=== PATIENT | female | born 1940 | race Caucasian/White ===

== ENCOUNTER 2017-03-07 16:24 | Inpatient (IN) ==
[2017-03-07] MEDS ORDERED: ACETAMINOPHEN 325 MG TABLET PO ONE (17:13)
--- NOTE | 2017-03-07 17:44 | Emergency Department Note ---
Weakness HPI - General Chief complaint: Weakness Stated complaint: Weakness Time Seen by Provider: 03/07/17 16:32 Source: patient Mode of arrival: wheelchair Limitations: no limitations - History of Present Illness HPI Narrative: This pleasant 76-year-old female comes to the emergency room with generalized weakness and left-sided weakness and dry mouth. She reports that this is all related to an MS exacerbation and is exactly like previous ones including the dry mouth and some roughness to her tongue left-sided weakness. No effects on urination. Her MS doctor is Dr. Jyothi Paiz from [facility] in [place]. She feels cold but not having any chills or fever that she is aware of. She has a raging headache that also occurs with her exacerbations. Some dizziness and imbalance. Previously has had exacerbations of MS once or twice per year for which she has been given steroids. She believes they have only been 1 day treatments. Some have been in the emergency room. She has not always had MRIs or CT scans done previous to giving the medications as they have been presumptive diagnoses. - Related Data Home Medications Medication Instructions Recorded Confirmed Baclofen [Lioresal] 10 mg PO TID 12/26/14 03/14/16 Raloxifene HCl [Evista] 60 mg PO DAILY 12/26/14 03/14/16 Amantadine HCl [Amantadine] 100 mg PO BID 05/31/15 03/14/16 Acetaminophen [Tylenol Extra 500 mg PO Q6H PRN 11/07/15 03/14/16 Strength] Aspirin [Ecotrin] 325 mg PO DAILY 11/07/15 03/14/16 Multivitamin [Multi-Day Vitamins] 1 each PO DAILY 11/07/15 03/14/16 Previous Rx's Medication Instructions Recorded Cefdinir 300 mg PO BID #6 capsule 11/09/15 HYDROcodone/APAP 5/325MG [[place] 1 tab PO Q4HP PRN #20 tablet 02/08/16 5/325Mg] HYDROcodone/APAP 5/325MG [[place] 1 tab PO Q4HP PRN #10 tablet 02/16/16 5/325Mg] Vancomycin Oral Zaynab 250 mg PO Q6 14 Days bottle 02/16/16 Allergies Allergy/AdvReac Type Severity Reaction Status Date / Time Penicillins Allergy Intermediate Rash Verified 03/07/17 16:29 Review of Systems Review of Systems: General: Some cold intolerance here this evening. No fevers. Cardiovascular: No chest pains or palpitations. She does have some occasional swelling of her lower legs ankles and feet. Has had a murmur in the past. Pulmonary: No shortness of breath or cough or wheezing; she sometimes is a mouth breather she admits. : Occasional dysuria. Neuro: See above Endocrine: Does have fatigue. Past Medical History - Past Medical History Medical history: Reports: arthritis, cancer (Endometrial, remotely.), CVA (Long time ago.), other (advanced MS, raynaud's phenomenon, heart murmur). Denies: COPD, coronary artery disease, diabetes, GERD, hypertension, myocardial infarction, thyroid disease Surgical history ED: Reports: hysterectomy (for endometrial cancer), knee replacement Psychiatric history: Reports: no psych history. Denies: anxiety, depression - Social History smoking status: Former smoker Alcohol use: Reports: None, Occasionally (white wine 1-2 X/wk.) Drug use: Reports: none Physical Exam - General Limitations: no limitations General appearance: alert, other (Seems to be weak and lethargic and mouth breathing with eyes mostly closed most of the time although responds.) - Head Head exam: atraumatic, normocephalic - Eye Eye exam: Present: normal appearance, PERRL - ENT ENT exam: mucous membranes dry, other ([place] furry tongue.) - Neck Neck exam: Present: trachea midline. Absent: tenderness, lymphadenopathy - Respiratory Respiratory exam: Present: normal lung sounds bilaterally. Absent: respiratory distress, wheezes, stridor, accessory muscle use, prolonged expiratory phase - Cardiovascular Cardiovascular exam: Present: regular rate, normal rhythm, systolic murmur ( loud 3/6, loudest systolic, little less upper left sternal border, radiating to right carotid (vs. bruit)). Absent: diastolic murmur - Abdominal Exam Abdominal exam: Present: soft. Absent: distention, tenderness, guarding, rebound, rigidity - Extremities Exam Extremities exam: Present: other ([place] mottled cool but without cyanosis.) - Back Exam Back exam: Absent: tenderness - Neurological Exam Neurological exam: Present: alert, oriented X3, other (Specimen Accessioner and upper extremity strength for pulling and pushing away seem to be symmetric and appropriate. Thigh flexion and extension seem to be symmetric and appropriate. Plantar and dorsiflexion of the left ankle seem to be weaker than the right.) - Psychiatric Psychiatric exam: Present: normal mood, flat affect - Skin Skin exam: Present: warm, dry, intact Course Vital Signs Temperature 99.0 F H 03/07/17 16:25 Pulse Rate 107 H 03/07/17 16:25 Respiratory Rate 18 03/07/17 16:25 Blood Pressure 157/77 03/07/17 16:25 Pulse Oximetry (%) 99 03/07/17 16:25 Temperature 99.4 F H 03/07/17 18:51 Pulse Rate 98 H 03/07/17 19:31 Respiratory Rate 18 03/07/17 19:31 Blood Pressure 124/55 03/07/17 19:31 Pulse Oximetry (%) 94 03/07/17 19:31 Weakness - MDM Narrative Medical decision making narrative: I discussed with patient the possibilities of giving her steroid treatment in the emergency room. First needing labs to be reassured that she is stable and otherwise, electrolytes, sugar baseline level, make sure she does not have a significant UTI, or other factors that would influence being on the steroid. Labs pending. 6:00 PM With borderline temperature and mild tachycardia and some shivering, the question of is there an infectious or other etiology also afflicting this patient seems pertinent. Lactic acid added. 6:43 PM Elevated WBC; SIRS/Sepsis protocol started started. NO STEROIDS FOR MS EXACERBATION. 7:45 PM patient's lab demonstrated a white count elevation of 25. Looking backwards he has frequently been at 15. Lactic acid was surprisingly low at 0.9 with a CRP surprisingly low in normal range. She had significant anemia with hemoglobin of 8.6 which was new. However, this is probably chronically acquired as she does not have major symptoms. This certainly could be the cause or contributing to her tachycardia. Previous last hemoglobin was 11.1 approximately 1 year ago. In light of the above information, patient's symptoms, probable need for IV steroids for exacerbation of multiple sclerosis, but needing to further rule out a septic pattern or picture, it was felt that she would be best served to be admitted. She will be admitted under observation. This was discussed with the hospitalist. CHEST X-RAY "SMALL VAGUE INFILTRATE RIGHT LUNG BASE. POTENTIAL LINGULAR INFILTRATE". Patient has already been started on antibiotics and this can be followed up. This may be the cause of her white count elevation. - Lab Data Result diagrams: 03/07/17 18:05 03/07/17 18:05 Lab Results 03/07/17 03/07/17 03/07/17 Range/Units 18:05 18:05 18:06 WBC 25.2 H (4.5-11.0) K/mcL RBC 4.12 (4.00-5.20) M/mcL Hgb 8.6 L (12.0-15.0) g/dL Hct 27.6 L (36.0-48.0) % MCV 67.0 L (80.0-100.0) fL MCH 20.8 L (26.0-34.0) pg MCHC 31.0 (31.0-36.0) g/dL RDW 18.8 H (11.5-14.5) % Plt Count 446 H (140-440) K/mcL MPV 8.8 (7.4-10.4) fL Gran % 94.2 H (38.0-78.0) % Lymph % (Auto) 1.3 L (15.5-49.0) % [place]yman % (Auto) 3.8 (1.0-12.0) % Eos % (Auto) 0.1 (0.0-7.0) % Baso % (Auto) 0.6 (0.0-2.0) % Gran # 23.7 H (1.8-8.0) K/mcL Lymph # (Auto) 0.3 L (1.5-4.8) K/mcL Lyman # (Auto) 1.0 H (0.1-0.9) K/mcL Eos # (Auto) 0 (0.0-0.7) K/mcL Baso # (Auto) 0.2 (0.0-0.3) K/mcL VBG Lactic Acid (0.5-2.2) mmol/L Sodium 139 (133-145) mmol/L Potassium 4.1 (3.3-5.1) mmol/L Chloride 98 (96-108) mmol/L Carbon Dioxide 25 (22-30) mmol/L Anion Gap 16.0 (8-16) BUN 16 (8-23) mg/dl Creatinine 0.5 L (0.6-1.1) mg/dl GFR Calculation 95 Glucose 89 (70-105) mg/dL Calcium 9.0 (8.6-10.4) mg/dl Total Bilirubin 0.4 (0.0-1.0) mg/dL AST 30 (0-37) U/l ALT 15 (0-40) U/l Alkaline Phosphatase 84 (39-117) U/L C-Reactive Protein 0.4 (0.0-0.8) mg/dl Total Protein 6.6 (5.9-8.4) gm/dL Albumin 4.1 (3.2-5.2) gm/dL Globulin 2.5 (2.2-3.7) gm/dL Albumin/Globulin Ratio 1.6 (1.0-2.3) Urine Color Yellow Urine Appearance Clear Urine pH 7.0 (5.0-9.0) Ur Specific [place] 1.014 (1.000-1.035) Urine Protein Neg (NEG) mg/dL Urine Glucose (UA) Negative (NEG) mg/dL Urine Ketones Neg (NEG) mg/dL Urine Occult Blood Neg (<0.03) mg/dL Urine Nitrate Neg (NEG) Urine Bilirubin Neg (NEG) mg/dL Urine Urobilinogen Neg (NEG) mg/dL Ur Leukocyte Esterase Neg (NEG) /uL Urine RBC 0 (0-1) /hpf Urine WBC 10 H (0-4) /hpf Ur Squamous Epith Cells 0 (0-4) /hpf Urine Bacteria 0 (0) /hpf Urine Mucus Few (0) /hpf Ur Culture Indicated? Yes 03/07/17 Range/Units 18:51 WBC (4.5-11.0) K/mcL RBC (4.00-5.20) M/mcL Hgb (12.0-15.0) g/dL Hct (36.0-48.0) % MCV (80.0-100.0) fL MCH (26.0-34.0) pg MCHC (31.0-36.0) g/dL RDW (11.5-14.5) % Plt Count (140-440) K/mcL MPV (7.4-10.4) fL Gran % (38.0-78.0) % Lymph % (Auto) (15.5-49.0) % Lyman % (Auto) (1.0-12.0) % Eos % (Auto) (0.0-7.0) % Baso % (Auto) (0.0-2.0) % Gran # (1.8-8.0) K/mcL Lymph # (Auto) (1.5-4.8) K/mcL Lyman # (Auto) (0.1-0.9) K/mcL Eos # (Auto) (0.0-0.7) K/mcL Baso # (Auto) (0.0-0.3) K/mcL VBG Lactic Acid 0.9 (0.5-2.2) mmol/L Sodium (133-145) mmol/L Potassium (3.3-5.1) mmol/L Chloride (96-108) mmol/L Carbon Dioxide (22-30) mmol/L Anion Gap (8-16) BUN (8-23) mg/dl Creatinine (0.6-1.1) mg/dl GFR Calculation Glucose (70-105) mg/dL Calcium (8.6-10.4) mg/dl Total Bilirubin (0.0-1.0) mg/dL AST (0-37) U/l ALT (0-40) U/l Alkaline Phosphatase (39-117) U/L C-Reactive Protein (0.0-0.8) mg/dl Total Protein (5.9-8.4) gm/dL Albumin (3.2-5.2) gm/dL Globulin (2.2-3.7) gm/dL Albumin/Globulin Ratio (1.0-2.3) Urine Color Urine Appearance Urine pH (5.0-9.0) Ur Specific [place] (1.000-1.035) Urine Protein (NEG) mg/dL Urine Glucose (UA) (NEG) mg/dL Urine Ketones (NEG) mg/dL Urine Occult Blood (<0.03) mg/dL Urine Nitrate (NEG) Urine Bilirubin (NEG) mg/dL Urine Urobilinogen (NEG) mg/dL Ur Leukocyte Esterase (NEG) /uL Urine RBC (0-1) /hpf Urine WBC (0-4) /hpf Ur Squamous Epith Cells (0-4) /hpf Urine Bacteria (0) /hpf Urine Mucus (0) /hpf Ur Culture Indicated? Disposition Pt seen by [facility]/PA only: No Clinical Impression: Multiple sclerosis exacerbation, Heart murmur, Right carotid bruit, Perineal irritation in female Leukocytosis (leucocytosis) Qualifiers: Leukocytosis type: leukemoid reaction Qualified Code(s): D72.823 - Leukemoid reaction Anemia Qualifiers: Anemia type: unspecified type Qualified Code(s): D64.9 - Anemia, unspecified Incontinence Qualifiers: Incontinence type: urinary Urinary Incontinence type: other incontinence Qualified Code(s): N39.498 - Other specified urinary incontinence Summary: See medical decision making. Seem to be relatively stable in the emergency room with no significant changes in her vitals. Condition: Fair Referrals: Ivan Yancey DO [Primary Care Provider] -
[2017-03-07 18:35] LABS: Basophils # (Auto) 0.2 K/mcL (0.0-0.3); Basophils % (Auto) 0.6 % (0.0-2.0); Eosinophils # (Auto) 0 K/mcL (0.0-0.7); Eosinophils % (Auto) 0.1 % (0.0-7.0); Granulocytes % (Auto) 94.2 % (38.0-78.0); Lymphocytes # (Auto) 0.3 K/mcL (1.5-4.8); Lymphocytes % (Auto) 1.3 % (15.5-49.0); Mean Corpuscular Hemoglobin 20.8 pg (26.0-34.0); Monocytes % (Auto) 3.8 % (1.0-12.0); Platelet Count 446 K/mcL (140-440); RBC 4.12 M/mcL (4.00-5.20); Red Cell Distribution Width 18.8 % (11.5-14.5)
[2017-03-07 18:45] LABS: Appearance,Urine CLEAR; Bacteria,Urine 0 /hpf (0); Bilirubin,Urine NEG (NEG); Color,Urine YELLOW; Glucose,Urine (UA) NEGATIVE (NEG); Leukocyte Esterase,Urine NEG /uL (NEG); Mucus,Urine FEW /hpf (0); Nitrate,Urine NEG (NEG); Protein,Urine NEG (NEG); Specific Gravity,Urine 1.014 (1.000-1.035); Urine Blood NEG mg/dL (<0.03); Urine RBC 0 /hpf (0-1); Urine Squamous Epithelial Cell 0 /hpf (0-4); Urine WBC 10 /hpf (0-4); Urobilinogen,Urine NEG (NEG)
[2017-03-07 18:53] LABS: ALT/SGPT 15 U/l (0-40); Albumin 4.1 gm/dL (3.2-5.2); Albumin/Globulin Ratio 1.6 (1.0-2.3); Alkaline Phosphatase 84 U/L (39-117); Blood Urea Nitrogen 16 mg/dl (8-23); C-Reactive Protein 0.4 mg/dl (0.0-0.8)
[2017-03-07] MEDS ORDERED: cefTRIAXone 1 GM in DEXTROSE 5% IN WATER 50 ML IV ONE (18:53)
[2017-03-07] MEDS ORDERED: 0.9 % SODIUM CHLORIDE 1,000 ML IV ONE (18:53)
[2017-03-07] MEDS ORDERED: VANCOMYCIN 1,000 MG in 0.9 % SODIUM CHLORIDE 250 ML IV ONE (18:54)
[2017-03-07] MEDS ORDERED: metroNIDAZOLE 500 MG/100 ML BAG IV ONE (18:56)
--- NOTE | 2017-03-07 19:11 | XRay Report ---
CLINICAL INFORMATION: Elevated white blood cell count and tachycardia COMPARISON: 02/10/2016 FINDINGS: The heart is mildly enlarged but unchanged. Mediastinum and pulmonary vessels are normal. Small infiltrate in the right lung base noted potential small lingular infiltrate also noted no definite effusion IMPRESSION: Small vague infiltrate - right lung base. Potential lingular infiltrate Interpreted and Authenticated by: Ivan Anthony 03/07/17
[2017-03-07 20:36] LABS: Estimated Average Glucose(eAG) 97 mg/dL
--- NOTE | 2017-03-07 20:44 | Internal Med History&Physical ---
Medical - H&P: HPI Patient information: Note initiated : 03/07/17 at 8:38 pm Service Date, if different from initiated Date: [] Patient: Inna Selby 76 y/o F admitted on for Weakness. Chief Complaint: legs are weak History of present illness: Ms. Selby is a 76 year old F with a history of multiple sclerosis and chronic left-sided weakness with fecal and urinary incontinence, history of recurrent UTI, history of C. difficile colitis who was in her usual state of health until yesterday when she began experiencing a burning sensation in her vaginal area. She presented to the ER today after having weakness in her bilateral lower extremities, left greater than right. She states this is typical of one of her MS flares. She initially presented to the ED requesting high-dose steroids as she has improved on this in the past. She was found to meet sirs criteria with a white count of 25 and tachycardia in the low 100s. She has new anemia and low -grade fever as well. Chest x-ray revealed a possible right lingular infiltrate. She denies any symptoms of pneumonia including shortness of breath, cough or fever. Her only symptom is vaginal discomfort. With her urinary incontinence she notes she has difficulty with skin care and is prone to recurrent urinary tract infections. She was treated with vancomycin, ceftriaxone and metronidazole in the ED. She has a history of C. difficile colitis. She denies any diarrhea. She denies any joint pain, soft tissue infection or myalgias. She had a febrile illness in 2013 that was attributed to upper respiratory infection versus SI joint infection that was treated with oral Ceftin. She denies any dental pain. She is newly anemic today with a hemoglobin of 8.6. She states she has been told she has been anemic in the past and has had endoscopy for evaluation. She denies any signs or symptoms of bleeding. She denies any tarry stools. She denies chest pain or shortness of breath or dizziness. Review of systems: Please see the HPI. Otherwise a comprehensive review of systems is negative or noncontributory to the chief complaint. Medical - H&P: PMH Medical history: PMH/PSH 1. 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 She is followed by Dr. Rafael Paiz. 2. History of fall with pubic rami fracture. 3. History of C. difficile colitis in 2016 4. UTI 5. History of gallstone pancreatitis and cholangitis status post cholecystectomy and ERCP in 2011 6. Endometrial carcinoma status post hysterectomy and radiation 7. Small bowel obstruction status post exploratory laparoscopy in 2009 8. Raynaud's 9. GERD 10. DJD Pertinent family history: Significant for a sister with lupus and father with diabetes and emphysema. Social history: She lives at home with her . They're both retired. She uses a cane or walker for ambulation. She quit smoking in 1985. She drinks white wine occasionally. She denies recreational drug use. She is DNR/DNI. Her is her surrogate medical decision maker. She is establishing care with Dr. Yancey as her primary care physician. Medical - H&P: Meds Home Medications Medication Instructions Recorded Confirmed Type Baclofen [Lioresal] 10 mg PO TID 12/26/14 03/07/17 History Amantadine HCl [Amantadine] 100 mg PO BID 05/31/15 03/07/17 History Aspirin [Aspirin EC] 81 mg PO DAILY 03/07/17 03/07/17 History Latanoprost Ophth Drops [Xalatan 1 gtt OU HS 03/07/17 03/07/17 History Ophth Drops] Mirabegron [Myrbetriq] 50 mg PO DAILY 03/07/17 03/07/17 History Potassium Chloride [Kdur] 20 meq PO TIDCC 03/07/17 03/07/17 History Allergies Allergy/AdvReac Type Severity Reaction Status Date / Time Penicillins Allergy Intermediate Rash Verified 03/07/17 16:29 Medical - H&P: Exam - Constitutional Vitals: Temp Pulse Resp BP Pulse Ox 99.4 F H 98 H 15 114/75 93 03/07/17 18:51 03/07/17 20:24 03/07/17 20:24 03/07/17 20:01 03/07/17 20:24 General: Frail, pleasant, NAD HEENT: Normocephalic atraumatic. Left-sided ptosis. Pupils are reactive. Neck: Supple without lymphadenopathy or JVD CV: Regular, mild tachycardia. 2/6 Systolic murmur best heard at the right upper sternal border Pulmonary: No excessive muscle use. Clear to auscultation bilaterally. Abdomen: Soft, protuberant. Nontender. Positive bowel tones. : External genitalia is erythematous with intertrigo in the groin folds. Extremities: 2+ edema. No clubbing or cyanosis Skin: Intertrigo as above. She is warm to the touch in her hands are red consistent with Raynaud's Neuro: Alert and oriented 3. Left-sided ptosis. The right corner of her mouth is lower, but she does not really have a facial droop. Strength is symmetric in her bilateral upper extremities. Right lower extremity--she is able to lift her leg off the bed against gravity. 4+/5 with ankle flexion and extension. Left lower extremity--4/5 w ankle flexion and extension. Unable to lift leg against gravity. Medical - H&P: Reslt - Labs CBC & Chem 7: 03/07/17 18:05 03/07/17 18:05 Labs: Short CBC 03/07/17 Range/Units 18:05 WBC 25.2 H (4.5-11.0) K/mcL Hgb 8.6 L (12.0-15.0) g/dL Hct 27.6 L (36.0-48.0) % Plt Count 446 H (140-440) K/mcL BMP 03/07/17 18:05 Sodium 139 Potassium 4.1 Chloride 98 Carbon Dioxide 25 BUN 16 Creatinine 0.5 L Glucose 89 Calcium 9.0 Liver Function 03/07/17 Range/Units 18:05 Total Bilirubin 0.4 (0.0-1.0) mg/dL AST 30 (0-37) U/l ALT 15 (0-40) U/l Alkaline Phosphatase 84 (39-117) U/L Albumin 4.1 (3.2-5.2) gm/dL Urine 03/07/17 Range/Units 18:06 Urine Color Yellow Urine Appearance Clear Urine pH 7.0 (5.0-9.0) Ur Specific [place] 1.014 (1.000-1.035) Urine Protein Neg (NEG) mg/dL Urine Glucose (UA) Negative (NEG) mg/dL - Impressions Chest x-ray shows a questionable right lingular infiltrate. Medical - H&P: A/P - Narrative A/P Narrative: This is a 76-year-old female with a history of multiple sclerosis who presents with MS flare and sepsis of unknown etiology. #Sepsis of unknown etiology lactate normal Differential includes UTI although urine dip is reassuring. Will send for culture and continue empiric antibiotics with vanco, ceftriaxone and metronidazole. Monitor for recurrent C. difficile. Also consider viral infection, bacteremia or osteomyelitis. Continue close clinical monitoring for localizing symptoms. I do not really think she has pneumonia as she has no respiratory symptoms currently. Will check pro-calcitonin and follow-up cultures. #Anemia, microcytic Hemoglobin down to 8.6 from 11.1 last year. History of prior anemia with endoscopic workup. Plan: 1. Will start with iron studies, reticulocyte count and peripheral smear. Consider LDH, haptoglobin, B12, folate, TSH if initial studies are unremarkable. 2. Trend H&H. Transfuse if hemoglobin less than 7.0 or symptomatic. 3. Hold home ASA. #MS flare, likely secondary to infection. I'm hesitant to treat her with high- dose steroids in the setting of unknown infection. We'll continue with neuro checks and continue home meds. PT evaluation. Monitor closely. #Thrombocytosis, likely reactive Continue treatment as above. Monitor. #Intertrigo-will give oral fluconazole x 1 #DVT prophylaxis: SCDs until hemoglobin is known to be stable. #CODE STATUS: She is DNR/DNI. Her is her surrogate medical decision maker.
[2017-03-07] MEDS ORDERED: ONDANSETRON 4 MG/2 ML VIAL IV PRN ×2 (21:07→22:31)
[2017-03-07] MEDS ORDERED: ACETAMINOPHEN 325 MG TABLET PO PRN (21:07)
[2017-03-07] MEDS ORDERED: FLUCONAZOLE 150 MG TABLET PO ONE (21:16)
[2017-03-07] MEDS ORDERED: VANCOMYCIN PER PHARMACY IV SCH (21:16)
[2017-03-07] MEDS ORDERED: 0.9 % SODIUM CHLORIDE 10 ML SYRINGE IV SCH (22:00)
[2017-03-07 22:18] LABS: Iron 17 mcg/dl (37-145); Transferrin % Saturation 3 % (15-50); Unsaturated Iron Binding 439 mcg/dL (112-346)
[2017-03-07] MEDS: VANCOMYCIN 1,000 MG in 0.9 % SODIUM CHLORIDE 250 ML IV SCH (23:11)
[2017-03-07 23:14] LABS: Retic Absolute 1.2 % (0.5-1.5)
[2017-03-08] MEDS: metroNIDAZOLE 500 MG/100 ML BAG IV SCH ×5 (00:53→23:10)
[2017-03-08] MEDS: ACETAMINOPHEN 325 MG TABLET PO PRN ×2 (00:58→08:20)
[2017-03-08] MEDS: 0.9 % SODIUM CHLORIDE 250 ML IV SCH ×2 (01:00→14:16)
[2017-03-08] MEDS ORDERED: ACETAMINOPHEN 325 MG TABLET PO ONE (01:03)
[2017-03-08 05:24] LABS: Mean Cell Volume 67.6 fL (80.0-100.0); Mean Corpuscular HGB Conc 30.9 g/dL (31.0-36.0); Mean Corpuscular Hemoglobin 20.9 pg (26.0-34.0); Platelet Count 404 K/mcL (140-440); RBC 3.47 M/mcL (4.00-5.20); Red Cell Distribution Width 19.1 % (11.5-14.5)
[2017-03-08 05:47] LABS: ALT/SGPT 8 U/l (0-40); Albumin 3.3 gm/dL (3.2-5.2); Albumin/Globulin Ratio 1.7 (1.0-2.3); Alkaline Phosphatase 68 U/L (39-117); Bilirubin,Direct < 0.2 mg/dL (0.0-0.3); Blood Urea Nitrogen 11 mg/dl (8-23); Gamma Glutamyl Transpeptidase 12 U/L (5-36); Magnesium 1.9 mg/dL (1.6-2.5); Uric Acid 2.3 mg/dL (2.5-8.0)
[2017-03-08] MEDS: 0.9 % SODIUM CHLORIDE 10 ML SYRINGE IV SCH ×3 (05:52→20:22)
[2017-03-08 07:25] LABS: Anisocytosis 1+ (NONE SEEN); Hypochromasia 2+ (NONE SEEN); Lymphocytes % 2 % (15-49); Monocytes % (Manual) 2 % (1-12); Platelet Estimate NORMAL (NORMAL); RBC Morphology ABNORM (NORMAL); Segmented Neutrophils % 96 % (38-78)
[2017-03-08] MEDS: POTASSIUM CHLORIDE 20 MEQ TABLET PO SCH ×3 (08:19→17:36)
[2017-03-08] MEDS: AMANTADINE HCL 100 MG CAPSULE PO SCH ×2 (08:19→20:18)
[2017-03-08] MEDS: BACLOFEN 10 MG TABLET PO SCH ×3 (08:19→20:17)
[2017-03-08] MEDS: cefTRIAXone 1 GM in DEXTROSE 5% IN WATER 50 ML IV SCH (08:44)
[2017-03-08] MEDS ORDERED: cefTRIAXone 1 GM in DEXTROSE 5% IN WATER 50 ML IV SCH (09:00)
[2017-03-08] MEDS ORDERED: IRON SUCROSE COMPLEX 100 MG/5 ML VIAL IV ONE (09:30)
[2017-03-08] MEDS: VANCOMYCIN 1,000 MG in 0.9 % SODIUM CHLORIDE 250 ML IV SCH (10:42)
--- NOTE | 2017-03-08 14:10 | Internal Med Progress Note ---
Medical - PN: Subj Patient information: Note initiated : 03/08/17 at 2:03 pm Service Date, if different from initiated Date: [] Patient: Inna Selby 76 y/o F admitted on 03/07/17 for Weakness. Chief Complaint: Left leg weakness, sepsis Interval history: Admission March 07: This is a 76-year-old female with a history of multiple sclerosis and chronic left leg weakness with fecal and urinary incontinence, history of recurrent UTI , history of C. difficile colitis who presented with a one-day history of vaginal burning and worsening left leg weakness and it has sepsis of unknown etiology and new anemia. She was treated with them. Vancomycin, ceftriaxone and metronidazole for sepsis as well as receiving a dose of oral fluconazole for a groin yeast infection. She was found to be newly anemic with a hemoglobin of 8.6. She has had microcytic anemia and the past. March 08: Her white count has improved from 25 to 19. Unfortunately her hemoglobin has also worsened to 7.3 but I suspect this is dilutional and she has had no signs of bleeding. She is feeling better today. Cultures are still negative. Her left eye is drooping last, but her left leg is still weaker than normal. She states that she normally has L leg weakness but that this is not significant until the afternoon. Her vaginal burning and mons pubis irritation is improving. Pertinent ROS: No fevers, nausea or shortness of breath. - Constitutional Vitals: Vital Signs Temp Pulse Resp BP Pulse Ox 98.5 F 68 18 138/62 96 03/08/17 11:14 03/08/17 03:52 03/08/17 11:14 03/08/17 11:14 03/08/17 11:14 Period Temp Pulse Resp BP Sys/Ellis Pulse Ox Last 24 Hr 97.9 F-99.4 F 68-112 15-27 111-169/49-81 91-100 Intake and Output 03/08/17 03/08/17 03/08/17 05:59 13:59 21:59 Intake Total 100 / 100 400 / 400 Output Total 3 / 3 Balance 99 / 99 397 / 397 Weight 120 lb General: NAD. She seems more alert than last night. HEENT: Improving left-sided ptosis. CV: Regular rate and rhythm. No murmurs. Pulmonary: Clear to auscultation bilaterally. Abdomen: Soft, nondistended, nontender. Positive bowel tones. Extremities: No clubbing, cyanosis or edema. She is wearing SHANE hose bilaterally. Her hands have continues consistent with Raynaud's Neuro: She is alert and oriented 3. Still has left leg weakness Intake & Output: Intake & Output 03/08/17 03/08/17 03/08/17 05:59 13:59 21:59 Intake Total 100 / 100 400 / 400 Output Total Balance 99 / 99 397 / 397 Weight 120 lb Intake: IV 100 / 100 400 / 400 Vancomycin 1,000 mg In Sodium 250 / 250 Chloride 0.9% 250 ml @ 250 mls/ hr IV Q24H SAUNDRA Rx#:[id number] Rocephin 1 gm In Dextrose 5% in 50 / 50 Water 50 ml @ 100 mls/hr IV Q24H SAUNDRA Rx#:[id number] Output: # of times incontinent of urine Other: # Voids 1 # Bowel Movements 1 # of times incontinent of 1 Bowels Medical - PN: Obj Da - Labs CBC & Chem 7: 03/08/17 04:14 03/08/17 04:14 Labs: Abnormal Lab Results 03/08/17 03/08/17 03/07/17 04:14 04:14 18:06 WBC 19.7 H RBC 3.47 L Hgb 7.3 L Hct 23.5 L MCV 67.6 L MCH 20.9 L MCHC 30.9 L RDW 19.1 H Plt Count Gran % Lymph % (Auto) Gran # Lymph # (Auto) [place] # (Auto) Seg Neutrophils % 96 H Lymphocytes % 2 L RBC Morphology Abnorm A Hypochromasia 2+ A Anisocytosis 1+ A Microcytosis 3+ A Creatinine Uric Acid 2.3 L Calcium 8.2 L Iron TIBC Unsat Iron Binding Transferrin % Sat Ferritin Total Protein 5.2 L Globulin 1.9 L Urine WBC 10 H 03/07/17 03/07/17 03/07/17 18:05 18:05 18:05 WBC 25.2 H RBC Hgb 8.6 L Hct 27.6 L MCV 67.0 L MCH 20.8 L MCHC RDW 18.8 H Plt Count 446 H Gran % 94.2 H Lymph % (Auto) 1.3 L Gran # 23.7 H Lymph # (Auto) 0.3 L [place] # (Auto) 1.0 H Seg Neutrophils % Lymphocytes % RBC Morphology Hypochromasia Anisocytosis Microcytosis Creatinine 0.5 L Uric Acid Calcium Iron 17 L TIBC 456 H Unsat Iron Binding 439 H Transferrin % Sat 3 L Ferritin 7.0 L Total Protein Globulin Urine WBC Meds: Medications Acetaminophen (Tylenol) 650 mg PO Q6HP PRN PRN Reason: PAIN/FEVER > 101 Last Admin: 03/08/17 08:20 Dose: 650 mg Amantadine HCl (Amantadine) 100 mg PO BID [facility] Last Admin: 03/08/17 08:19 Dose: 100 mg Baclofen (Lioresal) 10 mg PO TID [facility] Last Admin: 03/08/17 08:19 Dose: 10 mg Metronidazole (Flagyl) 500 mg in 100 mls @ 100 mls/hr IV Q8H [facility] Last Infusion: 03/08/17 06:51 Dose: Infused Vancomycin HCl 1,000 mg/ (Sodium Chloride) 250 mls @ 250 mls/hr IV Q24H [facility] Last Infusion: 03/08/17 12:05 Dose: Infused Ceftriaxone Sodium 1 gm/ (Dextrose) 50 mls @ 100 mls/hr IV Q24H [facility] Last Infusion: 03/08/17 09:14 Dose: Infused Sodium Chloride (Sodium Chloride 0.9%) 250 mls @ 20 mls/hr IV .[id number] [facility] Last Admin: 03/08/17 01:00 Dose: Not Given Lactobacillus Rhamnosus (Culturelle) 1 cap PO BID [facility] Latanoprost (Xalatan Ophth Drops) 1 gtt OU HS [facility] Ondansetron HCl (Zofran) 4 mg IV Q6HP PRN PRN Reason: Nausea And Vomiting Mirabegron [ (Myrbetriq] 50 Mg Tab) 1 dose PO DAILY [facility] Last Admin: 03/08/17 08:21 Dose: 1 dose Potassium Chloride (Kdur) 20 meq PO TIDCC [facility] Last Admin: 03/08/17 12:38 Dose: 20 meq Sodium Chloride (Saline Flush) 10 ml IV Q8 [facility] Last Admin: 03/08/17 13:55 Dose: Not Given Vancomycin HCl (Vancomycin Per Pharmacy) 1 order IV UD [facility] Medical - PN: A/P - Time Spent With Patient Total time spent is greater than 50% in coordination of care (as documented) at patient's floor/unit and/or counseling patient: Greater than 35 minutes - Narrative A/P Narrative: #Sepsis of unknown etiology lactate normal; PCT 0.32 Differential includes UTI although urine dip is reassuring. F/U urine cx and continue empiric antibiotics with vanco, ceftriaxone and metronidazole. consider DC of vanco tomorrow if cx remain negative. Monitor for recurrent C. difficile. Also consider viral infection, bacteremia or osteomyelitis. Continue close clinical monitoring for localizing symptoms. I do not really think she has pneumonia as she has no respiratory symptoms currently. #Anemia, microcytic--Fe deficiency Hemoglobin down to 7.3 from 8.6 on admission. History of prior anemia with endoscopic workup. Plan: 1. IV iron. Microdraws. Trend again in AM. Transfuse if Hgb less than 7.0. #MS flare, likely secondary to infection. I'm hesitant to treat her with high- dose steroids in the setting of unknown infection. We'll continue with neuro checks and continue home meds. PT evaluation. Monitor closely. #Thrombocytosis, likely reactive Improved. Continue treatment as above. Monitor. #Intertrigo, improved. s/p oral fluconazole x 1 #DVT prophylaxis: SCDs until hemoglobin is known to be stable. #CODE STATUS: She is DNR/DNI. Her is her surrogate medical decision maker. Medical - PN: Qual - VTE Deep Vein Thrombosis/Pulmonary Embolism Present on Admission: No
[2017-03-08] MEDS: LATANOPROST OPHTH DROPS 2.5ML BOTTLE OU SCH (20:18)
[2017-03-08] MEDS: LACTOBACILLUS 1 CAPSULE PO SCH (20:18)
[2017-03-09] MEDS: ACETAMINOPHEN 325 MG TABLET PO PRN ×2 (00:29→22:44)
[2017-03-09] MEDS: 0.9 % SODIUM CHLORIDE 250 ML IV SCH ×3 (01:09→23:48)
[2017-03-09] MEDS: 0.9 % SODIUM CHLORIDE 10 ML SYRINGE IV SCH ×3 (05:48→22:04)
[2017-03-09] MEDS: metroNIDAZOLE 500 MG/100 ML BAG IV SCH ×2 (05:48→13:34)
[2017-03-09 06:23] LABS: Mean Cell Volume 68.1 fL (80.0-100.0); Mean Corpuscular HGB Conc 30.6 g/dL (31.0-36.0); Mean Corpuscular Hemoglobin 20.8 pg (26.0-34.0); Platelet Count 360 K/mcL (140-440); RBC 4.03 M/mcL (4.00-5.20); Red Cell Distribution Width 19.5 % (11.5-14.5)
[2017-03-09 06:56] LABS: ALT/SGPT 10 U/l (0-40); Albumin 3.3 gm/dL (3.2-5.2); Albumin/Globulin Ratio 1.5 (1.0-2.3); Alkaline Phosphatase 73 U/L (39-117); Bilirubin,Direct < 0.2 mg/dL (0.0-0.3); Blood Urea Nitrogen 8 mg/dl (8-23); Gamma Glutamyl Transpeptidase 9 U/L (5-36); Magnesium 1.9 mg/dL (1.6-2.5); Uric Acid 2.4 mg/dL (2.5-8.0)
[2017-03-09 07:15] LABS: Anisocytosis 1+ (NONE SEEN); Basophils % (Manual) 1 % (0-2); Eosinophils % (Manual) 3 % (0-7); Hypochromasia 2+ (NONE SEEN); Lymphocytes % 9 % (15-49); Monocytes % (Manual) 3 % (1-12); Platelet Estimate NORMAL (NORMAL); RBC Morphology ABNORM (NORMAL); Segmented Neutrophils % 84 % (38-78)
[2017-03-09] MEDS ORDERED: IRON SUCROSE COMPLEX 100 MG/5 ML VIAL IV ONE (07:31)
[2017-03-09] MEDS: POTASSIUM CHLORIDE 20 MEQ TABLET PO SCH ×3 (09:21→17:49)
[2017-03-09] MEDS: LACTOBACILLUS 1 CAPSULE PO SCH ×2 (09:21→20:07)
[2017-03-09] MEDS: BACLOFEN 10 MG TABLET PO SCH ×3 (09:22→20:07)
[2017-03-09] MEDS: cefTRIAXone 1 GM in DEXTROSE 5% IN WATER 50 ML IV SCH (09:22)
[2017-03-09] MEDS: AMANTADINE HCL 100 MG CAPSULE PO SCH ×2 (09:40→20:08)
[2017-03-09] MEDS ORDERED: FLU VACC QS2017-18 36MOS UP/PF 60 MCG/0.5 ML SYRINGE IM ONE (10:00)
--- NOTE | 2017-03-09 15:22 | Internal Med Progress Note ---
Medical - PN: Subj Patient information: Note initiated : 03/09/17 at 3:19 pm Service Date, if different from initiated Date: [] Patient: Inna Selby 76 y/o F admitted on 03/07/17 for Weakness. Chief Complaint: [] Interval history: Admission March 07: This is a 76-year-old female with a history of multiple sclerosis and chronic left leg weakness with fecal and urinary incontinence, history of recurrent UTI , history of C. difficile colitis who presented with a one-day history of vaginal burning and worsening left leg weakness and it has sepsis of unknown etiology and new anemia. She was treated with them. Vancomycin, ceftriaxone and metronidazole for sepsis as well as receiving a dose of oral fluconazole for a groin yeast infection. She was found to be newly anemic with a hemoglobin of 8.6. She has had microcytic anemia and the past. March 08: Her white count has improved from 25 to 19. Unfortunately her hemoglobin has also worsened to 7.3 but I suspect this is dilutional and she has had no signs of bleeding. She is feeling better today. Cultures are still negative. Her left eye is drooping last, but her left leg is still weaker than normal. She states that she normally has L leg weakness but that this is not significant until the afternoon. Her vaginal burning and mons pubis irritation is improving. March 09: Was incontinent of stool today and found to be C. difficile positive. On further questioning, she likely had diarrhea the day of presentation and so her entire presentation is likely related to severe C. difficile colitis. Vancomycin, ceftriaxone and metronidazole have been discontinued in favor of oral vancomycin. She is getting stronger, but is still not back to baseline. Her leukocytosis is improving. Hgb improved and she continues on IV Fe. Pertinent ROS: no fever or cp - Constitutional Vitals: Vital Signs Temp Pulse Resp BP Pulse Ox 98.2 F 79 16 123/70 96 03/09/17 12:00 03/09/17 12:00 03/09/17 12:00 03/09/17 12:00 03/09/17 12:00 Period Temp Pulse Resp BP Sys/Ellis Pulse Ox Last 24 Hr 98.0 F-98.5 F 79-91 14-18 123-168/60-80 92-96 Intake and Output 03/09/17 03/09/17 03/09/17 05:59 13:59 21:59 Intake Total 700 / 700 710 / 710 100 / 100 Output Total Balance 698 / 698 709 / 709 100 / 100 Intake & Output: Intake & Output 03/09/17 03/09/17 03/09/17 05:59 13:59 21:59 Intake Total 700 / 700 710 / 710 100 / 100 Output Total Balance 698 / 698 709 / 709 100 / 100 Intake: IV 100 / 100 350 / 350 100 / 100 Sodium Chloride 0.9% 250 ml @ 250 / 250 20 mls/hr IV .[id number] [facility]UNDRA Rx#: [id number] Oral 600 / 600 360 / 360 Output: # of times incontinent of urine Other: Meal Lunch Percent of Meal Consumed 75% Feeding Ability Assist with Tray Set Up # Voids 1 # Bowel Movements 1 General: NAD. Up in chair. HEENT: Improving left-sided ptosis. CV: Regular rate and rhythm. No murmurs. Pulmonary: Clear to auscultation bilaterally. Abdomen: Soft, nondistended, nontender. Positive bowel tones. Extremities: No clubbing, cyanosis or edema. She is wearing SHANE hose bilaterally. Her hands have changes consistent with Raynaud's Neuro: She is alert and oriented 3. Still has left leg weakness Medical - PN: Obj Da - Labs CBC & Chem 7: 03/09/17 04:58 03/09/17 04:58 Labs: Abnormal Lab Results 03/09/17 03/09/17 03/08/17 04:58 04:58 04:14 WBC RBC Hgb 8.4 L Hct 27.4 L MCV 68.1 L MCH 20.8 L MCHC 30.6 L RDW 19.5 H Plt Count Gran % Lymph % (Auto) Gran # Lymph # (Auto) [place] # (Auto) Seg Neutrophils % 84 H Lymphocytes % 9 L RBC Morphology Abnorm A Hypochromasia 2+ A Anisocytosis 1+ A Microcytosis 3+ A RBC Fragments Rare A Creatinine 0.5 L Uric Acid 2.4 L 2.3 L Calcium 8.2 L Iron TIBC Unsat Iron Binding Transferrin % Sat Ferritin Total Protein 5.5 L 5.2 L Globulin 1.9 L Urine WBC 0903/07/17 03/07/17 04:14 18:06 18:05 WBC 19.7 H RBC 3.47 L Hgb 7.3 L Hct 23.5 L MCV 67.6 L MCH 20.9 L MCHC 30.9 L RDW 19.1 H Plt Count Gran % Lymph % (Auto) Gran # Lymph # (Auto) [place] # (Auto) Seg Neutrophils % 96 H Lymphocytes % 2 L RBC Morphology Abnorm A Hypochromasia 2+ A Anisocytosis 1+ A Microcytosis 3+ A RBC Fragments Creatinine Uric Acid Calcium Iron 17 L TIBC 456 H Unsat Iron Binding 439 H Transferrin % Sat 3 L Ferritin 7.0 L Total Protein Globulin Urine WBC 10 H 03/07/17 03/07/17 18:05 18:05 WBC 25.2 H RBC Hgb 8.6 L Hct 27.6 L MCV 67.0 L MCH 20.8 L MCHC RDW 18.8 H Plt Count 446 H Gran % 94.2 H Lymph % (Auto) 1.3 L Gran # 23.7 H Lymph # (Auto) 0.3 L [place] # (Auto) 1.0 H Seg Neutrophils % Lymphocytes % RBC Morphology Hypochromasia Anisocytosis Microcytosis RBC Fragments Creatinine 0.5 L Uric Acid Calcium Iron TIBC Unsat Iron Binding Transferrin % Sat Ferritin Total Protein Globulin Urine WBC Meds: Medications Acetaminophen (Tylenol) 650 mg PO Q6HP PRN PRN Reason: PAIN/FEVER > 101 Last Admin: 03/09/17 00:29 Dose: 650 mg Amantadine HCl (Amantadine) 100 mg PO BID [facility] Last Admin: 03/09/17 09:40 Dose: 100 mg Baclofen (Lioresal) 10 mg PO TID [facility] Last Admin: 03/09/17 09:22 Dose: 10 mg Sodium Chloride (Sodium Chloride 0.9%) 250 mls @ 20 mls/hr IV .[id number] [facility] Last Admin: 03/09/17 12:22 Dose: 20 mls/hr Lactobacillus Rhamnosus (Culturelle) 1 cap PO BID [facility] Last Admin: 03/09/17 09:21 Dose: 1 cap Latanoprost (Xalatan Ophth Drops) 1 gtt OU HS [facility] Last Admin: 03/08/17 20:18 Dose: 1 gtt Ondansetron HCl (Zofran) 4 mg IV Q6HP PRN PRN Reason: Nausea And Vomiting Mirabegron [ (Myrbetriq] 50 Mg Tab) 1 dose PO DAILY [facility] Last Admin: 03/09/17 09:22 Dose: 1 dose Potassium Chloride (Kdur) 20 meq PO TIDCC [facility] Last Admin: 03/09/17 12:21 Dose: 20 meq Sodium Chloride (Saline Flush) 10 ml IV Q8 [facility] Last Admin: 03/09/17 13:34 Dose: Not Given Vancomycin HCl (Vancomycin Oral Zaynab) 125 mg PO QID [facility] Medical - PN: A/P - Time Spent With Patient Total time spent is greater than 50% in coordination of care (as documented) at patient's floor/unit and/or counseling patient: Greater than 35 minutes - Narrative A/P Narrative: #Sepsis 2/2 severe C diff lactate normal; PCT 0.32 Poor historian, but thinks now that she had diarrhea on day of admission DC all current Abx. Change to po vancomycin. #Anemia, microcytic--Fe deficiency Hemoglobin stable. History of prior anemia with endoscopic workup. Consider repeating endoscopy after discharge. Plan: 1. IV iron x 3. Microdraws. Trend again in AM. Transfuse if Hgb less than 7.0. #MS flare, likely secondary to infection. Improving. Will continue with neuro checks and continue home meds. PT evaluation. Monitor closely. #Thrombocytosis, likely reactive Improved. Continue treatment as above. Monitor. #Intertrigo, improved. s/p oral fluconazole x 1 #DVT prophylaxis: SCDs until hemoglobin is known to be stable. #CODE STATUS: She is DNR/DNI. Her is her surrogate medical decision maker. #ADOD: possibly home tomorrow with . Medical - PN: Qual - VTE Deep Vein Thrombosis/Pulmonary Embolism Present on Admission: No
[2017-03-09] MEDS: VANCOMYCIN ORAL SOL 1,000 MG/10 ML BOTTLE PO SCH ×2 (17:50→20:08)
[2017-03-09] MEDS: LATANOPROST OPHTH DROPS 2.5ML BOTTLE OU SCH (20:07)
[2017-03-10] MEDS: 0.9 % SODIUM CHLORIDE 250 ML IV SCH ×2 (02:17→13:02)
[2017-03-10 05:42] LABS: Mean Cell Volume 66.8 fL (80.0-100.0); Mean Corpuscular Hemoglobin 20.7 pg (26.0-34.0); Platelet Count 429 K/mcL (140-440); RBC 3.96 M/mcL (4.00-5.20)
[2017-03-10 06:01] LABS: ALT/SGPT 9 U/l (0-40); Albumin 3.1 gm/dL (3.2-5.2); Albumin/Globulin Ratio 1.4 (1.0-2.3); Alkaline Phosphatase 68 U/L (39-117); Bilirubin,Direct < 0.2 mg/dL (0.0-0.3); Blood Urea Nitrogen 12 mg/dl (8-23); Gamma Glutamyl Transpeptidase 10 U/L (5-36); Magnesium 1.9 mg/dL (1.6-2.5); Uric Acid 2.5 mg/dL (2.5-8.0)
[2017-03-10] MEDS: 0.9 % SODIUM CHLORIDE 10 ML SYRINGE IV SCH ×3 (06:30→20:44)
[2017-03-10 06:34] LABS: Anisocytosis 1+ (NONE SEEN); Band Neutrophils % 1 % (0-10); Eosinophils % (Manual) 2 % (0-7); Hypochromasia 2+ (NONE SEEN); Lymphocytes % 11 % (15-49); Metamyelocytes % 1 % (0-0); Monocytes % (Manual) 12 % (1-12); Myelocytes % 1 % (0-0); Platelet Estimate NORMAL (NORMAL); RBC Morphology ABNORM (NORMAL); Segmented Neutrophils % 72 % (38-78)
[2017-03-10] MEDS ORDERED: IRON SUCROSE COMPLEX 100 MG/5 ML VIAL IV ONE (06:36)
[2017-03-10] MEDS: BACLOFEN 10 MG TABLET PO SCH ×3 (08:16→20:41)
[2017-03-10] MEDS: LACTOBACILLUS 1 CAPSULE PO SCH ×2 (08:16→20:41)
[2017-03-10] MEDS: POTASSIUM CHLORIDE 20 MEQ TABLET PO SCH ×3 (08:16→17:17)
[2017-03-10] MEDS: AMANTADINE HCL 100 MG CAPSULE PO SCH ×2 (08:17→20:42)
[2017-03-10] MEDS: VANCOMYCIN ORAL SOL 1,000 MG/10 ML BOTTLE PO SCH ×4 (08:28→20:42)
--- NOTE | 2017-03-10 11:45 | Internal Med Progress Note ---
Medical - PN: Subj Patient information: Note initiated : 03/10/17 at 11:42 am Service Date, if different from initiated Date: [] Patient: Inna Selby 76 y/o F admitted on 03/07/17 for Weakness/Sepsis. Chief Complaint: [] Interval history: Admission March 07: This is a 76-year-old female with a history of multiple sclerosis and chronic left leg weakness with fecal and urinary incontinence, history of recurrent UTI , history of C. difficile colitis who presented with a one-day history of vaginal burning and worsening left leg weakness and it has sepsis of unknown etiology and new anemia. She was treated with them. Vancomycin, ceftriaxone and metronidazole for sepsis as well as receiving a dose of oral fluconazole for a groin yeast infection. She was found to be newly anemic with a hemoglobin of 8.6. She has had microcytic anemia and the past. March 08: Her white count has improved from 25 to 19. Unfortunately her hemoglobin has also worsened to 7.3 but I suspect this is dilutional and she has had no signs of bleeding. She is feeling better today. Cultures are still negative. Her left eye is drooping last, but her left leg is still weaker than normal. She states that she normally has L leg weakness but that this is not significant until the afternoon. Her vaginal burning and mons pubis irritation is improving. March 09: Was incontinent of stool today and found to be C. difficile positive. On further questioning, she likely had diarrhea the day of presentation and so her entire presentation is likely related to severe C. difficile colitis. Vancomycin, ceftriaxone and metronidazole have been discontinued in favor of oral vancomycin. She is getting stronger, but is still not back to baseline. Her leukocytosis is improving. Hgb improved and she continues on IV Fe. March 10: She remains weak and is having difficulty getting around with her frequent bowel movements. She is receiving her last dose of IV iron today. Pertinent ROS: no fever or sob - Constitutional Vitals: Vital Signs Temp Pulse Resp BP Pulse Ox 97.8 F 80 16 121/62 90 03/10/17 11:24 03/10/17 04:00 03/10/17 11:24 03/10/17 11:24 03/10/17 11:24 Period Temp Pulse Resp BP Sys/Ellis Pulse Ox Last 24 Hr 97.4 F-98.4 F 79-85 16-18 121-167/59-80 90-98 Intake and Output 03/09/17 03/10/17 03/10/17 21:59 05:59 13:59 Intake Total 100 / 100 604 / 604 Output Total 2 / 2 Balance 99 / 99 602 / 602 Weight 118 lb Intake & Output: Intake & Output 03/09/17 03/10/17 03/10/17 21:59 05:59 13:59 Intake Total 100 / 100 604 / 604 Output Total 2 2 Balance 99 / 99 602 / 602 Weight 118 lb Intake: IV 100 / 100 229 / 229 Sodium Chloride 0.9% 250 ml @ 229 / 229 20 mls/hr IV .[id number] [facility]UNDAR Rx#: [id number] Oral 375 / 375 Output: # of times incontinent of urine Other: # Voids 1 1 # Bowel Movements 1 # of times incontinent of 1 1 Bowels Exam: General: NAD. Up in chair. HEENT: Mild left-sided ptosis. CV: Regular rate and rhythm. No murmurs. Pulmonary: Clear to auscultation bilaterally. Abdomen: Soft, nondistended, nontender. Positive bowel tones. Extremities: No clubbing, cyanosis or edema. She is wearing SHANE hose bilaterally. Her hands have changes consistent with Raynaud's Neuro: She is alert and oriented 3. Still has left leg weakness Medical - PN: Obj Da - Labs CBC & Chem 7: 03/10/17 04:35 03/10/17 04:35 Labs: Abnormal Lab Results 03/10/17 03/10/17 03/09/17 04:35 04:35 04:58 WBC 11.4 H RBC 3.96 L Hgb 8.2 L Hct 26.4 L MCV 66.8 L MCH 20.7 L MCHC RDW 20.0 H Plt Count Gran % Lymph % (Auto) Gran # Lymph # (Auto) [place] # (Auto) Seg Neutrophils % Lymphocytes % 11 L Metamyelocytes % 1 H Myelocytes % 1 H RBC Morphology Abnorm A Hypochromasia 2+ A Anisocytosis 1+ A Microcytosis 3+ A RBC Fragments Creatinine 0.5 L 0.5 L Uric Acid 2.4 L Calcium 8.5 L Iron TIBC Unsat Iron Binding Transferrin % Sat Ferritin Total Protein 5.3 L 5.5 L Albumin 3.1 L Globulin Urine WBC 03/09/17 03/08/17 03/08/17 04:58 04:14 04:14 WBC 19.7 H RBC 3.47 L Hgb 8.4 L 7.3 L Hct 27.4 L 23.5 L MCV 68.1 L 67.6 L MCH 20.8 L 20.9 L MCHC 30.6 L 30.9 L RDW 19.5 H 19.1 H Plt Count Gran % Lymph % (Auto) Gran # Lymph # (Auto) [place] # (Auto) Seg Neutrophils % 84 H 96 H Lymphocytes % 9 L 2 L Metamyelocytes % Myelocytes % RBC Morphology Abnorm A Abnorm A Hypochromasia 2+ A 2+ A Anisocytosis 1+ A 1+ A Microcytosis 3+ A 3+ A RBC Fragments Rare A Creatinine Uric Acid 2.3 L Calcium 8.2 L Iron TIBC Unsat Iron Binding Transferrin % Sat Ferritin Total Protein 5.2 L Albumin Globulin 1.9 L Urine WBC 03/07/17 03/07/17 03/07/17 18:06 18:05 18:05 WBC RBC Hgb Hct MCV MCH MCHC RDW Plt Count Gran % Lymph % (Auto) Gran # Lymph # (Auto) [place] # (Auto) Seg Neutrophils % Lymphocytes % Metamyelocytes % Myelocytes % RBC Morphology Hypochromasia Anisocytosis Microcytosis RBC Fragments Creatinine 0.5 L Uric Acid Calcium Iron 17 L TIBC 456 H Unsat Iron Binding 439 H Transferrin % Sat 3 L Ferritin 7.0 L Total Protein Albumin Globulin Urine WBC 10 H 03/07/17 18:05 WBC 25.2 H RBC Hgb 8.6 L Hct 27.6 L MCV 67.0 L MCH 20.8 L MCHC RDW 18.8 H Plt Count 446 H Gran % 94.2 H Lymph % (Auto) 1.3 L Gran # 23.7 H Lymph # (Auto) 0.3 L [place] # (Auto) 1.0 H Seg Neutrophils % Lymphocytes % Metamyelocytes % Myelocytes % RBC Morphology Hypochromasia Anisocytosis Microcytosis RBC Fragments Creatinine Uric Acid Calcium Iron TIBC Unsat Iron Binding Transferrin % Sat Ferritin Total Protein Albumin Globulin Urine WBC Meds: Medications Acetaminophen (Tylenol) 650 mg PO Q6HP PRN PRN Reason: PAIN/FEVER > 101 Last Admin: 03/09/17 22:44 Dose: 650 mg Amantadine HCl (Amantadine) 100 mg PO BID [facility] Last Admin: 03/10/17 08:17 Dose: 100 mg Baclofen (Lioresal) 10 mg PO TID [facility] Last Admin: 03/10/17 08:16 Dose: 10 mg Sodium Chloride (Sodium Chloride 0.9%) 250 mls @ 20 mls/hr IV .[id number] [facility] Last Admin: 03/10/17 02:17 Dose: Not Given Lactobacillus Rhamnosus (Culturelle) 1 cap PO BID [facility] Last Admin: 03/10/17 08:16 Dose: 1 cap Latanoprost (Xalatan Ophth Drops) 1 gtt OU HS [facility] Last Admin: 03/09/17 20:07 Dose: 1 gtt Ondansetron HCl (Zofran) 4 mg IV Q6HP PRN PRN Reason: Nausea And Vomiting Mirabegron [ (Myrbetriq] 50 Mg Tab) 1 dose PO DAILY [facility] Last Admin: 03/10/17 08:27 Dose: 1 dose Potassium Chloride (Kdur) 20 meq PO TIDCC [facility] Last Admin: 03/10/17 08:16 Dose: 20 meq Sodium Chloride (Saline Flush) 10 ml IV Q8 [facility] Last Admin: 03/10/17 06:30 Dose: Not Given Vancomycin HCl (Vancomycin Oral Zaynab) 125 mg PO QID [facility] Last Admin: 03/10/17 08:28 Dose: 125 mcg Medical - PN: A/P - Time Spent With Patient Total time spent is greater than 50% in coordination of care (as documented) at patient's floor/unit and/or counseling patient: 25 - 35 minutes - Narrative A/P Narrative: #Sepsis 2/2 severe C diff lactate normal; PCT 0.32 Poor historian, but thinks now that she had diarrhea on day of admission DC'd all current Abx. Cont po vanco x 10-14 days (start date 03/09). I sent an RX to her pharmacy to assess insurance coverage. I discussed with pt that given her recurrence of C diff, she should talk with PCP about the possibility of fecal transplant as she is likely to need Abx for UTI or other infection in future. #Anemia, microcytic--Fe deficiency Hemoglobin stable. History of prior anemia with endoscopic workup. Consider repeating endoscopy after discharge; discussed with patient and she will follow up. Plan: 1. IV iron x 3--last dose today. Microdraws. Trend again in AM. Transfuse if Hgb less than 7.0. #MS flare, likely secondary to infection. Improving. Will continue with neuro checks and continue home meds. PT evaluation. Monitor closely. #Thrombocytosis, likely reactive Improved. Continue treatment as above. Monitor. #Intertrigo, improved. s/p oral fluconazole x 1 #DVT prophylaxis: SCDs until hemoglobin is known to be stable. #CODE STATUS: She is DNR/DNI. Her is her surrogate medical decision maker. #ADOD: possibly home tomorrow with . Medical - PN: Qual - VTE Deep Vein Thrombosis/Pulmonary Embolism Present on Admission: No
[2017-03-10] MEDS: LATANOPROST OPHTH DROPS 2.5ML BOTTLE OU SCH (20:44)
[2017-03-11] MEDS: 0.9 % SODIUM CHLORIDE 250 ML IV SCH ×2 (01:40→13:34)
[2017-03-11 06:18] LABS: Mean Cell Volume 67.6 fL (80.0-100.0); Mean Corpuscular HGB Conc 31.1 g/dL (31.0-36.0); Platelet Count 363 K/mcL (140-440); Red Cell Distribution Width 19.8 % (11.5-14.5)
[2017-03-11 06:29] LABS: ALT/SGPT 11 U/l (0-40); Albumin 3.1 gm/dL (3.2-5.2); Albumin/Globulin Ratio 1.5 (1.0-2.3); Alkaline Phosphatase 66 U/L (39-117); Bilirubin,Direct < 0.2 mg/dL (0.0-0.3); Blood Urea Nitrogen 12 mg/dl (8-23); Gamma Glutamyl Transpeptidase 10 U/L (5-36); Magnesium 1.9 mg/dL (1.6-2.5); Uric Acid 2.1 mg/dL (2.5-8.0)
[2017-03-11 07:07] LABS: Anisocytosis 3+ (NONE SEEN); Band Neutrophils % 4 % (0-10); Basophils % (Manual) 2 % (0-2); Eosinophils % (Manual) 5 % (0-7); Hypochromasia 2+ (NONE SEEN); Lymphocytes % 16 % (15-49); Monocytes % (Manual) 7 % (1-12); Ovalocytes 1+ (NONE SEEN); Platelet Estimate NORMAL (NORMAL); RBC Morphology ABNORM (NORMAL); Segmented Neutrophils % 65 % (38-78)
[2017-03-11] MEDS: 0.9 % SODIUM CHLORIDE 10 ML SYRINGE IV SCH ×2 (07:42→13:34)
[2017-03-11] MEDS: BACLOFEN 10 MG TABLET PO SCH ×2 (08:00→14:02)
[2017-03-11] MEDS: POTASSIUM CHLORIDE 20 MEQ TABLET PO SCH ×2 (08:00→11:43)
[2017-03-11] MEDS: LACTOBACILLUS 1 CAPSULE PO SCH (08:00)
[2017-03-11] MEDS: AMANTADINE HCL 100 MG CAPSULE PO SCH (08:00)
[2017-03-11] MEDS: VANCOMYCIN ORAL SOL 1,000 MG/10 ML BOTTLE PO SCH ×2 (08:01→13:32)
--- NOTE | 2017-03-11 13:20 | Discharge Summary ---
Medical - DS: Prov Patient information: Note initiated : 03/11/17 at 1:17 pm Service Date, if different from initiated Date: [] Patient: Inna Selby 76 y/o F admitted on 03/07/17 for Weakness/Sepsis. Chief Complaint: [] Date of admission: 03/07/17 22:06 Discharge date: 03/11/17 Primary care physician: Ivan Yancey Attending physician on admission: Adelina Moody Consults: 03/07/17 19:53 Consult to Physician [CONS] Stat Comment: Consulting Provider: Adelina Moody Reason For Exam: Physician to Consult Discharging clinician: Jatinder Montejo Medical - DS: Meds - Discharge Medications Prescriptions: Vancomycin Oral Zaynab 125 mg PO QID #40 dose Active and Home Medications: Home Medications Baclofen [Lioresal] 10 mg PO TID 12/26/14 [History Confirmed 03/07/17 Last Taken 03/06/17 10 mg] Amantadine HCl [Amantadine] 100 mg PO BID 05/31/15 [History Confirmed 03/07/17 Last Taken 03/06/17 08:00 100 mg] Aspirin [Aspirin EC] 81 mg PO DAILY 03/07/17 [History Confirmed 03/07/17 Last Taken 03/06/17 81 mg] Latanoprost Ophth Drops [Xalatan Ophth Drops] 1 gtt OU HS 03/07/17 [History Confirmed 03/07/17 Last Taken 03/06/17 1 gtt] Mirabegron [Myrbetriq] 50 mg PO DAILY 03/07/17 [History Confirmed 03/07/17 Last Taken 03/06/17 50 mg] Potassium Chloride [Kdur] 20 meq PO TIDCC 03/07/17 [History Confirmed 03/07/17 Last Taken 03/07/17 20 meq] Vancomycin Oral Zaynab 125 mg PO QID #40 dose 03/09/17 [Rx Last Taken Unknown] Medical - DS: Hosp Hospital course: Ms Selby is a 76-year-old female with a history of multiple sclerosis and chronic left leg weakness with fecal and urinary incontinence, history of recurrent UTI, history of C. difficile colitis who presented with a one-day history of vaginal burning and worsening left leg weakness and it has sepsis of unknown etiology and new anemia. She was treated with them. Vancomycin, ceftriaxone and metronidazole for sepsis as well as receiving a dose of oral fluconazole for a groin yeast infection. She was found to be newly anemic with a hemoglobin of 8.6. She has had microcytic anemia and the past and has been worked up for same. The sepsis was secondary to Cdiff colitis, no other source was found, the patient was started on po vancomycin with good response to treatment. She has improved stool consistency and this AM only has had 2 formed stools. The patient has h/o MS and has some weakness in the left leg, which is stable and improving which is related to her MS which exacerbates with infection. She will need ongoing PHysical therapy which has been set up for her Anemia: seems like a chr issue, she has been worked up for same as oupatient in the past, she received 3 doses of IV iron for iron def anemia. She will need to follow up with PCP/ GI for further eval and treatment. May benefit from repeat scopy. The rest of the stay in the hospital was uneventful, no c hanges done to her home medication. She will take oral vancomycin x 10 more days Discharge diagnosis: Cdiff diarrhea, Sepsis - Time Spent with Patient Total time spent providing and/or coordinating discharge services: Greater than 30 minutes Medical - DS: Exam - Constitutional Vitals: Vital Signs Temp Pulse Resp BP BP Pulse Ox 03/11/17 12:00 97.6 F 18 118/66 96 03/11/17 08:00 96.7 F L 86 16 112/46 99 03/11/17 07:39 96.7 F L 86 16 112/46 99 03/11/17 04:00 98.6 F 82 16 124/68 96 03/10/17 22:55 96.8 F L 83 18 151/60 96 03/10/17 20:00 97.6 F 83 18 140/60 95 03/10/17 16:54 98.4 F 75 16 114/98 94 03/10/17 14:49 98.1 F 18 143/67 91 Intake and Output 03/10/17 03/11/17 03/11/17 21:59 05:59 13:59 Intake Total 670 / 670 350 / 350 720 / 720 Output Total Balance 670 / 670 350 / 350 719 / 719 Intake: IV 250 / 250 Sodium Chloride 0.9% 250 ml @ 250 / 250 20 mls/hr IV .[id number] Rx#: [id number] Oral 670 / 670 100 / 100 720 / 720 Output: # of times incontinent of urine Other: Meal Lunch Percent of Meal Consumed 50% Feeding Ability Independent # Voids 1 1 # Bowel Movements 1 1 # of times incontinent of 1 1 Bowels Weight 117 lb 8 oz Additional comments: Constitutional; Afebrile, cooperative, alert, not in distress. Eyes- No icterus, , No periorbital swelling Ears- Ext ear normal, hearing normal to conversation. Neck- Midline trachea, supple Respiratory system: Air Entry equal on both sides, No crackles or wheezing, no rhonchi. CVS- Rate rhythm regular, S1,S2 heard, no gallop, no rub. Medical - DS: Data Labs on day of discharge: Labs from last 24 hours 03/11/17 03/11/17 04:20 04:20 WBC 8.5 RBC 4.00 Hgb 8.4 L Hct 27.1 L MCV 67.6 L MCH 21.0 L MCHC 31.1 RDW 19.8 H Plt Count 363 MPV 8.8 Total Counted 100 Seg Neutrophils % 65 Band Neutrophils % 4 Lymphocytes % 16 Monocytes % (Manual) 7 Eosinophils % (Manual) 5 Basophils % (Manual) 2 Reactive Lymphocytes 1 Platelet Estimate Normal RBC Morphology Abnorm A Hypochromasia 2+ A Anisocytosis 3+ A Microcytosis 2+ A Ovalocytes 1+ A Sodium 141 Potassium 4.4 Chloride 104 Carbon Dioxide 24 Anion Gap 13.0 BUN 12 Creatinine 0.4 L GFR Calculation 102 Glucose 83 Uric Acid 2.1 L Calcium 8.6 Phosphorus 3.6 Magnesium 1.9 Total Bilirubin 0.2 Direct Bilirubin < 0.2 GGT 10 AST 15 ALT 11 Alkaline Phosphatase 66 Lactate Dehydrogenase 236 Total Protein 5.2 L Albumin 3.1 L Globulin 2.1 L Albumin/Globulin Ratio 1.5 Triglycerides 75 Preliminary micro results at discharge 03/07/17 18:59 Blood Culture - Preliminary Blood 03/07/17 18:51 Blood Culture - Preliminary Blood Medical - DS: A/P - Patient/Caregiver Discharge Instructions Activity: as per physical therapy, increase activity as tolerated Diet: Regular Diet Additional Instructions: 1. Complete your course of oral vancomycin until gone. Talk with your primary care provider about whether a fecal transplant may be helpful to prevent recurrences of C. difficile. 2. You have worsening iron deficiency anemia. You have received IV iron here in the hospital and this has helped your blood counts. Talk with your primary care provider about when your last EGD/colonoscopy was. You may need another EGD/ colonoscopy done to evaluate for a source of blood loss. Go to the ER for worsening symptoms or any other concerning symptom Prescriptions: Vancomycin Oral Zaynab 125 mg PO QID #40 dose - Follow up Plan Follow up with: Ivan Yancey DO [Primary Care Provider] - Disposition: Home Health Service Prognosis: Fair Rehab Potential: Fair I certify that the patient requires SNF services: No Overall status at discharge: patient is progressing back to baseline Medical - DS: Qual - VTE Deep Vein Thrombosis/Pulmonary Embolism Present on Admission: No
== END 2017-03-11 15:53 | disposition home health service (06) | DRG 872 ==
LOC: ED 16:24 → MEDSUR 16:24 → OBSVTOIN 22:06 → MEDSUR 22:08
PROVIDERS: ADMIT Internal Medicine; ATTEND Internal Medicine

== ENCOUNTER 2017-07-20 12:54 | Inpatient (IN) ==
[2017-07-20] MEDS ORDERED: LACTATED RINGERS 1,000 ML IV ONE ×2 (13:00→14:15)
[2017-07-20] MEDS ORDERED: ONDANSETRON 4 MG/2 ML VIAL IV ONE (13:13)
--- NOTE | 2017-07-20 13:15 | Emergency Department Note ---
Weakness HPI - General Chief complaint: Weakness Stated complaint: weakness, hx of MS Time Seen by Provider: 07/20/17 13:03 Source: patient, EMS Mode of arrival: EMS Limitations: no limitations - History of Present Illness HPI Narrative: This patient has a history of multiple sclerosis and was diagnosed with influenza yesterday and now today feels quite a bit weaker in general and is unable to walk or even sit up. It has been a long time since she has had a flare of her MS. No increase in cough. She did have slight nausea. - Related Data Home Medications Medication Instructions Recorded Confirmed Aspirin [Aspirin EC] 81 mg PO DAILY 03/07/17 07/20/17 Latanoprost Ophth Drops [Xalatan 1 gtt OU HS 03/07/17 07/20/17 Ophth Drops] cholecalciferol (vitamin D3) 5,000 10,000 unit PO QDAY 03/24/17 07/20/17 unit capsule furosemide 40 mg tablet 40 mg PO BID 03/24/17 07/20/17 Previous Rx's Medication Instructions Recorded ferrous sulfate 325 mg (65 mg 325 mg PO BID #60 tab 03/24/17 iron) tablet,delayed release amantadine HCl 100 mg tablet 100 mg PO BID #180 tab 03/27/17 baclofen 10 mg tablet 10 mg PO TID #270 tab 03/27/17 potassium chloride ER 20 mEq 20 meq PO TID #270 tab 05/28/17 tablet,extended release(part/cryst) nifedipine ER 60 mg 60 mg PO QDAY #30 tab 06/23/17 tablet,extended release Oseltamivir Phosphate [Tamiflu] 75 mg PO BID #10 cap 07/19/17 Allergies Allergy/AdvReac Type Severity Reaction Status Date / Time Penicillins Allergy Mild Rash Verified 07/20/17 18:19 Review of Systems All systems ED: reviewed and negative except as stated. Past Medical History - Past Medical History [facility] Narrative: Medical History (Last Reviewed 04/17/17 @ 15:42 by Ivan Yancey DO) Delirium (Acute) Pneumonitis (Acute) Hypoxia (Acute) Multiple sclerosis exacerbation (Acute) Systemic inflammatory response syndrome (SIRS) due to infectious process without acute organ dysfunction (Acute) Urinary tract infection (Acute) Vaginitis (Acute) Cystitis (Acute) Yeast dermatitis (Acute) Sepsis (Acute) Complicated UTI (urinary tract infection) (Acute) Colitis (Acute) UTI (urinary tract infection) (Acute) Anemia (Acute) Rib fractures (Acute) Anemia (Acute) Severe sepsis (Acute) Clostridium difficile colitis (Acute) Laceration (Acute) Encounter for removal of sutures (Acute) Multiple sclerosis (Chronic) Past Surgical History (Last Updated 04/24/17 @ 07:34 by Francine Ng) History of colonoscopy (Chronic 04/11/17) History of esophagogastroduodenoscopy (EGD) (Chronic 04/02/17) Medical history: Reports: arthritis, cancer (Endometrial, remotely.), CVA (Long time ago.), other (advanced MS, raynaud's phenomenon, heart murmur). Denies: COPD, coronary artery disease, DM, GERD, hypertension, myocardial infarction, thyroid disease Psychiatric history: Reports: no psych history. Denies: anxiety, depression Surgical history ED: Reports: hysterectomy (for endometrial cancer), knee replacement - Social History smoking status: Former smoker Alcohol use: Reports: Occasionally (white wine 1-2 X/wk.) Drug use: Reports: none Physical Exam Limitations: no limitations General appearance: alert Head: atraumatic Eye: Present: normal appearance ENT: normal exam Neck: Present: normal inspection Chest: Present: normal inspection Respiratory: Present: normal lung sounds bilaterally Cardiovascular: Present: regular rate, normal rhythm, normal heart sounds Abdominal: Present: soft. Absent: distention, tenderness Neurological: Present: alert Psychiatric: Present: normal affect, normal mood Skin: Present: warm, dry, intact Course Vital Signs Temperature 97.7 F 07/20/17 12:55 Pulse Rate 119 H 07/20/17 12:55 Respiratory Rate 20 07/20/17 12:55 Blood Pressure 110/76 07/20/17 12:55 Pulse Oximetry (%) 94 07/20/17 12:55 Temperature 99.2 F H 07/21/17 07:00 Pulse Rate 100 H 07/21/17 07:49 Respiratory Rate 18 07/21/17 07:49 Blood Pressure 113/47 07/21/17 07:00 Pulse Oximetry (%) 94 07/21/17 07:49 Weakness - MDM Narrative Medical decision making narrative: Chest x-ray may show slight right lower lobe infiltrate. White count is elevated lactic acid slightly elevated most likely she does have some underlying sepsis. She will be admitted to the hospital. - Lab Data Lab results reviewed: Yes I reviewed the patient's lab results. Result diagrams: 07/21/17 04:00 07/21/17 04:00 Lab Results 07/20/17 07/20/17 07/20/17 Range/Units 13:06 13:06 13:06 WBC 17.2 H (4.5-11.0) K/mcL RBC 5.83 H (4.00-5.20) M/mcL Hgb 15.7 H (12.0-15.0) g/dL Hct 47.6 (36.0-48.0) % MCV 81.6 (80.0-100.0) fL MCH 26.9 (26.0-34.0) pg MCHC 32.9 (31.0-36.0) g/dL RDW 17.9 H (11.5-14.5) % Plt Count 486 H (140-440) K/mcL MPV 9.5 (7.4-10.4) fL Total Counted 100 Seg Neutrophils % 76 (38-78) % Band Neutrophils % 8 (0-10) % Lymphocytes % 7 L (15-49) % Monocytes % (Manual) 6 (1-12) % Metamyelocytes % 3 H (0-0) % Platelet Estimate Increased (NORMAL) RBC Morphology Abnorm A (NORMAL) Anisocytosis 1+ A (NONE SEEN) VBG Lactic Acid 2.4 H (0.5-2.2) mmol/L Sodium 139 (133-145) mmol/L Potassium 4.2 (3.3-5.1) mmol/L Chloride 96 (96-108) mmol/L Carbon Dioxide 21 L (22-30) mmol/L Anion Gap 22.0 H (8-16) BUN 68 H (8-23) mg/dl Creatinine 2.0 H (0.6-1.1) mg/dl GFR Calculation 24 Glucose 139 H (70-105) mg/dL Calcium 9.3 (8.6-10.4) mg/dl Magnesium (1.6-2.5) mg/dL Total Bilirubin 0.3 (0.0-1.0) mg/dL AST 14 (0-37) U/l ALT 10 (0-40) U/l Alkaline Phosphatase 73 (39-117) U/L Total Protein 6.0 (5.9-8.4) gm/dL Albumin 3.5 (3.2-5.2) gm/dL Globulin 2.5 (2.2-3.7) gm/dL Albumin/Globulin Ratio 1.4 (1.0-2.3) Urine Color Urine Appearance Urine pH (5.0-9.0) Ur Specific [place] (1.000-1.035) Urine Protein (NEG) mg/dL Urine Glucose (UA) (NEG) mg/dL Urine Ketones (NEG) mg/dL Urine Occult Blood (<0.03) mg/dL Urine Nitrate (NEG) Urine Bilirubin (NEG) mg/dL Urine Urobilinogen (NEG) mg/dL Ur Leukocyte Esterase (NEG) /uL Urine RBC (0-1) /hpf Urine WBC (0-4) /hpf Ur Squamous Epith Cells (0-4) /hpf Amorphous Crystals (0) /hpf Urine Bacteria (0) /hpf Hyaline Casts (0-2) /lpf Urine Mucus (0) /hpf Ur Culture Indicated? Complement C3 (90-180) mg/dl Complement C4 (16-47) mg/dl 07/20/17 07/20/17 07/20/17 Range/Units 13:06 13:06 16:32 WBC (4.5-11.0) K/mcL RBC (4.00-5.20) M/mcL Hgb (12.0-15.0) g/dL Hct (36.0-48.0) % MCV (80.0-100.0) fL MCH (26.0-34.0) pg MCHC (31.0-36.0) g/dL RDW (11.5-14.5) % Plt Count (140-440) K/mcL MPV (7.4-10.4) fL Total Counted Seg Neutrophils % (38-78) % Band Neutrophils % (0-10) % Lymphocytes % (15-49) % Monocytes % (Manual) (1-12) % Metamyelocytes % (0-0) % Platelet Estimate (NORMAL) RBC Morphology (NORMAL) Anisocytosis (NONE SEEN) VBG Lactic Acid (0.5-2.2) mmol/L Sodium (133-145) mmol/L Potassium (3.3-5.1) mmol/L Chloride (96-108) mmol/L Carbon Dioxide (22-30) mmol/L Anion Gap (8-16) BUN (8-23) mg/dl Creatinine (0.6-1.1) mg/dl GFR Calculation Glucose (70-105) mg/dL Calcium (8.6-10.4) mg/dl Magnesium 2.3 (1.6-2.5) mg/dL Total Bilirubin (0.0-1.0) mg/dL AST (0-37) U/l ALT (0-40) U/l Alkaline Phosphatase (39-117) U/L Total Protein (5.9-8.4) gm/dL Albumin (3.2-5.2) gm/dL Globulin (2.2-3.7) gm/dL Albumin/Globulin Ratio (1.0-2.3) Urine Color Yellow Urine Appearance Hazy Urine pH 5.0 (5.0-9.0) Ur Specific [place] 1.017 (1.000-1.035) Urine Protein 30 A (NEG) mg/dL Urine Glucose (UA) Negative (NEG) mg/dL Urine Ketones 5/tr A (NEG) mg/dL Urine Occult Blood Neg (<0.03) mg/dL Urine Nitrate Neg (NEG) Urine Bilirubin Neg (NEG) mg/dL Urine Urobilinogen Neg (NEG) mg/dL Ur Leukocyte Esterase Neg (NEG) /uL Urine RBC < 1 (0-1) /hpf Urine WBC 3 (0-4) /hpf Ur Squamous Epith Cells 0 (0-4) /hpf Amorphous Crystals Few A (0) /hpf Urine Bacteria 0 (0) /hpf Hyaline Casts 12 H (0-2) /lpf Urine Mucus Few (0) /hpf Ur Culture Indicated? No Complement C3 101.1 (90-180) mg/dl Complement C4 19.5 (16-47) mg/dl - Radiology Data Radiology results reviewed: Yes I reviewed the patient's radiology results. Disposition Pt seen by [employer]/PA only: No Clinical Impression: Sepsis, Multiple sclerosis Disposition: Xfer As Inpt ([facility]) Condition: Fair
[2017-07-20 14:02] LABS: Mean Cell Volume 81.6 fL (80.0-100.0); Mean Corpuscular HGB Conc 32.9 g/dL (31.0-36.0); Mean Corpuscular Hemoglobin 26.9 pg (26.0-34.0); Platelet Count 486 K/mcL (140-440); RBC 5.83 M/mcL (4.00-5.20); Red Cell Distribution Width 17.9 % (11.5-14.5)
[2017-07-20 14:16] LABS: ALT/SGPT 10 U/l (0-40); Albumin 3.5 gm/dL (3.2-5.2); Albumin/Globulin Ratio 1.4 (1.0-2.3); Alkaline Phosphatase 73 U/L (39-117); Blood Urea Nitrogen 68 mg/dl (8-23)
[2017-07-20 14:17] LABS: Anisocytosis 1+ (NONE SEEN); Band Neutrophils % 8 % (0-10); Lymphocytes % 7 % (15-49); Metamyelocytes % 3 % (0-0); Monocytes % (Manual) 6 % (1-12); Platelet Estimate INCREASED (NORMAL); RBC Morphology ABNORM (NORMAL); Segmented Neutrophils % 76 % (38-78)
[2017-07-20] MEDS ORDERED: LEVOFLOXACIN 750 MG/150 ML BAG IV ONE (14:30)
[2017-07-20] MEDS ORDERED: VANCOMYCIN 1,000 MG in 0.9 % SODIUM CHLORIDE 250 ML IV ONE ×2 (14:30→21:00)
--- NOTE | 2017-07-20 16:08 | XRay Report ---
CLINICAL INFORMATION: Hypoxia COMPARISON: 07/19/2017 FINDINGS: Mild cardiomegaly is unchanged. The mediastinum again shows tortuous brachycephalic artery resulting in increased density in the right upper mediastinal region. Pulmonary vessels are normal. Small infiltrate involving the right base with minor infiltrate involving the left base have developed IMPRESSION: Small right and very small left basilar infiltrates developing - consider aspiration Interpreted and Authenticated by: Ivan Anthony 07/20/17
[2017-07-20 16:47] LABS: Appearance,Urine HAZY; Bacteria,Urine 0 /hpf (0); Bilirubin,Urine NEG (NEG); Color,Urine YELLOW; Glucose,Urine (UA) NEGATIVE (NEG); Leukocyte Esterase,Urine NEG /uL (NEG); Mucus,Urine FEW /hpf (0); Protein,Urine 30 mg/dL (NEG); Specific Gravity,Urine 1.017 (1.000-1.035); Urine Amorphous Crystals FEW /hpf (0); Urine Blood NEG mg/dL (<0.03); Urine Hyaline Cast 12 /lpf (0-2); Urine RBC < 1 /hpf (0-1); Urine Squamous Epithelial Cell 0 /hpf (0-4); Urine WBC 3 /hpf (0-4); Urobilinogen,Urine NEG (NEG)
[2017-07-20] MEDS ORDERED: VANCOMYCIN PER PHARMACY IV ONE (16:51)
[2017-07-20] MEDS ORDERED: CEFEPIME 2 GM VIAL IV SCH (16:51)
[2017-07-20] MEDS ORDERED: PROMETHAZINE 25 MG/ML VIAL IV PRN (16:51)
[2017-07-20] MEDS ORDERED: NOREPINEPHRINE BITARTRATE 16 MG in 0.9 % SODIUM CHLORIDE 234 ML IV SCH (16:51)
[2017-07-20] MEDS ORDERED: HYDROmorphone 2 MG/ML VIAL IV PRN (16:51)
[2017-07-20] MEDS ORDERED: ONDANSETRON 4 MG/2 ML VIAL IV PRN (16:51)
[2017-07-20] MEDS: 0.9 % SODIUM CHLORIDE 1,000 ML IV SCH (17:34)
--- NOTE | 2017-07-20 17:44 | Internal Med History&Physical ---
Medical - H&P: HPI Patient information: Note initiated : 07/20/17 at 5:42 pm Service Date, if different from initiated Date: [] Patient: Inna Selby 77 y/o F admitted on 07/20/17 for weakness, hx of MS. Chief Complaint: [] History of present illness: Ms. Selby is a 77 year old Female with h/o multile sclerosis, presents to the ER today with complaints of weakness going on for 1 day The patient was here yesterday with complaints of sinus congestion, weakness and fatigue, she had mild leucocytosis, cxr was neg, and flu test was positive for influenza A, she was sent home on po tamiflu. The patient presented today with complaints of worsening weakness, inability to stand or sit up, bilateral leg weakness, as per her left more than the right. She also notes chr diarrhea, she said it was going on for last 4-5 days, but could be more as per the nursing in the ER as she told them a much longe duration, pt has a history of cdiff. The patient also is having fever and chills for last few days. In the ER the patient was noted to be febrile, tachcyardic, labs show leucocytosis, she has elevated creat, elevated lactic acid, CXR shows possible right and left lower lobe pna. She was also hypoxic and therefore admitted to the hospital for further management hte patient was recently seen by her pcp for raynauds phenomenon, and started on nifedipine. The patient wishes to be DNR, but is ok with inbutation. She denies any specific weakness in hands, denies diplopia, difficulty in swallowing or unable to tell me any particular sensory loss. She complains of weakness of her left leg more than right, she is unable to tell me her pevious flare ups, but I have admitted her in the past, and this was her syptom of flare up with an infection. 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 During clean up in the Er, the patient had extensive pelvic amanda infection, and it seems that her preineal region has been soaked in stools Patient is being admitted to PCU status for further management. All systems: reviewed and no additional remarkable complaints except as stated ( as per HPI) Medical - H&P: PMH Medical history: Medical History (Last Reviewed 04/17/17 @ 15:42 by Ivan Yancey DO) Delirium (Acute) Pneumonitis (Acute) Hypoxia (Acute) Multiple sclerosis exacerbation (Acute) Systemic inflammatory response syndrome (SIRS) due to infectious process without acute organ dysfunction (Acute) Urinary tract infection (Acute) Vaginitis (Acute) Cystitis (Acute) Yeast dermatitis (Acute) Sepsis (Acute) Complicated UTI (urinary tract infection) (Acute) Colitis (Acute) UTI (urinary tract infection) (Acute) Anemia (Acute) Rib fractures (Acute) Anemia (Acute) Severe sepsis (Acute) Clostridium difficile colitis (Acute) Laceration (Acute) Encounter for removal of sutures (Acute) Multiple sclerosis (Chronic) Surgical history: Past Surgical History (Last Updated 04/24/17 @ 07:34 by Francine Ng) History of colonoscopy (Chronic 04/11/17) History of esophagogastroduodenoscopy (EGD) (Chronic 04/02/17) Family history: reviewed and not pertinent Medical - H&P: Meds Home Medications Medication Instructions Recorded Confirmed Type Aspirin [Aspirin EC] 81 mg PO DAILY 03/07/17 07/20/17 History Latanoprost Ophth Drops [Xalatan 1 gtt OU HS 03/07/17 07/20/17 History Ophth Drops] cholecalciferol (vitamin D3) 5,000 10,000 unit PO QDAY 03/24/17 07/20/17 History unit capsule ferrous sulfate 325 mg (65 mg 325 mg PO BID #60 tab 03/24/17 07/20/17 Rx iron) tablet,delayed release furosemide 40 mg tablet 40 mg PO BID 03/24/17 07/20/17 History amantadine HCl 100 mg tablet 100 mg PO BID #180 tab 03/27/17 07/20/17 Rx baclofen 10 mg tablet 10 mg PO TID #270 tab 03/27/17 07/20/17 Rx potassium chloride ER 20 mEq 20 meq PO TID #270 tab 05/28/17 07/20/17 Rx tablet,extended release(part/cryst) nifedipine ER 60 mg 60 mg PO QDAY #30 tab 06/23/17 07/20/17 Rx tablet,extended release Oseltamivir Phosphate [Tamiflu] 75 mg PO BID #10 cap 07/19/17 07/20/17 Rx Allergies Allergy/AdvReac Type Severity Reaction Status Date / Time Penicillins Allergy Mild Rash Verified 07/20/17 18:19 Medical - H&P: Exam - Constitutional Vitals: Temp Pulse Resp BP Pulse Ox 100.0 F H 113 H 18 103/71 80 L 07/20/17 16:53 07/20/17 16:50 07/20/17 16:53 07/20/17 16:53 07/20/17 16:50 Exam: GENERAL: The patient is a well-developed, well-nourished in mild disterss . Is alert and oriented x2. VITAL SIGNS: Reviewed and as noted elsewhere. HEENT: Head is normocephalic and atraumatic. Extraocular muscles are intact. Pupils are equal, round, and reactive to light. Nares appeared normal. Mouth appears any without lesions. Mucous membranes are dry NECK: Normal to inspection, Supple, No lymphadenopathy or thyromegaly. LUNGS: Air entry equal on both sides, bibasilar crackles present, no wheezing, rhonchi noted. No accessory muscles of respiration HEART: tachycardic rate, and rhythm normal, S1 and S2 heard, no Gallop, S3 or Rub Noted, ABDOMEN: Soft, nontender, and nondistended. Positive bowel sounds. No hepatosplenomegaly was noted. EXTREMITIES: No , clubbing, or edema. NEUROLOGIC: Cranial nerves II through XII are grossly intact. Motor and Sensory System Grossly Intact, generalized weakness was present, strength in both lower exterities was 3/5, able to feel senses, strength in both upper extremity was 3 + to 4/5. PSYCHIATRIC: Normal affect not agitated, but was mildly confused. SKIN: perineal rash noted, rash on both hands noted blanchable, raynauds rash involfing distal hands and finger No other lesions Medical - H&P: Reslt - Labs CBC & Chem 7: 07/20/17 13:06 07/20/17 13:06 Labs: Short CBC 07/20/17 Range/Units 13:06 WBC 17.2 H (4.5-11.0) K/mcL Hgb 15.7 H (12.0-15.0) g/dL Hct 47.6 (36.0-48.0) % Plt Count 486 H (140-440) K/mcL BMP 07/20/17 13:06 Sodium 139 Potassium 4.2 Chloride 96 Carbon Dioxide 21 L BUN 68 H Creatinine 2.0 H Glucose 139 H Calcium 9.3 Liver Function 07/20/17 Range/Units 13:06 Total Bilirubin 0.3 (0.0-1.0) mg/dL AST 14 (0-37) U/l ALT 10 (0-40) U/l Alkaline Phosphatase 73 (39-117) U/L Albumin 3.5 (3.2-5.2) gm/dL Urine 07/20/17 Range/Units 16:32 Urine Color Yellow Urine Appearance Hazy Urine pH 5.0 (5.0-9.0) Ur Specific [place] 1.017 (1.000-1.035) Urine Protein 30 A (NEG) mg/dL Urine Glucose (UA) Negative (NEG) mg/dL Medical - H&P: A/P - Narrative A/P Narrative: A/P HCAP PNA: Possible aspiration, vs Influenza associated, IV vancomycin, cefepime and flagyl for now, cultures sent await results Acute hypoxic resp failure: Oxygen via nasal canula, bipap vs intubate if needed Diarrhea: likely Cdiff given h/o cdiff, check for same, could be viral too Acute renal failure: due to poor oral intake and diarrhea, IV fluids for now Lactic acidosis: IV fluids, trend lactate Severe sepsis with multiorgan failure: High risk of mortality, treat underling etiology of pna, flu and possible cdiff Influenza A: On tamiflu Multiple sclerosis pseudo flare up: Given acute infection, would avoid using high dose steroids, in the past she has responded well to physicla therapy Raynaud phenomenon, : check c3,c4, juan antonio and anca panel, check anti ingris and ck, did not see workup in the chart, Thrombocytosis: due to acute infection, monitor DVT hep sq Diet regular Code status ,dnr, ok with intubations, iv fluids, antibiotics pressors etc. Greater than 60 mins of critical care time spent reviewing labs, x ray, chart review and patient stabilization. Social History - Tobacco smoking status: Former smoker
[2017-07-20] MEDS ORDERED: 0.9 % SODIUM CHLORIDE 1,000 ML IV ONE (18:12)
[2017-07-20] MEDS: VANCOMYCIN ORAL SOL 1,000 MG/10 ML BOTTLE PO SCH ×2 (18:14→20:21)
[2017-07-20 18:29] LABS: Complement C3 101.1 mg/dl (90-180)
[2017-07-20] MEDS ORDERED: FLUCONAZOLE 100 MG TABLET PO ONE (18:30)
[2017-07-20] MEDS: metroNIDAZOLE 500 MG/100 ML BAG IV SCH (18:46)
[2017-07-20] MEDS ORDERED: VANCOMYCIN PER PHARMACY IV SCH (20:00)
[2017-07-20] MEDS: HEPARIN 5,000 UNIT/ML VIAL SQ SCH (20:18)
[2017-07-20] MEDS: OSELTAMIVIR PHOSPHATE 75 MG CAPSULE PO SCH (20:20)
[2017-07-20] MEDS: BACLOFEN 10 MG TABLET PO SCH (20:20)
[2017-07-20] MEDS: FAMOTIDINE/PF 20 MG/2 ML VIAL IV SCH (20:20)
[2017-07-20] MEDS: LATANOPROST OPHTH DROPS 2.5ML BOTTLE OU SCH (20:20)
[2017-07-20] MEDS: AMANTADINE HCL 100 MG CAPSULE PO SCH (20:20)
[2017-07-20] MEDS ORDERED: METOPROLOL TARTRATE 5 MG/5 ML VIAL IV PRN (21:25)
[2017-07-20] MEDS ORDERED: MAGNESIUM SULFATE 2 GM/50 ML BAG IV ONE (21:25)
[2017-07-20] MEDS: 0.9 % SODIUM CHLORIDE 10 ML SYRINGE IV SCH (21:58)
[2017-07-21] MEDS: IPRATROPIUM/ALBUTEROL 3 ML AMPUL.NEB NEB SCH ×5 (00:40→19:13)
[2017-07-21] MEDS: metroNIDAZOLE 500 MG/100 ML BAG IV SCH ×4 (00:48→22:01)
[2017-07-21] MEDS: 0.9 % SODIUM CHLORIDE 1,000 ML IV SCH ×3 (04:14→19:05)
[2017-07-21] MEDS: 0.9 % SODIUM CHLORIDE 10 ML SYRINGE IV SCH ×3 (05:20→22:03)
[2017-07-21 05:34] LABS: Basophils # (Auto) 0 K/mcL (0.0-0.3); Basophils % (Auto) 0 % (0.0-2.0); Eosinophils # (Auto) 0.1 K/mcL (0.0-0.7); Eosinophils % (Auto) 0.5 % (0.0-7.0); Granulocytes % (Auto) 89.6 % (38.0-78.0); Lymphocytes # (Auto) 0.5 K/mcL (1.5-4.8); Lymphocytes % (Auto) 3.6 % (15.5-49.0); Mean Cell Volume 82.3 fL (80.0-100.0); Mean Corpuscular HGB Conc 33.7 g/dL (31.0-36.0); Mean Corpuscular Hemoglobin 27.7 pg (26.0-34.0); Monocytes # (Auto) 0.8 K/mcL (0.1-0.9); Monocytes % (Auto) 6.3 % (1.0-12.0); Platelet Count 310 K/mcL (140-440); RBC 3.87 M/mcL (4.00-5.20); Red Cell Distribution Width 17.6 % (11.5-14.5)
[2017-07-21 05:43] LABS: ALT/SGPT 8 U/l (0-40); Albumin 2.3 gm/dL (3.2-5.2); Albumin/Globulin Ratio 1.4 (1.0-2.3); Alkaline Phosphatase 48 U/L (39-117); Bilirubin,Direct < 0.2 mg/dL (0.0-0.3); Blood Urea Nitrogen 45 mg/dl (8-23); Gamma Glutamyl Transpeptidase 7 U/L (5-36); Uric Acid 4.7 mg/dL (2.5-8.0)
[2017-07-21] MEDS: ACETAMINOPHEN 325 MG TABLET PO PRN ×2 (07:19→22:01)
[2017-07-21] MEDS: LACTOBACILLUS 1 CAPSULE PO SCH ×2 (09:09→20:47)
[2017-07-21] MEDS: FLUCONAZOLE 100 MG TABLET PO SCH (09:09)
[2017-07-21] MEDS: AMANTADINE HCL 100 MG CAPSULE PO SCH ×2 (09:09→20:49)
[2017-07-21] MEDS: ASPIRIN 81 MG TAB.CHEW PO SCH (09:09)
[2017-07-21] MEDS: HEPARIN 5,000 UNIT/ML VIAL SQ SCH ×2 (09:10→20:47)
[2017-07-21] MEDS: CEFEPIME 2 GM VIAL IV SCH (09:10)
[2017-07-21] MEDS: FAMOTIDINE/PF 20 MG/2 ML VIAL IV SCH ×2 (09:10→20:47)
[2017-07-21] MEDS: BACLOFEN 10 MG TABLET PO SCH ×3 (09:10→20:47)
[2017-07-21] MEDS: OSELTAMIVIR PHOSPHATE 75 MG CAPSULE PO SCH ×2 (09:11→20:47)
--- NOTE | 2017-07-21 13:13 | Internal Med Progress Note ---
Medical - PN: Subj Patient information: Note initiated : 07/21/17 at 1:11 pm Service Date, if different from initiated Date: [] Patient: Inna Selby 77 y/o F admitted on 07/20/17 for Weakness, Hx of MS/ Pneumonia, Hypoxic Resp Failure. Chief Complaint: [] Interval history: Ms. Selby is a 77 year old Female with h/o multile sclerosis, presents to the ER today with complaints of weakness going on for 1 day The patient was here yesterday with complaints of sinus congestion, weakness and fatigue, she had mild leucocytosis, cxr was neg, and flu test was positive for influenza A, she was sent home on po tamiflu. The patient presented today with complaints of worsening weakness, inability to stand or sit up, bilateral leg weakness, as per her left more than the right. She also notes chr diarrhea, she said it was going on for last 4-5 days, but could be more as per the nursing in the ER as she told them a much longe duration, pt has a history of cdiff. The patient also is having fever and chills for last few days. In the ER the patient was noted to be febrile, tachcyardic, labs show leucocytosis, she has elevated creat, elevated lactic acid, CXR shows possible right and left lower lobe pna. She was also hypoxic and therefore admitted to the hospital for further management hte patient was recently seen by her pcp for raynauds phenomenon, and started on nifedipine. The patient wishes to be DNR, but is ok with inbutation. She denies any specific weakness in hands, denies diplopia, difficulty in swallowing or unable to tell me any particular sensory loss. She complains of weakness of her left leg more than right, she is unable to tell me her pevious flare ups, but I have admitted her in the past, and this was her syptom of flare up with an infection. 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 During clean up in the Er, the patient had extensive pelvic amanda infection, and it seems that her preineal region has been soaked in stools Patient is being admitted to PCU status for further management. Jul 21 patient seen and examined, no acute overnight events, patient lactic acid is now in the normal range. Still has low-grade fever. Blood cultures positive for gram-positive cocci in pairs and chains in the anaerobic bottle. C. difficile is negative. Plan to discontinue oral vancomycin. Continue IV vancomycin, cefepime, metronidazole. Continue Diflucan. for Intertrigo. Start the patient on probiotics. The patient denies any chest pain, no shortness of breath, no headache, admits to some dizziness. She has no GI symptoms. She still has generalized weakness. Pertinent ROS: Denies headache, some dizziness Denies chest pain, palpitations present but improving cough and shortness of breath Denies abdominal pain, nausea or vomiting. - Constitutional Vitals: Vital Signs Temp Pulse Resp BP Pulse Ox 99.2 F H 87 20 123/53 100 07/21/17 07:00 07/21/17 13:01 07/21/17 13:01 07/21/17 13:01 07/21/17 13:01 Period Temp Pulse Resp BP Sys/Ellis Pulse Ox Last 24 Hr 99.2 F-100.0 F 40-118 12-28 89-141/37-81 62-100 Intake and Output 07/20/17 07/21/17 07/21/17 21:59 05:59 13:59 Intake Total 3160 / 3160 1150 / 1150 1460 / 1460 Output Total 470 / 470 470 / 470 670 / 670 Balance 2690 / 2690 680 / 680 790 / 790 Weight 106 lb 8 oz 106 lb 8 oz Patient Weight 07/22/17 05:59 Weight 106 lb 8 oz Intake & Output: Intake & Output 07/20/17 07/21/17 07/21/17 21:59 05:59 13:59 Intake Total 3160 / 3160 1150 / 1150 1460 / 1460 Output Total 470 / 470 470 / 470 670 / 670 Balance 2690 / 2690 680 / 680 790 / 790 Weight 106 lb 8 oz 106 lb 8 oz Intake: IV 2200 / 2200 1150 / 1150 1100 / 1100 Sodium Chloride 0.9% 1,000 ml @ 1000 / 1000 100 mls/hr IV .Q10H [facility] Rx#: [id number] Lactated Ringers 1,000 ml @ 1700 / 1700 Wide Open IV BOLUS ONE Rx#: [id number] Vancomycin 1,000 mg In Sodium 250 / 250 Chloride 0.9% 250 ml @ 250 mls/ hr IV ONCE ONE Rx#:[id number] Oral 960 / 960 360 / 360 Output: Urine Catheter Amount 470 / 470 470 / 470 670 / 670 Other: Meal Dinner Breakfast Percent of Meal Consumed 25% 75% Feeding Ability Independent # Bowel Movements 1 Exam: Constitutional; Afebrile, cooperative, alert, not in distress. Eyes- No icterus, , No periorbital swelling Ears- Ext ear normal, hearing normal to conversation. Neck- Midline trachea, supple Respiratory system: Air Entry equal on both sides, enrique crackles, no wheezing. CVS- Rate rhythm regular, S1,S2 heard, no gallop, no rub. Abdomen- Soft nontender abdomen, no organomegaly, no tenderness, no guarding or rigidity, [employer]- AOOx3, moving all extremities, no gross focal deficit noted. Medical - PN: Obj Da - Labs CBC & Chem 7: 07/21/17 04:00 07/21/17 04:00 Labs: Abnormal Lab Results 07/21/17 07/21/17 07/20/17 04:00 04:00 17:15 WBC 12.6 H RBC 3.87 L Hgb 10.7 L Hct 31.9 L RDW 17.6 H Plt Count Gran % 89.6 H Lymph % (Auto) 3.6 L Gran # 11.3 H Lymph # (Auto) 0.5 L Lymphocytes % Metamyelocytes % RBC Morphology Anisocytosis VBG Lactic Acid 3.2 H Carbon Dioxide Anion Gap BUN 45 H Creatinine Glucose Calcium 7.5 L Total Protein 4.0 L Albumin 2.3 L Globulin 1.7 L Urine Protein Urine Ketones Amorphous Crystals Hyaline Casts 07/20/17 07/20/17 07/20/17 16:32 13:06 13:06 WBC RBC Hgb Hct RDW Plt Count Gran % Lymph % (Auto) Gran # Lymph # (Auto) Lymphocytes % Metamyelocytes % RBC Morphology Anisocytosis VBG Lactic Acid 2.4 H Carbon Dioxide 21 L Anion Gap 22.0 H BUN 68 H Creatinine 2.0 H Glucose 139 H Calcium Total Protein Albumin Globulin Urine Protein 30 A Urine Ketones 5/tr A Amorphous Crystals Few A Hyaline Casts 12 H 07/20/17 13:06 WBC 17.2 H RBC 5.83 H Hgb 15.7 H Hct RDW 17.9 H Plt Count 486 H Gran % Lymph % (Auto) Gran # Lymph # (Auto) Lymphocytes % 7 L Metamyelocytes % 3 H RBC Morphology Abnorm A Anisocytosis 1+ A VBG Lactic Acid Carbon Dioxide Anion Gap BUN Creatinine Glucose Calcium Total Protein Albumin Globulin Urine Protein Urine Ketones Amorphous Crystals Hyaline Casts Meds: Medications Acetaminophen (Tylenol) 650 mg PO Q4-6HP PRN PRN Reason: PAIN/FEVER > 101 Last Admin: 07/21/17 07:19 Dose: 650 mg Albuterol/Ipratropium (Duoneb) 3 ml NEB Q6HRT [facility] Last Admin: 07/21/17 07:34 Dose: 3 ml Amantadine HCl (Amantadine) 100 mg PO BID [facility] Last Admin: 07/21/17 09:09 Dose: 100 mg Aspirin (Aspirin) 81 mg PO DAILY [facility] Last Admin: 07/21/17 09:09 Dose: 81 mg Baclofen (Lioresal) 10 mg PO TID [facility] Last Admin: 07/21/17 09:10 Dose: 10 mg Cefepime HCl (Maxipime) 2 gm IV Q24H [facility] Last Admin: 07/21/17 09:10 Dose: 2 gm Famotidine (Pepcid) 20 mg IV Q12 [facility] Last Admin: 07/21/17 09:10 Dose: 20 mg Fluconazole (Diflucan) 200 mg PO DAILY [facility] Last Admin: 07/21/17 09:09 Dose: 200 mg Heparin Sodium (Porcine) (Heparin) 5,000 unit SQ Q12 [facility] Last Admin: 07/21/17 09:10 Dose: 5,000 unit Hydromorphone HCl (Dilaudid) 0.5 mg IV Q2HP PRN PRN Reason: PAIN LEVEL > 6 Last Admin: 07/20/17 20:18 Dose: 0.5 mg Sodium Chloride (Sodium Chloride 0.9%) 1,000 mls @ 100 mls/hr IV .Q10H [facility] Last Infusion: 07/21/17 07:15 Dose: Infused Metronidazole (Flagyl) 500 mg in 100 mls @ 100 mls/hr IV Q8H [facility] Last Infusion: 07/21/17 06:24 Dose: Infused Lactobacillus Rhamnosus (Culturelle) 1 cap PO BID [facility] Last Admin: 07/21/17 09:09 Dose: 1 cap Latanoprost (Xalatan Ophth Drops) 1 gtt OU HS [facility] Last Admin: 07/20/17 20:20 Dose: Not Given Metoprolol Tartrate (Lopressor) 5 mg IV PRN PRN PRN Reason: Sustained HR greater than 130 Ondansetron HCl (Zofran) 4 mg IV Q4-6HP PRN PRN Reason: Nausea And Vomiting Oseltamivir Phosphate (Tamiflu) 75 mg PO BID [facility] Stop: 07/27/17 09:01 Last Admin: 07/21/17 09:11 Dose: 75 mg Promethazine HCl (Phenergan) 12.5 mg IV Q4-6HP PRN PRN Reason: Nausea And Vomiting Sodium Chloride (Saline Flush) 10 ml IV Q8 [facility] Last Admin: 07/21/17 05:20 Dose: 10 ml Vancomycin HCl (Vancomycin Per Pharmacy) 1 order IV UD [facility] Medical - PN: A/P - Time Spent With Patient Total time spent is greater than 50% in coordination of care (as documented) at patient's floor/unit and/or counseling patient: - Narrative A/P Narrative: A/P HCAP PNA: Possible aspiration, vs Influenza associated, IV vancomycin, cefepime and flagyl for now, microbiology, gpc chains and pairs, anaerobic bottle Acute hypoxic resp failure: Oxygen via nasal canula, bipap vs intubate if needed , clinically improving. Diarrhea: Cdiff neg, d/c po vancomycin ,send stool cultures, on po probiotics, could be viral diarrhea, related to flu Acute renal failure: due to poor oral intake and diarrhea, IVF, Creat back to normal Lactic acidosis: resolved Severe sepsis with multiorgan failure: High risk of mortality, clinically improving. Influenza A: On tamiflu Multiple sclerosis pseudo flare up: Given acute infection, would avoid using high dose steroids, in the past she has responded well to physical therapy Raynaud phenomenon, : C3 and C4 are normal pending juan antonio and anca panel, check anti ingris and ck, Thrombocytosis: due to acute infection, improved this morning. That has been a drop in hemoglobin as well as platelet after fluid administration, most likely dilutional in nature. No chemical evidence of acute bleed DVT hep sq Diet regular Code status ,dnr, ok with intubations, iv fluids, antibiotics pressors etc. Medical - PN: Qual - VTE Deep Vein Thrombosis/Pulmonary Embolism Present on Admission: No
[2017-07-21] MEDS: LATANOPROST OPHTH DROPS 2.5ML BOTTLE OU SCH (22:03)
[2017-07-22] MEDS: ACETAMINOPHEN 325 MG TABLET PO PRN ×2 (02:17→20:47)
[2017-07-22] MEDS: IPRATROPIUM/ALBUTEROL 3 ML AMPUL.NEB NEB SCH ×2 (02:18→07:29)
[2017-07-22] MEDS: metroNIDAZOLE 500 MG/100 ML BAG IV SCH ×3 (05:06→21:15)
[2017-07-22] MEDS: 0.9 % SODIUM CHLORIDE 10 ML SYRINGE IV SCH ×3 (05:40→21:38)
[2017-07-22 06:11] LABS: Basophils # (Auto) 0 K/mcL (0.0-0.3); Basophils % (Auto) 0 % (0.0-2.0); Eosinophils # (Auto) 0.7 K/mcL (0.0-0.7); Eosinophils % (Auto) 5.8 % (0.0-7.0); Granulocytes % (Auto) 80.9 % (38.0-78.0); Lymphocytes # (Auto) 0.6 K/mcL (1.5-4.8); Lymphocytes % (Auto) 4.8 % (15.5-49.0); Mean Cell Volume 82.5 fL (80.0-100.0); Mean Corpuscular HGB Conc 33.5 g/dL (31.0-36.0); Mean Corpuscular Hemoglobin 27.7 pg (26.0-34.0); Monocytes % (Auto) 8.5 % (1.0-12.0); Platelet Count 292 K/mcL (140-440); RBC 3.84 M/mcL (4.00-5.20); Red Cell Distribution Width 17.7 % (11.5-14.5)
[2017-07-22 06:45] LABS: ALT/SGPT 6 U/l (0-40); Albumin 1.9 gm/dL (3.2-5.2); Albumin/Globulin Ratio 0.9 (1.0-2.3); Alkaline Phosphatase 57 U/L (39-117); Bilirubin,Direct < 0.2 mg/dL (0.0-0.3); Blood Urea Nitrogen 17 mg/dl (8-23); Gamma Glutamyl Transpeptidase 8 U/L (5-36)
[2017-07-22] MEDS ORDERED: POTASSIUM CHLORIDE 40 MEQ in DEXTROSE 5% IN WATER 500 ML IV ONE ×2 (07:30→21:07)
[2017-07-22 08:23] LABS: Vancomycin,Random < 4.0 ug/mL
[2017-07-22] MEDS: ASPIRIN 81 MG TAB.CHEW PO SCH (08:55)
[2017-07-22] MEDS: LACTOBACILLUS 1 CAPSULE PO SCH ×2 (08:56→20:48)
[2017-07-22] MEDS: FAMOTIDINE/PF 20 MG/2 ML VIAL IV SCH ×2 (08:56→20:50)
[2017-07-22] MEDS: OSELTAMIVIR PHOSPHATE 75 MG CAPSULE PO SCH ×2 (08:56→20:48)
[2017-07-22] MEDS: BACLOFEN 10 MG TABLET PO SCH ×3 (08:56→20:48)
[2017-07-22] MEDS: HEPARIN 5,000 UNIT/ML VIAL SQ SCH ×2 (08:56→20:49)
[2017-07-22] MEDS: AMANTADINE HCL 100 MG CAPSULE PO SCH ×2 (08:56→20:48)
[2017-07-22] MEDS: FLUCONAZOLE 100 MG TABLET PO SCH (08:56)
[2017-07-22] MEDS ORDERED: VANCOMYCIN 1,000 MG in 0.9 % SODIUM CHLORIDE 250 ML IV SCH (09:00)
[2017-07-22] MEDS: CEFEPIME 2 GM VIAL IV SCH (10:34)
[2017-07-22] MEDS: 0.9 % SODIUM CHLORIDE 1,000 ML IV SCH ×3 (11:33→23:13)
[2017-07-22] MEDS ORDERED: IPRATROPIUM/ALBUTEROL 3 ML AMPUL.NEB NEB PRN ×2 (12:24→13:12)
[2017-07-22] MEDS ORDERED: HYDROmorphone 2 MG/ML VIAL IV PRN (13:12)
[2017-07-22] MEDS ORDERED: VANCOMYCIN PER PHARMACY IV SCH (13:12)
[2017-07-22] MEDS ORDERED: ONDANSETRON 4 MG/2 ML VIAL IV PRN (13:12)
[2017-07-22] MEDS ORDERED: PROMETHAZINE 25 MG/ML VIAL IV PRN (13:12)
[2017-07-22] MEDS ORDERED: IOPAMIDOL 100 ML BOTTLE IV ONE (14:11)
--- NOTE | 2017-07-22 16:06 | Cat Scan Report ---
CLINICAL INFORMATION: Enterococcus bacteremia COMPARISON: Abdomen and pelvic CT - 11/07/2015 TECHNIQUE: Following enteric contrast, 80 cc of Isovue-300 were injected intravenously, and 60 seconds later, 0.625 mm helical slices were obtained from the mid heart through the subtrochanteric regions. Following reconstruction, 2.5 mm sagittal, coronal and axial reformatted images were processed and reviewed at bone, lung and soft tissue windows. Five minutes later, 0.625 mm helical slices were obtained from the mid heart through the kidneys and viewed at soft tissue windows.The exam was performed using radiation dose optimization techniques including, but not limited to, automated exposure control, adjustment of the mA and/or kV according to patient size and use of iterative reconstruction technique. FINDINGS: Lung bases show small bilateral pleural effusions and segmental atelectasis in the posterior lateral and medial basilar segments of both lower lobes. The heart is borderline enlarged small hiatal hernia noted Images through the abdomen show minimal fatty change within the liver which is stable. The gallbladder is surgically absent. Intrahepatic and common bile ducts are normal caliber: CBD is 5 mm. The pancreas, both kidneys, adrenal glands, spleen and aorta, including aortic branches, are normal in size, configuration and attenuation without focal lesion. Images should the pelvis show Rogers catheter in satisfactory position within the urinary bladder. The urinary bladder wall appears moderately thickened but may be artifact of underdistention. Hysterectomy/oophorectomy changes are noted There is marked thickening of the wall and plica circulares folds throughout the entire jejunum and proximal ileum. The duodenum, terminal ileum and colon appear unremarkable. Small amounts of ascites noted. There is no free air or adenopathy. IMPRESSION: 1. Marked thickening of the wall and plica circulares folds of the entire jejunum - a new finding from comparison study nine months prior. There is sparing of the duodenum the terminal ileum and the colon. Moderate ascites also noted. With history of enterococcus bacteremia, enterococcus small bowel enteritis should be entertained. The differential diagnosis of this particular radiographic finding is quite extensive and includes: Other infections such as giardiasis, Crohn's disease, eosinophillic enteritis, amyloidosis, ischemia, hypoproteinemia and celiac disease. Referral to gastroenterology for upper endoscopy to examine, and possibly biopsy, the proximal jejunum near the ligament of Treitz is suggested. 2. New small bilateral pleural effusions and subsegmental atelectasis in both bases. History of CHF is acknowledged Interpreted and Authenticated by: Ivan Anthony 07/22/17
--- NOTE | 2017-07-22 20:36 | Internal Med Progress Note ---
Medical - PN: Subj Patient information: Note initiated : 07/22/17 at 8:33 pm Service Date, if different from initiated Date: [] Patient: Inna Selby 77 y/o F admitted on 07/20/17 for Weakness, Hx of MS/ Pneumonia, Hypoxic Resp Failure. Chief Complaint: [] Interval history: Ms. Selby is a 77 year old Female with h/o multiple sclerosis, presents to the ER today with complaints of weakness going on for 1 day The patient was here yesterday with complaints of sinus congestion, weakness and fatigue, she had mild leucocytosis, cxr was neg, and flu test was positive for influenza A, she was sent home on po Tamiflu. The patient presented today with complaints of worsening weakness, inability to stand or sit up, bilateral leg weakness, as per her left more than the right. She also notes chronic diarrhea, she said it was going on for last 4-5 days, but could be more as per the nursing in the ER as she told them a much longer duration, pt has a history of C. diff. The patient also is having fever and chills for last few days. In the ER the patient was noted to be febrile, tachycardic, labs show leucocytosis, she has elevated creat, elevated lactic acid, CXR shows possible right and left lower lobe PNA. She was also hypoxic and therefore admitted to the hospital for further management The patient was recently seen by her PCP for Raynaud phenomenon, and started on nifedipine. The patient wishes to be DNR, but is OK with intubation. She denies any specific weakness in hands, denies diplopia, difficulty in swallowing or unable to tell me any particular sensory loss. She complains of weakness of her left leg more than right, she is unable to tell me her pervious flare ups, but I have admitted her in the past, and this was her symptom of flare up with an infection. 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 During clean up in the ER, the patient had extensive pelvic amanda infection, and it seems that her perineal region has been soaked in stools Patient is being admitted to PCU status for further management. Jul 21 patient seen and examined, no acute overnight events, patient lactic acid is now in the normal range. Still has low-grade fever. Blood cultures positive for gram-positive cocci in pairs and chains in the anaerobic bottle. C. difficile is negative. Plan to discontinue oral vancomycin. Continue IV vancomycin, cefepime, metronidazole. Continue Diflucan. for Intertrigo. Start the patient on probiotics. The patient denies any chest pain, no shortness of breath, no headache, admits to some dizziness. She has no GI symptoms. She still has generalized weakness. Jul 22 Still having low-grade fever. Blood cultures positive for gram-positive cocci in pairs and chains, molecular testing consistent with enterococcus. The patient is on vancomycin. She is feeling stronger today. No longer on oxygen. Hemodynamics have been stable. She feels her left leg is getting a bit stronger. - Constitutional Vitals: Vital Signs Temp Pulse Resp BP Pulse Ox 99.4 F H 91 H 23 H 136/61 95 07/22/17 12:01 07/22/17 13:01 07/22/17 13:55 07/22/17 13:01 07/22/17 13:01 Period Temp Pulse Resp BP Sys/Ellis Pulse Ox Last 24 Hr 98.0 F-99.6 F 71-100 15-25 94-140/47-120 92-100 Intake and Output 07/22/17 07/22/17 07/22/17 05:59 13:59 21:59 Intake Total 1400 / 1400 1110 / 1110 100 / 100 Output Total 1010 / 1010 1065 / 1065 Balance 390 / 390 45 / 45 100 / 100 Intake & Output: Intake & Output 07/22/17 07/22/17 07/22/17 05:59 13:59 21:59 Intake Total 1400 / 1400 1110 / 1110 100 / 100 Output Total 1010 / 1010 1065 / 1065 Balance 390 / 390 45 / 45 100 / 100 Intake: IV 1100 / 1100 870 / 870 100 / 100 Sodium Chloride 0.9% 1,000 ml @ 1000 / 1000 100 mls/hr IV .Q10H [facility] Rx#: [id number] Oral 300 / 300 240 / 240 Output: Urine Catheter Amount 1010 / 1010 1065 / 1065 Other: Meal Breakfast Percent of Meal Consumed 25% Feeding Ability Assist with Tray Set Up Stool Size Moderate Small Stool Color Brown Stool Consistency Loose Liquid # of times incontinent of 1 1 Bowels Exam: General: In good spirits, feeling better. Chest: Mildly diminished, no rhonchi or rales. Respirations are unlabored. Cardiovascular: Regular rate and rhythm with 2/6 systolic murmur, loudest at the upper right sternal border, no edema Abdomen: Soft, mild discomfort without overt tenderness, no guarding or rebound , bowel sounds are active. Neuro: Alert, oriented, generally weak. Left leg is subjectively feeling stronger. Medical - PN: Obj Da - Labs CBC & Chem 7: 07/22/17 04:20 07/22/17 04:20 Labs: Abnormal Lab Results 07/22/17 07/22/17 07/21/17 04:20 04:20 04:00 WBC 12.3 H RBC 3.84 L Hgb 10.6 L Hct 31.7 L RDW 17.7 H Plt Count Gran % 80.9 H Lymph % (Auto) 4.8 L Gran # 9.9 H Lymph # (Auto) 0.6 L Barnwell # (Auto) 1.0 H Lymphocytes % Metamyelocytes % RBC Morphology Anisocytosis VBG Lactic Acid Potassium 2.9 L* Carbon Dioxide Anion Gap BUN 45 H Creatinine Glucose Calcium 7.6 L 7.5 L Phosphorus 2.1 L Total Protein 4.0 L 4.0 L Albumin 1.9 L 2.3 L Globulin 2.1 L 1.7 L Albumin/Globulin Ratio 0.9 L Urine Protein Urine Ketones Amorphous Crystals Hyaline Casts 07/21/17 07/20/17 07/20/17 04:00 17:15 16:32 WBC 12.6 H RBC 3.87 L Hgb 10.7 L Hct 31.9 L RDW 17.6 H Plt Count Gran % 89.6 H Lymph % (Auto) 3.6 L Gran # 11.3 H Lymph # (Auto) 0.5 L [place] # (Auto) Lymphocytes % Metamyelocytes % RBC Morphology Anisocytosis VBG Lactic Acid 3.2 H Potassium Carbon Dioxide Anion Gap BUN Creatinine Glucose Calcium Phosphorus Total Protein Albumin Globulin Albumin/Globulin Ratio Urine Protein 30 A Urine Ketones 5/tr A Amorphous Crystals Few A Hyaline Casts 12 H 07/20/17 07/20/17 07/20/17 13:06 13:06 13:06 WBC 17.2 H RBC 5.83 H Hgb 15.7 H Hct RDW 17.9 H Plt Count 486 H Gran % Lymph % (Auto) Gran # Lymph # (Auto) [place] # (Auto) Lymphocytes % 7 L Metamyelocytes % 3 H RBC Morphology Abnorm A Anisocytosis 1+ A VBG Lactic Acid 2.4 H Potassium Carbon Dioxide 21 L Anion Gap 22.0 H BUN 68 H Creatinine 2.0 H Glucose 139 H Calcium Phosphorus Total Protein Albumin Globulin Albumin/Globulin Ratio Urine Protein Urine Ketones Amorphous Crystals Hyaline Casts Meds: Medications Acetaminophen (Tylenol) 650 mg PO Q4-6HP PRN PRN Reason: PAIN/FEVER > 101 Albuterol/Ipratropium (Duoneb) 3 ml NEB Q6HP PRN PRN Reason: Shortness Of Breath Or Wheezing Amantadine HCl (Amantadine) 100 mg PO BID [facility] Aspirin (Aspirin) 81 mg PO DAILY [facility] Baclofen (Lioresal) 10 mg PO TID [facility] Last Admin: 07/22/17 15:02 Dose: 10 mg Cefepime HCl (Maxipime) 2 gm IV Q24H [facility] Famotidine (Pepcid) 20 mg IV Q12 [facility] Fluconazole (Diflucan) 200 mg PO DAILY [facility] Heparin Sodium (Porcine) (Heparin) 5,000 unit SQ Q12 [facility] Hydromorphone HCl (Dilaudid) 0.5 mg IV Q2HP PRN PRN Reason: PAIN LEVEL > 6 Metronidazole (Flagyl) 500 mg in 100 mls @ 100 mls/hr IV Q8H [facility] Last Infusion: 07/22/17 15:09 Dose: Infused Sodium Chloride (Sodium Chloride 0.9%) 1,000 mls @ 100 mls/hr IV .Q10H [facility] Last Admin: 07/22/17 13:34 Dose: Not Given Vancomycin HCl 1,000 mg/ (Sodium Chloride) 250 mls @ 250 mls/hr IV Q24H [facility] Lactobacillus Rhamnosus (Culturelle) 1 cap PO BID [facility] Latanoprost (Xalatan Ophth Drops) 1 gtt OU HS [facility] Metoprolol Tartrate (Lopressor) 5 mg IV PRN PRN PRN Reason: Sustained HR greater than 130 Ondansetron HCl (Zofran) 4 mg IV Q4-6HP PRN PRN Reason: Nausea And Vomiting Oseltamivir Phosphate (Tamiflu) 75 mg PO BID [facility] Stop: 07/27/17 09:01 Promethazine HCl (Phenergan) 12.5 mg IV Q4-6HP PRN PRN Reason: Nausea And Vomiting Sodium Chloride (Saline Flush) 10 ml IV Q8 [facility] Last Admin: 07/22/17 14:58 Dose: 10 ml Vancomycin HCl (Vancomycin Per Pharmacy) 1 order IV [facility] [place] Echocardiogram 07/21/2017 Left ventricule is normal in size with normal wall thickness and normal systolic function. Mild aortic stenosis Mild to moderate aortic insufficiency Mild aortic root dilatation Aortic root sclerosis/calcification No vegetations identified. - Imaging and cardiology CT scan - abdomen Status: image reviewed by me Additional comments: Discussed with Dr. Khan at the time of interpretation IMPRESSION: 1. Marked thickening of the wall and plica circulares folds of the entire jejunum - a new finding from comparison study nine months prior. There is sparing of the duodenum the terminal ileum and the colon. Moderate ascites also noted. With history of enterococcus bacteremia, enterococcus small bowel enteritis should be entertained. The differential diagnosis of this particular radiographic finding is quite extensive and includes: Other infections such as giardiasis, Crohn's disease, eosinophillic enteritis, amyloidosis, ischemia, hypoproteinemia and celiac disease. Referral to gastroenterology for upper endoscopy to examine, and possibly biopsy, the proximal jejunum near the ligament of Treitz is suggested. 2. New small bilateral pleural effusions and subsegmental atelectasis in both bases. History of CHF is acknowledged Medical - PN: A/P - Time Spent With Patient Total time spent is greater than 50% in coordination of care (as documented) at patient's floor/unit and/or counseling patient: Greater than 35 minutes - Narrative A/P Narrative: 77-year-old female multiple sclerosis, diagnosed with influenza, returns one day later with sepsis. Severe sepsis with multiorgan failure at presentation. Now appears to be secondary to enterococcal bloodstream infection. No evidence of pneumonia on chest cuts of CT of the abdomen and pelvis today. Given enterococcus identified a molecular probe, CT of the abdomen and pelvis obtained, showing markedly abnormal small bowel. Stool cultures have been sent. This could be related to her chronic diarrhea. C. difficile is negative. No apparent prior history of small bowel disease. Plan: Continue with IV vancomycin, cefepime and Flagyl. Modify antibiotics once sensitivities are back, though given penicillin allergy, likely will need treated with vancomycin. Enteritis. Differential broad as noted above in CT report. Cultures obtained and sent. C. diff negative. Plan: Follow up cultures, will ask GI to evaluate. Acute hypoxic resp failure: Suspect secondary to sepsis, possibly influenza. No pneumonia on CT. Plan: Oxygen via nasal canula, bipap vs intubate if needed, clinically improving. Acute renal failure: due to poor oral intake and diarrhea, IVF. Resolved. Lactic acidosis: resolved Influenza A: On tamiflu Multiple sclerosis pseudo flare up: Given acute infection, would avoid using high dose steroids, in the past she has responded well to physical therapy Raynaud phenomenon, : C3 and C4 are normal pending juan antonio and anca panel, check anti ingris and ck, Thrombocytosis: due to acute infection, improved. That has been a drop in hemoglobin as well as platelet after fluid administration, most likely dilutional in nature. No chemical evidence of acute bleed DVT hep sq Diet regular Code status ,dnr, ok with intubations, iv fluids, antibiotics pressors etc. Medical - PN: Qual - VTE Deep Vein Thrombosis/Pulmonary Embolism Present on Admission: No
[2017-07-22 20:49] LABS: Blood Urea Nitrogen 8 mg/dl (8-23)
[2017-07-22] MEDS: LATANOPROST OPHTH DROPS 2.5ML BOTTLE OU SCH (20:50)
[2017-07-22] MEDS ORDERED: MAGNESIUM SULFATE 2 GM/50 ML BAG IV ONE (21:07)
[2017-07-22] MEDS ORDERED: POTASSIUM CHLORIDE 20 MEQ/10 ML VIAL IV ONE (21:28)
[2017-07-23] MEDS: 0.9 % SODIUM CHLORIDE 1,000 ML IV SCH ×2 (03:23→10:01)
[2017-07-23] MEDS: metroNIDAZOLE 500 MG/100 ML BAG IV SCH ×3 (05:25→22:01)
[2017-07-23] MEDS: 0.9 % SODIUM CHLORIDE 10 ML SYRINGE IV SCH ×3 (05:26→21:01)
[2017-07-23 05:31] LABS: Basophils # (Auto) 0 K/mcL (0.0-0.3); Basophils % (Auto) 0.3 % (0.0-2.0); Eosinophils # (Auto) 0.5 K/mcL (0.0-0.7); Eosinophils % (Auto) 3.9 % (0.0-7.0); Granulocytes % (Auto) 82.7 % (38.0-78.0); Lymphocytes # (Auto) 0.6 K/mcL (1.5-4.8); Lymphocytes % (Auto) 4.9 % (15.5-49.0); Mean Cell Volume 82.3 fL (80.0-100.0); Mean Corpuscular HGB Conc 33.4 g/dL (31.0-36.0); Mean Corpuscular Hemoglobin 27.5 pg (26.0-34.0); Monocytes % (Auto) 8.2 % (1.0-12.0); Platelet Count 304 K/mcL (140-440); RBC 3.91 M/mcL (4.00-5.20); Red Cell Distribution Width 17.9 % (11.5-14.5)
[2017-07-23 06:12] LABS: ALT/SGPT 8 U/l (0-40); Albumin 2.1 gm/dL (3.2-5.2); Alkaline Phosphatase 76 U/L (39-117); Bilirubin,Direct < 0.2 mg/dL (0.0-0.3); Blood Urea Nitrogen 7 mg/dl (8-23); Gamma Glutamyl Transpeptidase 9 U/L (5-36); Uric Acid 1.6 mg/dL (2.5-8.0)
[2017-07-23] MEDS: ACETAMINOPHEN 325 MG TABLET PO PRN (07:22)
[2017-07-23] MEDS ORDERED: POTASSIUM PHOSPHATE 40 MEQ in DEXTROSE 5% IN WATER 500 ML IV ONE (09:00)
[2017-07-23] MEDS: OSELTAMIVIR PHOSPHATE 75 MG CAPSULE PO SCH ×2 (09:26→21:00)
[2017-07-23] MEDS: ASPIRIN 81 MG TAB.CHEW PO SCH (09:26)
[2017-07-23] MEDS: BACLOFEN 10 MG TABLET PO SCH ×3 (09:26→21:00)
[2017-07-23] MEDS: LACTOBACILLUS 1 CAPSULE PO SCH ×2 (09:26→21:00)
[2017-07-23] MEDS: FLUCONAZOLE 100 MG TABLET PO SCH (09:26)
[2017-07-23] MEDS: AMANTADINE HCL 100 MG CAPSULE PO SCH ×2 (09:26→21:01)
[2017-07-23] MEDS: FAMOTIDINE/PF 20 MG/2 ML VIAL IV SCH ×2 (09:27→20:59)
[2017-07-23] MEDS: HEPARIN 5,000 UNIT/ML VIAL SQ SCH ×2 (09:27→21:00)
[2017-07-23] MEDS: CEFEPIME 2 GM VIAL IV SCH (09:30)
[2017-07-23] MEDS: VANCOMYCIN 1,000 MG in 0.9 % SODIUM CHLORIDE 250 ML IV SCH (09:39)
--- NOTE | 2017-07-23 18:02 | Internal Med Progress Note ---
Medical - PN: Subj Patient information: Note initiated : 07/23/17 at 5:59 pm Service Date, if different from initiated Date: [] Patient: Inna Selby a 77 y/o F admitted on 07/20/17 for Weakness, Hx of MS, Hypoxic Resp Failure. Chief Complaint: f/u sepsis Interval history: Ms. Selby is a 77 year old Female with h/o multiple sclerosis, presents to the ER today with complaints of weakness going on for 1 day The patient was here yesterday with complaints of sinus congestion, weakness and fatigue, she had mild leucocytosis, cxr was neg, and flu test was positive for influenza A, she was sent home on po Tamiflu. The patient presented today with complaints of worsening weakness, inability to stand or sit up, bilateral leg weakness, as per her left more than the right. She also notes chronic diarrhea, she said it was going on for last 4-5 days, but could be more as per the nursing in the ER as she told them a much longer duration, pt has a history of C. diff. The patient also is having fever and chills for last few days. In the ER the patient was noted to be febrile, tachycardic, labs show leucocytosis, she has elevated creat, elevated lactic acid, CXR shows possible right and left lower lobe PNA. She was also hypoxic and therefore admitted to the hospital for further management The patient was recently seen by her PCP for Raynaud phenomenon, and started on nifedipine. The patient wishes to be DNR, but is OK with intubation. She denies any specific weakness in hands, denies diplopia, difficulty in swallowing or unable to tell me any particular sensory loss. She complains of weakness of her left leg more than right, she is unable to tell me her pervious flare ups, but I have admitted her in the past, and this was her symptom of flare up with an infection. 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 During clean up in the ER, the patient had extensive pelvic amanda infection, and it seems that her perineal region has been soaked in stools Patient is being admitted to PCU status for further management. Jul 21 patient seen and examined, no acute overnight events, patient lactic acid is now in the normal range. Still has low-grade fever. Blood cultures positive for gram-positive cocci in pairs and chains in the anaerobic bottle. C. difficile is negative. Plan to discontinue oral vancomycin. Continue IV vancomycin, cefepime, metronidazole. Continue Diflucan. for Intertrigo. Start the patient on probiotics. The patient denies any chest pain, no shortness of breath, no headache, admits to some dizziness. She has no GI symptoms. She still has generalized weakness. Jul 22 Still having low-grade fever. Blood cultures positive for gram-positive cocci in pairs and chains, molecular testing consistent with enterococcus. The patient is on vancomycin. She is feeling stronger today. No longer on oxygen. Hemodynamics have been stable. She feels her left leg is getting a bit stronger. July 23 Feeling better today. Having significant ventricular ectopy in spite of potassium riders. Short runs of ventricular tachycardia of 5 or so beats. Otherwise appetite is better, no abdominal pain. Has rectal tube in place because of significant diarrhea. Discussed findings of CT scan with Dr. Rooney, on-call for GI. He also sees the patient in clinic, as done both colonoscopy and EGD to evaluate for diarrhea and anemia. Duodenal biopsies have been unrevealing as have colonic biopsies. At this point, will treat with antibiotics for bloodstream infection, possible bacterial enteritis and follow expectantly. If no improvement, will consider tissue sampling. Discussed with patient, she is in agreement. - Constitutional Vitals: Vital Signs Temp Pulse Resp BP Pulse Ox 99.6 F H 88 18 140/57 95 07/23/17 16:00 07/23/17 03:58 07/23/17 16:00 07/23/17 16:00 07/23/17 16:00 Period Temp Pulse Resp BP Sys/Ellis Pulse Ox Last 24 Hr 99.5 F-100.7 F 88-107 - 99-143/52-73 89-99 Intake and Output 07/23/17 07/23/17 07/23/17 05:59 13:59 21:59 Intake Total 2029 540 / 540 1099.0909 / 1099.0909 Output Total 1000 / 1000 1000 / 1000 Balance 1030 / 1030 -460 / -460 1099.0909 / 1099.0909 Intake & Output: Intake & Output 07/23/17 07/23/17 07/23/17 05:59 13:59 21:59 Intake Total 2029 540 / 540 1099.0909 / 1099.0909 Output Total 1000 / 1000 1000 / 1000 Balance 1030 / 1030 -460 / -460 1099.0909 / 1099.0909 Intake: IV 1670 / 1670 100 / 388 467.9958 / 859.0909 Vancomycin 1,000 mg In Sodium 250 / 250 Chloride 0.9% 250 ml @ 250 mls/ hr IV Q24H [facility] Rx#:[id number] Oral 360 / 360 440 / 440 240 / 240 Output: Urine Catheter Amount 1000 / 1000 1000 / 1000 Other: Meal Lunch Dinner Percent of Meal Consumed 25% 50% Feeding Ability Independent Stool Size Copious Stool Color Yellow # Bowel Movements 2 # of times incontinent of 2 Bowels Exam: General: Thin, appears in better spirits Chest: Clear, no rales Microvascular: Regular, no edema Abdomen: Soft, nontender, active bowel sounds, no guarding or rebound Neuro: Alert, oriented 3, feels strengthen her legs is about equal. Medical - PN: Obj Da - Labs CBC & Chem 7: 07/23/17 04:05 07/23/17 04:05 Labs: Abnormal Lab Results 07/23/17 07/23/17 07/22/17 04:05 04:05 19:51 WBC 12.7 H RBC 3.91 L Hgb 10.8 L Hct 32.2 L RDW 17.9 H Gran % 82.7 H Lymph % (Auto) 4.9 L Gran # 10.5 H Lymph # (Auto) 0.6 L [place] # (Auto) 1.0 H VBG Lactic Acid Potassium 3.0 L BUN 7 L Creatinine 0.4 L 0.5 L Glucose 146 H Uric Acid 1.6 L Calcium 7.4 L 7.6 L Phosphorus 1.6 L Total Protein 4.3 L Albumin 2.1 L Globulin Albumin/Globulin Ratio 07/22/17 07/22/17 07/21/17 04:20 04:20 04:00 WBC 12.3 H RBC 3.84 L Hgb 10.6 L Hct 31.7 L RDW 17.7 H Gran % 80.9 H Lymph % (Auto) 4.8 L Gran # 9.9 H Lymph # (Auto) 0.6 L [place] # (Auto) 1.0 H VBG Lactic Acid Potassium 2.9 L* BUN 45 H Creatinine Glucose Uric Acid Calcium 7.6 L 7.5 L Phosphorus 2.1 L Total Protein 4.0 L 4.0 L Albumin 1.9 L 2.3 L Globulin 2.1 L 1.7 L Albumin/Globulin Ratio 0.9 L 07/21/17 07/20/17 04:00 17:15 WBC 12.6 H RBC 3.87 L Hgb 10.7 L Hct 31.9 L RDW 17.6 H Gran % 89.6 H Lymph % (Auto) 3.6 L Gran # 11.3 H Lymph # (Auto) 0.5 L [place] # (Auto) VBG Lactic Acid 3.2 H Potassium BUN Creatinine Glucose Uric Acid Calcium Phosphorus Total Protein Albumin Globulin Albumin/Globulin Ratio Microbiology 07/22/17 14:52 Rectum Stool Culture - Preliminary 07/20/17 13:08 Blood Blood Culture - Preliminary Gram positive cocci 07/20/17 14:19 Blood Blood Culture - Final Gram positive cocci 07/20/17 17:34 Stool C.difficile Toxin B Gene (PCR) - Final 07/20/17 17:18 Nose MRSA (PCR) - Final Meds: Medications Acetaminophen (Tylenol) 650 mg PO Q4-6HP PRN PRN Reason: PAIN/FEVER > 101 Last Admin: 07/23/17 07:22 Dose: 650 mg Albuterol/Ipratropium (Duoneb) 3 ml NEB Q6HP PRN PRN Reason: Shortness Of Breath Or Wheezing Amantadine HCl (Amantadine) 100 mg PO BID [facility] Last Admin: 07/23/17 09:26 Dose: 100 mg Aspirin (Aspirin) 81 mg PO DAILY [facility] Last Admin: 07/23/17 09:26 Dose: 81 mg Baclofen (Lioresal) 10 mg PO TID [facility] Last Admin: 07/23/17 15:28 Dose: 10 mg Cefepime HCl (Maxipime) 2 gm IV Q24H [facility] Last Admin: 07/23/17 09:30 Dose: 2 gm Famotidine (Pepcid) 20 mg IV Q12 [facility] Last Admin: 07/23/17 09:27 Dose: 20 mg Fluconazole (Diflucan) 200 mg PO DAILY [facility] Last Admin: 07/23/17 09:26 Dose: 200 mg Heparin Sodium (Porcine) (Heparin) 5,000 unit SQ Q12 [facility] Last Admin: 07/23/17 09:27 Dose: 5,000 unit Hydromorphone HCl (Dilaudid) 0.5 mg IV Q2HP PRN PRN Reason: PAIN LEVEL > 6 Last Admin: 07/22/17 20:48 Dose: 0.5 mg Metronidazole (Flagyl) 500 mg in 100 mls @ 100 mls/hr IV Q8H [facility] Last Infusion: 07/23/17 15:53 Dose: Infused Sodium Chloride (Sodium Chloride 0.9%) 1,000 mls @ 100 mls/hr IV .Q10H [facility] Last Admin: 07/23/17 10:01 Dose: Not Given Vancomycin HCl 1,000 mg/ (Sodium Chloride) 250 mls @ 250 mls/hr IV Q24H [facility] Last Infusion: 07/23/17 15:53 Dose: Infused Lactobacillus Rhamnosus (Culturelle) 1 cap PO BID [facility] Last Admin: 07/23/17 09:26 Dose: 1 cap Latanoprost (Xalatan Ophth Drops) 1 gtt OU HS [facility] Last Admin: 07/22/17 20:50 Dose: Not Given Metoprolol Tartrate (Lopressor) 5 mg IV PRN PRN PRN Reason: Sustained HR greater than 130 Ondansetron HCl (Zofran) 4 mg IV Q4-6HP PRN PRN Reason: Nausea And Vomiting Oseltamivir Phosphate (Tamiflu) 75 mg PO BID [facility] Stop: 07/27/17 09:01 Last Admin: 07/23/17 09:26 Dose: 75 mg Promethazine HCl (Phenergan) 12.5 mg IV Q4-6HP PRN PRN Reason: Nausea And Vomiting Sodium Chloride (Saline Flush) 10 ml IV Q8 [facility] Last Admin: 07/23/17 15:25 Dose: 10 ml Vancomycin HCl (Vancomycin Per Pharmacy) 1 order IV UD [facility] Medical - PN: A/P - Time Spent With Patient Total time spent is greater than 50% in coordination of care (as documented) at patient's floor/unit and/or counseling patient: Greater than 35 minutes - Narrative A/P Narrative: 77-year-old female multiple sclerosis, diagnosed with influenza, returns one day later with sepsis. Severe sepsis with multiorgan failure at presentation. Now appears to be secondary to enterococcal bloodstream infection. No evidence of pneumonia on chest cuts of CT of the abdomen and pelvis. Suspect sources enteritis with disruption of mucosal barrier and translocation of gut bacteria. Plan: Continue with IV vancomycin, cefepime and Flagyl. Awaiting final sensitivities and ID on culture plates, though molecular probes suggest enterococcus. Enteritis with diarrhea. Discussed with Dr. Rooney, who also sees the patient in clinic and is performed endoscopies for complaints of anemia and diarrhea. Small bowel biopsies, though not into the jejunum, been unrevealing in the past. Enteritis may be acute infectious with interruption of mucosal barrier and translocation of GI bacteria causing enterococcal bloodstream infection sepsis. Plan: Continue antibiotics, follow up cultures, if does not significantly improve, consider endoscopy for possible biopsy. Bulking agents for diarrhea. Acute hypoxic resp failure: Suspect secondary to sepsis, possibly influenza. No pneumonia on CT. Plan: Oxygen via nasal canula, bipap vs intubate if needed, clinically improving. Acute renal failure: due to poor oral intake and diarrhea, IVF. Resolved. Lactic acidosis: resolved Influenza A: On tamiflu Multiple sclerosis pseudo flare up: Given acute infection, would avoid using high dose steroids, in the past she has responded well to physical therapy Raynaud phenomenon: C3 and C4 are normal pending juan antonio and anca panel, check anti ingris and ck, Thrombocytosis: due to acute infection, improved. That has been a drop in hemoglobin as well as platelet after fluid administration, most likely dilutional in nature. No chemical evidence of acute bleed DVT hep sq Diet regular Code status ,DNR, ok with intubations, iv fluids, antibiotics pressors etc. Medical - PN: Qual - VTE Deep Vein Thrombosis/Pulmonary Embolism Present on Admission: No
[2017-07-23] MEDS: LATANOPROST OPHTH DROPS 2.5ML BOTTLE OU SCH (22:00)
[2017-07-24] MEDS: 0.9 % SODIUM CHLORIDE 1,000 ML IV SCH ×4 (02:49→19:09)
[2017-07-24 05:27] LABS: Basophils # (Auto) 0 K/mcL (0.0-0.3); Basophils % (Auto) 0 % (0.0-2.0); Eosinophils # (Auto) 0.6 K/mcL (0.0-0.7); Eosinophils % (Auto) 3.9 % (0.0-7.0); Granulocytes % (Auto) 79.3 % (38.0-78.0); Lymphocytes # (Auto) 0.8 K/mcL (1.5-4.8); Lymphocytes % (Auto) 5.2 % (15.5-49.0); Mean Cell Volume 82.2 fL (80.0-100.0); Mean Corpuscular HGB Conc 33.5 g/dL (31.0-36.0); Mean Corpuscular Hemoglobin 27.6 pg (26.0-34.0); Monocytes # (Auto) 1.8 K/mcL (0.1-0.9); Monocytes % (Auto) 11.6 % (1.0-12.0); Platelet Count 353 K/mcL (140-440); RBC 4.25 M/mcL (4.00-5.20); Red Cell Distribution Width 17.6 % (11.5-14.5)
[2017-07-24 05:40] LABS: ALT/SGPT 10 U/l (0-40); Albumin 2.3 gm/dL (3.2-5.2); Alkaline Phosphatase 70 U/L (39-117); Bilirubin,Direct < 0.2 mg/dL (0.0-0.3); Blood Urea Nitrogen 5 mg/dl (8-23); Gamma Glutamyl Transpeptidase 12 U/L (5-36); Uric Acid 1.2 mg/dL (2.5-8.0)
[2017-07-24] MEDS: metroNIDAZOLE 500 MG/100 ML BAG IV SCH ×3 (05:58→21:43)
[2017-07-24] MEDS: 0.9 % SODIUM CHLORIDE 10 ML SYRINGE IV SCH ×3 (05:58→22:38)
[2017-07-24] MEDS ORDERED: MAGNESIUM SULFATE 32.48 MEQ in DEXTROSE 5% IN WATER 100 ML IV ONE (08:00)
[2017-07-24] MEDS: MAGNESIUM SULFATE 2 GM/50 ML BAG IV SCH ×2 (08:26→09:56)
[2017-07-24] MEDS: METOPROLOL TARTRATE 5 MG/5 ML VIAL IV PRN (08:29)
[2017-07-24] MEDS ORDERED: POTASSIUM CHLORIDE 40 MEQ in DEXTROSE 5% IN WATER 500 ML IV ONE (09:00)
[2017-07-24 09:28] LABS: ANCA Screen NEGATIVE (NEGATIVE); Myeloperoxidase Antibody <1.0 AI (<1.0)
[2017-07-24] MEDS: FAMOTIDINE/PF 20 MG/2 ML VIAL IV SCH ×2 (10:52→21:00)
[2017-07-24] MEDS: HEPARIN 5,000 UNIT/ML VIAL SQ SCH ×2 (10:52→21:00)
[2017-07-24] MEDS: VANCOMYCIN 1,000 MG in 0.9 % SODIUM CHLORIDE 250 ML IV SCH ×3 (10:53→22:32)
[2017-07-24] MEDS: AMANTADINE HCL 100 MG CAPSULE PO SCH ×2 (10:53→21:00)
[2017-07-24] MEDS: FLUCONAZOLE 100 MG TABLET PO SCH (10:53)
[2017-07-24] MEDS: ASPIRIN 81 MG TAB.CHEW PO SCH (10:53)
[2017-07-24] MEDS: OSELTAMIVIR PHOSPHATE 75 MG CAPSULE PO SCH ×2 (11:13→21:00)
[2017-07-24] MEDS: LACTOBACILLUS 1 CAPSULE PO SCH ×2 (11:13→21:00)
[2017-07-24] MEDS: BACLOFEN 10 MG TABLET PO SCH ×3 (11:13→21:00)
[2017-07-24] MEDS: CEFEPIME 2 GM VIAL IV SCH (11:13)
--- NOTE | 2017-07-24 11:45 | Internal Med Progress Note ---
Medical - PN: Subj Patient information: Note initiated : 07/24/17 at 11:42 am Service Date, if different from initiated Date: [] Patient: Inna Selby a 77 y/o F admitted on 07/20/17 for Weakness, Hx of MS, Hypoxic Resp Failure. Chief Complaint: f/u sepsis Interval history: Ms. Selby is a 77 year old Female with h/o multiple sclerosis, presents to the ER today with complaints of weakness going on for 1 day The patient was here yesterday with complaints of sinus congestion, weakness and fatigue, she had mild leucocytosis, cxr was neg, and flu test was positive for influenza A, she was sent home on po Tamiflu. The patient presented today with complaints of worsening weakness, inability to stand or sit up, bilateral leg weakness, as per her left more than the right. She also notes chronic diarrhea, she said it was going on for last 4-5 days, but could be more as per the nursing in the ER as she told them a much longer duration, pt has a history of C. diff. The patient also is having fever and chills for last few days. In the ER the patient was noted to be febrile, tachycardic, labs show leucocytosis, she has elevated creat, elevated lactic acid, CXR shows possible right and left lower lobe PNA. She was also hypoxic and therefore admitted to the hospital for further management The patient was recently seen by her PCP for Raynaud phenomenon, and started on nifedipine. The patient wishes to be DNR, but is OK with intubation. She denies any specific weakness in hands, denies diplopia, difficulty in swallowing or unable to tell me any particular sensory loss. She complains of weakness of her left leg more than right, she is unable to tell me her pervious flare ups, but I have admitted her in the past, and this was her symptom of flare up with an infection. 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 During clean up in the ER, the patient had extensive pelvic amanda infection, and it seems that her perineal region has been soaked in stools Patient is being admitted to PCU status for further management. Jul 21 patient seen and examined, no acute overnight events, patient lactic acid is now in the normal range. Still has low-grade fever. Blood cultures positive for gram-positive cocci in pairs and chains in the anaerobic bottle. C. difficile is negative. Plan to discontinue oral vancomycin. Continue IV vancomycin, cefepime, metronidazole. Continue Diflucan. for Intertrigo. Start the patient on probiotics. The patient denies any chest pain, no shortness of breath, no headache, admits to some dizziness. She has no GI symptoms. She still has generalized weakness. Jul 22 Still having low-grade fever. Blood cultures positive for gram-positive cocci in pairs and chains, molecular testing consistent with enterococcus. The patient is on vancomycin. She is feeling stronger today. No longer on oxygen. Hemodynamics have been stable. She feels her left leg is getting a bit stronger. July 23 Feeling better today. Having significant ventricular ectopy in spite of potassium riders. Short runs of ventricular tachycardia of 5 or so beats. Otherwise appetite is better, no abdominal pain. Has rectal tube in place because of significant diarrhea. Discussed findings of CT scan with Dr. Rooney, on-call for GI. He also sees the patient in clinic, as done both colonoscopy and EGD to evaluate for diarrhea and anemia. Duodenal biopsies have been unrevealing as have colonic biopsies. At this point, will treat with antibiotics for bloodstream infection, possible bacterial enteritis and follow expectantly. If no improvement, will consider tissue sampling. Discussed with patient, she is in agreement. Jul 24 Significant autodiuresis overnight, recurrent hypokalemia and hypomagnesemia. Still with watery stool, cultures negative. Awaiting final sensitivities on blood cultures. Overall slowly improving, but still with atrial and ventricular ectopy from electrolyte abnormalities. WBC up to 16K, no fever, otherwise stable. - Constitutional Vitals: Vital Signs Temp Pulse Resp BP Pulse Ox 98.7 F 108 H 20 126/69 94 07/24/17 08:02 07/24/17 08:02 07/24/17 08:02 07/24/17 10:14 07/24/17 08:02 Period Temp Pulse Resp BP Sys/Ellis Pulse Ox Last 24 Hr 98.7 F-100.8 F 95-108 16-20 126-152/57-86 94-97 Intake and Output 07/23/17 07/24/17 07/24/17 21:59 05:59 13:59 Intake Total 1299.0909 / 1299.0909 520 / 520 300 / 300 Output Total 1950 / 1950 1000 / 1000 Balance 1299.0909 / 1299.0909 -1430 / -1430 -700 / -700 Weight 117 lb Intake & Output: Intake & Output 07/23/17 07/24/17 07/24/17 21:59 05:59 13:59 Intake Total 1299.0909 / 1299.0909 520 / 520 300 / 300 Output Total 1949 1000 / 1000 Balance 1299.0909 / 1299.0909 -1430 / -1430 -700 / -700 Weight 117 lb Intake: IV 859.0909 / 859.0909 100 / 100 200 / 200 Vancomycin 1,000 mg In Sodium 250 / 250 Chloride 0.9% 250 ml @ 250 mls/ hr IV Q24H [facility] Rx#:[id number] Oral 440 / 440 420 / 420 100 / 100 Output: Urine Catheter Amount 1949 1000 / 1000 Other: Meal Dinner Breakfast Percent of Meal Consumed 50% 25% Feeding Ability Independent Assist with Tray Set Up Stool Size Moderate Smear Stool Color Brown Brown Stool Consistency Liquid Soft Loose Loose Exam: Gen: In bed in NAD Chest: Diminished in right base, otherwise clear CV: RRR, no edema Abd: Soft, NT, active BS, no g/r Neuro: Alert, Ox3, generalized weakness Medical - PN: Obj Da - Labs CBC & Chem 7: 07/24/17 04:19 07/24/17 04:19 Labs: Abnormal Lab Results 07/24/17 07/24/17 07/23/17 04:19 04:19 04:05 WBC 16.0 H RBC Hgb 11.7 L Hct 34.9 L RDW 17.6 H Gran % 79.3 H Lymph % (Auto) 5.2 L Gran # 12.7 H Lymph # (Auto) 0.8 L [place] # (Auto) 1.8 H Potassium BUN 5 L 7 L Creatinine 0.4 L 0.4 L Glucose Uric Acid 1.2 L 1.6 L Calcium 7.6 L 7.4 L Phosphorus 2.0 L 1.6 L Magnesium 1.5 L Total Protein 4.6 L 4.3 L Albumin 2.3 L 2.1 L Globulin Albumin/Globulin Ratio 07/23/17 07/22/17 07/22/17 04:05 19:51 04:20 WBC 12.7 H RBC 3.91 L Hgb 10.8 L Hct 32.2 L RDW 17.9 H Gran % 82.7 H Lymph % (Auto) 4.9 L Gran # 10.5 H Lymph # (Auto) 0.6 L [place] # (Auto) 1.0 H Potassium 3.0 L 2.9 L* BUN Creatinine 0.5 L Glucose 146 H Uric Acid Calcium 7.6 L 7.6 L Phosphorus 2.1 L Magnesium Total Protein 4.0 L Albumin 1.9 L Globulin 2.1 L Albumin/Globulin Ratio 0.9 L 07/22/17 04:20 WBC 12.3 H RBC 3.84 L Hgb 10.6 L Hct 31.7 L RDW 17.7 H Gran % 80.9 H Lymph % (Auto) 4.8 L Gran # 9.9 H Lymph # (Auto) 0.6 L [place] # (Auto) 1.0 H Potassium BUN Creatinine Glucose Uric Acid Calcium Phosphorus Magnesium Total Protein Albumin Globulin Albumin/Globulin Ratio Meds: Medications Acetaminophen (Tylenol) 650 mg PO Q4-6HP PRN PRN Reason: PAIN/FEVER > 101 Last Admin: 07/23/17 07:22 Dose: 650 mg Albuterol/Ipratropium (Duoneb) 3 ml NEB Q6HP PRN PRN Reason: Shortness Of Breath Or Wheezing Amantadine HCl (Amantadine) 100 mg PO BID [facility] Last Admin: 07/24/17 10:53 Dose: 100 mg Aspirin (Aspirin) 81 mg PO DAILY [facility] Last Admin: 07/24/17 10:53 Dose: 81 mg Baclofen (Lioresal) 10 mg PO TID [facility] Last Admin: 07/24/17 11:13 Dose: 10 mg Cefepime HCl (Maxipime) 2 gm IV Q24H [facility] Last Admin: 07/24/17 11:13 Dose: 2 gm Famotidine (Pepcid) 20 mg IV Q12 [facility] Last Admin: 07/24/17 10:52 Dose: 20 mg Fluconazole (Diflucan) 200 mg PO DAILY [facility] Last Admin: 07/24/17 10:53 Dose: 200 mg Heparin Sodium (Porcine) (Heparin) 5,000 unit SQ Q12 [facility] Last Admin: 07/24/17 10:52 Dose: 5,000 unit Hydromorphone HCl (Dilaudid) 0.5 mg IV Q2HP PRN PRN Reason: PAIN LEVEL > 6 Last Admin: 07/22/17 20:48 Dose: 0.5 mg Metronidazole (Flagyl) 500 mg in 100 mls @ 100 mls/hr IV Q8H [facility] Last Infusion: 07/24/17 07:16 Dose: Infused Sodium Chloride (Sodium Chloride 0.9%) 1,000 mls @ 100 mls/hr IV .Q10H [facility] Last Admin: 07/24/17 05:57 Dose: Not Given Potassium Chloride 40 meq/ (Dextrose) 520 mls @ 130 mls/hr IV ONCE ONE Stop: 07/24/17 12:59 Last Admin: 07/24/17 08:26 Dose: 130 mls/hr Vancomycin HCl 1,000 mg/ (Sodium Chloride) 250 mls @ 250 mls/hr IV Q12H [facility] Last Admin: 07/24/17 10:53 Dose: 250 mls/hr Lactobacillus Rhamnosus (Culturelle) 1 cap PO BID [facility] Last Admin: 07/24/17 11:13 Dose: 1 cap Latanoprost (Xalatan Ophth Drops) 1 gtt OU HS [facility] Last Admin: 07/23/17 22:00 Dose: Not Given Metoprolol Tartrate (Lopressor) 5 mg IV PRN PRN PRN Reason: Sustained HR greater than 130 Last Admin: 07/24/17 08:29 Dose: 5 mg Ondansetron HCl (Zofran) 4 mg IV Q4-6HP PRN PRN Reason: Nausea And Vomiting Oseltamivir Phosphate (Tamiflu) 75 mg PO BID [facility] Stop: 07/27/17 09:01 Last Admin: 07/24/17 11:13 Dose: 75 mg Promethazine HCl (Phenergan) 12.5 mg IV Q4-6HP PRN PRN Reason: Nausea And Vomiting Sodium Chloride (Saline Flush) 10 ml IV Q8 [facility] Last Admin: 07/24/17 05:58 Dose: 10 ml Vancomycin HCl (Vancomycin Per Pharmacy) 1 order IV UD [facility] Medical - PN: A/P - Time Spent With Patient Total time spent is greater than 50% in coordination of care (as documented) at patient's floor/unit and/or counseling patient: Greater than 35 minutes - Narrative A/P Narrative: 77-year-old female multiple sclerosis, diagnosed with influenza, returns one day later with sepsis. Severe sepsis with multiorgan failure at presentation. Now appears to be secondary to enterococcal bloodstream infection. No evidence of pneumonia on chest cuts of CT of the abdomen and pelvis. Suspect sources enteritis with disruption of mucosal barrier and translocation of gut bacteria. Still no final sensitivities on cultures. Plan: Continue with IV vancomycin, cefepime and Flagyl. Continue to await final sensitivities and ID on culture plates, though molecular probes suggest enterococcus. Enteritis with diarrhea. Discussed with Dr. Rooney, who also sees the patient in clinic and is performed endoscopies for complaints of anemia and diarrhea. Small bowel biopsies, though not into the jejunum, have been unrevealing. Enteritis may be acute infectious with interruption of mucosal barrier and translocation of GI bacteria causing enterococcal bloodstream infection sepsis. Plan: Continue antibiotics, follow up cultures; follow clinically and if does not improve, consider endoscopy for biopsy. Bulking agents for diarrhea. Acute hypoxic resp failure-resolved: Suspect was secondary to sepsis, possibly influenza. No pneumonia on CT. Plan: Oxygen via nasal canula PRN Acute renal failure: due to poor oral intake and diarrhea, IVF. Resolved. Lactic acidosis: resolved Influenza A: On tamiflu Multiple sclerosis pseudo flare up: Given acute infection, would avoid using high dose steroids, in the past she has responded well to physical therapy Raynaud phenomenon: C3 and C4 are normal pending juan antonio and anca panel, check anti ingris and ck, Thrombocytosis: due to acute infection, improved. That has been a drop in hemoglobin as well as platelet after fluid administration, most likely dilutional in nature. No chemical evidence of acute bleed DVT hep sq Diet regular Code status ,DNR, ok with intubations, iv fluids, antibiotics pressors etc. Medical - PN: Qual - VTE Deep Vein Thrombosis/Pulmonary Embolism Present on Admission: No
[2017-07-24 12:19] LABS: SCL-7-ANTIBODY <1.0 NEG AI (<1.0 NEG); SSA <1.0 NEG AI (<1.0 NEG); SSB <1.0 NEG AI (<1.0 NEG)
[2017-07-24] MEDS: LATANOPROST OPHTH DROPS 2.5ML BOTTLE OU SCH (21:00)
[2017-07-25] MEDS: ACETAMINOPHEN 325 MG TABLET PO PRN ×2 (04:19→20:33)
[2017-07-25] MEDS: metroNIDAZOLE 500 MG/100 ML BAG IV SCH ×3 (05:25→21:37)
[2017-07-25] MEDS: 0.9 % SODIUM CHLORIDE 1,000 ML IV SCH ×3 (05:30→10:46)
[2017-07-25] MEDS: 0.9 % SODIUM CHLORIDE 10 ML SYRINGE IV SCH ×3 (06:11→22:53)
[2017-07-25 07:14] LABS: Basophils # (Auto) 0 K/mcL (0.0-0.3); Basophils % (Auto) 0.1 % (0.0-2.0); Eosinophils # (Auto) 1.1 K/mcL (0.0-0.7); Eosinophils % (Auto) 6.4 % (0.0-7.0); Granulocytes % (Auto) 77.7 % (38.0-78.0); Lymphocytes # (Auto) 0.8 K/mcL (1.5-4.8); Lymphocytes % (Auto) 4.5 % (15.5-49.0); Mean Cell Volume 82.4 fL (80.0-100.0); Mean Corpuscular HGB Conc 33.3 g/dL (31.0-36.0); Mean Corpuscular Hemoglobin 27.5 pg (26.0-34.0); Monocytes # (Auto) 1.9 K/mcL (0.1-0.9); Monocytes % (Auto) 11.3 % (1.0-12.0); Platelet Count 311 K/mcL (140-440); RBC 4.21 M/mcL (4.00-5.20); Red Cell Distribution Width 17.5 % (11.5-14.5)
[2017-07-25 07:37] LABS: ALT/SGPT 11 U/l (0-40); Albumin 1.9 gm/dL (3.2-5.2); Albumin/Globulin Ratio 0.7 (1.0-2.3); Alkaline Phosphatase 77 U/L (39-117); Bilirubin,Direct < 0.2 mg/dL (0.0-0.3); Blood Urea Nitrogen 5 mg/dl (8-23); Gamma Glutamyl Transpeptidase 15 U/L (5-36); Uric Acid 0.9 mg/dL (2.5-8.0)
[2017-07-25] MEDS: CEFEPIME 2 GM VIAL IV SCH (08:36)
[2017-07-25] MEDS: HEPARIN 5,000 UNIT/ML VIAL SQ SCH ×2 (08:36→20:33)
[2017-07-25] MEDS: FAMOTIDINE/PF 20 MG/2 ML VIAL IV SCH ×2 (08:36→20:33)
[2017-07-25] MEDS: METOPROLOL TARTRATE 5 MG/5 ML VIAL IV PRN (08:36)
[2017-07-25] MEDS: BACLOFEN 10 MG TABLET PO SCH ×3 (08:37→20:33)
[2017-07-25] MEDS: OSELTAMIVIR PHOSPHATE 75 MG CAPSULE PO SCH ×2 (08:37→20:32)
[2017-07-25] MEDS: LACTOBACILLUS 1 CAPSULE PO SCH ×2 (08:37→20:33)
[2017-07-25] MEDS: ASPIRIN 81 MG TAB.CHEW PO SCH (08:37)
[2017-07-25] MEDS: FLUCONAZOLE 100 MG TABLET PO SCH (08:37)
[2017-07-25] MEDS: AMANTADINE HCL 100 MG CAPSULE PO SCH ×2 (08:39→20:32)
--- NOTE | 2017-07-25 09:46 | XRay Report ---
CLINICAL INFORMATION: Fever COMPARISON: 07/20/2017 chest x-ray FINDINGS: Moderate cardiomegaly is unchanged. Mediastinum and pulmonary vessels are normal. Right-sided infiltrate has progressed considerably and is now large and densely consolidated with a moderate left pleural effusion. Moderate region of consolidated atelectasis or infiltrate has developed in the left base (retrocardiac region) with small left pleural effusion IMPRESSION: Progression in right basilar infiltrate - now large and densely consolidated with moderate right pleural effusion New moderate size region of consolidated infiltrate or atelectasis developing in the left base with small effusion. Consider aspiration Interpreted and Authenticated by: Ivan Anthony 07/25/17
[2017-07-25] MEDS: VANCOMYCIN 1,000 MG in 0.9 % SODIUM CHLORIDE 250 ML IV SCH ×2 (10:00→23:12)
[2017-07-25] MEDS ORDERED: SODIUM CHLORIDE 0.9% IV ONE (10:03)
[2017-07-25] MEDS ORDERED: AMPICILLIN SODIUM IV ONE (10:03)
--- NOTE | 2017-07-25 12:03 | Internal Med Progress Note ---
Medical - PN: Subj Patient information: Note initiated : 07/25/17 at 12:00 pm Service Date, if different from initiated Date: [] Patient: Inna Selby 77 y/o F admitted on 07/20/17 for Weakness, Hx of MS/ Pneumonia, Hypoxic Resp Failure. Chief Complaint: f/u sepsis Interval history: Ms. Selby is a 77 year old Female with h/o multiple sclerosis, presents to the ER today with complaints of weakness going on for 1 day The patient was here yesterday with complaints of sinus congestion, weakness and fatigue, she had mild leucocytosis, cxr was neg, and flu test was positive for influenza A, she was sent home on po Tamiflu. The patient presented today with complaints of worsening weakness, inability to stand or sit up, bilateral leg weakness, as per her left more than the right. She also notes chronic diarrhea, she said it was going on for last 4-5 days, but could be more as per the nursing in the ER as she told them a much longer duration, pt has a history of C. diff. The patient also is having fever and chills for last few days. In the ER the patient was noted to be febrile, tachycardic, labs show leucocytosis, she has elevated creat, elevated lactic acid, CXR shows possible right and left lower lobe PNA. She was also hypoxic and therefore admitted to the hospital for further management The patient was recently seen by her PCP for Raynaud phenomenon, and started on nifedipine. The patient wishes to be DNR, but is OK with intubation. She denies any specific weakness in hands, denies diplopia, difficulty in swallowing or unable to tell me any particular sensory loss. She complains of weakness of her left leg more than right, she is unable to tell me her pervious flare ups, but I have admitted her in the past, and this was her symptom of flare up with an infection. 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 During clean up in the ER, the patient had extensive pelvic amanda infection, and it seems that her perineal region has been soaked in stools Patient is being admitted to PCU status for further management. Jul 21 patient seen and examined, no acute overnight events, patient lactic acid is now in the normal range. Still has low-grade fever. Blood cultures positive for gram-positive cocci in pairs and chains in the anaerobic bottle. C. difficile is negative. Plan to discontinue oral vancomycin. Continue IV vancomycin, cefepime, metronidazole. Continue Diflucan. for Intertrigo. Start the patient on probiotics. The patient denies any chest pain, no shortness of breath, no headache, admits to some dizziness. She has no GI symptoms. She still has generalized weakness. Jul 22 Still having low-grade fever. Blood cultures positive for gram-positive cocci in pairs and chains, molecular testing consistent with enterococcus. The patient is on vancomycin. She is feeling stronger today. No longer on oxygen. Hemodynamics have been stable. She feels her left leg is getting a bit stronger. July 23 Feeling better today. Having significant ventricular ectopy in spite of potassium riders. Short runs of ventricular tachycardia of 5 or so beats. Otherwise appetite is better, no abdominal pain. Has rectal tube in place because of significant diarrhea. Discussed findings of CT scan with Dr. Rooney, on-call for GI. He also sees the patient in clinic, as done both colonoscopy and EGD to evaluate for diarrhea and anemia. Duodenal biopsies have been unrevealing as have colonic biopsies. At this point, will treat with antibiotics for bloodstream infection, possible bacterial enteritis and follow expectantly. If no improvement, will consider tissue sampling. Discussed with patient, she is in agreement. Jul 24 Significant autodiuresis overnight, recurrent hypokalemia and hypomagnesemia. Still with watery stool, cultures negative. Awaiting final sensitivities on blood cultures. Overall slowly improving, but still with atrial and ventricular ectopy from electrolyte abnormalities. WBC up to 16K, no fever, otherwise stable. Jul 25 Patient had fever last night 102. He was recultured. Actually feels pretty well this morning without complaints. Stooling seems to be tapering off. Have managed to give final lab results on cultures. Appetite is pretty good. Sitting up in the chair this morning eating breakfast. Discussed the patient's penicillin allergy. It reported as a rash in the hospital system. She states that when she was 11 years old she had some swelling in her hands when she took penicillin. She thinks she's taken amoxicillin in the past without problems. - Constitutional Vitals: Vital Signs Temp Pulse Resp BP Pulse Ox 99.4 F H 101 H 20 139/82 93 07/25/17 11:33 07/24/17 23:32 07/25/17 11:33 07/25/17 11:33 07/25/17 11:33 Period Temp Pulse Resp BP Sys/Ellis Pulse Ox Last 24 Hr 97.9 F-102.4 F 100-101 16-20 127-146/63-87 90-95 Intake and Output 07/24/17 07/25/17 07/25/17 21:59 05:59 13:59 Intake Total 820 / 820 450 / 450 1320 / 1320 Output Total 950 / 950 1800 / 1800 Balance -130 / -130 -1350 / -1350 1320 / 1320 Weight 117 lb Intake & Output: Intake & Output 07/24/17 07/25/17 07/25/17 21:59 05:59 13:59 Intake Total 820 / 820 450 / 450 1320 / 1320 Output Total 950 / 950 1800 / 1800 Balance -130 / -130 -1350 / -1350 1320 / 1320 Weight 117 lb Intake: IV 620 / 620 350 / 350 1100 / 1100 Sodium Chloride 0.9% 1,000 ml @ 1000 / 1000 100 mls/hr IV .Q10H [facility] Rx#: [id number] Potassium Chloride 40 Meq In 520 / 520 Dextrose 5% in Water 500 ml @ 130 mls/hr IV ONCE ONE Rx#: [id number] Vancomycin 1,000 mg In Sodium 250 / 250 Chloride 0.9% 250 ml @ 250 mls/ hr IV Q12H [facility] Rx#:[id number] Oral 200 / 200 100 / 100 220 / 220 Output: Urine Catheter Amount 950 / 950 1800 / 1800 Other: Meal Dinner Breakfast Percent of Meal Consumed 25% 50% Feeding Ability Assist with Tray Set Up Independent Stool Size Small Smear Stool Color Yellow Brown Stool Consistency Soft # Bowel Movements 0 # of times incontinent of 1 Bowels Exam: General: Sitting up, no acute distress, looks comfortable Chest: Clear, no rales Cardiovascular: Regular, no edema Abdomen: Soft, nontender, normal bowel sounds. Extremity: Warm, perfused Neuro: Alert, oriented 3, some generalized weakness but nonfocal. Medical - PN: Obj Da - Labs CBC & Chem 7: 07/25/17 04:45 07/25/17 04:45 Labs: Abnormal Lab Results 07/25/17 07/25/17 07/24/17 04:45 04:45 04:19 WBC 17.1 H RBC Hgb 11.6 L Hct 34.7 L RDW 17.5 H Gran % Lymph % (Auto) 4.5 L Gran # 13.3 H Lymph # (Auto) 0.8 L [place] # (Auto) 1.9 H Eos # (Auto) 1.1 H Potassium Carbon Dioxide 19 L BUN 5 L 5 L Creatinine 0.3 L 0.4 L Glucose Uric Acid 0.9 L 1.2 L Calcium 7.6 L 7.6 L Phosphorus 2.2 L 2.0 L Magnesium 1.5 L Lactate Dehydrogenase 357 H Total Protein 4.7 L 4.6 L Albumin 1.9 L 2.3 L Albumin/Globulin Ratio 0.7 L 07/24/17 07/23/17 07/23/17 04:19 04:05 04:05 WBC 16.0 H 12.7 H RBC 3.91 L Hgb 11.7 L 10.8 L Hct 34.9 L 32.2 L RDW 17.6 H 17.9 H Gran % 79.3 H 82.7 H Lymph % (Auto) 5.2 L 4.9 L Gran # 12.7 H 10.5 H Lymph # (Auto) 0.8 L 0.6 L [place] # (Auto) 1.8 H 1.0 H Eos # (Auto) Potassium Carbon Dioxide BUN 7 L Creatinine 0.4 L Glucose Uric Acid 1.6 L Calcium 7.4 L Phosphorus 1.6 L Magnesium Lactate Dehydrogenase Total Protein 4.3 L Albumin 2.1 L Albumin/Globulin Ratio 07/22/17 19:51 WBC RBC Hgb Hct RDW Gran % Lymph % (Auto) Gran # Lymph # (Auto) [place] # (Auto) Eos # (Auto) Potassium 3.0 L Carbon Dioxide BUN Creatinine 0.5 L Glucose 146 H Uric Acid Calcium 7.6 L Phosphorus Magnesium Lactate Dehydrogenase Total Protein Albumin Albumin/Globulin Ratio Microbiology 07/25/17 08:53 C.difficile Toxin B Gene (PCR) - Final Stool Negative 07/22/17 14:52 Stool Culture - Final Rectum Negative pathogens Microbiology 07/20/17 13:08 Blood Blood Culture - Preliminary Gram positive cocci 07/20/17 14:19 Blood Blood Culture - Final Gram positive cocci Meds: Medications Acetaminophen (Tylenol) 650 mg PO Q4-6HP PRN PRN Reason: PAIN/FEVER > 101 Last Admin: 07/25/17 04:19 Dose: 650 mg Albuterol/Ipratropium (Duoneb) 3 ml NEB Q6HP PRN PRN Reason: Shortness Of Breath Or Wheezing Amantadine HCl (Amantadine) 100 mg PO BID [facility] Last Admin: 07/25/17 08:39 Dose: 100 mg Aspirin (Aspirin) 81 mg PO DAILY [facility] Last Admin: 07/25/17 08:37 Dose: 81 mg Baclofen (Lioresal) 10 mg PO TID [facility] Last Admin: 07/25/17 08:37 Dose: 10 mg Cefepime HCl (Maxipime) 2 gm IV Q24H [facility] Last Admin: 07/25/17 08:36 Dose: 2 gm Famotidine (Pepcid) 20 mg IV Q12 [facility] Last Admin: 07/25/17 08:36 Dose: 20 mg Fluconazole (Diflucan) 200 mg PO DAILY [facility] Last Admin: 07/25/17 08:37 Dose: 200 mg Heparin Sodium (Porcine) (Heparin) 5,000 unit SQ Q12 [facility] Last Admin: 07/25/17 08:36 Dose: 5,000 unit Hydromorphone HCl (Dilaudid) 0.5 mg IV Q2HP PRN PRN Reason: PAIN LEVEL > 6 Last Admin: 07/22/17 20:48 Dose: 0.5 mg Metronidazole (Flagyl) 500 mg in 100 mls @ 100 mls/hr IV Q8H [facility] Last Infusion: 07/25/17 06:30 Dose: Infused Sodium Chloride (Sodium Chloride 0.9%) 1,000 mls @ 100 mls/hr IV .Q10H [facility] Last Admin: 07/25/17 10:46 Dose: Not Given Vancomycin HCl 1,000 mg/ (Sodium Chloride) 250 mls @ 250 mls/hr IV Q12H [facility] Last Admin: 07/25/17 10:00 Dose: 250 mls/hr Lactobacillus Rhamnosus (Culturelle) 1 cap PO BID [facility] Last Admin: 07/25/17 08:37 Dose: 1 cap Latanoprost (Xalatan Ophth Drops) 1 gtt OU HS [facility] Last Admin: 07/24/17 21:00 Dose: Not Given Metoprolol Tartrate (Lopressor) 5 mg IV PRN PRN PRN Reason: Sustained HR greater than 130 Last Admin: 02/16/18 08:36 Dose: 5 mg Ondansetron HCl (Zofran) 4 mg IV Q4-6HP PRN PRN Reason: Nausea And Vomiting Oseltamivir Phosphate (Tamiflu) 75 mg PO BID [facility] Stop: 07/27/17 09:01 Last Admin: 07/25/17 08:37 Dose: 75 mg Promethazine HCl (Phenergan) 12.5 mg IV Q4-6HP PRN PRN Reason: Nausea And Vomiting Sodium Chloride (Saline Flush) 10 ml IV Q8 [facility] Last Admin: 07/25/17 06:11 Dose: 10 ml Vancomycin HCl (Vancomycin Per Pharmacy) 1 order IV UD [facility] Medical - PN: A/P - Time Spent With Patient Total time spent is greater than 50% in coordination of care (as documented) at patient's floor/unit and/or counseling patient: Greater than 35 minutes - Narrative A/P Narrative: 77-year-old female multiple sclerosis, diagnosed with influenza, returns one day later with sepsis. Severe sepsis with multiorgan failure at presentation. Now appears to be secondary to enterococcal bloodstream infection. No evidence of pneumonia on chest cuts of CT of the abdomen and pelvis. Suspect sources enteritis with disruption of mucosal barrier and translocation of gut bacteria. -Blood culture, set #1, 1/2 bottles with Enterococcus faecium, pansensitive. Blood culture, set #2, 2/2 bottles with Enterococcus faecium, S-ampicillin/PCN; I-vancomycin; R-gent synergy. Given her low vancomycin troughs (dosing adjusted recently) and intermediate susceptibility to culture set #2, this may explain her ongoing leukocytosis and recurrent fever. -The patient has a penicillin allergy, listed as a rash, she said she had some swelling in her hands when she took penicillin at the age of 11. Believe she has taken amoxicillin without problems. Ampicillin would be optimal treatment for her bloodstream infection. Plan: We'll give cautious test dose of 250 mg ampicillin and monitor in the intensive care unit. If she tolerates that, we'll continue with ampicillin for enterococcal sepsis and bloodstream infection. No evidence of other resistant gram positives (MRSA), so if tolerating ampicillin will stop vancomycin. Will continue cefepime and Flagyl to cover other gram negatives and enteric pathogens giving her enteritis. Recheck C diff with rising WBC and CXR. Enteritis with diarrhea. Discussed with Dr. Rooney, who also sees the patient in clinic and is performed endoscopies for complaints of anemia and diarrhea. Small bowel biopsies, though not into the jejunum, have been unrevealing. Enteritis may be acute infectious with interruption of mucosal barrier and translocation of GI bacteria causing enterococcal bloodstream infection sepsis. Her loose stools are improving. Plan: Continue antibiotics as discussed above. Follow clinically and if does not improve, consider endoscopy for biopsy. Bulking agents for diarrhea. Acute hypoxic resp failure-resolved: Suspect was secondary to sepsis, possibly influenza. No pneumonia on CT. Plan: Oxygen via nasal canula PRN Acute renal failure: due to poor oral intake and diarrhea, IVF. Resolved. Lactic acidosis: resolved Influenza A: On tamiflu, can come off droplet precautions today (Friday). Multiple sclerosis pseudo flare up: Improved/resolved. Given acute infection, would avoid using high dose steroids, in the past she has responded well to physical therapy Raynaud phenomenon: C3 and C4 are normal pending juan antonio and anca unrevealing; outpatient follow-up. Thrombocytosis: due to acute infection, improved. That has been a drop in hemoglobin as well as platelet after fluid administration, most likely dilutional in nature. No chemical evidence of acute bleed DVT hep sq Diet regular Code status: DNR, ok with intubations, iv fluids, antibiotics pressors etc. Medical - PN: Qual - VTE Deep Vein Thrombosis/Pulmonary Embolism Present on Admission: No
[2017-07-25] MEDS ORDERED: FUROSEMIDE 40 MG/4 ML VIAL IV ONE (13:40)
[2017-07-25] MEDS ORDERED: AMPICILLIN SODIUM 1 GM in 0.9 % SODIUM CHLORIDE 50 ML IV ONE (14:00)
[2017-07-25] MEDS ORDERED: METOPROLOL TARTRATE 5 MG/5 ML VIAL IV PRN (17:38)
[2017-07-25] MEDS: LATANOPROST OPHTH DROPS 2.5ML BOTTLE OU SCH (22:52)
[2017-07-26] MEDS: 0.9 % SODIUM CHLORIDE 1,000 ML IV SCH ×2 (00:20→08:12)
[2017-07-26] MEDS: metroNIDAZOLE 500 MG/100 ML BAG IV SCH ×3 (05:49→21:12)
[2017-07-26 05:53] LABS: Basophils # (Auto) 0 K/mcL (0.0-0.3); Basophils % (Auto) 0.2 % (0.0-2.0); Eosinophils # (Auto) 1.5 K/mcL (0.0-0.7); Granulocytes % (Auto) 72.1 % (38.0-78.0); Lymphocytes % (Auto) 5.9 % (15.5-49.0); Mean Cell Volume 82.2 fL (80.0-100.0); Mean Corpuscular HGB Conc 33.3 g/dL (31.0-36.0); Mean Corpuscular Hemoglobin 27.3 pg (26.0-34.0); Monocytes # (Auto) 2.1 K/mcL (0.1-0.9); Monocytes % (Auto) 12.8 % (1.0-12.0); Platelet Count 393 K/mcL (140-440); RBC 4.03 M/mcL (4.00-5.20); Red Cell Distribution Width 17.1 % (11.5-14.5)
[2017-07-26 06:11] LABS: ALT/SGPT 11 U/l (0-40); Albumin 2.1 gm/dL (3.2-5.2); Albumin/Globulin Ratio 0.8 (1.0-2.3); Alkaline Phosphatase 68 U/L (39-117); Bilirubin,Direct < 0.2 mg/dL (0.0-0.3); Blood Urea Nitrogen 7 mg/dl (8-23); Gamma Glutamyl Transpeptidase 15 U/L (5-36); Uric Acid 1.2 mg/dL (2.5-8.0)
[2017-07-26] MEDS: 0.9 % SODIUM CHLORIDE 10 ML SYRINGE IV SCH ×4 (08:12→20:41)
[2017-07-26] MEDS: AMANTADINE HCL 100 MG CAPSULE PO SCH ×2 (08:28→20:36)
[2017-07-26] MEDS: HEPARIN 5,000 UNIT/ML VIAL SQ SCH ×2 (08:29→20:37)
[2017-07-26] MEDS: FLUCONAZOLE 100 MG TABLET PO SCH (08:29)
[2017-07-26] MEDS: LACTOBACILLUS 1 CAPSULE PO SCH ×2 (08:29→20:36)
[2017-07-26] MEDS: BACLOFEN 10 MG TABLET PO SCH ×3 (08:29→20:37)
[2017-07-26] MEDS: ASPIRIN 81 MG TAB.CHEW PO SCH (08:29)
[2017-07-26] MEDS: OSELTAMIVIR PHOSPHATE 75 MG CAPSULE PO SCH (08:30)
[2017-07-26] MEDS ORDERED: AMPICILLIN SODIUM 2 GM VIAL IV SCH (08:30)
[2017-07-26] MEDS: FAMOTIDINE/PF 20 MG/2 ML VIAL IV SCH ×2 (08:30→20:37)
[2017-07-26] MEDS: CEFEPIME 2 GM VIAL IV SCH (08:33)
[2017-07-26] MEDS ORDERED: POTASSIUM CHLORIDE 20 MEQ in DEXTROSE 5% IN WATER 250 ML IV ONE (09:00)
[2017-07-26] MEDS: MAGNESIUM SULFATE 2 GM/50 ML BAG IV SCH (09:30)
--- NOTE | 2017-07-26 10:34 | Internal Med Progress Note ---
Medical - PN: Subj Patient information: Note initiated : 07/26/17 at 10:30 am Service Date, if different from initiated Date: [] Patient: Inna Selby 77 y/o F admitted on 07/20/17 for Weakness, Hx of MS/ Pneumonia, Hypoxic Resp Failure. Chief Complaint: follow-up enterococcus sepsis Interval history: July 20 Ms. Selby is a 77 year old Female with h/o multiple sclerosis, presents to the ER today with complaints of weakness going on for 1 day The patient was here yesterday with complaints of sinus congestion, weakness and fatigue, she had mild leucocytosis, cxr was neg, and flu test was positive for influenza A, she was sent home on po Tamiflu. The patient presented today with complaints of worsening weakness, inability to stand or sit up, bilateral leg weakness, as per her left more than the right. She also notes chronic diarrhea, she said it was going on for last 4-5 days, but could be more as per the nursing in the ER as she told them a much longer duration, pt has a history of C. diff. The patient also is having fever and chills for last few days. In the ER the patient was noted to be febrile, tachycardic, labs show leucocytosis, she has elevated creat, elevated lactic acid, CXR shows possible right and left lower lobe PNA. She was also hypoxic and therefore admitted to the hospital for further management The patient was recently seen by her PCP for Raynaud phenomenon, and started on nifedipine. The patient wishes to be DNR, but is OK with intubation. She denies any specific weakness in hands, denies diplopia, difficulty in swallowing or unable to tell me any particular sensory loss. She complains of weakness of her left leg more than right, she is unable to tell me her pervious flare ups, but I have admitted her in the past, and this was her symptom of flare up with an infection. 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 During clean up in the ER, the patient had extensive pelvic amanda infection, and it seems that her perineal region has been soaked in stools Patient is being admitted to PCU status for further management. July 21 patient seen and examined, no acute overnight events, patient lactic acid is now in the normal range. Still has low-grade fever. Blood cultures positive for gram-positive cocci in pairs and chains in the anaerobic bottle. C. difficile is negative. Plan to discontinue oral vancomycin. Continue IV vancomycin, cefepime, metronidazole. Continue Diflucan. for Intertrigo. Start the patient on probiotics. The patient denies any chest pain, no shortness of breath, no headache, admits to some dizziness. She has no GI symptoms. She still has generalized weakness. July 22 Still having low-grade fever. Blood cultures positive for gram-positive cocci in pairs and chains, molecular testing consistent with enterococcus. The patient is on vancomycin. She is feeling stronger today. No longer on oxygen. Hemodynamics have been stable. She feels her left leg is getting a bit stronger. July 23 Feeling better today. Having significant ventricular ectopy in spite of potassium riders. Short runs of ventricular tachycardia of 5 or so beats. Otherwise appetite is better, no abdominal pain. Has rectal tube in place because of significant diarrhea. Discussed findings of CT scan with Dr. Rooney, on-call for GI. He also sees the patient in clinic, as done both colonoscopy and EGD to evaluate for diarrhea and anemia. Duodenal biopsies have been unrevealing as have colonic biopsies. At this point, will treat with antibiotics for bloodstream infection, possible bacterial enteritis and follow expectantly. If no improvement, will consider tissue sampling. Discussed with patient, she is in agreement. July 24 Significant autodiuresis overnight, recurrent hypokalemia and hypomagnesemia. Still with watery stool, cultures negative. Awaiting final sensitivities on blood cultures. Overall slowly improving, but still with atrial and ventricular ectopy from electrolyte abnormalities. WBC up to 16K, no fever, otherwise stable. July 25 Patient had fever last night 102. He was recultured. Actually feels pretty well this morning without complaints. Stooling seems to be tapering off. Have managed to give final lab results on cultures. Appetite is pretty good. Sitting up in the chair this morning eating breakfast. Discussed the patient's penicillin allergy. It reported as a rash in the hospital system. She states that when she was 11 years old she had some swelling in her hands when she took penicillin. She thinks she's taken amoxicillin in the past without problems. July 26 Seen on rounds at bedside, spent up to the shower today. Rectal tube is out, still with loose stools, though seem to be a bit better. Tolerated low dose of ampicillin yesterday, followed by 1 g dose. Now on treatment with 2 g every 6 hours for enterococcal bloodstream infection. Low-grade fever, but no temperature greater than 101.5. Follow-up blood cultures from night before last remain without growth. Patient complains of her abdomen being a little distended today, nontender, eating well. Chest x-ray shows some lower lobe consolidation and congestion, however chest cuts of abdominal CT had ruled out pneumonia previously. Suspect may be volume related from resuscitation. Did receive diuretic yesterday. - Constitutional Vitals: Vital Signs Temp Pulse Resp BP Pulse Ox 97.9 F 114 H 20 119/71 97 07/26/17 08:00 07/25/17 18:51 07/26/17 08:00 07/26/17 08:00 07/26/17 08:00 Period Temp Pulse Resp BP Sys/Ellis Pulse Ox Last 24 Hr 97.9 F-100.5 F 114 16-20 119-149/65-103 86-97 Intake and Output 07/25/17 07/26/17 07/26/17 21:59 05:59 13:59 Intake Total 720 / 720 1650 / 1650 300 / 300 Output Total 1924 / 1925 1100 / 1100 Balance -1205 / -1205 550 / 550 300 / 300 Weight 115 lb Intake & Output: Intake & Output 07/25/17 07/26/17 07/26/17 21:59 05:59 13:59 Intake Total 720 / 720 1650 / 1650 300 / 300 Output Total 1924 / 1924 1100 / 1100 Balance -1205 / -1205 550 / 550 300 / 300 Weight 115 lb Intake: IV 150 / 150 1350 / 1350 100 / 100 Sodium Chloride 0.9% 1,000 ml @ 1000 / 1000 100 mls/hr IV .Q10H [facility]UNDRA Rx#: [id number] Ampicillin 1 gm In Sodium 50 / 50 Chloride 0.9% 50 ml @ 100 mls/ hr IV ONCE ONE Rx#:[id number] Vancomycin 1,000 mg In Sodium 250 / 250 Chloride 0.9% 250 ml @ 250 mls/ hr IV Q12H SAUNDRA Rx#:[id number] Oral 570 / 570 300 / 300 200 / 200 Output: Urine Catheter Amount 1924 1100 / 1100 Other: Meal Dinner Breakfast Percent of Meal Consumed 25% 50% Feeding Ability Assist with Tray Set Up Independent Stool Size Moderate Stool Color Brown Stool Consistency Soft # Bowel Movements 1 # of times incontinent of 1 1 1 Bowels Exam: General: Sitting up in chair in no acute distress Chest: Clear, good aeration to bases, no rales, no rhonchi Cardiovascular: Regular, no edema in Abdomen: Mildly distended, normal bowel sounds, nontender non-tympanic, no guarding Neuro: Alert, oriented, strength appears equal in bilateral lower extremities. Medical - PN: Obj Da - Labs CBC & Chem 7: 07/26/17 03:59 07/26/17 03:59 Labs: Abnormal Lab Results 07/26/17 07/26/17 07/25/17 03:59 03:59 04:45 WBC 16.5 H Hgb 11.0 L Hct 33.1 L RDW 17.1 H Gran % Lymph % (Auto) 5.9 L [place] % (Auto) 12.8 H Eos % (Auto) 9.0 H Gran # 11.9 H Lymph # (Auto) 1.0 L [place] # (Auto) 2.1 H Eos # (Auto) 1.5 H Potassium 3.2 L Carbon Dioxide 19 L BUN 7 L 5 L Creatinine 0.3 L 0.3 L Uric Acid 1.2 L 0.9 L Calcium 7.7 L 7.6 L Phosphorus 2.5 L 2.2 L Magnesium Lactate Dehydrogenase 357 H Total Protein 4.6 L 4.7 L Albumin 2.1 L 1.9 L Albumin/Globulin Ratio 0.8 L 0.7 L 07/25/17 07/24/17 07/24/17 04:45 04:19 04:19 WBC 17.1 H 16.0 H Hgb 11.6 L 11.7 L Hct 34.7 L 34.9 L RDW 17.5 H 17.6 H Gran % 79.3 H Lymph % (Auto) 4.5 L 5.2 L [place] % (Auto) Eos % (Auto) Gran # 13.3 H 12.7 H Lymph # (Auto) 0.8 L 0.8 L [place] # (Auto) 1.9 H 1.8 H Eos # (Auto) 1.1 H Potassium Carbon Dioxide BUN 5 L Creatinine 0.4 L Uric Acid 1.2 L Calcium 7.6 L Phosphorus 2.0 L Magnesium 1.5 L Lactate Dehydrogenase Total Protein 4.6 L Albumin 2.3 L Albumin/Globulin Ratio Microbiology 07/25/17 04:50 Blood Culture - Preliminary Blood 07/25/17 04:45 Blood Culture - Preliminary Blood 07/22/17 14:52 Stool Culture - Final Rectum Hemorrhagic E.coli Culture - Final Negative; normal camacho 07/25/17 08:53 C.difficile Toxin B Gene (PCR) - Final Stool Meds: Medications Acetaminophen (Tylenol) 650 mg PO Q4-6HP PRN PRN Reason: PAIN/FEVER > 101 Last Admin: 07/25/17 20:33 Dose: 650 mg Albuterol/Ipratropium (Duoneb) 3 ml NEB Q6HP PRN PRN Reason: Shortness Of Breath Or Wheezing Amantadine HCl (Amantadine) 100 mg PO BID [facility] Last Admin: 07/26/17 08:28 Dose: 100 mg Aspirin (Aspirin) 81 mg PO DAILY [facility] Last Admin: 07/26/17 08:29 Dose: 81 mg Baclofen (Lioresal) 10 mg PO TID [facility] Last Admin: 07/26/17 08:29 Dose: 10 mg Cefepime HCl (Maxipime) 2 gm IV Q24H [facility] Last Admin: 07/26/17 08:33 Dose: 2 gm Famotidine (Pepcid) 20 mg IV Q12 [facility] Last Admin: 07/26/17 08:30 Dose: 20 mg Fluconazole (Diflucan) 200 mg PO DAILY [facility] Last Admin: 07/26/17 08:29 Dose: 200 mg Heparin Sodium (Porcine) (Heparin) 5,000 unit SQ Q12 [facility] Last Admin: 07/26/17 08:29 Dose: 5,000 unit Hydromorphone HCl (Dilaudid) 0.5 mg IV Q2HP PRN PRN Reason: PAIN LEVEL > 6 Last Admin: 07/22/17 20:48 Dose: 0.5 mg Metronidazole (Flagyl) 500 mg in 100 mls @ 100 mls/hr IV Q8H [facility] Last Infusion: 07/26/17 06:57 Dose: Infused Sodium Chloride (Sodium Chloride 0.9%) 1,000 mls @ 100 mls/hr IV .Q10H [facility] Last Admin: 07/26/17 08:12 Dose: Not Given Vancomycin HCl 1,000 mg/ (Sodium Chloride) 250 mls @ 250 mls/hr IV Q12H [facility] Last Infusion: 07/26/17 00:12 Dose: Infused Ampicillin Sodium 2 gm/ Sodium (Chloride) 100 mls @ 100 mls/hr IV Q6H [facility] Potassium Chloride 20 meq/ (Dextrose) 260 mls @ 130 mls/hr IV ONCE ONE Stop: 07/26/17 10:59 Potassium Phosphate 20 meq/ (Dextrose) 254.5455 mls @ 127.273 mls/hr IV ONCE ONE Stop: 07/26/17 12:59 Magnesium Sulfate (Magnesium Sulfate) 2 gm in 50 mls @ 50 mls/hr IV ONCE [facility] Lactobacillus Rhamnosus (Culturelle) 1 cap PO BID [facility] Last Admin: 07/26/17 08:29 Dose: 1 cap Latanoprost (Xalatan Ophth Drops) 1 gtt OU HS [facility] Last Admin: 07/25/17 22:52 Dose: Not Given Metoprolol Tartrate (Lopressor) 5 mg IV Q4HP PRN PRN Reason: Sustained HR greater than 130 Last Admin: 07/25/17 21:39 Dose: 5 mg Ondansetron HCl (Zofran) 4 mg IV Q4-6HP PRN PRN Reason: Nausea And Vomiting Oseltamivir Phosphate (Tamiflu) 75 mg PO BID [facility] Stop: 07/27/17 09:01 Last Admin: 07/26/17 08:30 Dose: 75 mg Promethazine HCl (Phenergan) 12.5 mg IV Q4-6HP PRN PRN Reason: Nausea And Vomiting Sodium Chloride (Saline Flush) 10 ml IV Q8 [facility] Last Admin: 07/26/17 08:12 Dose: Not Given Vancomycin HCl (Vancomycin Per Pharmacy) 1 order IV UD [facility] Medical - PN: A/P - Time Spent With Patient Total time spent is greater than 50% in coordination of care (as documented) at patient's floor/unit and/or counseling patient: Greater than 35 minutes - Narrative A/P Narrative: 77-year-old female multiple sclerosis, diagnosed with influenza, returns one day later with sepsis. Severe sepsis with multiorgan failure at presentation. Now appears to be secondary to enterococcal bloodstream infection. No evidence of pneumonia on chest cuts of CT of the abdomen and pelvis. Suspect sources enteritis with disruption of mucosal barrier and translocation of gut bacteria. -Blood culture, set #1, 1/2 bottles with Enterococcus faecium, pansensitive. Blood culture, set #2, 2/2 bottles with Enterococcus faecium, S-ampicillin/PCN; I-vancomycin; R-gent synergy. Given her low vancomycin troughs initially and intermediate susceptibility to culture set #2, this may explain her ongoing leukocytosis and recurrent fever . -The patient has a penicillin allergy, listed as a rash, she said she had some swelling in her hands when she took penicillin at the age of 11. Believes she has taken amoxicillin without problems. Ampicillin would be optimal treatment for her bloodstream infection. Tolerated test doses of ampicillin on Friday. Rising WBC on Friday, on Friday, WBC starting to trend down again. Temps into 99 range. C diff negative, CXR with consolidation, but had no infiltrates on chest cuts of CT earlier in week. Plan: Tolerating ampicillin, continue. Will consider 07/26 at Day #1 of antibiotics. Also continue cefepime and metronidazole for enteritis. If cultures remain negative, will need PICC. Enteritis with diarrhea. Discussed with Dr. Rooney, who also sees the patient in clinic and is performed endoscopies for complaints of anemia and diarrhea. Small bowel biopsies, though not into the jejunum, have been unrevealing. Enteritis may be acute infectious with interruption of mucosal barrier and translocation of GI bacteria causing enterococcal bloodstream infection sepsis. Her loose stools have improved/stable (though not normal). Plan: Continue antibiotics as above. Follow clinically and if does not improve , consider endoscopy for biopsy. Bulking agents for diarrhea. Acute hypoxic respiratory failure-resolved: Suspect was secondary to sepsis, possibly influenza. No pneumonia on CT. Plan: Oxygen via nasal canula PRN Acute renal failure: due to poor oral intake and diarrhea, IVF. Resolved. Lactic acidosis: resolved Influenza A: On Tamiflu, can come off droplet precautions Friday. Will stop Tamiflu Friday, s/p Rx. Multiple sclerosis pseudo flare up: Improved/resolved. Given acute infection, would avoid using high dose steroids, in the past she has responded well to physical therapy Raynaud phenomenon: C3 and C4 are normal pending SUN and ANCA unrevealing; outpatient follow-up. Thrombocytosis: due to acute infection, improved. That has been a drop in hemoglobin as well as platelet after fluid administration, most likely dilutional in nature. No chemical evidence of acute bleed DVT hep sq Diet regular Code status: DNR, OK with intubations, iv fluids, antibiotics pressors etc. Medical - PN: Qual - VTE Deep Vein Thrombosis/Pulmonary Embolism Present on Admission: No
[2017-07-26] MEDS: AMPICILLIN SODIUM 2 GM in 0.9 % SODIUM CHLORIDE 100 ML IV SCH ×4 (10:42→23:53)
[2017-07-26] MEDS ORDERED: FUROSEMIDE 40 MG/4 ML VIAL IV ONE (10:47)
[2017-07-26] MEDS ORDERED: POTASSIUM PHOSPHATE 20 MEQ in DEXTROSE 5% IN WATER 250 ML IV ONE (11:00)
[2017-07-26] MEDS: VANCOMYCIN 1,000 MG in 0.9 % SODIUM CHLORIDE 250 ML IV SCH ×2 (12:00→22:16)
[2017-07-26] MEDS: ACETAMINOPHEN 325 MG TABLET PO PRN (20:37)
[2017-07-26] MEDS: LATANOPROST OPHTH DROPS 2.5ML BOTTLE OU SCH (20:39)
[2017-07-27 04:53] LABS: Basophils # (Auto) 0 K/mcL (0.0-0.3); Basophils % (Auto) 0.1 % (0.0-2.0); Eosinophils # (Auto) 1.4 K/mcL (0.0-0.7); Eosinophils % (Auto) 8.4 % (0.0-7.0); Granulocytes % (Auto) 75.3 % (38.0-78.0); Lymphocytes # (Auto) 0.9 K/mcL (1.5-4.8); Lymphocytes % (Auto) 5.4 % (15.5-49.0); Mean Corpuscular HGB Conc 33.3 g/dL (31.0-36.0); Mean Corpuscular Hemoglobin 27.3 pg (26.0-34.0); Monocytes # (Auto) 1.8 K/mcL (0.1-0.9); Monocytes % (Auto) 10.8 % (1.0-12.0); Platelet Count 469 K/mcL (140-440); RBC 4.09 M/mcL (4.00-5.20)
[2017-07-27] MEDS: metroNIDAZOLE 500 MG/100 ML BAG IV SCH ×3 (05:11→21:18)
[2017-07-27 05:13] LABS: ALT/SGPT 10 U/l (0-40); Albumin/Globulin Ratio 0.7 (1.0-2.3); Alkaline Phosphatase 66 U/L (39-117); Bilirubin,Direct < 0.2 mg/dL (0.0-0.3); Blood Urea Nitrogen 6 mg/dl (8-23); Gamma Glutamyl Transpeptidase 15 U/L (5-36); Uric Acid 1.2 mg/dL (2.5-8.0)
[2017-07-27] MEDS: 0.9 % SODIUM CHLORIDE 10 ML SYRINGE IV SCH ×3 (05:13→21:36)
[2017-07-27] MEDS: AMPICILLIN SODIUM 2 GM in 0.9 % SODIUM CHLORIDE 100 ML IV SCH ×4 (06:11→23:31)
[2017-07-27] MEDS ORDERED: POTASSIUM CHLORIDE 20 MEQ PACKET PO ONE (07:30)
[2017-07-27] MEDS ORDERED: POTASSIUM PHOSPHATE 40 MEQ in DEXTROSE 5% IN WATER 500 ML IV ONE (08:00)
[2017-07-27] MEDS: CEFEPIME 2 GM VIAL IV SCH (09:12)
[2017-07-27] MEDS: HEPARIN 5,000 UNIT/ML VIAL SQ SCH ×2 (09:13→20:38)
[2017-07-27] MEDS: METOPROLOL TARTRATE 25 MG TABLET PO SCH ×2 (09:13→20:37)
[2017-07-27] MEDS: FLUCONAZOLE 100 MG TABLET PO SCH (09:13)
[2017-07-27] MEDS: FAMOTIDINE/PF 20 MG/2 ML VIAL IV SCH ×2 (09:13→20:38)
[2017-07-27] MEDS: ASPIRIN 81 MG TAB.CHEW PO SCH (09:13)
[2017-07-27] MEDS: LACTOBACILLUS 1 CAPSULE PO SCH ×2 (09:13→20:40)
[2017-07-27] MEDS: BACLOFEN 10 MG TABLET PO SCH ×3 (09:13→20:37)
[2017-07-27] MEDS: ACETAMINOPHEN 325 MG TABLET PO PRN ×2 (09:14→20:37)
[2017-07-27] MEDS: AMANTADINE HCL 100 MG CAPSULE PO SCH ×2 (09:27→20:38)
--- NOTE | 2017-07-27 10:09 | Internal Med Progress Note ---
Medical - PN: Subj Patient information: Note initiated : 07/27/17 at 10:06 am Service Date, if different from initiated Date: [] Patient: Inna Selby 77 y/o F admitted on 07/20/17 for Weakness, Hx of MS, Hypoxic Resp Failure. Chief Complaint: follow-up enterococcal sepsis Interval history: July 20 Ms. Selby is a 77 year old Female with h/o multiple sclerosis, presents to the ER today with complaints of weakness going on for 1 day The patient was here yesterday with complaints of sinus congestion, weakness and fatigue, she had mild leucocytosis, cxr was neg, and flu test was positive for influenza A, she was sent home on po Tamiflu. The patient presented today with complaints of worsening weakness, inability to stand or sit up, bilateral leg weakness, as per her left more than the right. She also notes chronic diarrhea, she said it was going on for last 4-5 days, but could be more as per the nursing in the ER as she told them a much longer duration, pt has a history of C. diff. The patient also is having fever and chills for last few days. In the ER the patient was noted to be febrile, tachycardic, labs show leucocytosis, she has elevated creat, elevated lactic acid, CXR shows possible right and left lower lobe PNA. She was also hypoxic and therefore admitted to the hospital for further management The patient was recently seen by her PCP for Raynaud phenomenon, and started on nifedipine. The patient wishes to be DNR, but is OK with intubation. She denies any specific weakness in hands, denies diplopia, difficulty in swallowing or unable to tell me any particular sensory loss. She complains of weakness of her left leg more than right, she is unable to tell me her pervious flare ups, but I have admitted her in the past, and this was her symptom of flare up with an infection. 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 During clean up in the ER, the patient had extensive pelvic amanda infection, and it seems that her perineal region has been soaked in stools Patient is being admitted to PCU status for further management. July 21 patient seen and examined, no acute overnight events, patient lactic acid is now in the normal range. Still has low-grade fever. Blood cultures positive for gram-positive cocci in pairs and chains in the anaerobic bottle. C. difficile is negative. Plan to discontinue oral vancomycin. Continue IV vancomycin, cefepime, metronidazole. Continue Diflucan. for Intertrigo. Start the patient on probiotics. The patient denies any chest pain, no shortness of breath, no headache, admits to some dizziness. She has no GI symptoms. She still has generalized weakness. July 22 Still having low-grade fever. Blood cultures positive for gram-positive cocci in pairs and chains, molecular testing consistent with enterococcus. The patient is on vancomycin. She is feeling stronger today. No longer on oxygen. Hemodynamics have been stable. She feels her left leg is getting a bit stronger. July 23 Feeling better today. Having significant ventricular ectopy in spite of potassium riders. Short runs of ventricular tachycardia of 5 or so beats. Otherwise appetite is better, no abdominal pain. Has rectal tube in place because of significant diarrhea. Discussed findings of CT scan with Dr. Rooney, on-call for GI. He also sees the patient in clinic, as done both colonoscopy and EGD to evaluate for diarrhea and anemia. Duodenal biopsies have been unrevealing as have colonic biopsies. At this point, will treat with antibiotics for bloodstream infection, possible bacterial enteritis and follow expectantly. If no improvement, will consider tissue sampling. Discussed with patient, she is in agreement. July 24 Significant autodiuresis overnight, recurrent hypokalemia and hypomagnesemia. Still with watery stool, cultures negative. Awaiting final sensitivities on blood cultures. Overall slowly improving, but still with atrial and ventricular ectopy from electrolyte abnormalities. WBC up to 16K, no fever, otherwise stable. July 25 Patient had fever last night 102. He was recultured. Actually feels pretty well this morning without complaints. Stooling seems to be tapering off. Have managed to give final lab results on cultures. Appetite is pretty good. Sitting up in the chair this morning eating breakfast. Discussed the patient's penicillin allergy. It reported as a rash in the hospital system. She states that when she was 11 years old she had some swelling in her hands when she took penicillin. She thinks she's taken amoxicillin in the past without problems. July 26 Seen on rounds at bedside, spent up to the shower today. Rectal tube is out, still with loose stools, though seem to be a bit better. Tolerated low dose of ampicillin yesterday, followed by 1 g dose. Now on treatment with 2 g every 6 hours for enterococcal bloodstream infection. Low-grade fever, but no temperature greater than 101.5. Follow-up blood cultures from night before last remain without growth. Patient complains of her abdomen being a little distended today, nontender, eating well. Chest x-ray shows some lower lobe consolidation and congestion, however chest cuts of abdominal CT had ruled out pneumonia previously. Suspect may be volume related from resuscitation. Did receive diuretic yesterday. July 27 Still with loose stools. Low-grade temps tapering off. Significant diuresis in the last 24 hours. Rogers catheter remains in place secondary to skin breakdown and need to monitor accurate intake and output. Appetite is pretty good, no fever or chills. Feels generally weak, but overall slowly improving. - Constitutional Vitals: Vital Signs Temp Pulse Resp BP Pulse Ox 98.9 F 116 H 20 113/96 91 07/27/17 07:43 07/27/17 07:32 07/27/17 07:43 07/27/17 07:43 07/27/17 07:43 Period Temp Pulse Resp BP Sys/Ellis Pulse Ox Last 24 Hr 98.1 F-99.3 F 101-116 18-24 109-137/59-96 91-94 Intake and Output 07/26/17 07/27/17 07/27/17 21:59 05:59 13:59 Intake Total 1887.5455 / 1887.5455 470 / 470 Output Total 350 / 350 725 / 725 Balance 1537.5455 / 1537.5455 -255 / -255 Weight 120 lb Intake & Output: Intake & Output 07/26/17 07/27/17 07/27/17 21:59 05:59 13:59 Intake Total 1887.5455 / 1887.5455 470 / 470 Output Total 350 / 350 725 / 725 Balance 1537.5455 / 1537.5455 -255 / -255 Weight 120 lb Intake: IV 1587.5455 / 1587.5455 200 / 200 Ampicillin 2 gm In Sodium 200 / 200 100 / 100 Chloride 0.9% 100 ml @ 100 mls/ hr IV Q6H [facility] Rx#:[id number] Oral 300 / 300 270 / 270 Output: Urine Catheter Amount 350 / 350 725 / 725 Other: Meal Dinner Percent of Meal Consumed 25% Feeding Ability Independent Stool Size Moderate Moderate Stool Color Brown Brown Yellow Yellow Paul Colored Stool Consistency Loose Loose # Bowel Movements 1 # of times incontinent of 1 Bowels Exam: General: Awake, alert, no acute distress Chest: Clear, respirations unlabored Cardiovascular: Regular Abdomen: Soft, mild discomfort with palpation, no guarding or rebound, active bowel sounds Neuro: Alert, oriented, generally weak, but appears to be at baseline Medical - PN: Obj Da - Labs CBC & Chem 7: 07/27/17 04:00 07/27/17 04:00 Labs: Abnormal Lab Results 07/27/17 07/27/17 07/26/17 04:00 04:00 03:59 WBC 16.4 H Hgb 11.2 L Hct 33.5 L RDW 17.0 H Plt Count 469 H Lymph % (Auto) 5.4 L Callaway % (Auto) Eos % (Auto) 8.4 H Gran # 12.4 H Lymph # (Auto) 0.9 L Callaway # (Auto) 1.8 H Eos # (Auto) 1.4 H Potassium 3.1 L 3.2 L Carbon Dioxide BUN 6 L 7 L Creatinine 0.3 L 0.3 L Uric Acid 1.2 L 1.2 L Calcium 7.8 L 7.7 L Phosphorus 2.4 L 2.5 L Lactate Dehydrogenase Total Protein 4.9 L 4.6 L Albumin 2.0 L 2.1 L Albumin/Globulin Ratio 0.7 L 0.8 L 07/26/17 07/25/17 07/25/17 03:59 04:45 04:45 WBC 16.5 H 17.1 H Hgb 11.0 L 11.6 L Hct 33.1 L 34.7 L RDW 17.1 H 17.5 H Plt Count Lymph % (Auto) 5.9 L 4.5 L Callaway % (Auto) 12.8 H Eos % (Auto) 9.0 H Gran # 11.9 H 13.3 H Lymph # (Auto) 1.0 L 0.8 L Callaway # (Auto) 2.1 H 1.9 H Eos # (Auto) 1.5 H 1.1 H Potassium Carbon Dioxide 19 L BUN 5 L Creatinine 0.3 L Uric Acid 0.9 L Calcium 7.6 L Phosphorus 2.2 L Lactate Dehydrogenase 357 H Total Protein 4.7 L Albumin 1.9 L Albumin/Globulin Ratio 0.7 L Microbiology 07/25/17 04:50 Blood Culture - Preliminary Blood 07/25/17 04:45 Blood Culture - Preliminary Blood Meds: Medications Acetaminophen (Tylenol) 650 mg PO Q4-6HP PRN PRN Reason: PAIN/FEVER > 101 Last Admin: 07/27/17 09:14 Dose: 650 mg Albuterol/Ipratropium (Duoneb) 3 ml NEB Q6HP PRN PRN Reason: Shortness Of Breath Or Wheezing Amantadine HCl (Amantadine) 100 mg PO BID [facility] Last Admin: 07/27/17 09:27 Dose: 100 mg Aspirin (Aspirin) 81 mg PO DAILY [facility] Last Admin: 07/27/17 09:13 Dose: 81 mg Baclofen (Lioresal) 10 mg PO TID [facility] Last Admin: 07/27/17 09:13 Dose: 10 mg Cefepime HCl (Maxipime) 2 gm IV Q24H [facility] Last Admin: 07/27/17 09:12 Dose: 2 gm Famotidine (Pepcid) 20 mg IV Q12 [facility] Last Admin: 07/27/17 09:13 Dose: 20 mg Fluconazole (Diflucan) 200 mg PO DAILY [facility] Last Admin: 07/27/17 09:13 Dose: 200 mg Heparin Sodium (Porcine) (Heparin) 5,000 unit SQ Q12 [facility] Last Admin: 07/27/17 09:13 Dose: 5,000 unit Hydromorphone HCl (Dilaudid) 0.5 mg IV Q2HP PRN PRN Reason: PAIN LEVEL > 6 Last Admin: 07/22/17 20:48 Dose: 0.5 mg Metronidazole (Flagyl) 500 mg in 100 mls @ 100 mls/hr IV Q8H [facility] Last Admin: 07/27/17 05:11 Dose: 100 mls/hr Vancomycin HCl 1,000 mg/ (Sodium Chloride) 250 mls @ 250 mls/hr IV Q12H [facility] Last Admin: 07/26/17 22:16 Dose: 250 mls/hr Ampicillin Sodium 2 gm/ Sodium (Chloride) 100 mls @ 100 mls/hr IV Q6H [facility] Last Admin: 07/27/17 06:11 Dose: 100 mls/hr Magnesium Sulfate (Magnesium Sulfate) 2 gm in 50 mls @ 50 mls/hr IV ONCE [facility] Last Infusion: 07/26/17 11:39 Dose: Infused Potassium Phosphate 40 meq/ (Dextrose) 509.0909 mls @ 127.273 mls/hr IV ONCE ONE Stop: 07/27/17 11:59 Last Admin: 07/27/17 09:12 Dose: 127.273 mls/hr Lactobacillus Rhamnosus (Culturelle) 1 cap PO BID [facility] Last Admin: 07/27/17 09:13 Dose: 1 cap Latanoprost (Xalatan Ophth Drops) 1 gtt OU HS [facility] Last Admin: 07/26/17 20:39 Dose: 1 gtt Metoprolol Tartrate (Lopressor) 5 mg IV Q4HP PRN PRN Reason: Sustained HR greater than 130 Last Admin: 07/25/17 21:39 Dose: 5 mg Metoprolol Tartrate (Lopressor) 25 mg PO BID [facility] Last Admin: 07/27/17 09:13 Dose: 25 mg Ondansetron HCl (Zofran) 4 mg IV Q4-6HP PRN PRN Reason: Nausea And Vomiting Promethazine HCl (Phenergan) 12.5 mg IV Q4-6HP PRN PRN Reason: Nausea And Vomiting Sodium Chloride (Saline Flush) 10 ml IV Q8 [facility] Last Admin: 07/27/17 05:13 Dose: 10 ml Vancomycin HCl (Vancomycin Per Pharmacy) 1 order IV UD [facility] Medical - PN: A/P - Time Spent With Patient Total time spent is greater than 50% in coordination of care (as documented) at patient's floor/unit and/or counseling patient: Greater than 35 minutes - Narrative A/P Narrative: 77-year-old female multiple sclerosis, diagnosed with influenza, returns one day later with sepsis. Severe sepsis with multiorgan failure at presentation. Now appears to be secondary to enterococcal bloodstream infection/sepsis. No evidence of pneumonia on chest cuts of CT of the abdomen and pelvis. Suspect source is enteritis seen on CT with disruption of mucosal barrier and translocation of gut bacteria. -Blood culture, set #1, 1/2 bottles with Enterococcus faecium, pansensitive. Blood culture, set #2, 2/2 bottles with Enterococcus faecium, S-ampicillin/PCN; I-vancomycin; R-gent synergy. Given her low vancomycin troughs initially and intermediate susceptibility to culture set #2, this may explain her ongoing leukocytosis and recurrent fever . -The patient has a penicillin allergy, listed as a rash, she said she had some swelling in her hands when she took penicillin at the age of 11. Believes she has taken amoxicillin without problems. Ampicillin would be optimal treatment for her bloodstream infection. Tolerated test doses of ampicillin on Friday. Rising WBC on Friday, on Sat/Sun, WBC starting to trend down again now that she is on therpeutic doses of ampicillin. Temps into 99 range. C diff negative, CXR with consolidation, but had no infiltrates on chest cuts of CT earlier in week. Plan: Tolerating ampicillin, continue 2 gm IV Q6h. Will consider 07/26 at Day # 1 of antibiotics. Also continue cefepime and metronidazole for enteritis. Suveillance cultures are negative, PICC placement today at [facility] under fluoro.. Enteritis with diarrhea. Discussed with Dr. Rooney, who also sees the patient in clinic and is performed endoscopies for complaints of anemia and diarrhea. Small bowel biopsies, though not into the jejunum, have been unrevealing. Enteritis may be acute infectious with interruption of mucosal barrier and translocation of GI bacteria causing enterococcal bloodstream infection sepsis. Her loose stools initially improved, but still loose/stable. Plan: Continue antibiotics as above. Follow clinically and if does not improve , consider endoscopy for biopsy. Bulking agents for diarrhea (Banatrol). Tachycardia. Intermittent sinus tachycardia to the 150s. Was having ventricular arrhythmia in the setting of electrolyte depletion. Continually repleting electrolytes as needed, following daily. Plan: Begin beta akhil, metoprolol 25 mg twice a day, follow electrolytes and replete when necessary Acute hypoxic respiratory failure-resolved: Suspect was secondary to sepsis, possibly influenza. No pneumonia on CT. Plan: Oxygen via nasal canula PRN Acute renal failure: due to poor oral intake and diarrhea, IVF. Resolved. Lactic acidosis: resolved Influenza A: On Tamiflu, can come off droplet precautions Friday. Tamiflu stopped 07/26, s/p Rx. Multiple sclerosis pseudo flare up: Improved/resolved. Given acute infection, would avoid using high dose steroids, in the past she has responded well to physical therapy Raynaud phenomenon: C3 and C4 are normal pending SUN and ANCA unrevealing; outpatient follow-up. Thrombocytosis: due to acute infection, improved. That has been a drop in hemoglobin as well as platelet after fluid administration, most likely dilutional in nature. No chemical evidence of acute bleed DVT hep sq Diet regular Code status: DNR, OK with intubations, iv fluids, antibiotics pressors etc. Medical - PN: Qual - VTE Deep Vein Thrombosis/Pulmonary Embolism Present on Admission: No
[2017-07-27] MEDS: VANCOMYCIN 1,000 MG in 0.9 % SODIUM CHLORIDE 250 ML IV SCH (11:40)
[2017-07-27] MEDS: MAGNESIUM SULFATE 2 GM/50 ML BAG IV SCH (11:40)
[2017-07-27] MEDS: LATANOPROST OPHTH DROPS 2.5ML BOTTLE OU SCH (21:35)
[2017-07-28 04:49] LABS: Basophils # (Auto) 0.1 K/mcL (0.0-0.3); Basophils % (Auto) 0.4 % (0.0-2.0); Eosinophils # (Auto) 1.4 K/mcL (0.0-0.7); Eosinophils % (Auto) 9.2 % (0.0-7.0); Lymphocytes # (Auto) 0.8 K/mcL (1.5-4.8); Lymphocytes % (Auto) 5.4 % (15.5-49.0); Mean Cell Volume 82.6 fL (80.0-100.0); Mean Corpuscular HGB Conc 33.8 g/dL (31.0-36.0); Mean Corpuscular Hemoglobin 27.9 pg (26.0-34.0); Monocytes # (Auto) 1.4 K/mcL (0.1-0.9); Platelet Count 538 K/mcL (140-440); RBC 3.84 M/mcL (4.00-5.20); Red Cell Distribution Width 16.9 % (11.5-14.5)
[2017-07-28 05:13] LABS: ALT/SGPT 9 U/l (0-40); Albumin 2.3 gm/dL (3.2-5.2); Alkaline Phosphatase 60 U/L (39-117); Bilirubin,Direct < 0.2 mg/dL (0.0-0.3); Blood Urea Nitrogen 7 mg/dl (8-23); Gamma Glutamyl Transpeptidase 14 U/L (5-36); Uric Acid 1.1 mg/dL (2.5-8.0)
[2017-07-28] MEDS: AMPICILLIN SODIUM 2 GM in 0.9 % SODIUM CHLORIDE 100 ML IV SCH ×5 (05:31→21:00)
[2017-07-28] MEDS: metroNIDAZOLE 500 MG/100 ML BAG IV SCH (05:32)
[2017-07-28] MEDS: 0.9 % SODIUM CHLORIDE 10 ML SYRINGE IV SCH ×3 (07:21→21:02)
--- NOTE | 2017-07-28 08:04 | XRay Report ---
HISTORY: Reason for Exam:pneumonia FINDINGS: There is a moderate size right-sided pleural effusion with a smaller left-sided effusion. Associated with this is partial consolidation of both lower lobes, right worse than left. The heart is mildly enlarged. The pulmonary vessels, best seen in the lingula and left upper lobe are normal in caliber. A PICC line has been inserted through the right arm with the tip in the superior vena cava. No pneumothorax is present. Comparison with the prior exam from 07/25/17 shows the volume of pleural fluid on the right has increased and the PICC line is new. There is a stable old moderate scoliotic curvature to the right in the lower thoracic spine and there is arthritis in both shoulders. IMPRESSION: Bilateral pleural effusions, right greater than left. Atelectasis or pneumonia in both lower lobes, right worse than left Interpreted and Authenticated by: Reg Adames 07/28/17
[2017-07-28] MEDS: HEPARIN 5,000 UNIT/ML VIAL SQ SCH ×2 (08:44→21:00)
[2017-07-28] MEDS: AMANTADINE HCL 100 MG CAPSULE PO SCH ×2 (08:44→21:01)
[2017-07-28] MEDS: FLUCONAZOLE 100 MG TABLET PO SCH (08:44)
[2017-07-28] MEDS: FAMOTIDINE/PF 20 MG/2 ML VIAL IV SCH ×2 (08:44→21:00)
[2017-07-28] MEDS: METOPROLOL TARTRATE 50 MG TABLET PO SCH ×2 (08:44→21:00)
[2017-07-28] MEDS: ASPIRIN 81 MG TAB.CHEW PO SCH (08:44)
[2017-07-28] MEDS: LACTOBACILLUS 1 CAPSULE PO SCH ×2 (08:46→21:00)
[2017-07-28] MEDS: BACLOFEN 10 MG TABLET PO SCH ×3 (08:46→21:00)
[2017-07-28] MEDS: CEFEPIME 2 GM VIAL IV SCH (08:55)
--- NOTE | 2017-07-28 11:11 | XRay Report ---
HISTORY: Reason for Exam:post thoracentesis FINDINGS: There is improved aeration of the right lower lobe following the preceding thoracentesis. Most but not all of the pleural fluid has been drained. There is still partial atelectasis the right lower lobe. There is a residual small left-sided pleural effusion and mild atelectasis in the medial basal segment. No pneumothorax is present. The heart is mildly enlarged. IMPRESSION: No complication following right-sided thoracentesis Interpreted and Authenticated by: Reg Adames 07/28/17
[2017-07-28 11:44] LABS: Amylase,Pleural Fluid 27 U/L; Glucose,Pleural Fluid 107 mg/dL; LDH,Pleural Fluid 321 U/L
--- NOTE | 2017-07-28 11:50 | Ultrasound Report ---
CLINICAL INFORMATION: Pleural effusion and difficulty breathing TECHNIQUE: The procedure and risks were explained and the patient consented. Patient has bilateral pleural effusions, right greater than left. The skin over the right lower back was prepped with ChloraPrep then anesthetized with 1% lidocaine. Using ultrasound guidance a Yueh needle was inserted into the fluid collection. 800 cc of dark blood-tinged fluid was drained. Most but not all of pleural fluid was drained. The fluid was sent to the laboratory for analysis. She tolerated the procedure well without complication. IMPRESSION: Successful right-sided thoracentesis removing 800 cc of fluid Interpreted and Authenticated by: Reg Adames 07/28/17
[2017-07-28 11:59] LABS: Appearance,Pleural Fluid CLOUDY; Color,Pleural Fluid PALE ORANGE; Nucleated Cells,Pleural Fld 3033 /cumm; RBC,Pleural Fluid < 50000 /cumm
[2017-07-28 12:01] LABS: Lymphocytes,Pleural Fluid 34 %; Neutrophils,Pleural Fluid 50 %
[2017-07-28 13:22] LABS: pH,Body Fluid 7.54
[2017-07-28 13:38] LABS: Total Protein,Body Fluid 2.2 gm/dL
--- NOTE | 2017-07-28 16:52 | Internal Med Progress Note ---
Medical - PN: Subj Patient information: Note initiated : 07/28/17 at 4:47 pm Service Date, if different from initiated Date: [] Patient: Inna Selby 77 y/o F admitted on 07/20/17 for Weakness, Hx of MS/ Pneumonia, Hypoxic Resp Failure. Chief Complaint: [] Interval history: July 20 Ms. Selby is a 77 year old Female with h/o multiple sclerosis, presents to the ER today with complaints of weakness going on for 1 day The patient was here yesterday with complaints of sinus congestion, weakness and fatigue, she had mild leucocytosis, cxr was neg, and flu test was positive for influenza A, she was sent home on po Tamiflu. The patient presented today with complaints of worsening weakness, inability to stand or sit up, bilateral leg weakness, as per her left more than the right. She also notes chronic diarrhea, she said it was going on for last 4-5 days, but could be more as per the nursing in the ER as she told them a much longer duration, pt has a history of C. diff. The patient also is having fever and chills for last few days. In the ER the patient was noted to be febrile, tachycardic, labs show leucocytosis, she has elevated creat, elevated lactic acid, CXR shows possible right and left lower lobe PNA. She was also hypoxic and therefore admitted to the hospital for further management The patient was recently seen by her PCP for Raynaud phenomenon, and started on nifedipine. The patient wishes to be DNR, but is OK with intubation. She denies any specific weakness in hands, denies diplopia, difficulty in swallowing or unable to tell me any particular sensory loss. She complains of weakness of her left leg more than right, she is unable to tell me her pervious flare ups, but I have admitted her in the past, and this was her symptom of flare up with an infection. 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 During clean up in the ER, the patient had extensive pelvic amanda infection, and it seems that her perineal region has been soaked in stools Patient is being admitted to PCU status for further management. July 21 patient seen and examined, no acute overnight events, patient lactic acid is now in the normal range. Still has low-grade fever. Blood cultures positive for gram-positive cocci in pairs and chains in the anaerobic bottle. C. difficile is negative. Plan to discontinue oral vancomycin. Continue IV vancomycin, cefepime, metronidazole. Continue Diflucan. for Intertrigo. Start the patient on probiotics. The patient denies any chest pain, no shortness of breath, no headache, admits to some dizziness. She has no GI symptoms. She still has generalized weakness. July 22 Still having low-grade fever. Blood cultures positive for gram-positive cocci in pairs and chains, molecular testing consistent with enterococcus. The patient is on vancomycin. She is feeling stronger today. No longer on oxygen. Hemodynamics have been stable. She feels her left leg is getting a bit stronger. July 23 Feeling better today. Having significant ventricular ectopy in spite of potassium riders. Short runs of ventricular tachycardia of 5 or so beats. Otherwise appetite is better, no abdominal pain. Has rectal tube in place because of significant diarrhea. Discussed findings of CT scan with Dr. Rooney, on-call for GI. He also sees the patient in clinic, as done both colonoscopy and EGD to evaluate for diarrhea and anemia. Duodenal biopsies have been unrevealing as have colonic biopsies. At this point, will treat with antibiotics for bloodstream infection, possible bacterial enteritis and follow expectantly. If no improvement, will consider tissue sampling. Discussed with patient, she is in agreement. July 24 Significant autodiuresis overnight, recurrent hypokalemia and hypomagnesemia. Still with watery stool, cultures negative. Awaiting final sensitivities on blood cultures. Overall slowly improving, but still with atrial and ventricular ectopy from electrolyte abnormalities. WBC up to 16K, no fever, otherwise stable. July 25 Patient had fever last night 102. He was recultured. Actually feels pretty well this morning without complaints. Stooling seems to be tapering off. Have managed to give final lab results on cultures. Appetite is pretty good. Sitting up in the chair this morning eating breakfast. Discussed the patient's penicillin allergy. It reported as a rash in the hospital system. She states that when she was 11 years old she had some swelling in her hands when she took penicillin. She thinks she's taken amoxicillin in the past without problems. July 26 Seen on rounds at bedside, spent up to the shower today. Rectal tube is out, still with loose stools, though seem to be a bit better. Tolerated low dose of ampicillin yesterday, followed by 1 g dose. Now on treatment with 2 g every 6 hours for enterococcal bloodstream infection. Low-grade fever, but no temperature greater than 101.5. Follow-up blood cultures from night before last remain without growth. Patient complains of her abdomen being a little distended today, nontender, eating well. Chest x-ray shows some lower lobe consolidation and congestion, however chest cuts of abdominal CT had ruled out pneumonia previously. Suspect may be volume related from resuscitation. Did receive diuretic yesterday. July 27 Still with loose stools. Low-grade temps tapering off. Significant diuresis in the last 24 hours. Rogers catheter remains in place secondary to skin breakdown and need to monitor accurate intake and output. Appetite is pretty good, no fever or chills. Feels generally weak, but overall slowly improving. jul 28 patient seen and examined, no acute overnight events, still having SVT bouts on telemetry. Intermittent tachycardia. Patient feels fine, still weak but no acute complaints. Feels that she wants to eat breakfast. Chest x-ray done shows worsening pleural effusion bilaterally, right much more than left. Thoracocentesis today. White blood cell count is slowly trending down, microbiology is still negative, dose of ampicillin increase from 2 g every 6 hours to 2 g every 4 hours. Discontinue metronidazole as well as IV vancomycin Pertinent ROS: Denies headache, dizziness Denies chest pain, palpitations Denies cough or shortness of breath Denies abdominal pain, nausea or vomiting. - Constitutional Vitals: Vital Signs Temp Pulse Resp BP Pulse Ox 98.7 F 116 H 18 122/58 94 07/28/17 15:33 07/27/17 07:32 07/28/17 15:33 07/28/17 15:33 07/28/17 15:33 Period Temp Pulse Resp BP Sys/Ellis Pulse Ox Last 24 Hr 98.7 F-100.1 F 16-22 116-140/58-68 88-99 Intake and Output 07/28/17 07/28/17 07/28/17 05:59 13:59 21:59 Intake Total 340 / 340 780 / 780 100 / 100 Output Total 800 / 800 950 / 950 Balance -460 / -460 780 / 780 -850 / -850 Weight 119 lb Patient Weight 07/29/17 05:59 Weight 119 lb Intake & Output: Intake & Output 07/28/17 07/28/17 07/28/17 05:59 13:59 21:59 Intake Total 340 / 340 780 / 780 100 / 100 Output Total 800 / 800 950 / 950 Balance -460 / -460 780 / 780 -850 / -850 Weight 119 lb Intake: IV 200 / 200 300 / 300 100 / 100 Ampicillin 2 gm In Sodium 100 / 100 200 / 200 100 / 100 Chloride 0.9% 100 ml @ 100 mls/ hr IV Q4H [facility] Rx#:[id number] Oral 480 / 480 GI Tube Flush 140 / 140 Output: Urine Catheter Amount 800 / 800 950 / 950 Other: Meal Lunch Feeding Ability Independent Stool Size Moderate Moderate Stool Color Brown Yellow Stool Consistency Soft Loose # Bowel Movements 1 # of times incontinent of 1 Bowels Exam: Constitutional; Afebrile, cooperative, alert, not in distress. Eyes- No icterus, , No periorbital swelling Ears- Ext ear normal, hearing normal to conversation. Neck- Midline trachea, supple Respiratory system: Air Entry diminished on the right side up to the midlung, diminished on the left base, bilateral crackles just above the area of diminished breath sounds, no expiratory wheezes noted CVS- Rate tachycardic rhythm regular, S1,S2 heard, no gallop, no rub. Abdomen- Soft nontender abdomen, no organomegaly, no tenderness, no guarding or rigidity, [employer]- AOOx3, moving all extremities, no gross focal deficit noted.generalized weakness Medical - PN: Obj Da - Labs CBC & Chem 7: 07/28/17 03:56 07/28/17 03:56 Labs: Abnormal Lab Results 07/28/17 07/28/17 07/27/17 03:56 03:56 04:00 WBC 15.3 H RBC 3.84 L Hgb 10.7 L Hct 31.7 L RDW 16.9 H Plt Count 538 H Lymph % (Auto) 5.4 L Hardin % (Auto) Eos % (Auto) 9.2 H Gran # 11.6 H Lymph # (Auto) 0.8 L Hardin # (Auto) 1.4 H Eos # (Auto) 1.4 H Potassium 3.1 L BUN 7 L 6 L Creatinine 0.4 L 0.3 L Uric Acid 1.1 L 1.2 L Calcium 7.8 L 7.8 L Phosphorus 2.4 L Total Protein 4.7 L 4.9 L Albumin 2.3 L 2.0 L Albumin/Globulin Ratio 0.7 L 07/27/17 07/26/17 07/26/17 04:00 03:59 03:59 WBC 16.4 H 16.5 H RBC Hgb 11.2 L 11.0 L Hct 33.5 L 33.1 L RDW 17.0 H 17.1 H Plt Count 469 H Lymph % (Auto) 5.4 L 5.9 L Hardin % (Auto) 12.8 H Eos % (Auto) 8.4 H 9.0 H Gran # 12.4 H 11.9 H Lymph # (Auto) 0.9 L 1.0 L Hardin # (Auto) 1.8 H 2.1 H Eos # (Auto) 1.4 H 1.5 H Potassium 3.2 L BUN 7 L Creatinine 0.3 L Uric Acid 1.2 L Calcium 7.7 L Phosphorus 2.5 L Total Protein 4.6 L Albumin 2.1 L Albumin/Globulin Ratio 0.8 L Meds: Medications Acetaminophen (Tylenol) 650 mg PO Q4-6HP PRN PRN Reason: PAIN/FEVER > 101 Last Admin: 07/27/17 20:37 Dose: 650 mg Albuterol/Ipratropium (Duoneb) 3 ml NEB Q6HP PRN PRN Reason: Shortness Of Breath Or Wheezing Amantadine HCl (Amantadine) 100 mg PO BID [facility] Last Admin: 07/28/17 08:44 Dose: 100 mg Aspirin (Aspirin) 81 mg PO DAILY [facility] Last Admin: 07/28/17 08:44 Dose: 81 mg Baclofen (Lioresal) 10 mg PO TID [facility] Last Admin: 07/28/17 15:03 Dose: 10 mg Cefepime HCl (Maxipime) 2 gm IV Q24H [facility] Last Admin: 07/28/17 08:55 Dose: 2 gm Famotidine (Pepcid) 20 mg IV Q12 [facility] Last Admin: 07/28/17 08:44 Dose: 20 mg Fluconazole (Diflucan) 200 mg PO DAILY [facility] Last Admin: 07/28/17 08:44 Dose: 200 mg Heparin Sodium (Porcine) (Heparin) 5,000 unit SQ Q12 [facility] Last Admin: 07/28/17 08:44 Dose: 5,000 unit Heparin Sodium (Porcine) (Heparin Flush) 2 ml IV Q12 [facility] Hydromorphone HCl (Dilaudid) 0.5 mg IV Q2HP PRN PRN Reason: PAIN LEVEL > 6 Last Admin: 07/22/17 20:48 Dose: 0.5 mg Ampicillin Sodium 2 gm/ Sodium (Chloride) 100 mls @ 100 mls/hr IV Q4H [facility] Last Infusion: 07/28/17 14:35 Dose: Infused Lactobacillus Rhamnosus (Culturelle) 1 cap PO BID [facility] Last Admin: 07/28/17 08:46 Dose: 1 cap Latanoprost (Xalatan Ophth Drops) 1 gtt OU HS [facility] Last Admin: 07/27/17 21:35 Dose: 1 gtt Metoprolol Tartrate (Lopressor) 5 mg IV Q4HP PRN PRN Reason: Sustained HR greater than 130 Last Admin: 07/25/17 21:39 Dose: 5 mg Metoprolol Tartrate (Lopressor) 50 mg PO BID [facility] Last Admin: 07/28/17 08:44 Dose: 50 mg Ondansetron HCl (Zofran) 4 mg IV Q4-6HP PRN PRN Reason: Nausea And Vomiting Promethazine HCl (Phenergan) 12.5 mg IV Q4-6HP PRN PRN Reason: Nausea And Vomiting Sodium Chloride (Saline Flush) 10 ml IV Q8 [facility] Last Admin: 07/28/17 14:24 Dose: 10 ml Medical - PN: A/P - Time Spent With Patient Total time spent is greater than 50% in coordination of care (as documented) at patient's floor/unit and/or counseling patient: - Narrative A/P Narrative: 77-year-old female multiple sclerosis, diagnosed with influenza, returns one day later with sepsis. Severe sepsis with multiorgan failure at presentation. clinically improving, Due enterococcal bloodstream infection/sepsis. Suspect source is enteritis seen on CT with disruption of mucosal barrier and translocation of gut bacteria. -Blood culture, set #1, 1/2 bottles with Enterococcus faecium, pansensitive. Blood culture, set #2, 2/2 bottles with Enterococcus faecium, S-ampicillin/PCN; I-vancomycin; R-gent synergy. Given her low vancomycin troughs initially and intermediate susceptibility to culture set #2, -The patient has a penicillin allergy, listed as a rash, she said she had some swelling in her hands when she took penicillin at the age of 11. Believes she has taken amoxicillin without problems. Ampicillin would be optimal treatment for her bloodstream infection. Tolerated test doses of ampicillin on Friday. Rising WBC on Friday, on Sat/Sun, WBC starting to trend down again now that she is on therapeutic doses of ampicillin. Temps into 99 range. C diff negative, Plan: Tolerating ampicillin, continue 2 gm IV Q4h. Will consider 07/26 at Day # 1 of antibiotics. discontinue other antibiotics as ampicillin has anaerobic coverage, and no other pathogen found. Surveillance cultures are negative, PICC placement done at [facility] under fluoro. Enteritis with diarrhea. Discussed with Dr. Rooney, who also sees the patient in clinic and is performed endoscopies for complaints of anemia and diarrhea. Small bowel biopsies, though not into the jejunum, have been unrevealing. Enteritis may be acute infectious with interruption of mucosal barrier and translocation of GI bacteria causing enterococcal bloodstream infection sepsis. Her loose stools initially improved, but still loose/stable. Plan: Continue antibiotics as above. Follow clinically and if does not improve , consider endoscopy for biopsy. Bulking agents for diarrhea (Banatrol) Tachycardia. Intermittent sinus tachycardia to the 150s. Was having ventricular arrhythmia in the setting of electrolyte depletion. Continually repleting electrolytes as needed, following daily. Plan: Begin beta akhil, metoprolol 25 mg twice a day, follow electrolytes and replete when necessary, increased dose of beta akhil to 50 mg twice a day Pleural effusion-bilateral pleural effusion, right more than left, noted To have therapeutic paracentesis done today. exudative by LDH criteria, secondary to aspiration pneumonitis, is on ampicillin, which would cover aspiration pneumonitis. We'll repeat chest CT if patient's clinical condition worsens Acute hypoxic respiratory failure-resolved: Suspect was secondary to sepsis, possibly influenza. Plan: Oxygen via nasal canula PRN Acute renal failure: due to poor oral intake and diarrhea, IVF. Resolved. Lactic acidosis: resolved Influenza A: On Tamiflu, can come off droplet precautions Friday. Tamiflu stopped 07/26, s/p Rx. Multiple sclerosis pseudo flare up: Improved/resolved. Given acute infection, would avoid using high dose steroids, in the past she has responded well to physical therapy Raynaud phenomenon: C3 and C4 are normal pending SUN and ANCA unrevealing; outpatient follow-up. Thrombocytosis: due to acute infection, improved. That has been a drop in hemoglobin as well as platelet after fluid administration, most likely dilutional in nature. No chemical evidence of acute bleed DVT hep sq Diet regular Code status: DNR, OK with intubations, iv fluids, antibiotics pressors etc. Medical - PN: Qual - VTE Deep Vein Thrombosis/Pulmonary Embolism Present on Admission: No
[2017-07-28] MEDS: ACETAMINOPHEN 325 MG TABLET PO PRN (21:00)
[2017-07-28] MEDS: LATANOPROST OPHTH DROPS 2.5ML BOTTLE OU SCH (21:01)
[2017-07-29] MEDS: AMPICILLIN SODIUM 2 GM in 0.9 % SODIUM CHLORIDE 100 ML IV SCH ×6 (01:06→21:20)
[2017-07-29 05:28] LABS: Basophils # (Auto) 0 K/mcL (0.0-0.3); Basophils % (Auto) 0.1 % (0.0-2.0); Eosinophils # (Auto) 1.4 K/mcL (0.0-0.7); Eosinophils % (Auto) 8.9 % (0.0-7.0); Granulocytes % (Auto) 76.4 % (38.0-78.0); Lymphocytes % (Auto) 6.5 % (15.5-49.0); Mean Cell Volume 82.2 fL (80.0-100.0); Mean Corpuscular HGB Conc 33.4 g/dL (31.0-36.0); Mean Corpuscular Hemoglobin 27.5 pg (26.0-34.0); Monocytes # (Auto) 1.3 K/mcL (0.1-0.9); Monocytes % (Auto) 8.1 % (1.0-12.0); Platelet Count 591 K/mcL (140-440); RBC 3.76 M/mcL (4.00-5.20); Red Cell Distribution Width 16.8 % (11.5-14.5)
[2017-07-29] MEDS: 0.9 % SODIUM CHLORIDE 10 ML SYRINGE IV SCH ×3 (05:31→21:21)
[2017-07-29 06:01] LABS: ALT/SGPT 8 U/l (0-40); Albumin/Globulin Ratio 0.8 (1.0-2.3); Alkaline Phosphatase 57 U/L (39-117); Bilirubin,Direct < 0.2 mg/dL (0.0-0.3); Blood Urea Nitrogen 9 mg/dl (8-23); Gamma Glutamyl Transpeptidase 17 U/L (5-36); Uric Acid 1.2 mg/dL (2.5-8.0)
[2017-07-29] MEDS: LACTOBACILLUS 1 CAPSULE PO SCH ×2 (08:55→21:20)
[2017-07-29] MEDS: BACLOFEN 10 MG TABLET PO SCH ×3 (08:56→21:20)
[2017-07-29] MEDS: FAMOTIDINE/PF 20 MG/2 ML VIAL IV SCH ×2 (08:56→21:21)
[2017-07-29] MEDS: FLUCONAZOLE 100 MG TABLET PO SCH (08:56)
[2017-07-29] MEDS: HEPARIN 5,000 UNIT/ML VIAL SQ SCH ×2 (08:56→21:20)
[2017-07-29] MEDS: METOPROLOL TARTRATE 50 MG TABLET PO SCH ×2 (08:56→21:20)
[2017-07-29] MEDS: AMANTADINE HCL 100 MG CAPSULE PO SCH ×2 (09:00→21:52)
[2017-07-29] MEDS: ASPIRIN 81 MG TAB.CHEW PO SCH (09:00)
--- NOTE | 2017-07-29 09:17 | Cat Scan Report ---
CLINICAL INFORMATION: Hypoxic respiratory failure, pleural effusion, pneumonia COMPARISON: Chest x-ray on 07/28/[address] on 07/22/17 TECHNIQUE: 2.5 mm axial slices were obtained from the lung apices through the bases without intravenous contrast. Sagittal, coronal and axial reformatted images were processed and reviewed at bone, lung and soft tissue windows. 7 mm axial MIP images were also reconstructed. FINDINGS: There is a small to moderate size layering pleural effusion on the right side. Some of the fluid is loculated in the major fissure. A thoracentesis had been performed yesterday, removing 800 cc of fluid. Although not all of the pleural fluid on the right side had been removed yesterday, there is more fluid today than there was following the thoracentesis. No pneumothorax is present. There is moderate consolidation in the basilar segments of the right lower lobe with several air bronchograms. This could be a combination of atelectasis and pneumonia. A small layering left-sided pleural effusion is present and there is mild atelectasis in the posterior basal segment of the left lower lobe. The volume of pleural fluid is stable. There is aneurysmal dilatation of the ascending aorta. It Measures up to 4.6 cm in diameter. The mid and distal portion of the aortic arch are normal in caliber and descending aorta is normal in caliber. The heart is normal in size. There are calcifications in the aortic valve. Few calcified plaques are seen in the coronary arteries and aortic arch. Patient has a moderate scoliotic curvature in the lower thoracic spine. There is a PICC line placed through the right arm into the superior vena cava. IMPRESSION: Reaccumulating right-sided pleural effusion and stable smaller left sided pleural effusion Pneumonia and/or atelectasis in both lower lobes, right worse than left Aneurysmal dilatation of the ascending aorta. This raises the possibility of aortic stenosis. This should be correlated with the results from the prior echocardiogram. Interpreted and Authenticated by: Reg Adames 07/29/17
[2017-07-29] MEDS ORDERED: FUROSEMIDE 40 MG/4 ML VIAL IV ONE (09:20)
[2017-07-29] MEDS ORDERED: IPRATROPIUM/ALBUTEROL 3 ML AMPUL.NEB NEB PRN (10:58)
[2017-07-29] MEDS ORDERED: PROMETHAZINE 25 MG/ML VIAL IV PRN (10:58)
[2017-07-29] MEDS ORDERED: HYDROmorphone 2 MG/ML VIAL IV PRN (10:58)
[2017-07-29] MEDS ORDERED: MAGNESIUM SULFATE 32.48 MEQ in DEXTROSE 5% IN WATER 100 ML IV ONE (10:58)
[2017-07-29] MEDS ORDERED: ONDANSETRON 4 MG/2 ML VIAL IV PRN (10:58)
[2017-07-29] MEDS ORDERED: METOPROLOL TARTRATE 5 MG/5 ML VIAL IV PRN (10:58)
--- NOTE | 2017-07-29 13:51 | Internal Med Progress Note ---
Medical - PN: Subj Patient information: Note initiated : 07/29/17 at 1:49 pm Service Date, if different from initiated Date: [] Patient: Inna Selby 77 y/o F admitted on 07/20/17 for Weakness, Hx of MS/ Pneumonia, Hypoxic Resp Failure. Chief Complaint: [] Interval history: July 20 Ms. Selby is a 77 year old Female with h/o multiple sclerosis, presents to the ER today with complaints of weakness going on for 1 day The patient was here yesterday with complaints of sinus congestion, weakness and fatigue, she had mild leucocytosis, cxr was neg, and flu test was positive for influenza A, she was sent home on po Tamiflu. The patient presented today with complaints of worsening weakness, inability to stand or sit up, bilateral leg weakness, as per her left more than the right. She also notes chronic diarrhea, she said it was going on for last 4-5 days, but could be more as per the nursing in the ER as she told them a much longer duration, pt has a history of C. diff. The patient also is having fever and chills for last few days. In the ER the patient was noted to be febrile, tachycardic, labs show leucocytosis, she has elevated creat, elevated lactic acid, CXR shows possible right and left lower lobe PNA. She was also hypoxic and therefore admitted to the hospital for further management The patient was recently seen by her PCP for Raynaud phenomenon, and started on nifedipine. The patient wishes to be DNR, but is OK with intubation. She denies any specific weakness in hands, denies diplopia, difficulty in swallowing or unable to tell me any particular sensory loss. She complains of weakness of her left leg more than right, she is unable to tell me her pervious flare ups, but I have admitted her in the past, and this was her symptom of flare up with an infection. 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 During clean up in the ER, the patient had extensive pelvic amanda infection, and it seems that her perineal region has been soaked in stools Patient is being admitted to PCU status for further management. July 21 patient seen and examined, no acute overnight events, patient lactic acid is now in the normal range. Still has low-grade fever. Blood cultures positive for gram-positive cocci in pairs and chains in the anaerobic bottle. C. difficile is negative. Plan to discontinue oral vancomycin. Continue IV vancomycin, cefepime, metronidazole. Continue Diflucan. for Intertrigo. Start the patient on probiotics. The patient denies any chest pain, no shortness of breath, no headache, admits to some dizziness. She has no GI symptoms. She still has generalized weakness. July 22 Still having low-grade fever. Blood cultures positive for gram-positive cocci in pairs and chains, molecular testing consistent with enterococcus. The patient is on vancomycin. She is feeling stronger today. No longer on oxygen. Hemodynamics have been stable. She feels her left leg is getting a bit stronger. July 23 Feeling better today. Having significant ventricular ectopy in spite of potassium riders. Short runs of ventricular tachycardia of 5 or so beats. Otherwise appetite is better, no abdominal pain. Has rectal tube in place because of significant diarrhea. Discussed findings of CT scan with Dr. Rooney, on-call for GI. He also sees the patient in clinic, as done both colonoscopy and EGD to evaluate for diarrhea and anemia. Duodenal biopsies have been unrevealing as have colonic biopsies. At this point, will treat with antibiotics for bloodstream infection, possible bacterial enteritis and follow expectantly. If no improvement, will consider tissue sampling. Discussed with patient, she is in agreement. July 24 Significant autodiuresis overnight, recurrent hypokalemia and hypomagnesemia. Still with watery stool, cultures negative. Awaiting final sensitivities on blood cultures. Overall slowly improving, but still with atrial and ventricular ectopy from electrolyte abnormalities. WBC up to 16K, no fever, otherwise stable. July 25 Patient had fever last night 102. He was recultured. Actually feels pretty well this morning without complaints. Stooling seems to be tapering off. Have managed to give final lab results on cultures. Appetite is pretty good. Sitting up in the chair this morning eating breakfast. Discussed the patient's penicillin allergy. It reported as a rash in the hospital system. She states that when she was 11 years old she had some swelling in her hands when she took penicillin. She thinks she's taken amoxicillin in the past without problems. July 26 Seen on rounds at bedside, spent up to the shower today. Rectal tube is out, still with loose stools, though seem to be a bit better. Tolerated low dose of ampicillin yesterday, followed by 1 g dose. Now on treatment with 2 g every 6 hours for enterococcal bloodstream infection. Low-grade fever, but no temperature greater than 101.5. Follow-up blood cultures from night before last remain without growth. Patient complains of her abdomen being a little distended today, nontender, eating well. Chest x-ray shows some lower lobe consolidation and congestion, however chest cuts of abdominal CT had ruled out pneumonia previously. Suspect may be volume related from resuscitation. Did receive diuretic yesterday. July 27 Still with loose stools. Low-grade temps tapering off. Significant diuresis in the last 24 hours. Rogers catheter remains in place secondary to skin breakdown and need to monitor accurate intake and output. Appetite is pretty good, no fever or chills. Feels generally weak, but overall slowly improving. jul 28 patient seen and examined, no acute overnight events, still having SVT bouts on telemetry. Intermittent tachycardia. Patient feels fine, still weak but no acute complaints. Feels that she wants to eat breakfast. Chest x-ray done shows worsening pleural effusion bilaterally, right much more than left. Thoracocentesis today. White blood cell count is slowly trending down, microbiology is still negative, dose of ampicillin increase from 2 g every 6 hours to 2 g every 4 hours. Discontinue metronidazole as well as IV vancomycin Jul 29 Patient seen examined, no acute overnight events, pt doing well, has no complaints, her wbc is still high, did not drop much from yesterday CT chest done which shows enrique effusion, right > left, atelectasis vs pna, Pt just had a long course of ABX, doubt pna, none the less still is on IV ampicillin which should cover for aspiration pathogens pleural fluid is exudative in nature by lights ldh criteria, microbiology neg iv lasix x 1 today to see if this helps aggresive pulm toilet Xfer to med surg status. continue to work with rehab HR stable, no long svt runs bp stable Pertinent ROS: Denies headache, dizziness Denies chest pain, palpitations Denies cough or shortness of breath Denies abdominal pain, nausea or vomiting. - Constitutional Vitals: Vital Signs Temp Pulse Resp BP Pulse Ox 98.7 F 87 18 106/60 96 07/29/17 12:55 07/29/17 12:55 07/29/17 12:55 07/29/17 12:55 07/29/17 12:55 Period Temp Pulse Resp BP Sys/Ellis Pulse Ox Last 24 Hr 98.0 F-99.4 F 87 18-22 106-135/57-74 92-96 Intake and Output 07/28/17 07/29/17 07/29/17 21:59 05:59 13:59 Intake Total 300 / 300 480 / 480 357 / 357 Output Total 950 / 950 850 / 850 1800 / 1800 Balance -650 / -650 -370 / -370 -1443 / -1443 Weight 120 lb Intake & Output: Intake & Output 07/28/17 07/29/17 07/29/17 21:59 05:59 13:59 Intake Total 300 / 300 480 / 480 357 / 357 Output Total 950 / 950 850 / 850 1800 / 1800 Balance -650 / -650 -370 / -370 -1443 / -1443 Weight 120 lb Intake: IV 300 / 300 200 / 200 Ampicillin 2 gm In Sodium 300 / 300 200 / 200 Chloride 0.9% 100 ml @ 100 mls/ hr IV Q4H REPLACED BY [facility] Rx#:[id number] Oral 357 / 357 GI Tube Flush 280 / 280 Output: Urine Catheter Amount 950 / 950 850 / 850 1800 / 1800 Other: Meal Lunch Percent of Meal Consumed 50% Feeding Ability Independent Exam: Constitutional; Afebrile, cooperative, alert, not in distress. Eyes- No icterus, , No periorbital swelling Ears- Ext ear normal, hearing normal to conversation. Neck- Midline trachea, supple Respiratory system: Air Entry dimisihed on right side upto mid lung, left lung based has decreased entry, enrique mild inspiratory crackles, present no wheeze. CVS- Rate rhythm regular, S1,S2 heard, no gallop, no rub. Abdomen- Soft nontender abdomen, no organomegaly, no tenderness, no guarding or rigidity, [employer]- AOOx3, moving all extremities, no gross focal deficit noted. Medical - PN: Obj Da - Labs CBC & Chem 7: 07/29/17 04:00 07/29/17 04:00 Labs: Abnormal Lab Results 07/29/17 07/29/17 07/28/17 04:00 04:00 03:56 WBC 15.4 H RBC 3.76 L Hgb 10.3 L Hct 30.9 L RDW 16.8 H Plt Count 591 H Lymph % (Auto) 6.5 L Eos % (Auto) 8.9 H Gran # 11.8 H Lymph # (Auto) 1.0 L Williams # (Auto) 1.3 H Eos # (Auto) 1.4 H Potassium BUN 7 L Creatinine 0.3 L 0.4 L Uric Acid 1.2 L 1.1 L Calcium 8.0 L 7.8 L Phosphorus Total Protein 4.6 L 4.7 L Albumin 2.0 L 2.3 L Albumin/Globulin Ratio 0.8 L 07/28/17 07/27/17 07/27/17 03:56 04:00 04:00 WBC 15.3 H 16.4 H RBC 3.84 L Hgb 10.7 L 11.2 L Hct 31.7 L 33.5 L RDW 16.9 H 17.0 H Plt Count 538 H 469 H Lymph % (Auto) 5.4 L 5.4 L Eos % (Auto) 9.2 H 8.4 H Gran # 11.6 H 12.4 H Lymph # (Auto) 0.8 L 0.9 L Williams # (Auto) 1.4 H 1.8 H Eos # (Auto) 1.4 H 1.4 H Potassium 3.1 L BUN 6 L Creatinine 0.3 L Uric Acid 1.2 L Calcium 7.8 L Phosphorus 2.4 L Total Protein 4.9 L Albumin 2.0 L Albumin/Globulin Ratio 0.7 L Meds: Medications Acetaminophen (Tylenol) 650 mg PO Q4-6HP PRN PRN Reason: PAIN/FEVER > 101 Albuterol/Ipratropium (Duoneb) 3 ml NEB Q6HP PRN PRN Reason: Shortness Of Breath Or Wheezing Amantadine HCl (Amantadine) 100 mg PO BID REPLACED BY [facility] Aspirin (Aspirin) 81 mg PO DAILY REPLACED BY [facility] Baclofen (Lioresal) 10 mg PO TID REPLACED BY [facility] Famotidine (Pepcid) 20 mg IV Q12 REPLACED BY [facility] Fluconazole (Diflucan) 200 mg PO DAILY REPLACED BY [facility] Heparin Sodium (Porcine) (Heparin) 5,000 unit SQ Q12 REPLACED BY [facility] Heparin Sodium (Porcine) (Heparin Flush) 2 ml IV Q12 REPLACED BY [facility] Hydromorphone HCl (Dilaudid) 0.5 mg IV Q2HP PRN PRN Reason: PAIN LEVEL > 6 Ampicillin Sodium 2 gm/ Sodium (Chloride) 100 mls @ 100 mls/hr IV Q4H REPLACED BY [facility] Last Admin: 07/29/17 13:28 Dose: 100 mls/hr Lactobacillus Rhamnosus (Culturelle) 1 cap PO BID SAUNDRA Latanoprost (Xalatan Ophth Drops) 1 gtt OU HS SAUNDRA Metoprolol Tartrate (Lopressor) 5 mg IV Q4HP PRN PRN Reason: Sustained HR greater than 130 Metoprolol Tartrate (Lopressor) 50 mg PO BID REPLACED BY [facility] Ondansetron HCl (Zofran) 4 mg IV Q4-6HP PRN PRN Reason: Nausea And Vomiting Promethazine HCl (Phenergan) 12.5 mg IV Q4-6HP PRN PRN Reason: Nausea And Vomiting Sodium Chloride (Saline Flush) 10 ml IV Q8 REPLACED BY [facility] Last Admin: 07/29/17 13:28 Dose: 10 ml Medical - PN: A/P - Time Spent With Patient Total time spent is greater than 50% in coordination of care (as documented) at patient's floor/unit and/or counseling patient: - Narrative A/P Narrative: 77-year-old female multiple sclerosis, diagnosed with influenza, returns one day later with sepsis. Severe sepsis with multiorgan failure at presentation. clinically improving, Due enterococcal bloodstream infection/sepsis. Suspect source is enteritis seen on CT with disruption of mucosal barrier and translocation of gut bacteria. -Blood culture, set #1, 1/2 bottles with Enterococcus faecium, pansensitive. Blood culture, set #2, 2/2 bottles with Enterococcus faecium, S-ampicillin/PCN; I-vancomycin; R-gent synergy. Given her low vancomycin troughs initially and intermediate susceptibility to culture set #2, PICC in place Pt on ampicillin, day 3 today. Enteritis with diarrhea. Discussed with Dr. Rooney, who also sees the patient in clinic and is performed endoscopies for complaints of anemia and diarrhea. Small bowel biopsies, though not into the jejunum, have been unrevealing. Enteritis may be acute infectious with interruption of mucosal barrier and translocation of GI bacteria causing enterococcal bloodstream infection sepsis. Her loose stools initially improved, but still loose/stable. Plan: Continue antibiotics as above. Follow clinically and if does not improve , consider endoscopy for biopsy. Bulking agents for diarrhea (Banatrol), stable at this time. Tachycardia. Intermittent sinus tachycardia to the 150s. Was having ventricular arrhythmia in the setting of electrolyte depletion. Continually repleting electrolytes as needed, following daily. Plan: on metoprolol 50mg bid with no more long runs of SVT, I anticipate tachcyardia to continue to improve with improvement in overall condition and infection. Pleural effusion-bilateral pleural effusion, right more than left, noted To have therapeutic paracentesis done today. exudative by LDH criteria, secondary to aspiration pneumonitis, is on ampicillin, which would cover aspiration pneumonitis. CT chest done this AM shows atelectasis vs pna, but given recent course with vanco and cefepime, I doublt if hcap pna is present. ampicillin should cover aspiration pneumoniitis. No empyema noted. Acute hypoxic respiratory failure-resolved: Suspect was secondary to sepsis, possibly influenza. Plan: Oxygen via nasal canula PRN Acute renal failure: due to poor oral intake and diarrhea, IVF. Resolved. Lactic acidosis: resolved Influenza A: On Tamiflu, can come off droplet precautions Friday. Tamiflu stopped 07/26, s/p Rx. Multiple sclerosis pseudo flare up: Improved/resolved. Given acute infection, would avoid using high dose steroids, in the past she has responded well to physical therapy Raynaud phenomenon: C3 and C4 are normal pending SUN and ANCA unrevealing; outpatient follow-up. Thrombocytosis: due to acute infection, improved. That has been a drop in hemoglobin as well as platelet after fluid administration, most likely dilutional in nature. No chemical evidence of acute bleed DVT hep sq Diet regular Code status: DNR, OK with intubations, iv fluids, antibiotics pressors etc. Medical - PN: Qual - VTE Deep Vein Thrombosis/Pulmonary Embolism Present on Admission: No
[2017-07-29] MEDS: LATANOPROST OPHTH DROPS 2.5ML BOTTLE OU SCH (21:22)
[2017-07-30] MEDS: AMPICILLIN SODIUM 2 GM in 0.9 % SODIUM CHLORIDE 100 ML IV SCH ×6 (00:18→21:48)
[2017-07-30] MEDS: 0.9 % SODIUM CHLORIDE 10 ML SYRINGE IV SCH ×3 (04:22→21:49)
[2017-07-30 05:38] LABS: Basophils # (Auto) 0 K/mcL (0.0-0.3); Basophils % (Auto) 0.1 % (0.0-2.0); Eosinophils # (Auto) 1.3 K/mcL (0.0-0.7); Eosinophils % (Auto) 8.6 % (0.0-7.0); Granulocytes % (Auto) 77.2 % (38.0-78.0); Lymphocytes % (Auto) 6.9 % (15.5-49.0); Mean Cell Volume 81.8 fL (80.0-100.0); Mean Corpuscular HGB Conc 33.4 g/dL (31.0-36.0); Mean Corpuscular Hemoglobin 27.3 pg (26.0-34.0); Monocytes # (Auto) 1.1 K/mcL (0.1-0.9); Monocytes % (Auto) 7.2 % (1.0-12.0); Platelet Count 647 K/mcL (140-440); RBC 3.71 M/mcL (4.00-5.20); Red Cell Distribution Width 16.7 % (11.5-14.5)
[2017-07-30 05:59] LABS: ALT/SGPT 8 U/l (0-40); Albumin 2.4 gm/dL (3.2-5.2); Alkaline Phosphatase 57 U/L (39-117); Bilirubin,Direct < 0.2 mg/dL (0.0-0.3); Blood Urea Nitrogen 7 mg/dl (8-23); Gamma Glutamyl Transpeptidase 16 U/L (5-36); Uric Acid 1.3 mg/dL (2.5-8.0)
[2017-07-30] MEDS ORDERED: FUROSEMIDE 40 MG/4 ML VIAL IV ONE ×2 (06:57→16:17)
[2017-07-30] MEDS: FAMOTIDINE/PF 20 MG/2 ML VIAL IV SCH ×2 (08:19→21:47)
[2017-07-30] MEDS: HEPARIN 5,000 UNIT/ML VIAL SQ SCH ×2 (08:20→21:48)
[2017-07-30] MEDS: METOPROLOL TARTRATE 50 MG TABLET PO SCH ×2 (08:20→21:48)
[2017-07-30] MEDS: BACLOFEN 10 MG TABLET PO SCH ×3 (08:20→21:48)
[2017-07-30] MEDS: ACETAMINOPHEN 325 MG TABLET PO PRN ×2 (08:20→21:50)
[2017-07-30] MEDS: ASPIRIN 81 MG TAB.CHEW PO SCH (08:20)
[2017-07-30] MEDS: LACTOBACILLUS 1 CAPSULE PO SCH ×2 (08:20→21:48)
[2017-07-30] MEDS: FLUCONAZOLE 100 MG TABLET PO SCH (08:20)
[2017-07-30] MEDS: AMANTADINE HCL 100 MG CAPSULE PO SCH ×2 (10:22→21:48)
[2017-07-30] MEDS ORDERED: POTASSIUM CHLORIDE 20 MEQ PACKET PO ONE (16:16)
--- NOTE | 2017-07-30 16:19 | Internal Med Progress Note ---
Medical - PN: Subj Patient information: Note initiated : 07/30/17 at 4:17 pm Service Date, if different from initiated Date: [] Patient: Inna Selby 77 y/o F admitted on 07/20/17 for Weakness, Hx of MS/ Pneumonia, Hypoxic Resp Failure. Chief Complaint: [] Interval history: July 20 Ms. Selby is a 77 year old Female with h/o multiple sclerosis, presents to the ER today with complaints of weakness going on for 1 day The patient was here yesterday with complaints of sinus congestion, weakness and fatigue, she had mild leucocytosis, cxr was neg, and flu test was positive for influenza A, she was sent home on po Tamiflu. The patient presented today with complaints of worsening weakness, inability to stand or sit up, bilateral leg weakness, as per her left more than the right. She also notes chronic diarrhea, she said it was going on for last 4-5 days, but could be more as per the nursing in the ER as she told them a much longer duration, pt has a history of C. diff. The patient also is having fever and chills for last few days. In the ER the patient was noted to be febrile, tachycardic, labs show leucocytosis, she has elevated creat, elevated lactic acid, CXR shows possible right and left lower lobe PNA. She was also hypoxic and therefore admitted to the hospital for further management The patient was recently seen by her PCP for Raynaud phenomenon, and started on nifedipine. The patient wishes to be DNR, but is OK with intubation. She denies any specific weakness in hands, denies diplopia, difficulty in swallowing or unable to tell me any particular sensory loss. She complains of weakness of her left leg more than right, she is unable to tell me her pervious flare ups, but I have admitted her in the past, and this was her symptom of flare up with an infection. 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 During clean up in the ER, the patient had extensive pelvic amanda infection, and it seems that her perineal region has been soaked in stools Patient is being admitted to PCU status for further management. July 21 patient seen and examined, no acute overnight events, patient lactic acid is now in the normal range. Still has low-grade fever. Blood cultures positive for gram-positive cocci in pairs and chains in the anaerobic bottle. C. difficile is negative. Plan to discontinue oral vancomycin. Continue IV vancomycin, cefepime, metronidazole. Continue Diflucan. for Intertrigo. Start the patient on probiotics. The patient denies any chest pain, no shortness of breath, no headache, admits to some dizziness. She has no GI symptoms. She still has generalized weakness. July 22 Still having low-grade fever. Blood cultures positive for gram-positive cocci in pairs and chains, molecular testing consistent with enterococcus. The patient is on vancomycin. She is feeling stronger today. No longer on oxygen. Hemodynamics have been stable. She feels her left leg is getting a bit stronger. July 23 Feeling better today. Having significant ventricular ectopy in spite of potassium riders. Short runs of ventricular tachycardia of 5 or so beats. Otherwise appetite is better, no abdominal pain. Has rectal tube in place because of significant diarrhea. Discussed findings of CT scan with Dr. Rooney, on-call for GI. He also sees the patient in clinic, as done both colonoscopy and EGD to evaluate for diarrhea and anemia. Duodenal biopsies have been unrevealing as have colonic biopsies. At this point, will treat with antibiotics for bloodstream infection, possible bacterial enteritis and follow expectantly. If no improvement, will consider tissue sampling. Discussed with patient, she is in agreement. July 24 Significant autodiuresis overnight, recurrent hypokalemia and hypomagnesemia. Still with watery stool, cultures negative. Awaiting final sensitivities on blood cultures. Overall slowly improving, but still with atrial and ventricular ectopy from electrolyte abnormalities. WBC up to 16K, no fever, otherwise stable. July 25 Patient had fever last night 102. He was recultured. Actually feels pretty well this morning without complaints. Stooling seems to be tapering off. Have managed to give final lab results on cultures. Appetite is pretty good. Sitting up in the chair this morning eating breakfast. Discussed the patient's penicillin allergy. It reported as a rash in the hospital system. She states that when she was 11 years old she had some swelling in her hands when she took penicillin. She thinks she's taken amoxicillin in the past without problems. July 26 Seen on rounds at bedside, spent up to the shower today. Rectal tube is out, still with loose stools, though seem to be a bit better. Tolerated low dose of ampicillin yesterday, followed by 1 g dose. Now on treatment with 2 g every 6 hours for enterococcal bloodstream infection. Low-grade fever, but no temperature greater than 101.5. Follow-up blood cultures from night before last remain without growth. Patient complains of her abdomen being a little distended today, nontender, eating well. Chest x-ray shows some lower lobe consolidation and congestion, however chest cuts of abdominal CT had ruled out pneumonia previously. Suspect may be volume related from resuscitation. Did receive diuretic yesterday. July 27 Still with loose stools. Low-grade temps tapering off. Significant diuresis in the last 24 hours. Rogers catheter remains in place secondary to skin breakdown and need to monitor accurate intake and output. Appetite is pretty good, no fever or chills. Feels generally weak, but overall slowly improving. jul 28 patient seen and examined, no acute overnight events, still having SVT bouts on telemetry. Intermittent tachycardia. Patient feels fine, still weak but no acute complaints. Feels that she wants to eat breakfast. Chest x-ray done shows worsening pleural effusion bilaterally, right much more than left. Thoracocentesis today. White blood cell count is slowly trending down, microbiology is still negative, dose of ampicillin increase from 2 g every 6 hours to 2 g every 4 hours. Discontinue metronidazole as well as IV vancomycin Jul 29 Patient seen examined, no acute overnight events, pt doing well, has no complaints, her wbc is still high, did not drop much from yesterday CT chest done which shows enrique effusion, right > left, atelectasis vs pna, Pt just had a long course of ABX, doubt pna, none the less still is on IV ampicillin which should cover for aspiration pathogens pleural fluid is exudative in nature by lights ldh criteria, microbiology neg iv lasix x 1 today to see if this helps aggresive pulm toilet Xfer to med surg status. continue to work with rehab HR stable, no long svt runs bp stable Jul 30 patient seen, examined, sitting comfortably in chair, no acute overnight events. Responded okay to IV Lasix. Patient WBC count is slightly better today compared to yesterday, but still on the higher end. Not able to do pulmonary toilet, very well Continue IV antibiotics, Lasix 40 mg twice a day. Today, reassess chest x-ray tomorrow morning Pertinent ROS: Denies headache, dizziness Denies chest pain, palpitations Denies cough or shortness of breath some abdominal soreness, No nausea or vomiting. - Constitutional Vitals: Vital Signs Temp Pulse Resp BP Pulse Ox 97.4 F 93 H 16 109/66 95 07/30/17 12:00 07/30/17 07:56 07/30/17 12:00 07/30/17 12:00 07/30/17 12:00 Period Temp Pulse Resp BP Sys/Ellis Pulse Ox Last 24 Hr 97.2 F-98.4 F 87-95 16-24 109-144/66-76 92-95 Intake and Output 07/30/17 07/30/17 07/30/17 05:59 13:59 21:59 Intake Total 750 / 750 100 / 100 Output Total 825 / 825 1100 / 1100 Balance -75 / -75 -1000 / -1000 Intake & Output: Intake & Output 07/30/17 07/30/17 07/30/17 05:59 13:59 21:59 Intake Total 750 / 750 100 / 100 Output Total 825 / 825 1100 / 1100 Balance -75 / -75 -1000 / -1000 Intake: IV 300 / 300 100 / 100 Ampicillin 2 gm In Sodium 300 / 300 100 / 100 Chloride 0.9% 100 ml @ 100 mls/ hr IV Q4H [facility] Rx#:[id number] Oral 450 / 450 Output: Urine Catheter Amount 825 / 825 1100 / 1100 Exam: Constitutional; Afebrile, cooperative, alert, not in distress. Eyes- No icterus, , No periorbital swelling Ears- Ext ear normal, hearing normal to conversation. Neck- Midline trachea, supple Respiratory system: Air Entry dimisshed both bases, right > left, enrique crackles, improved from yesterday, no wheeze CVS- Rate rhythm regular, S1,S2 heard, no gallop, no rub. 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 Medical - PN: Obj Da - Labs CBC & Chem 7: 07/30/17 04:00 07/30/17 04:00 Labs: Abnormal Lab Results 02/21/18 02/21/18 02/20/18 04:00 04:00 04:00 WBC 14.9 H RBC 3.71 L Hgb 10.1 L Hct 30.3 L RDW 16.7 H Plt Count 647 H Lymph % (Auto) 6.9 L Eos % (Auto) 8.6 H Gran # 11.5 H Lymph # (Auto) 1.0 L Mitchell # (Auto) 1.1 H Eos # (Auto) 1.3 H BUN 7 L Creatinine 0.3 L 0.3 L Uric Acid 1.3 L 1.2 L Calcium 8.0 L 8.0 L Total Protein 4.7 L 4.6 L Albumin 2.4 L 2.0 L Albumin/Globulin Ratio 0.8 L 07/29/17 07/28/17 07/28/17 04:00 03:56 03:56 WBC 15.4 H 15.3 H RBC 3.76 L 3.84 L Hgb 10.3 L 10.7 L Hct 30.9 L 31.7 L RDW 16.8 H 16.9 H Plt Count 591 H 538 H Lymph % (Auto) 6.5 L 5.4 L Eos % (Auto) 8.9 H 9.2 H Gran # 11.8 H 11.6 H Lymph # (Auto) 1.0 L 0.8 L Mitchell # (Auto) 1.3 H 1.4 H Eos # (Auto) 1.4 H 1.4 H BUN 7 L Creatinine 0.4 L Uric Acid 1.1 L Calcium 7.8 L Total Protein 4.7 L Albumin 2.3 L Albumin/Globulin Ratio Meds: Medications Acetaminophen (Tylenol) 650 mg PO Q4-6HP PRN PRN Reason: PAIN/FEVER > 101 Last Admin: 07/30/17 08:20 Dose: 650 mg Albuterol/Ipratropium (Duoneb) 3 ml NEB Q6HP PRN PRN Reason: Shortness Of Breath Or Wheezing Amantadine HCl (Amantadine) 100 mg PO BID [facility] Last Admin: 07/30/17 10:22 Dose: 100 mg Aspirin (Aspirin) 81 mg PO DAILY [facility] Last Admin: 07/30/17 08:20 Dose: 81 mg Baclofen (Lioresal) 10 mg PO TID [facility] Last Admin: 07/30/17 08:20 Dose: 10 mg Famotidine (Pepcid) 20 mg IV Q12 [facility] Last Admin: 07/30/17 08:19 Dose: 20 mg Fluconazole (Diflucan) 200 mg PO DAILY [facility] Last Admin: 07/30/17 08:20 Dose: 200 mg Furosemide (Lasix) 40 mg IV ONCE ONE Stop: 07/30/17 16:18 Heparin Sodium (Porcine) (Heparin) 5,000 unit SQ Q12 [facility] Last Admin: 07/30/17 08:20 Dose: 5,000 unit Heparin Sodium (Porcine) (Heparin Flush) 2 ml IV Q12 [facility] Last Admin: 07/30/17 08:19 Dose: 2 ml Hydromorphone HCl (Dilaudid) 0.5 mg IV Q2HP PRN PRN Reason: PAIN LEVEL > 6 Ampicillin Sodium 2 gm/ Sodium (Chloride) 100 mls @ 100 mls/hr IV Q4H [facility] Last Admin: 07/30/17 13:46 Dose: 100 mls/hr Lactobacillus Rhamnosus (Culturelle) 1 cap PO BID [facility] Last Admin: 07/30/17 08:20 Dose: 1 cap Latanoprost (Xalatan Ophth Drops) 1 gtt OU HS [facility] Last Admin: 07/29/17 21:22 Dose: 1 drop Metoprolol Tartrate (Lopressor) 5 mg IV Q4HP PRN PRN Reason: Sustained HR greater than 130 Metoprolol Tartrate (Lopressor) 50 mg PO BID [facility] Last Admin: 07/30/17 08:20 Dose: 50 mg Ondansetron HCl (Zofran) 4 mg IV Q4-6HP PRN PRN Reason: Nausea And Vomiting Potassium Chloride (Klor-Con) 40 meq PO ONCE ONE Stop: 07/30/17 16:17 Promethazine HCl (Phenergan) 12.5 mg IV Q4-6HP PRN PRN Reason: Nausea And Vomiting Sodium Chloride (Saline Flush) 10 ml IV Q8 [facility] Last Admin: 07/30/17 13:46 Dose: 10 ml Medical - PN: A/P - Time Spent With Patient Total time spent is greater than 50% in coordination of care (as documented) at patient's floor/unit and/or counseling patient: - Narrative A/P Narrative: 77-year-old female multiple sclerosis, diagnosed with influenza, returns one day later with sepsis. Severe sepsis with multiorgan failure at presentation. clinically improving, Due enterococcal bloodstream infection/sepsis. Suspect source is enteritis seen on CT with disruption of mucosal barrier and translocation of gut bacteria. -Blood culture, set #1, 1/2 bottles with Enterococcus faecium, pansensitive. Blood culture, set #2, 2/2 bottles with Enterococcus faecium, S-ampicillin/PCN; I-vancomycin; R-gent synergy. Given her low vancomycin troughs initially and intermediate susceptibility to culture set #2, PICC in place Pt on ampicillin, day 4 today. WBC slowly trending down. Enteritis with diarrhea. Discussed with Dr. Rooney, who also sees the patient in clinic and is performed endoscopies for complaints of anemia and diarrhea. Small bowel biopsies, though not into the jejunum, have been unrevealing. Enteritis may be acute infectious with interruption of mucosal barrier and translocation of GI bacteria causing enterococcal bloodstream infection sepsis. Her loose stools initially improved, but still loose/stable. Plan: Continue antibiotics as above. Follow clinically and if does not improve , consider endoscopy for biopsy. Bulking agents for diarrhea (Banatrol), stable at this time. Tachycardia. resolved, on metoprolol 50mg bid with no more long runs of SVT, off tele monitor now. Pleural effusion-bilateral pleural effusion, right more than left, noted To have therapeutic paracentesis done today. exudative by LDH criteria, secondary to aspiration pneumonitis, is on ampicillin, which would cover aspiration pneumonitis. CT chest done shows atelectasis vs pna, but given recent course with vanco and cefepime, I doubt if hcap pna is present. ampicillin should cover aspiration pneumoniitis. No empyema noted. Acute hypoxic respiratory failure-resolved: Suspect was secondary to sepsis, possibly influenza. Plan: Oxygen via nasal canula PRN Acute renal failure: due to poor oral intake and diarrhea, IVF. Resolved. Lactic acidosis: resolved Influenza A: On Tamiflu, can come off droplet precautions Friday. Tamiflu stopped 07/26, s/p Rx. Multiple sclerosis pseudo flare up: Improved/resolved. Given acute infection, would avoid using high dose steroids, in the past she has responded well to physical therapy Raynaud phenomenon: C3 and C4 are normal pending SUN and ANCA unrevealing; outpatient follow-up. Thrombocytosis: due to acute infection, improved. That has been a drop in hemoglobin as well as platelet after fluid administration, most likely dilutional in nature. No chemical evidence of acute bleed DVT hep sq Diet regular Code status: DNR, OK with intubations, iv fluids, antibiotics pressors etc. Medical - PN: Qual - VTE Deep Vein Thrombosis/Pulmonary Embolism Present on Admission: No
[2017-07-30] MEDS: LATANOPROST OPHTH DROPS 2.5ML BOTTLE OU SCH (21:50)
[2017-07-31] MEDS: AMPICILLIN SODIUM 2 GM in 0.9 % SODIUM CHLORIDE 100 ML IV SCH ×3 (01:03→09:09)
[2017-07-31] MEDS: 0.9 % SODIUM CHLORIDE 10 ML SYRINGE IV SCH (04:39)
[2017-07-31 05:40] LABS: Basophils # (Auto) 0.1 K/mcL (0.0-0.3); Basophils % (Auto) 0.5 % (0.0-2.0); Granulocytes % (Auto) 75.2 % (38.0-78.0); Lymphocytes # (Auto) 0.9 K/mcL (1.5-4.8); Lymphocytes % (Auto) 7.2 % (15.5-49.0); Mean Cell Volume 80.5 fL (80.0-100.0); Mean Corpuscular Hemoglobin 27.4 pg (26.0-34.0); Monocytes # (Auto) 1.2 K/mcL (0.1-0.9); Monocytes % (Auto) 9.1 % (1.0-12.0); Platelet Count 780 K/mcL (140-440); RBC 3.75 M/mcL (4.00-5.20); Red Cell Distribution Width 15.6 % (11.5-14.5)
[2017-07-31 05:55] LABS: ALT/SGPT 9 U/l (0-40); Albumin 2.1 gm/dL (3.2-5.2); Albumin/Globulin Ratio 0.8 (1.0-2.3); Alkaline Phosphatase 60 U/L (39-117); Bilirubin,Direct < 0.2 mg/dL (0.0-0.3); Blood Urea Nitrogen 5 mg/dl (8-23); Gamma Glutamyl Transpeptidase 19 U/L (5-36); Uric Acid 1.7 mg/dL (2.5-8.0)
[2017-07-31] MEDS: FLUCONAZOLE 100 MG TABLET PO SCH (08:22)
[2017-07-31] MEDS: BACLOFEN 10 MG TABLET PO SCH (08:22)
[2017-07-31] MEDS: ASPIRIN 81 MG TAB.CHEW PO SCH (08:22)
[2017-07-31] MEDS: METOPROLOL TARTRATE 50 MG TABLET PO SCH (08:22)
[2017-07-31] MEDS: LACTOBACILLUS 1 CAPSULE PO SCH (08:22)
[2017-07-31] MEDS: FAMOTIDINE/PF 20 MG/2 ML VIAL IV SCH (08:23)
[2017-07-31] MEDS: HEPARIN 5,000 UNIT/ML VIAL SQ SCH (08:23)
[2017-07-31] MEDS: AMANTADINE HCL 100 MG CAPSULE PO SCH (09:17)
--- NOTE | 2017-07-31 10:19 | Discharge Summary ---
Medical - DS: Prov Patient information: Note initiated : 07/31/17 at 10:15 am Service Date, if different from initiated Date: [] Patient: Inna Selby 77 y/o F admitted on 07/20/17 for Weakness, Hx of MS/ Pneumonia, Hypoxic Resp Failure. Chief Complaint: [] Date of admission: 07/20/17 16:53 Discharge date: 07/31/17 Primary care physician: Ivan Yancey Admitting clinician: Jatinder Montejo Consults: 07/20/17 14:39 Consult to Physician [CONS] Stat Comment: Consulting Provider: Jatinder Montejo Reason For Exam: Physician to Consult Discharging clinician: Jatinder Montejo Medical - DS: Meds - Discharge Medications Prescriptions: Amoxicillin/Potassium Clav [Augmentin] 875 mg PO Q12H #20 tab Fluconazole [Diflucan] 200 mg PO DAILY #5 tab Lactobacillus [Culturelle] 1 cap PO BID #60 cap Metoprolol Tartrate [Lopressor] 50 mg PO BID #60 tab NIFEdipine [Nifedipine ER] 30 mg PO DAILY #30 tablet.er Active and Home Medications: Home Medications Aspirin [Aspirin EC] 81 mg PO DAILY 03/07/17 [History Confirmed 07/20/17 Last Taken 03/06/17 81 mg] Latanoprost Ophth Drops [Xalatan Ophth Drops] 1 gtt OU HS 03/07/17 [History Confirmed 07/20/17 Last Taken 03/06/17 1 gtt] cholecalciferol (vitamin D3) 5,000 unit capsule 10,000 unit PO QDAY 03/24/17 [ History Confirmed 07/20/17 Last Taken Unknown] ferrous sulfate 325 mg (65 mg iron) tablet,delayed release 325 mg PO BID #60 tab 03/24/17 [Rx Confirmed 07/20/17 Last Taken Unknown] furosemide 40 mg tablet 40 mg PO BID 03/24/17 [History Confirmed 07/20/17 Last Taken Unknown] amantadine HCl 100 mg tablet 100 mg PO BID #180 tab 03/27/17 [Rx Confirmed 07/20 Last Taken Unknown] baclofen 10 mg tablet 10 mg PO TID #270 tab 03/27/17 [Rx Confirmed 07/20/17 Last Taken Unknown] potassium chloride ER 20 mEq tablet,extended release(part/cryst) 20 meq PO TID # 270 tab 05/28/17 [Rx Confirmed 07/20/17 Last Taken Unknown] nifedipine ER 60 mg tablet,extended release 60 mg PO QDAY #30 tab 06/23/17 [Rx Confirmed 07/20/17 Last Taken Unknown] Oseltamivir Phosphate [Tamiflu] 75 mg PO BID #10 cap 07/19/17 [Rx Confirmed 04/26 Last Taken Unknown] Medical - DS: Hosp Hospital course: Ms. Selby is a 77 year old Female with h/o multiple sclerosis, presented to the ER with complaints of weakness going on for 1 day, The patient was at the ER a day before admission, with complaints of sinus congestion, weakness and fatigue , she had mild leucocytosis, cxr was neg, and flu test was positive for influenza A, she was sent home on po Tamiflu. The patient presented today with complaints of worsening weakness, inability to stand or sit up, bilateral leg weakness, as per her left more than the right. She also notes chronic diarrhea, she said it was going on for last 4-5 days, but could be more as per the nursing in the ER as she told them a much longer duration, pt has a history of C. diff. The patient also is having fever and chills for last few days. In the ER the patient was noted to be febrile, tachycardic, labs show leucocytosis, she has elevated creat, elevated lactic acid, CXR shows possible right and left lower lobe PNA. She was also hypoxic and therefore admitted to the hospital for further management The patient was recently seen by her PCP for Raynaud phenomenon, and started on nifedipine. During clean up in the ER, the patient had extensive pelvic amanda infection, and it seems that her perineal region has been soaked in stools The patient was admitted to PCU for further management. HCAP PNA: initially thought to be hcap pna, was treated with broad spectrum IV antibiotics, blood culture was positive for enterococcus, the patient therefore underwent a Abdomen and pelvis CT Scan which showed enteritis. The patient was treated for same. The patient later developed pleural effusion, which was a factor of likely aspiration pneumonitis as well as chf and fluid overload. She remains on antibiotics for pneumonitis. Enterococcus Bacteremia: Due to Enteritis, penicillin sensitive, initially treated with IV ampicillin, patient did show response to treatment. Patient will complete additional 10 days of oral antibiotics to complete 14 days of antibiotic therapy. amoxicillin clauvonate. Influenza: Completed 7 days of tamiflu, Pleural effusion: Likely a combination of aspiration pneumonitis and chf, pleural fluid was tapped which was exudative by LDH critieria, microbiology was negative, patient was clinically responding to antibiotics. Her resp status improved with lasix, The patient will resume her home dose of lasix 40mg bid which I think will help with resolution of residual effusion Intertrigo: Severe fungal infection in the pelvic region, improving with diflucan, continue for additional 5 days. HTN: The patient had elevated bp and elevated heart rate during the hospital stay, sometimes pvc, she was started on metoprolol with good control. Her dose of nifedipine was cut back from 60mg to 30mg at discharge as a new bp medication has been added Raynauds phenomenon: Neg workup for any active autoimmune process. on nifedipine , pt to follow up with PCP. multiple sclerosis: Patient on presentation had weakness, predominantly in left leg, this is likely pseudoflare up secondary to infection and therefore high doses of steroids were not used. Thrombocytosis: patient has rising wbc count, Which is likely secondary to infection. I expect this to settle down with improvement in patients overall condition. She is on asa therapy. The rest of the stay in the hospital was uneventful. at the time of discharge the patient is back to her baseline mental status, she is weak from her stay in the hospital and her comorbidites, will be dischaged to SNF for rehab. Discharge diagnosis: Enteritis, Pleural effusion, pneumonitis - Time Spent with Patient Total time spent providing and/or coordinating discharge services: Greater than 30 minutes Medical - DS: Exam - Constitutional Vitals: Vital Signs Temp Pulse Resp BP BP Pulse Ox 07/31/17 08:00 99 H 07/31/17 07:17 98.9 F 99 H 22 147/77 92 07/31/17 04:00 98.6 F 90 22 123/62 93 07/30/17 23:25 98.1 F 87 22 121/65 95 07/30/17 20:00 98.9 F 100 H 22 134/69 95 07/30/17 16:00 97.8 F 85 16 119/69 95 07/30/17 12:00 97.4 F 16 109/66 95 Intake and Output 07/30/17 07/31/17 07/31/17 21:59 05:59 13:59 Intake Total 200 / 200 1030 / 1030 Output Total 1700 / 1700 1200 / 1200 Balance -1500 / -1500 -170 / -170 Intake: IV 200 / 200 300 / 300 Ampicillin 2 gm In Sodium 200 / 200 300 / 300 Chloride 0.9% 100 ml @ 100 mls/ hr IV Q4H [facility] Rx#:[id number] Oral 730 / 730 Output: Urine Catheter Amount 1700 / 1700 1200 / 1200 Other: Stool Size Moderate Stool Color Brown Yellow Stool Consistency Liquid # of times incontinent of 1 Bowels Weight 122 lb 9.6 oz Additional comments: Constitutional; Afebrile, cooperative, alert, not in distress. Eyes- No icterus, , No periorbital swelling Ears- Ext ear normal, hearing normal to conversation. Neck- Midline trachea, supple Respiratory system: Air Entry decreased on righ base, but improved air entry from yesterday, , mild crackles at bases, no wheezing. CVS- Rate rhythm regular, S1,S2 heard, no gallop, no rub. 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 Medical - DS: Data Labs on day of discharge: Labs from last 24 hours 07/31/17 07/31/17 04:00 04:00 WBC 13.0 H RBC 3.75 L Hgb 10.3 L Hct 30.2 L MCV 80.5 MCH 27.4 MCHC 34.0 RDW 15.6 H Plt Count 780 H MPV 7.7 Gran % 75.2 Lymph % (Auto) 7.2 L Haines % (Auto) 9.1 Eos % (Auto) 8.0 H Baso % (Auto) 0.5 Gran # 9.8 H Lymph # (Auto) 0.9 L Haines # (Auto) 1.2 H Eos # (Auto) 1.0 H Baso # (Auto) 0.1 Sodium 141 Potassium 3.9 Chloride 101 Carbon Dioxide 29 Anion Gap 11.0 BUN 5 L Creatinine 0.4 L GFR Calculation 101 Glucose 82 Uric Acid 1.7 L Calcium 8.2 L Phosphorus 3.3 Magnesium 1.9 Total Bilirubin 0.2 Direct Bilirubin < 0.2 GGT 19 AST 13 ALT 9 Alkaline Phosphatase 60 Lactate Dehydrogenase 178 Total Protein 4.8 L Albumin 2.1 L Globulin 2.7 Albumin/Globulin Ratio 0.8 L Triglycerides 139 Preliminary micro results at discharge 07/20/17 13:08 Blood Culture - Preliminary Blood Gram positive cocci Medical - DS: A/P - Patient/Caregiver Discharge Instructions Activity: as per physical therapy, increase activity as tolerated Diet: Dysphagia Advanced (Thin Liquids.) Additional Instructions: Take amoxicillin for another 10 days Take Diflucan for 5 days Dose of nifedipine changed from 60mg to 30mg at discharge You have been started on new blood pressure medication, metoprolol 50mg twice daily. OT/PT/ST at rehab center Would recommended PCP check CMP and CBC in 1 week, Would recommend pcp check Chest X ray in 1 week Go to the ER if worsening condition m, fever , shortness of breath, chest pain or any other concerning symptoms. Dysphag level 3 diet with thin liquids. - Follow up Plan Follow up with: Ivan Yancey DO [Primary Care Provider] - Disposition: Xf SNF Prognosis: Fair Rehab Potential: Fair I certify that the patient requires SNF services: Yes Overall status at discharge: patient is progressing back to baseline Medical - DS: Qual - VTE Deep Vein Thrombosis/Pulmonary Embolism Present on Admission: No
== END 2017-07-31 12:55 | DRG 871 ==
LOC: ED 12:54 → ICU 16:50 → MEDSUR 07-29 10:33
PROVIDERS: ADMIT Internal Medicine; ATTEND Internal Medicine

== ENCOUNTER 2018-06-25 14:28 | Inpatient (IN) ==
--- NOTE | 2018-06-25 15:06 | Emergency Department Note ---
Fall HPI - General Chief Complaint: Fall Stated Complaint: Weakness, fall Time Seen by Provider: 06/25/18 14:43 Source: EMS Mode of arrival: EMS - History of Present Illness HPI Narrative: This patient has had multiple sclerosis since 1985. She feels like she is having an exacerbation of weakness and fell onto her back this morning. She had difficulty getting up. She has some mild pain in her back and a skin slip on her right elbow area but no other significant symptoms. She has had 2 or 3 exacerbations in the past and is required steroids each time. - Related Data Home Medications Medication Instructions Recorded Confirmed Aspirin [Aspirin EC] 81 mg PO DAILY 03/07/17 04/02/18 Latanoprost Ophth Drops [Xalatan 1 gtt OU HS 03/07/17 04/02/18 Ophth Drops] cholecalciferol (vitamin D3) 5,000 10,000 unit PO QDAY 03/24/17 04/02/18 unit capsule tramadol 50 mg tablet 50 mg PO Q6H 04/02/18 04/02/18 Previous Rx's Medication Instructions Recorded ferrous sulfate 325 mg (65 mg 325 mg PO BID #60 tab 03/24/17 iron) tablet,delayed release Fluconazole [Diflucan] 200 mg PO DAILY #5 tab 07/31/17 Lactobacillus [Culturelle] 1 cap PO BID #60 cap 07/31/17 oxybutynin chloride 5 mg tablet 5 mg PO BID #180 tab 10/22/17 baclofen 10 mg tablet 10 mg PO TID #270 tab 11/19/17 furosemide 40 mg tablet 40 mg PO BID #180 tab 11/26/17 metoprolol tartrate 50 mg tablet 50 mg PO BID #180 tab 11/26/17 potassium chloride ER 20 mEq 20 meq PO TID #270 tab 01/22/18 tablet,extended release(part/cryst) nifedipine ER 30 mg 30 mg PO DAILY #90 tab 03/23/18 tablet,extended release amantadine HCl 100 mg tablet 100 mg PO BID #180 tab 05/04/18 Cyclobenzaprine [Flexeril] 10 mg PO TID #20 tab 05/30/18 Allergies Allergy/AdvReac Type Severity Reaction Status Date / Time Penicillins Allergy Mild Swelling Verified 06/25/18 14:28 Review of Systems All systems ED: reviewed and negative except as stated. Fall PMH - Past Medical History Medical history: Reports: arthritis, cancer (Endometrial, remotely.), CVA (Long time ago.), other (advanced MS, raynaud's phenomenon, heart murmur). Denies: COPD, coronary artery disease, DM, GERD, hypertension, myocardial infarction, thyroid disease Reports: Recurrent Falls Psychiatric history: Reports: no psych history. Denies: anxiety, depression - Social History smoking status: Former smoker Alcohol use: Reports: Occasionally (white wine 1-2 X/wk.) Drug use: Reports: none Physical Exam Limitations: no limitations General appearance: alert Head: atraumatic, normocephalic Eye: Present: normal appearance ENT: normal exam Neck: Present: normal inspection Chest: Present: normal inspection Respiratory: Present: normal lung sounds bilaterally Cardiovascular: Present: regular rate, normal rhythm, normal heart sounds Abdominal: Present: soft. Absent: distention, tenderness Back: Present: normal inspection, full ROM. Absent: tenderness, vertebral tenderness Neurological: Present: alert Psychiatric: Present: normal affect, normal mood Skin: Present: warm, dry Course Vital Signs Temperature 97.9 F 06/25/18 14:28 Pulse Rate 88 06/25/18 14:28 Respiratory Rate 15 06/25/18 14:28 Blood Pressure 156/60 06/25/18 14:28 Pulse Oximetry (%) 100 06/25/18 14:28 Temperature 97.9 F 06/25/18 14:28 Pulse Rate 87 06/25/18 16:24 Respiratory Rate 15 06/25/18 14:28 Blood Pressure 147/72 06/25/18 16:01 Pulse Oximetry (%) 93 06/25/18 16:24 Fall - MDM Narrative Medical decision making narrative: This patient has a UTI but also probably has a flare of her MS. We will give her Levaquin IV for UTI and she will be admitted to the hospital by Dr. Queen for IV steroids. - Lab Data Lab results reviewed: Yes I reviewed the patient's lab results. Result diagrams: 06/25/18 15:03 06/25/18 15:17 Lab Results 06/25/18 06/25/18 06/25/18 Range/Units 15:03 15:17 15:17 WBC 13.1 H (4.5-11.0) K/mcL RBC 4.46 (4.00-5.20) M/mcL Hgb 12.5 (12.0-15.0) g/dL Hct 38.5 (36.0-48.0) % MCV 86.3 (80.0-100.0) fL MCH 28.0 (26.0-34.0) pg MCHC 32.5 (31.0-36.0) g/dL RDW 15.2 H (11.5-14.5) % Plt Count 369 (140-440) K/mcL MPV 8.2 (7.4-10.4) fL Gran % 80.8 H (38.0-78.0) % Lymph % (Auto) 6.9 L (15.5-49.0) % [place] % (Auto) 11.0 (1.0-12.0) % Eos % (Auto) 1.0 (0.0-7.0) % Baso % (Auto) 0.3 (0.0-2.0) % Gran # 10.6 H (1.8-8.0) K/mcL Lymph # (Auto) 0.9 L (1.5-4.8) K/mcL [place] # (Auto) 1.4 H (0.1-0.9) K/mcL Eos # (Auto) 0.1 (0.0-0.7) K/mcL Baso # (Auto) 0 (0.0-0.3) K/mcL Sodium 140 (133-145) mmol/L Potassium 3.9 (3.3-5.1) mmol/L Chloride 102 (96-108) mmol/L Carbon Dioxide 29 (22-30) mmol/L Anion Gap 9.0 (8-16) BUN 13 (8-23) mg/dl Creatinine 0.7 (0.6-1.1) mg/dl GFR Calculation 84 Glucose 85 (70-105) mg/dL Calcium 9.2 (8.6-10.4) mg/dl Total Bilirubin 0.5 (0.0-1.0) mg/dL AST 14 (0-37) U/l ALT 10 (0-40) U/l Alkaline Phosphatase 97 (39-117) U/L Total Creatine Kinase 75 (24-170) IU/L Total Protein 6.4 (5.9-8.4) gm/dL Albumin 3.8 (3.2-5.2) gm/dL Globulin 2.6 (2.2-3.7) gm/dL Albumin/Globulin Ratio 1.5 (1.0-2.3) Urine Color Urine Appearance Urine pH (5.0-9.0) Ur Specific [place] (1.000-1.035) Urine Protein (NEG) mg/dL Urine Glucose (UA) (NEG) mg/dL Urine Ketones (NEG) mg/dL Urine Occult Blood (<0.03) mg/dL Urine Nitrate (NEG) Urine Bilirubin (NEG) mg/dL Urine Urobilinogen (NEG) mg/dL Ur Leukocyte Esterase (NEG) /uL Urine RBC (0-1) /hpf Urine WBC (0-4) /hpf Ur Squamous Epith Cells (0-4) /hpf Urine Bacteria (0) /hpf Urine Mucus (0) /hpf Ur Culture Indicated? 06/25/18 Range/Units 16:30 WBC (4.5-11.0) K/mcL RBC (4.00-5.20) M/mcL Hgb (12.0-15.0) g/dL Hct (36.0-48.0) % MCV (80.0-100.0) fL MCH (26.0-34.0) pg MCHC (31.0-36.0) g/dL RDW (11.5-14.5) % Plt Count (140-440) K/mcL MPV (7.4-10.4) fL Gran % (38.0-78.0) % Lymph % (Auto) (15.5-49.0) % [place] % (Auto) (1.0-12.0) % Eos % (Auto) (0.0-7.0) % Baso % (Auto) (0.0-2.0) % Gran # (1.8-8.0) K/mcL Lymph # (Auto) (1.5-4.8) K/mcL [place] # (Auto) (0.1-0.9) K/mcL Eos # (Auto) (0.0-0.7) K/mcL Baso # (Auto) (0.0-0.3) K/mcL Sodium (133-145) mmol/L Potassium (3.3-5.1) mmol/L Chloride (96-108) mmol/L Carbon Dioxide (22-30) mmol/L Anion Gap (8-16) BUN (8-23) mg/dl Creatinine (0.6-1.1) mg/dl GFR Calculation Glucose (70-105) mg/dL Calcium (8.6-10.4) mg/dl Total Bilirubin (0.0-1.0) mg/dL AST (0-37) U/l ALT (0-40) U/l Alkaline Phosphatase (39-117) U/L Total Creatine Kinase (24-170) IU/L Total Protein (5.9-8.4) gm/dL Albumin (3.2-5.2) gm/dL Globulin (2.2-3.7) gm/dL Albumin/Globulin Ratio (1.0-2.3) Urine Color Yellow Urine Appearance Cloudy Urine pH 6.0 (5.0-9.0) Ur Specific [place] 1.015 (1.000-1.035) Urine Protein 100 A (NEG) mg/dL Urine Glucose (UA) Negative (NEG) mg/dL Urine Ketones 20 A (NEG) mg/dL Urine Occult Blood 0.2 A (<0.03) mg/dL Urine Nitrate Pos A (NEG) Urine Bilirubin Neg (NEG) mg/dL Urine Urobilinogen Neg (NEG) mg/dL Ur Leukocyte Esterase 500 A (NEG) /uL Urine RBC 101 H (0-1) /hpf Urine WBC > 182 H (0-4) /hpf Ur Squamous Epith Cells 3 (0-4) /hpf Urine Bacteria 0 (0) /hpf Urine Mucus Few (0) /hpf Ur Culture Indicated? Yes Disposition Pt seen by HOME HEALTH CLINICIAN/PA only: No Clinical Impression: UTI (urinary tract infection), Multiple sclerosis Disposition: Xfer As Inpt ([facility]) Condition: Good Referrals: Ivan Yancey DO [Primary Care Provider] - Time of Disposition: 18:09
[2018-06-25] MEDS: LACTATED RINGERS 1,000 ML IV SCH ×2 (15:17→20:30)
[2018-06-25 15:46] LABS: Basophils # (Auto) 0 K/mcL (0.0-0.3); Basophils % (Auto) 0.3 % (0.0-2.0); Eosinophils # (Auto) 0.1 K/mcL (0.0-0.7); Granulocytes % (Auto) 80.8 % (38.0-78.0); Lymphocytes # (Auto) 0.9 K/mcL (1.5-4.8); Lymphocytes % (Auto) 6.9 % (15.5-49.0); Mean Cell Volume 86.3 fL (80.0-100.0); Mean Corpuscular HGB Conc 32.5 g/dL (31.0-36.0); Monocytes # (Auto) 1.4 K/mcL (0.1-0.9); Platelet Count 369 K/mcL (140-440); RBC 4.46 M/mcL (4.00-5.20); Red Cell Distribution Width 15.2 % (11.5-14.5)
[2018-06-25 16:04] LABS: Creatine Kinase 75 IU/L (24-170)
[2018-06-25 16:05] LABS: ALT/SGPT 10 U/l (0-40); Albumin 3.8 gm/dL (3.2-5.2); Albumin/Globulin Ratio 1.5 (1.0-2.3); Alkaline Phosphatase 97 U/L (39-117); Blood Urea Nitrogen 13 mg/dl (8-23)
[2018-06-25] MEDS ORDERED: LEVOFLOXACIN 750 MG/150 ML BAG IV ONE (16:36)
[2018-06-25 17:21] LABS: Appearance,Urine CLOUDY; Bacteria,Urine 0 /hpf (0); Bilirubin,Urine NEG (NEG); Color,Urine YELLOW; Glucose,Urine (UA) NEGATIVE (NEG); Leukocyte Esterase,Urine 500 /uL (NEG); Mucus,Urine FEW /hpf (0); Protein,Urine 100 mg/dL (NEG); Specific Gravity,Urine 1.015 (1.000-1.035); Urine Blood 0.2 mg/dL (<0.03); Urine RBC 101 /hpf (0-1); Urine Squamous Epithelial Cell 3 /hpf (0-4); Urine WBC > 182 /hpf (0-4); Urobilinogen,Urine NEG (NEG)
[2018-06-25] MEDS ORDERED: PANTOPRAZOLE 40 MG VIAL IV ONE (17:49)
--- NOTE | 2018-06-25 18:23 | Internal Med History&Physical ---
Medical - H&P: [facility] Patient information: Note initiated : 06/25/18 at 6:20 pm Service Date, if different from initiated Date: [] Patient: Inna Selby a 78 y/o F admitted on for Weakness, fall. Chief Complaint: [] History of present illness: Ms. Selby is a 78 year old F Who presents to the ER with severe generalized weakness. Last time she felt her normal was about a week ago. She has been more weak since then. 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 And this morning she fell, or rather slipped out of bed and was unable to get up because of her severe were weakness. She states this feels like her MS flares that she has had in the past. Denies any recent illnesses, denies dysuria but does report malodorous urine. No respiratory symptoms. She has generalized body aches/pain which occurs with her typical MS flares. She does state that her left side is always affected more than the right when she has these flares. She denies any diplopia or acute vision loss or any focal sensory deficits. During workup in the ER she is found to have a UTI. Case was discussed with on-call neurologist Miguelangel Uribe from the ER. Who recommended high-dose corticosteroids for 3-5 days. Review of Systems: Pertinent positives as above. Denies headache/fever/chills/nausea/vomiting/chest or abdominal pain/cough/dyspnea/diarrhea. Remaining 10 point review of systems reviewed negative Medical - H&P: [facility] Medical history: Medical History (Last Reviewed 04/02/18 @ 14:59 by Ivan Yancey DO) Delirium (Acute) Pneumonitis (Acute) Hypoxia (Acute) Multiple sclerosis exacerbation (Acute) Systemic inflammatory response syndrome (SIRS) due to infectious process without acute organ dysfunction (Acute) Urinary tract infection (Acute) Vaginitis (Acute) Cystitis (Acute) Yeast dermatitis (Acute) Sepsis (Acute) Complicated UTI (urinary tract infection) (Acute) Colitis (Acute) UTI (urinary tract infection) (Acute) Anemia (Acute) Rib fractures (Acute) Anemia (Acute) Severe sepsis (Acute) Clostridium difficile colitis (Acute) Laceration (Acute) Encounter for removal of sutures (Acute) Multiple sclerosis (Chronic) Past Surgical History (Last Reviewed 04/02/18 @ 14:59 by Ivan Bc, DO) History of colonoscopy (Chronic 04/11/17) History of esophagogastroduodenoscopy (EGD) (Chronic 04/02/17) Hysterectomy with bilateral salpingo-oophorectomy cholecystectomy Family history: States her mother and father both had heart disease Social history: Patient quit smoking in 1984 Patient drinks A glass of white wine 1-2 times per week Patient ambulate with a walker Patient lives at home with Medical - H&P: Meds Home Medications Medication Instructions Recorded Confirmed Type Aspirin [Aspirin EC] 81 mg PO DAILY 03/07/17 04/02/18 History Latanoprost Ophth Drops [Xalatan 1 gtt OU HS 03/07/17 06/25/18 History Ophth Drops] cholecalciferol (vitamin D3) 5,000 10,000 unit PO QDAY 03/24/17 04/02/18 History unit capsule ferrous sulfate 325 mg (65 mg 325 mg PO BID #60 tab 03/24/17 04/02/18 Rx iron) tablet,delayed release Fluconazole [Diflucan] 200 mg PO DAILY #5 tab 07/31/17 04/02/18 Rx Lactobacillus [Culturelle] 1 cap PO BID #60 cap 07/31/17 04/02/18 Rx oxybutynin chloride 5 mg tablet 5 mg PO BID #180 tab 10/22/17 04/02/18 Rx baclofen 10 mg tablet 10 mg PO TID #270 tab 11/19/17 06/25/18 Rx furosemide 40 mg tablet 40 mg PO BID #180 tab 11/26/17 06/25/18 Rx metoprolol tartrate 50 mg tablet 50 mg PO BID #180 tab 11/26/17 06/25/18 Rx potassium chloride ER 20 mEq 20 meq PO TID #270 tab 01/22/18 04/02/18 Rx tablet,extended release(part/cryst) nifedipine ER 30 mg 30 mg PO DAILY #90 tab 03/23/18 06/25/18 Rx tablet,extended release tramadol 50 mg tablet 50 mg PO Q6H 04/02/18 04/02/18 History amantadine HCl 100 mg tablet 100 mg PO BID #180 tab 05/04/18 06/25/18 Rx Cyclobenzaprine [Flexeril] 10 mg PO TID #20 tab 05/30/18 06/25/18 Rx Allergies Allergy/AdvReac Type Severity Reaction Status Date / Time Penicillins Allergy Mild Swelling Verified 06/25/18 14:28 Medical - H&P: Exam - Constitutional Vitals: Temp Pulse Resp BP Pulse Ox 97.9 F 87 15 147/72 93 06/25/18 14:28 06/25/18 16:24 06/25/18 14:28 06/25/18 16:01 06/25/18 16:24 Exam: General: Alert, Awake, No acute Distress Eyes/N/T: EOMI, Left pupil chronically dilated and vision impaired, Head/Neck: neck supple, normocephalic atraumatic CV: RRR, 2/6 SM, normal s1/s2 Pulm: Clear b/l, no wheezing/rhonchi/rales Abd: soft, nontender, +BS x4 Ext: no clubbing/cyanosis/edema Neuro: Alert, CN 2-12 grossly intact, sensations intact, symmetrical tierce filler strength, LLE weaker than rigth Skin: warm/dry Medical - H&P: [facility] - Labs CBC & Chem 7: 06/25/18 15:03 06/25/18 15:17 Labs: Short CBC 06/25/18 Range/Units 15:03 WBC 13.1 H (4.5-11.0) K/mcL Hgb 12.5 (12.0-15.0) g/dL Hct 38.5 (36.0-48.0) % Plt Count 369 (140-440) K/mcL BMP 06/25/18 15:17 Sodium 140 Potassium 3.9 Chloride 102 Carbon Dioxide 29 BUN 13 Creatinine 0.7 Glucose 85 Calcium 9.2 Cardiac Enzymes 06/25/18 Range/Units 15:17 Total Creatine Kinase 75 (24-170) IU/L Liver Function 06/25/18 Range/Units 15:17 Total Bilirubin 0.5 (0.0-1.0) mg/dL AST 14 (0-37) U/l ALT 10 (0-40) U/l Alkaline Phosphatase 97 (39-117) U/L Albumin 3.8 (3.2-5.2) gm/dL Urine 06/25/18 Range/Units 16:30 Urine Color Yellow Urine Appearance Cloudy Urine pH 6.0 (5.0-9.0) Ur Specific [place] 1.015 (1.000-1.035) Urine Protein 100 A (NEG) mg/dL Urine Glucose (UA) Negative (NEG) mg/dL - Impressions UA with positive nitrites leukocyte esterase and WBCs Medical - H&P: A/P - Narrative A/P Narrative: A: *UTI: *MS flare: *HTN: * * P: -LEvaquin, pending UC -case discussed with [facility]ist who recommend go ahead and treat in light of infection, for 3-5 day course -High-dose corticosteroids -clarify home meds - -pt/ot -CM for likely SNF -ppx: lovenox
[2018-06-25] MEDS ORDERED: ONDANSETRON 4 MG/2 ML VIAL IV PRN (19:49)
[2018-06-25] MEDS ORDERED: DEXTROSE 31 GM ORAL.SUSP PO PRN (19:49)
[2018-06-25] MEDS ORDERED: PROCHLORPERAZINE 10 MG/2 ML VIAL IV PRN (19:49)
[2018-06-25] MEDS ORDERED: ACETAMINOPHEN 325 MG TABLET PO PRN (19:49)
[2018-06-25] MEDS ORDERED: HYDROcodone/APAP 5/325MG TABLET PO PRN (19:49)
[2018-06-25] MEDS ORDERED: DEXTROSE 50% 50 ML VIAL IV PRN (19:49)
[2018-06-25] MEDS: methylPREDNISolone SOD SUCC 1,000 MG in 0.9 % SODIUM CHLORIDE 100 ML IV SCH (20:28)
[2018-06-25] MEDS: METOPROLOL TARTRATE 50 MG TABLET PO SCH (20:54)
[2018-06-25] MEDS: DOCUSATE SODIUM 100 MG CAPSULE PO SCH (20:54)
[2018-06-25] MEDS: INSULIN LISPRO 1 UNIT/0.01 ML UNIT SQ SCH (20:54)
[2018-06-25] MEDS: BACLOFEN 10 MG TABLET PO SCH (20:54)
[2018-06-25] MEDS: LACTOBACILLUS 1 CAPSULE PO SCH (20:54)
[2018-06-25] MEDS: FAMOTIDINE 20 MG TABLET PO SCH (20:54)
[2018-06-25] MEDS: LATANOPROST OPHTH DROPS 2.5ML BOTTLE OU SCH (20:56)
[2018-06-25] MEDS ORDERED: CYCLOBENZAPRINE 10 MG TABLET PO SCH (21:00)
[2018-06-26] MEDS: 0.9 % SODIUM CHLORIDE 10 ML SYRINGE IV SCH ×3 (01:22→15:57)
[2018-06-26] MEDS: LACTATED RINGERS 1,000 ML IV SCH ×3 (03:01→03:52)
[2018-06-26] MEDS: INSULIN LISPRO 1 UNIT/0.01 ML UNIT SQ SCH ×4 (07:37→21:25)
--- NOTE | 2018-06-26 07:45 | Internal Med Progress Note ---
Medical - PN: Subj Patient information: Note initiated : 06/26/18 at 7:43 am Service Date, if different from initiated Date: [] Patient: Inna Selby a 78 y/o F admitted on 06/25/18 for Weakness, fall. Chief Complaint: [] Interval history: Ms. Selby is a 78 year old F Who presents to the ER with severe generalized weakness. Last time she felt her normal was about a week ago. She has been more weak since then. 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 And this morning she fell, or rather slipped out of bed and was unable to get up because of her severe were weakness. She states this feels like her MS flares that she has had in the past. Denies any recent illnesses, denies dysuria but does report malodorous urine. No respiratory symptoms. She has generalized body aches/pain which occurs with her typical MS flares. She does state that her left side is always affected more than the right when she has these flares. She denies any diplopia or acute vision loss or any focal sensory deficits. During workup in the ER she is found to have a UTI. Case was discussed with on-call neurologist Miguelangel Uribe from the ER. Who recommended high-dose corticosteroids for 3-5 days. 06/26 Feeling a little better today, able to move around more today. No new complaints or o/n events. Review of Systems: denies headache/fever/chills/nausea/vomiting/chest or abdominal pain/cough/dyspnea/diarrhea. Otherwise see above. - Constitutional Vitals: Vital Signs Temp Pulse Resp BP Pulse Ox 98.3 F 76 18 140/79 95 06/26/18 06:39 06/26/18 03:50 06/26/18 06:39 06/26/18 06:39 06/26/18 06:39 Period Temp Pulse Resp BP Sys/Ellis Pulse Ox Last 24 Hr 97.9 F-98.8 F 76-98 15-18 133-162/55-87 87-100 Intake and Output 06/25/18 06/26/18 06/26/18 21:59 05:59 13:59 Intake Total 1150 / 2510 1360 / 2510 Output Total 2 / 2 Balance 1150 / 2508 1358 / 2508 Weight 48.761 kg Intake & Output: Intake & Output 06/25/18 06/26/18 06/26/18 21:59 05:59 13:59 Intake Total 1150 / 2510 1360 / 2510 Output Total 2 / 2 Balance 1150 / 2508 1358 / 2508 Weight 48.761 kg Intake: IV 1150 / 2150 1000 / 2150 Lactated Ringers 1,000 ml @ 250 1000 / 2000 1000 / 2000 mls/hr IV .Q4H [facility] Rx#: [id number] Oral 360 / 360 Output: # of times incontinent of urine 2 / 2 Other: Stool Size Moderate Stool Color Brown Stool Consistency Soft Formed # of times incontinent of 1 Bowels Exam: General: Alert, Awake, Eyes/N/T: EOMI, Head/Neck: neck supple, CV: RRR, 2/6 SM, Pulm: Clear b/l, no wheezing/rhonchi/rales Abd: soft, nontender, +BS x4 Ext: no clubbing/cyanosis/edema Neuro: Alert, CN 2-12 grossly intact, sensations intact, Skin: warm/dry Medical - PN: Obj Da - Labs CBC & Chem 7: 06/25/18 15:03 06/25/18 15:17 Labs: Abnormal Lab Results 06/25/18 06/25/18 16:30 15:03 WBC 13.1 H RDW 15.2 H Gran % 80.8 H Lymph % (Auto) 6.9 L Gran # 10.6 H Lymph # (Auto) 0.9 L [place] # (Auto) 1.4 H Urine Protein 100 A Urine Ketones 20 A Urine Occult Blood 0.2 A Urine Nitrate Pos A Ur Leukocyte Esterase 500 A Urine RBC 101 H Urine WBC > 182 H Meds: Medications Acetaminophen (Tylenol) 650 mg PO Q6HP PRN PRN Reason: PAIN/FEVER > 101 Last Admin: 06/26/18 07:29 Dose: 650 mg Documented by: Hydrocodone Bitart/Acetaminophen ([place] 5/325mg) 1 tab PO Q4HP PRN PRN Reason: PAIN LEVEL 3-6 Baclofen (Lioresal) 10 mg PO TID [facility] Last Admin: 06/25/18 20:54 Dose: 10 mg Documented by: Dextrose (Dextrose 50%) 0 ml IV UD PRN PRN Reason: Hypoglycemia Diagnostic Test (Pha) (Accu-Chek) 1 each FS ACHS [facility] Last Admin: 06/26/18 07:29 Dose: 1 each Documented by: Docusate Sodium (Colace) 100 mg PO BID [facility] Last Admin: 06/25/18 20:54 Dose: 100 mg Documented by: Enoxaparin Sodium (Lovenox) 30 mg SQ DAILY [facility] Famotidine (Pepcid) 20 mg PO BID [facility] Last Admin: 06/25/18 20:54 Dose: 20 mg Documented by: Glucose (Insta-Glucose) 15 gm PO PRN PRN PRN Reason: Hypoglycemia Lactated Ringer's (Lactated Ringers) 1,000 mls @ 250 mls/hr IV .Q4H [facility] Last Admin: 06/26/18 03:52 Dose: Not Given Documented by: Levofloxacin (Levaquin) 750 mg in 150 mls @ 100 mls/hr IV Q48H [facility] Methylprednisolone Sodium Succinate 1,000 mg/ Sodium Chloride 100 mls @ 100 mls/hr IV DAILY [facility] Stop: 06/27/18 09:59 Last Admin: 06/25/18 20:28 Dose: 100 mls/hr Documented by: Insulin Human Lispro (Humalog) 0 unit SQ [facility]; Protocol Last Admin: 06/26/18 07:37 Dose: Not Given Documented by: Lactobacillus Rhamnosus (Culturelle) 1 cap PO BID [facility] Last Admin: 06/25/18 20:54 Dose: 1 cap Documented by: Latanoprost (Xalatan Ophth Drops) 1 gtt OU HS [facility] Last Admin: 06/25/18 20:56 Dose: Not Given Documented by: Metoprolol Tartrate (Lopressor) 50 mg PO BID [facility] Last Admin: 06/25/18 20:54 Dose: 50 mg Documented by: Nifedipine (Procardia Xl) 30 mg PO DAILY [facility] Ondansetron HCl (Zofran) 4 mg IV Q6HP PRN PRN Reason: Nausea And Vomiting Prochlorperazine (Compazine) 5 mg IV Q4HP PRN PRN Reason: Nausea And Vomiting Sodium Chloride (Saline Flush) 10 ml IV Q8 [facility] Last Admin: 06/26/18 07:32 Dose: 10 ml Documented by: Medical - PN: A/P - Time Spent With Patient Total time spent is greater than 50% in coordination of care (as documented) at patient's floor/unit and/or counseling patient: - Narrative A/P Narrative: A: *UTI: *MS flare: improving *Generalized weakness/debility: 2/2 above, improving *HTN: * P: -Levaquin, pending UC -case discussed with [facility] neurologist who recommend go ahead and treat in light of infection, for 3-5 day course -High-dose corticosteroids -clarify home meds -cont home baclofen/amantadine -pt/ot -CM for likely SNF -ppx: lovenox Medical - PN: Qual - VTE Deep Vein Thrombosis/Pulmonary Embolism Present on Admission: No
[2018-06-26] MEDS: LACTOBACILLUS 1 CAPSULE PO SCH ×2 (08:19→21:25)
[2018-06-26] MEDS: METOPROLOL TARTRATE 50 MG TABLET PO SCH ×2 (08:19→21:25)
[2018-06-26] MEDS: NIFEdipine 30 MG TAB.XL.24H PO SCH (08:19)
[2018-06-26] MEDS: DOCUSATE SODIUM 100 MG CAPSULE PO SCH ×2 (08:19→21:25)
[2018-06-26] MEDS: FAMOTIDINE 20 MG TABLET PO SCH ×2 (08:19→21:25)
[2018-06-26] MEDS: ENOXAPARIN 30 MG/0.3 ML SYRINGE SQ SCH (08:19)
[2018-06-26] MEDS: BACLOFEN 10 MG TABLET PO SCH ×3 (08:19→21:25)
[2018-06-26] MEDS ORDERED: methylPREDNISolone SOD SUCC 1,000 MG in 0.9 % SODIUM CHLORIDE 100 ML IV SCH (09:00)
[2018-06-26] MEDS: methylPREDNISolone SOD SUCC 1,000 MG in 0.9 % SODIUM CHLORIDE 100 ML IV SCH (13:25)
[2018-06-26] MEDS ORDERED: traMADol 50 MG TABLET PO PRN (15:00)
[2018-06-26] MEDS: POTASSIUM CHLORIDE 20 MEQ TABLET PO SCH (16:55)
[2018-06-26] MEDS: OXYBUTYNIN CHLORIDE 5 MG TABLET PO SCH (21:25)
[2018-06-26] MEDS: AMANTADINE HCL 100 MG CAPSULE PO SCH (21:25)
[2018-06-26] MEDS: LATANOPROST OPHTH DROPS 2.5ML BOTTLE OU SCH (21:26)
[2018-06-27] MEDS: 0.9 % SODIUM CHLORIDE 10 ML SYRINGE IV SCH ×4 (00:38→21:30)
[2018-06-27] MEDS: LACTATED RINGERS 1,000 ML IV SCH (01:34)
[2018-06-27] MEDS: INSULIN LISPRO 1 UNIT/0.01 ML UNIT SQ SCH ×4 (07:15→21:25)
--- NOTE | 2018-06-27 07:45 | Internal Med Progress Note ---
Medical - PN: Subj Patient information: Note initiated : 06/27/18 at 7:42 am Service Date, if different from initiated Date: [] Patient: Inna Selby a 78 y/o F admitted on 06/25/18 for Weakness, fall. Chief Complaint: [] Interval history: Ms. Selby is a 78 year old F Who presents to the ER with severe generalized weakness. Last time she felt her normal was about a week ago. She has been more weak since then. 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 And this morning she fell, or rather slipped out of bed and was unable to get up because of her severe were weakness. She states this feels like her MS flares that she has had in the past. Denies any recent illnesses, denies dysuria but does report malodorous urine. No respiratory symptoms. She has generalized body aches/pain which occurs with her typical MS flares. She does state that her left side is always affected more than the right when she has these flares. She denies any diplopia or acute vision loss or any focal sensory deficits. During workup in the ER she is found to have a UTI. Case was discussed with on-call neurologist Miguelangel Uribe from the ER. Who recommended high-dose corticosteroids for 3-5 days. 06/26 Feeling a little better today, able to move around more today. No new complaints or o/n events. 06/27 Feeling stronger, hoping to ambulate with physical therapy today. No overnight events. Review of Systems: denies headache/fever/chills/nausea/vomiting/chest or abdominal pain/cough/dyspnea/diarrhea. Otherwise see above. - Constitutional Vitals: Vital Signs Temp Pulse Resp BP Pulse Ox 96.9 F L 58 L 14 113/59 95 06/27/18 06:34 06/27/18 06:34 06/27/18 06:34 06/27/18 06:34 06/27/18 06:34 Period Temp Pulse Resp BP Sys/Ellis Pulse Ox Last 24 Hr 96.9 F-98.8 F 58-88 14-20 111-133/59-89 93-98 Intake and Output 06/26/18 06/27/18 06/27/18 21:59 05:59 13:59 Intake Total 580 300 Output Total 3 3 Balance 577 297 Weight 49.442 kg Intake & Output: Intake & Output 06/26/18 06/27/18 06/27/18 21:59 05:59 13:59 Intake Total 580 300 Output Total 3 3 Balance 577 297 Weight 49.442 kg Intake: IV 100 Solu-MEDROL 1,000 MG In Sodium 100 Chloride 0.9% 100 ml @ 100 mls/ hr IV DAILY [facility] Rx#:[id number] Oral 480 GI Tube Flush 300 Output: # of times incontinent of urine 3 3 Other: Meal Sherbert Percent of Meal Consumed 100% Feeding Ability Independent Urine Color Bright Yellow Bright Yellow Exam: General: Alert, Awake, Eyes/N/T: EOMI, Head/Neck: neck supple, CV: RRR, 2/6 SM, Pulm: Clear b/l, no wheezing/rhonchi/rales Abd: soft, nontender, +BS x4 Ext: no clubbing/cyanosis/edema Neuro: Alert, sensations intact, follows commands, moves extremities Skin: warm/dry Medical - PN: Obj Da - Labs CBC & Chem 7: 06/25/18 15:03 06/25/18 15:17 Labs: Abnormal Lab Results 06/25/18 06/25/18 16:30 15:03 WBC 13.1 H RDW 15.2 H Gran % 80.8 H Lymph % (Auto) 6.9 L Gran # 10.6 H Lymph # (Auto) 0.9 L [place] # (Auto) 1.4 H Urine Protein 100 A Urine Ketones 20 A Urine Occult Blood 0.2 A Urine Nitrate Pos A Ur Leukocyte Esterase 500 A Urine RBC 101 H Urine WBC > 182 H Meds: Medications Acetaminophen (Tylenol) 650 mg PO Q6HP PRN PRN Reason: PAIN/FEVER > 101 Last Admin: 06/26/18 07:29 Dose: 650 mg Documented by: Hydrocodone Bitart/Acetaminophen ([place] 5/325mg) 1 tab PO Q4HP PRN PRN Reason: PAIN LEVEL 3-6 Amantadine HCl (Amantadine) 100 mg PO BID [facility] Last Admin: 06/26/18 21:25 Dose: 100 mg Documented by: Aspirin (Aspirin) 81 mg PO DAILY [facility] Baclofen (Lioresal) 10 mg PO TID [facility] Last Admin: 06/26/18 21:25 Dose: 10 mg Documented by: Dextrose (Dextrose 50%) 0 ml IV UD PRN PRN Reason: Hypoglycemia Diagnostic Test (Pha) (Accu-Chek) 1 each FS ACHS [facility] Last Admin: 06/27/18 07:11 Dose: 1 each Documented by: Docusate Sodium (Colace) 100 mg PO BID [facility] Last Admin: 06/26/18 21:25 Dose: 100 mg Documented by: Enoxaparin Sodium (Lovenox) 30 mg SQ DAILY [facility] Last Admin: 06/26/18 08:19 Dose: 30 mg Documented by: Famotidine (Pepcid) 20 mg PO BID [facility] Last Admin: 06/26/18 21:25 Dose: 20 mg Documented by: Furosemide (Lasix) 40 mg PO DAILY [facility] Glucose (Insta-Glucose) 15 gm PO PRN PRN PRN Reason: Hypoglycemia Levofloxacin (Levaquin) 750 mg in 150 mls @ 100 mls/hr IV Q48H [facility] Methylprednisolone Sodium Succinate 1,000 mg/ Sodium Chloride 100 mls @ 100 mls/hr IV DAILY [facility] Stop: 06/27/18 09:59 Last Infusion: 06/26/18 18:43 Dose: Infused Documented by: Insulin Human Lispro (Humalog) 0 unit SQ [facility]; Protocol Last Admin: 06/27/18 07:15 Dose: Not Given Documented by: Lactobacillus Rhamnosus (Culturelle) 1 cap PO BID [facility] Last Admin: 06/26/18 21:25 Dose: 1 cap Documented by: Latanoprost (Xalatan Ophth Drops) 1 gtt OU HS [facility] Last Admin: 06/26/18 21:26 Dose: Not Given Documented by: Metoprolol Tartrate (Lopressor) 50 mg PO BID [facility] Last Admin: 06/26/18 21:25 Dose: 50 mg Documented by: Nifedipine (Procardia Xl) 30 mg PO DAILY [facility] Last Admin: 06/26/18 08:19 Dose: 30 mg Documented by: Ondansetron HCl (Zofran) 4 mg IV Q6HP PRN PRN Reason: Nausea And Vomiting Oxybutynin Chloride (Ditropan) 5 mg PO BID [facility] Last Admin: 06/26/18 21:25 Dose: 5 mg Documented by: Potassium Chloride (Kdur) 20 meq PO TIDCC [facility] Last Admin: 06/26/18 16:55 Dose: 20 meq Documented by: Prochlorperazine (Compazine) 5 mg IV Q4HP PRN PRN Reason: Nausea And Vomiting Sodium Chloride (Saline Flush) 10 ml IV Q8 [facility] Last Admin: 06/27/18 05:52 Dose: 10 ml Documented by: Tramadol HCl (Ultram) 50 mg PO Q6HP PRN PRN Reason: Pain Level 1-3 Vitamin D (Vitamin D3) 10,000 unit PO QDAY [facility] Medical - PN: A/P - Time Spent With Patient Total time spent is greater than 50% in coordination of care (as documented) at patient's floor/unit and/or counseling patient: - Narrative A/P Narrative: A: *UTI (GNB): *MS flare causing severe weakness/falling, essentially becoming immobile: improv ing *Generalized weakness/debility: 2/2 above, improving *HTN: *Raynaud's: is on nifedipine *bowel/bladder incontinence, chronic: wound care following P: -Levaquin, pending UC -case discussed with [facility]ist who recommend go ahead and treat in light of infection, for 3-5 day course -High-dose IV corticosteroids x3 days - -cont home baclofen/amantadine -pt/ot -CM for likely SNF -ppx: [facility] - PN: Qual - VTE Deep Vein Thrombosis/Pulmonary Embolism Present on Admission: No
[2018-06-27] MEDS: FUROSEMIDE 40 MG TABLET PO SCH (08:40)
[2018-06-27] MEDS: NIFEdipine 30 MG TAB.XL.24H PO SCH (08:40)
[2018-06-27] MEDS: POTASSIUM CHLORIDE 20 MEQ TABLET PO SCH ×3 (08:40→16:35)
[2018-06-27] MEDS: BACLOFEN 10 MG TABLET PO SCH ×3 (08:40→21:25)
[2018-06-27] MEDS: LACTOBACILLUS 1 CAPSULE PO SCH ×2 (08:40→21:25)
[2018-06-27] MEDS: AMANTADINE HCL 100 MG CAPSULE PO SCH ×2 (08:40→21:28)
[2018-06-27] MEDS: METOPROLOL TARTRATE 50 MG TABLET PO SCH ×2 (08:40→21:25)
[2018-06-27] MEDS: VITAMIN D3 5,000 UNIT CAPSULE PO SCH (08:41)
[2018-06-27] MEDS: DOCUSATE SODIUM 100 MG CAPSULE PO SCH ×2 (08:41→21:24)
[2018-06-27] MEDS: ENOXAPARIN 30 MG/0.3 ML SYRINGE SQ SCH (08:41)
[2018-06-27] MEDS: ASPIRIN 81 MG TAB.CHEW PO SCH (08:41)
[2018-06-27] MEDS: OXYBUTYNIN CHLORIDE 5 MG TABLET PO SCH ×2 (08:41→21:25)
[2018-06-27] MEDS: FAMOTIDINE 20 MG TABLET PO SCH ×2 (08:41→21:26)
[2018-06-27] MEDS ORDERED: LEVOFLOXACIN 750 MG/150 ML BAG IV SCH (09:00)
--- NOTE | 2018-06-27 09:46 | Discharge Summary ---
Medical - DS: Prov Patient information: Note initiated : 06/27/18 at 9:44 am Service Date, if different from initiated Date: [] Patient: Inna Selby 78 y/o F admitted on 06/25/18 for Weakness, fall. Chief Complaint: [] Date of admission: 06/25/18 19:47 Primary care physician: Ivan Yancey Consults: 06/25/18 18:11 Consult to Physician [CONS] Stat Comment: Consulting Provider: Gio Queen Reason For Exam: Physician to Consult Medical - DS: Meds - Discharge Medications Prescriptions: Levofloxacin [Levaquin] 750 mg PO DAILY #2 tab Active and Home Medications: Home Medications Aspirin [Aspirin EC] 81 mg PO DAILY 03/07/17 [History Confirmed 06/26/18 Last Taken 03/06/17 81 mg] Latanoprost Ophth Drops [Xalatan Ophth Drops] 1 gtt OU HS 03/07/17 [History Confirmed 06/25/18 Last Taken 03/06/17 1 gtt] cholecalciferol (vitamin D3) 5,000 unit capsule 10,000 unit PO QDAY 03/24/17 [History Confirmed 06/26/18 Last Taken Unknown] ferrous sulfate 325 mg (65 mg iron) tablet,delayed release 325 mg PO BID #60 tab 03/24/17 [Rx Confirmed 06/26/18 Last Taken Unknown] Fluconazole [Diflucan] 200 mg PO DAILY #5 tab 07/31/17 [Rx Confirmed 04/02/18 Last Taken Unknown] Lactobacillus [Culturelle] 1 cap PO BID #60 cap 07/31/17 [Rx Confirmed 06/26/18 Last Taken Unknown] oxybutynin chloride 5 mg tablet 5 mg PO BID #180 tab 10/22/17 [Rx Confirmed 06/26/18 Last Taken Unknown] baclofen 10 mg tablet 10 mg PO TID #270 tab 11/19/17 [Rx Confirmed 06/25/18 Last Taken Unknown] furosemide 40 mg tablet 40 mg PO BID #180 tab 11/26/17 [Rx Confirmed 06/25/18 Last Taken Unknown] metoprolol tartrate 50 mg tablet 50 mg PO BID #180 tab 11/26/17 [Rx Confirmed 06/25/18 Last Taken Unknown] potassium chloride ER 20 mEq tablet,extended release(part/cryst) 20 meq PO TID #270 tab 01/22/18 [Rx Confirmed 06/26/18 Last Taken Unknown] nifedipine ER 30 mg tablet,extended release 30 mg PO DAILY #90 tab 03/23/18 [Rx Confirmed 06/25/18 Last Taken Unknown] tramadol 50 mg tablet 50 mg PO Q6H 04/02/18 [History Confirmed 06/26/18 Last Taken Unknown] amantadine HCl 100 mg tablet 100 mg PO BID #180 tab 05/04/18 [Rx Confirmed 06/25/18 Last Taken Unknown] Cyclobenzaprine HCl 10 mg PO TID 06/26/18 [History Confirmed 06/26/18 Last Taken Unknown] Home Medications Aspirin [Aspirin EC] 81 mg PO DAILY 03/07/17 [History Confirmed 06/26/18 Last Taken 03/06/17 81 mg] Latanoprost Ophth Drops [Xalatan Ophth Drops] 1 gtt OU HS 03/07/17 [History Confirmed 06/25/18 Last Taken 03/06/17 1 gtt] cholecalciferol (vitamin D3) 5,000 unit capsule 10,000 unit PO QDAY 03/24/17 [History Confirmed 06/26/18 Last Taken Unknown] ferrous sulfate 325 mg (65 mg iron) tablet,delayed release 325 mg PO BID #60 tab 03/24/17 [Rx Confirmed 06/26/18 Last Taken Unknown] Fluconazole [Diflucan] 200 mg PO DAILY #5 tab 07/31/17 [Rx Confirmed 04/02/18 Last Taken Unknown] Lactobacillus [Culturelle] 1 cap PO BID #60 cap 07/31/17 [Rx Confirmed 06/26/18 Last Taken Unknown] oxybutynin chloride 5 mg tablet 5 mg PO BID #180 tab 10/22/17 [Rx Confirmed 06/26/18 Last Taken Unknown] baclofen 10 mg tablet 10 mg PO TID #270 tab 11/19/17 [Rx Confirmed 06/25/18 Last Taken Unknown] furosemide 40 mg tablet 40 mg PO BID #180 tab 11/26/17 [Rx Confirmed 06/25/18 Last Taken Unknown] metoprolol tartrate 50 mg tablet 50 mg PO BID #180 tab 11/26/17 [Rx Confirmed 06/25/18 Last Taken Unknown] potassium chloride ER 20 mEq tablet,extended release(part/cryst) 20 meq PO TID #270 tab 01/22/18 [Rx Confirmed 06/26/18 Last Taken Unknown] nifedipine ER 30 mg tablet,extended release 30 mg PO DAILY #90 tab 03/23/18 [Rx Confirmed 06/25/18 Last Taken Unknown] tramadol 50 mg tablet 50 mg PO Q6H 04/02/18 [History Confirmed 06/26/18 Last Taken Unknown] amantadine HCl 100 mg tablet 100 mg PO BID #180 tab 05/04/18 [Rx Confirmed 06/25/18 Last Taken Unknown] Cyclobenzaprine HCl 10 mg PO TID 06/26/18 [History Confirmed 06/26/18 Last Taken Unknown] Levofloxacin [Levaquin] 750 mg PO DAILY #2 tablet 06/27/18 [Rx Last Taken Unknown] Medical - DS: Hosp Hospital course: Ms. Selby is a 78 year old F Who presents to the ER with severe generalized weakness. Last time she felt her normal was about a week ago. She has been more weak since then. 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 And this morning she fell, or rather slipped out of bed and was unable to get up because of her severe were weakness. She states this feels like her MS flares that she has had in the past. Denies any recent illnesses, denies dysuria but does report malodorous ur ine. No respiratory symptoms. She has generalized body aches/pain which occurs with her typical MS flares. She does state that her left side is always affected more than the right when she has these flares. She denies any diplopia or acute vision loss or any focal sensory deficits. During workup in the ER she is found to have a UTI. Case was discussed with on-call neurologist Miguelangel Uribe from the ER. Who recommended high-dose corticosteroids for 3-5 days. 06/26 Feeling a little better today, able to move around more today. No new complaints or o/n events. 06/27 Feeling stronger, hoping to ambulate with physical therapy today. No overnight events. Discharge diagnosis: UTI, multiple sclerosis exacerbation, generalized weakness deconditioning d Secondary discharge diagnosis: Ray nods hypertension - Time Spent with Patient Total time spent providing and/or coordinating discharge services: Greater than 30 minutes Medical - DS: Exam - Constitutional Vitals: Vital Signs Temp Pulse Resp BP Pulse Ox 06/27/18 06:34 96.9 F L 58 L 14 113/59 95 06/27/18 04:00 97.2 F 60 16 120/60 98 06/27/18 00:00 97.7 F 88 18 111/79 94 06/26/18 19:35 98.5 F 87 16 124/69 93 06/26/18 15:11 98.1 F 16 133/89 95 06/26/18 12:00 98.8 F 20 131/65 95 Intake and Output 06/26/18 06/27/18 06/27/18 21:59 05:59 13:59 Intake Total 580 300 Output Total 3 3 Balance 577 297 Intake: IV 100 Solu-MEDROL 1,000 MG In Sodium 100 Chloride 0.9% 100 ml @ 100 mls/ hr IV DAILY [facility] Rx#:[id number] Oral 480 GI Tube Flush 300 Output: # of times incontinent of urine 3 3 Other: Meal Sherbert Percent of Meal Consumed 100% Feeding Ability Independent Urine Color Bright Yellow Bright Yellow Weight 49.442 kg Medical - DS: Data Labs on day of discharge: Preliminary micro results at discharge 06/25/18 16:30 Urine Culture - Preliminary Urine - Clean Void Mid-Stream Gram negative bacillus Medical - DS: A/P - Patient/Caregiver Discharge Instructions Activity: as per physical therapy Diet: Regular Diet Prescriptions: Levofloxacin [Levaquin] 750 mg PO DAILY #2 tab - Follow up Plan Follow up with: Ivan Yancey DO [Primary Care Provider] - Disposition: Xfer SNF Prognosis: Fair Rehab Potential: Fair I certify that the patient requires SNF services: Yes Overall status at discharge: patient is progressing back to baseline Medical - DS: Qual - VTE Deep Vein Thrombosis/Pulmonary Embolism Present on Admission: No
[2018-06-27] MEDS: methylPREDNISolone SOD SUCC 1,000 MG in 0.9 % SODIUM CHLORIDE 100 ML IV SCH (10:24)
[2018-06-27] MEDS: LATANOPROST OPHTH DROPS 2.5ML BOTTLE OU SCH (21:30)
[2018-06-28] MEDS: 0.9 % SODIUM CHLORIDE 10 ML SYRINGE IV SCH ×3 (06:01→20:56)
--- NOTE | 2018-06-28 06:55 | Internal Med Progress Note ---
Medical - PN: Subj Patient information: Note initiated : 06/28/18 at 6:53 am Service Date, if different from initiated Date: [] Patient: Inna Selby a 78 y/o F admitted on 06/25/18 for Weakness, fall. Chief Complaint: [] Interval history: Ms. Selby is a 78 year old F Who presents to the ER with severe generalized weakness. Last time she felt her normal was about a week ago. She has been more weak since then. 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 And this morning she fell, or rather slipped out of bed and was unable to get up because of her severe were weakness. She states this feels like her MS flares that she has had in the past. Denies any recent illnesses, denies dysuria but does report malodorous urine. No respiratory symptoms. She has generalized body aches/pain which occurs with her typical MS flares. She does state that her left side is always affected more than the right when she has these flares. She denies any diplopia or acute vision loss or any focal sensory deficits. During workup in the ER she is found to have a UTI. Case was discussed with on-call neurologist Miguelangel Uribe from the ER. Who recommended high-dose corticosteroids for 3-5 days. 06/26 Feeling a little better today, able to move around more today. No new complaints or o/n events. 06/27 Feeling stronger, hoping to ambulate with physical therapy today. No overnight events. 06/28 No new complaints, continues to feel stronger, was able to walk to the nurses station back yesterday. Wants rehab facility instead of home health care, still feels like her would not be able to manager stone her. Review of Systems: denies headache/fever/chills/nausea/vomiting/chest or abdominal pa in/cough/dyspnea/diarrhea. Otherwise see above. - Constitutional Vitals: Vital Signs Temp Pulse Resp BP Pulse Ox 97.3 F 66 14 136/68 95 06/28/18 04:26 06/28/18 04:26 06/28/18 04:26 06/28/18 04:26 06/28/18 04:26 Period Temp Pulse Resp BP Sys/Ellis Pulse Ox Last 24 Hr 97.3 F-98.2 F 66-74 14-18 122-143/58-69 95-100 Intake and Output 06/27/18 06/28/18 06/28/18 21:59 05:59 13:59 Intake Total 1040 200 Output Total 7 2 1 Balance 1033 198 -1 Weight 49.668 kg Intake & Output: Intake & Output 06/27/18 06/28/18 06/28/18 21:59 05:59 13:59 Intake Total 1040 200 Output Total 7 2 1 Balance 1033 198 -1 Weight 49.668 kg Intake: Oral 1040 200 Output: # of times incontinent of urine 7 2 1 Exam: General: Alert, Awake, Eyes/N/T: EOMI, Head/Neck: neck supple, CV: RRR, 2/6 SM, Pulm: Clear b/l, no wheezing/rhonchi/rales Abd: soft, nontender, +BS x4 Ext: no clubbing/cyanosis/edema Neuro: Alert, sensations intact, follows commands, moves extremities Skin: warm/dry Medical - PN: Obj Da - Labs CBC & Chem 7: 06/25/18 15:03 06/25/18 15:17 Labs: Abnormal Lab Results 06/25/18 06/25/18 16:30 15:03 WBC 13.1 H RDW 15.2 H Gran % 80.8 H Lymph % (Auto) 6.9 L Gran # 10.6 H Lymph # (Auto) 0.9 L [place] # (Auto) 1.4 H Urine Protein 100 A Urine Ketones 20 A Urine Occult Blood 0.2 A Urine Nitrate Pos A Ur Leukocyte Esterase 500 A Urine RBC 101 H Urine WBC > 182 H Meds: Medications Acetaminophen (Tylenol) 650 mg PO Q6HP PRN PRN Reason: PAIN/FEVER > 101 Last Admin: 06/26/18 07:29 Dose: 650 mg Documented by: Hydrocodone Bitart/Acetaminophen ([place] 5/325mg) 1 tab PO Q4HP PRN PRN Reason: PAIN LEVEL 3-6 Amantadine HCl (Amantadine) 100 mg PO BID [facility] Last Admin: 06/27/18 21:28 Dose: 100 mg Documented by: Aspirin (Aspirin) 81 mg PO DAILY [facility] Last Admin: 06/27/18 08:41 Dose: 81 mg Documented by: Baclofen (Lioresal) 10 mg PO TID [facility] Last Admin: 06/27/18 21:25 Dose: 10 mg Documented by: Dextrose (Dextrose 50%) 0 ml IV UD PRN PRN Reason: Hypoglycemia Diagnostic Test (Pha) (Accu-Chek) 1 each FS ACHS [facility] Last Admin: 06/27/18 21:23 Dose: 1 each Documented by: Docusate Sodium (Colace) 100 mg PO BID [facility] Last Admin: 06/27/18 21:24 Dose: 100 mg Documented by: Enoxaparin Sodium (Lovenox) 30 mg SQ DAILY [facility] Last Admin: 06/27/18 08:41 Dose: 30 mg Documented by: Famotidine (Pepcid) 20 mg PO BID [facility] Last Admin: 06/27/18 21:26 Dose: 20 mg Documented by: Furosemide (Lasix) 40 mg PO DAILY [facility] Last Admin: 06/27/18 08:40 Dose: 40 mg Documented by: Glucose (Insta-Glucose) 15 gm PO PRN PRN PRN Reason: Hypoglycemia Levofloxacin (Levaquin) 750 mg in 150 mls @ 100 mls/hr IV Q48H [facility] Last Infusion: 06/27/18 10:24 Dose: Infused Documented by: Insulin Human Lispro (Humalog) 0 unit SQ [facility]; Protocol Last Admin: 06/27/18 21:25 Dose: Not Given Documented by: Lactobacillus Rhamnosus (Culturelle) 1 cap PO BID [facility] Last Admin: 06/27/18 21:25 Dose: 1 cap Documented by: Latanoprost (Xalatan Ophth Drops) 1 gtt OU HS [facility] Last Admin: 06/27/18 21:30 Dose: Not Given Documented by: Metoprolol Tartrate (Lopressor) 50 mg PO BID [facility] Last Admin: 06/27/18 21:25 Dose: 50 mg Documented by: Nifedipine (Procardia Xl) 30 mg PO DAILY [facility] Last Admin: 06/27/18 08:40 Dose: 30 mg Documented by: Ondansetron HCl (Zofran) 4 mg IV Q6HP PRN PRN Reason: Nausea And Vomiting Oxybutynin Chloride (Ditropan) 5 mg PO BID [facility] Last Admin: 06/27/18 21:25 Dose: 5 mg Documented by: Potassium Chloride (Kdur) 20 meq PO TIDCC [facility] Last Admin: 06/27/18 16:35 Dose: 20 meq Documented by: Prochlorperazine (Compazine) 5 mg IV Q4HP PRN PRN Reason: Nausea And Vomiting Sodium Chloride (Saline Flush) 10 ml IV Q8 [facility] Last Admin: 06/28/18 06:01 Dose: 10 ml Documented by: Tramadol HCl (Ultram) 50 mg PO Q6HP PRN PRN Reason: Pain Level 1-3 Vitamin D (Vitamin D3) 10,000 unit PO QDAY [facility] Last Admin: 06/27/18 08:41 Dose: 10,000 unit Documented by: Medical - PN: A/P - Time Spent With Patient Total time spent is greater than 50% in coordination of care (as documented) at patient's floor/unit and/or counseling patient: - Narrative A/P Narrative: A: *UTI (Klebsiella): *MS flare causing severe weakness/falling, essentially becoming immobile: improving *Generalized weakness/debility: 2/2 above, improving *HTN: *Raynaud's: is on nifedipine *bowel/bladder incontinence, chronic: wound care following P: -Levaquin IV to PO -case discussed with [facility] neurologist who recommend go ahead and treat in light of infection, for 3-5 day course -High-dose IV corticosteroids x3 days, finished - -cont home baclofen/amantadine -pt/ot -CM for likely SNF vs [facility] (patient was hoping to go to rehab which would not be done until tomorrow, because she feels her still cannot manage her) -ppx: [facility] - PN: Qual - VTE Deep Vein Thrombosis/Pulmonary Embolism Present on Admission: No
[2018-06-28] MEDS: ENOXAPARIN 30 MG/0.3 ML SYRINGE SQ SCH (08:28)
[2018-06-28] MEDS: METOPROLOL TARTRATE 50 MG TABLET PO SCH ×2 (08:28→20:56)
[2018-06-28] MEDS: BACLOFEN 10 MG TABLET PO SCH ×3 (08:28→20:57)
[2018-06-28] MEDS: FAMOTIDINE 20 MG TABLET PO SCH ×2 (08:28→20:56)
[2018-06-28] MEDS: INSULIN LISPRO 1 UNIT/0.01 ML UNIT SQ SCH ×4 (08:28→22:39)
[2018-06-28] MEDS: OXYBUTYNIN CHLORIDE 5 MG TABLET PO SCH ×2 (08:29→20:56)
[2018-06-28] MEDS: LACTOBACILLUS 1 CAPSULE PO SCH ×2 (08:29→20:56)
[2018-06-28] MEDS: VITAMIN D3 5,000 UNIT CAPSULE PO SCH (08:29)
[2018-06-28] MEDS: DOCUSATE SODIUM 100 MG CAPSULE PO SCH ×2 (08:29→20:57)
[2018-06-28] MEDS: ASPIRIN 81 MG TAB.CHEW PO SCH (08:29)
[2018-06-28] MEDS: NIFEdipine 30 MG TAB.XL.24H PO SCH (08:29)
[2018-06-28] MEDS: POTASSIUM CHLORIDE 20 MEQ TABLET PO SCH ×3 (08:29→18:09)
[2018-06-28] MEDS: FUROSEMIDE 40 MG TABLET PO SCH (08:29)
[2018-06-28] MEDS: AMANTADINE HCL 100 MG CAPSULE PO SCH ×2 (10:48→22:43)
[2018-06-28] MEDS: LATANOPROST OPHTH DROPS 2.5ML BOTTLE OU SCH (22:44)
[2018-06-29 06:20] LABS: Basophils # (Auto) 0 K/mcL (0.0-0.3); Basophils % (Auto) 0.3 % (0.0-2.0); Eosinophils # (Auto) 0.2 K/mcL (0.0-0.7); Eosinophils % (Auto) 2.1 % (0.0-7.0); Granulocytes % (Auto) 67.4 % (38.0-78.0); Lymphocytes # (Auto) 1.4 K/mcL (1.5-4.8); Lymphocytes % (Auto) 17.5 % (15.5-49.0); Mean Cell Volume 87.2 fL (80.0-100.0); Mean Corpuscular HGB Conc 32.4 g/dL (31.0-36.0); Monocytes % (Auto) 12.7 % (1.0-12.0); Platelet Count 352 K/mcL (140-440); RBC 4.41 M/mcL (4.00-5.20); Red Cell Distribution Width 15.2 % (11.5-14.5)
[2018-06-29 06:38] LABS: ALT/SGPT 9 U/l (0-40); Albumin/Globulin Ratio 1.3 (1.0-2.3); Alkaline Phosphatase 72 U/L (39-117); Bilirubin,Direct < 0.2 mg/dL (0.0-0.3); Blood Urea Nitrogen 29 mg/dl (8-23); Gamma Glutamyl Transpeptidase 14 U/L (5-36); Uric Acid 3.1 mg/dL (2.5-8.0)
[2018-06-29] MEDS: 0.9 % SODIUM CHLORIDE 10 ML SYRINGE IV SCH (07:40)
[2018-06-29] MEDS: INSULIN LISPRO 1 UNIT/0.01 ML UNIT SQ SCH ×2 (07:41→11:16)
[2018-06-29] MEDS: POTASSIUM CHLORIDE 20 MEQ TABLET PO SCH ×2 (07:41→12:54)
[2018-06-29] MEDS ORDERED: LEVOFLOXACIN 750 MG TABLET PO SCH (08:00)
[2018-06-29] MEDS: FAMOTIDINE 20 MG TABLET PO SCH (08:46)
[2018-06-29] MEDS: BACLOFEN 10 MG TABLET PO SCH (08:46)
[2018-06-29] MEDS: AMANTADINE HCL 100 MG CAPSULE PO SCH (08:46)
[2018-06-29] MEDS: NIFEdipine 30 MG TAB.XL.24H PO SCH (08:46)
[2018-06-29] MEDS: OXYBUTYNIN CHLORIDE 5 MG TABLET PO SCH (08:46)
[2018-06-29] MEDS: ENOXAPARIN 30 MG/0.3 ML SYRINGE SQ SCH (08:46)
[2018-06-29] MEDS: LACTOBACILLUS 1 CAPSULE PO SCH (08:47)
[2018-06-29] MEDS: METOPROLOL TARTRATE 50 MG TABLET PO SCH (08:47)
[2018-06-29] MEDS: ASPIRIN 81 MG TAB.CHEW PO SCH (08:47)
[2018-06-29] MEDS: FUROSEMIDE 40 MG TABLET PO SCH (08:47)
[2018-06-29] MEDS: VITAMIN D3 5,000 UNIT CAPSULE PO SCH (08:47)
[2018-06-29] MEDS: DOCUSATE SODIUM 100 MG CAPSULE PO SCH (08:47)
--- NOTE | 2018-06-29 11:42 | Discharge Summary ---
Medical - DS: Prov Patient information: Note initiated : 06/29/18 at 11:38 am Service Date, if different from initiated Date: [] Patient: Inna Selby 78 y/o F admitted on 06/25/18 for Weakness, fall. Chief Complaint: [] Date of admission: 06/25/18 19:47 Discharge date: 06/29/18 Primary care physician: Ivan Yancey Consults: 06/25/18 18:11 Consult to Physician [CONS] Stat Comment: Consulting Provider: Gio Queen Reason For Exam: Physician to Consult Discharging clinician: Jatinder Montejo Medical - DS: Meds - Discharge Medications Prescriptions: Levofloxacin [Levaquin] 750 mg PO DAILY #5 tab traMADol [Ultram] 50 mg PO Q6H PRN #30 tab PRN Reason: Pain Active and Home Medications: Home Medications Aspirin [Aspirin EC] 81 mg PO DAILY 03/07/17 [History Confirmed 06/26/18 Last Taken 03/06/17 81 mg] Latanoprost Ophth Drops [Xalatan Ophth Drops] 1 gtt OU HS 03/07/17 [History Confirmed 06/25/18 Last Taken 03/06/17 1 gtt] cholecalciferol (vitamin D3) 5,000 unit capsule 10,000 unit PO QDAY 03/24/17 [History Confirmed 06/26/18 Last Taken Unknown] ferrous sulfate 325 mg (65 mg iron) tablet,delayed release 325 mg PO BID #60 tab 03/24/17 [Rx Confirmed 06/26/18 Last Taken Unknown] Lactobacillus [Culturelle] 1 cap PO BID #60 cap 07/31/17 [Rx Confirmed 06/26/18 Last Taken Unknown] oxybutynin chloride 5 mg tablet 5 mg PO BID #180 tab 10/22/17 [Rx Confirmed 06/26/18 Last Taken Unknown] baclofen 10 mg tablet 10 mg PO TID #270 tab 11/19/17 [Rx Confirmed 06/25/18 Last Taken Unknown] furosemide 40 mg tablet 40 mg PO BID #180 tab 11/26/17 [Rx Confirmed 06/25/18 Last Taken Unknown] metoprolol tartrate 50 mg tablet 50 mg PO BID #180 tab 11/26/17 [Rx Confirmed 06/25/18 Last Taken Unknown] potassium chloride ER 20 mEq tablet,extended release(part/cryst) 20 meq PO TID #270 tab 01/22/18 [Rx Confirmed 06/26/18 Last Taken Unknown] nifedipine ER 30 mg tablet,extended release 30 mg PO DAILY #90 tab 03/23/18 [Rx Confirmed 06/25/18 Last Taken Unknown] tramadol 50 mg tablet 50 mg PO Q6H 04/02/18 [History Confirmed 06/26/18 Last Taken Unknown] amantadine HCl 100 mg tablet 100 mg PO BID #180 tab 05/04/18 [Rx Confirmed 06/25/18 Last Taken Unknown] Cyclobenzaprine HCl 10 mg PO TID 06/26/18 [History Confirmed 06/26/18 Last Taken Unknown] Levofloxacin [Levaquin] 750 mg PO Q48H #1 tab 06/28/18 [Rx Last Taken Unknown] Medical - DS: Hosp Hospital course: Ms. Selby is a 78 year old F Who presents to the ER with severe generalized weakness. Last time she felt her normal was about a week ago. She has been more weak since then. 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 And this morning she fell, or rather slipped out of bed and was unable to get up because of her severe were weakness. She states this feels like her MS flares that she has had in the past. Denies any recent illnesses, denies dysuria but does report malodorous urine. No respiratory symptoms. She has generalized body aches/pain which occurs with her typical MS flares. She does state that her left side is always affected more than the right when she has these flares. She denies any diplopia or acute vision loss or any focal sensory deficits. During workup in the ER she is found to have a UTI. Case was discussed with on-call neurologist Miguelangel Uribe from the ER. Who recommended high-dose corticosteroids for 3-5 days. 06/26 Feeling a little better today, able to move around more today. No new complaints or o/n events. 06/27 Feeling stronger, hoping to ambulate with physical therapy today. No overnight events. 06/28 No new complaints, continues to feel stronger, was able to walk to the nurses station back yesterday. 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 06/29 The patient is doing well, labs stable, able to tolerate po, does not feel strong enough to go home yet, will be discharged to SNF.' In Summary: Patient admitted to the hospital with *UTI (Klebsiella and morganella morgani): To be treated with levofloxacin, total 7 days, responded well to treatment *MS flare causing severe weakness/falling, essentially becoming immobile: improving, s/p steroids *Generalized weakness/debility: 2/2 above, improving, SNF placement planned No changes made to patients home medications. Discharge diagnosis: UTI complicated. - Time Spent with Patient Total time spent providing and/or coordinating discharge services: Greater than 30 minutes Medical - DS: Exam - Constitutional Vitals: Vital Signs Temp Pulse Pulse Resp BP Pulse Ox 06/29/18 07:43 56 L 60 16 95 06/29/18 07:16 97.1 F 60 14 123/54 95 06/29/18 04:00 97.7 F 55 L 16 123/62 96 06/29/18 00:00 99.4 F H 56 L 16 115/51 95 06/28/18 20:00 98 F 71 16 120/58 97 06/28/18 15:55 97.3 F 61 18 120/61 94 Intake and Output 06/28/18 06/29/18 06/29/18 21:59 05:59 13:59 Intake Total 240 Output Total 1 3 Balance 239 -3 Intake: Oral 240 Output: # of times incontinent of urine 1 3 Other: Meal Dinner Percent of Meal Consumed 100% Feeding Ability Assist with Tray Set Up Urine Color Bright Yellow Stool Size Small Small Stool Color Brown Brown Yellow Yellow Stool Consistency Soft Soft # of times incontinent of 1 Bowels Weight 106 lb 8 oz Additional comments: Constitutional; Afebrile, cooperative, alert, not in distress. Respiratory system: Air Entry equal on both sides, No crackles or wheezing, no rhonchi. CVS- Rate rhythm regular, S1,S2 heard, no gallop, no rub. Abdomen- Soft nontender abdomen, no organomegaly, no tenderness, no guarding or rigidity, SLASHER RUNNER- AOOx3, moving all extremities, no gross focal deficit noted. Medical - DS: Data Labs on day of discharge: Labs from last 24 hours 06/29/18 06/29/18 04:43 04:43 WBC 7.9 RBC 4.41 Hgb 12.4 Hct 38.4 MCV 87.2 MCH 28.2 MCHC 32.4 RDW 15.2 H Plt Count 352 MPV 8.0 Gran % 67.4 Lymph % (Auto) 17.5 [place] % (Auto) 12.7 H Eos % (Auto) 2.1 Baso % (Auto) 0.3 Gran # 5.3 Lymph # (Auto) 1.4 L [place] # (Auto) 1.0 H Eos # (Auto) 0.2 Baso # (Auto) 0 Sodium 143 Potassium 4.3 Chloride 104 Carbon Dioxide 28 Anion Gap 11.0 BUN 29 H Creatinine 0.7 GFR Calculation 84 Glucose 78 Uric Acid 3.1 Calcium 8.6 Phosphorus 2.8 Magnesium 2.2 Total Bilirubin 0.3 Direct Bilirubin < 0.2 GGT 14 AST 10 ALT 9 Alkaline Phosphatase 72 Lactate Dehydrogenase 160 Total Protein 5.4 L Albumin 3.0 L Globulin 2.4 Albumin/Globulin Ratio 1.3 Triglycerides 120 Medical - DS: A/P - Patient/Caregiver Discharge Instructions Activity: as per physical therapy, increase activity as tolerated Diet: Regular Diet Additional Instructions: Take levofloxacin 750mg once daily for 5 more days Go to the ER if worsening symptoms, chest pain, shortness of breath or any other acute concern. Continue rehab at the SNF Follow up with PCP in 1 week Prescriptions: Levofloxacin [Levaquin] 750 mg PO Q48H #1 tab - Follow up Plan Follow up with: Ivan Yancey DO [Primary Care Provider] - Disposition: Xfer [facility] Prognosis: Fair Rehab Potential: Fair I certify that the patient requires SNF services: Yes Overall status at discharge: patient is progressing back to baseline Medical - DS: Qual - VTE Deep Vein Thrombosis/Pulmonary Embolism Present on Admission: No
== END 2018-06-29 13:45 | DRG 690 ==
LOC: ED 14:28 → MEDSUR 19:47
PROVIDERS: ADMIT Internal Medicine; ATTEND Internal Medicine

== ENCOUNTER 2018-09-19 09:54 | Observation (INO) ==
--- NOTE | 2018-09-19 10:17 | Emergency Department Note ---
Weakness HPI - General Chief complaint: Weakness Stated complaint: Weakness Time Seen by Provider: 09/19/18 09:58 Mode of arrival: EMS - History of Present Illness HPI Narrative: 78-year-old female with known history of MS, presents to ED via EMS with history of a generalized weakness that seemed to develop just overnight. She did take 1 tablet of Cipro this morning, 500 mg, does not report any diarrhea, does not report abdominal pain she's had no chest pain or cough but feels generally weakened. She felt similar about 3 weeks ago when she was diagnosed as having a urinary tract infection at that time finished a course of Cipro 1 week had a few tablets left over a period no diarrhea no chest pain no cough no shortness of breath, she denies flank pain but she generally feels weak, affecting all 4 extremities to the point where she has much less strength than normal. states she is mostly bedridden, she does have foot drop on the left side and I doubt that she ambulates very well or far probably assists with transfers on a normal basis. Today however she was very weak, was unable to lift her and he hurt his back left last time he was trying to lift her and thus he called EMS. She does not have a lot of sensation in the griffin-area from her MS, she is normally incontinent of urine. Her MS has affected all 4 extremities she has some spasticity in her arms hands as well as lower extremities. Complaint: generalized weakness Onset (ago): hour(s) - Related Data Home Medications Medication Instructions Recorded Confirmed Aspirin [Aspirin EC] 81 mg PO DAILY 03/07/17 06/26/18 Latanoprost Ophth Drops [Xalatan 1 gtt OU HS 03/07/17 08/10/18 Ophth Drops] cholecalciferol (vitamin D3) 5,000 10,000 unit PO QDAY 03/24/17 08/10/18 unit capsule ferrous sulfate 325 mg (65 mg 325 mg PO QDAY tab 08/10/18 iron) tablet,delayed release potassium chloride ER 20 mEq 20 meq PO BID tab 08/10/18 tablet,extended release(part/cryst) Previous Rx's Medication Instructions Recorded Lactobacillus [Culturelle] 1 cap PO BID #60 cap 07/31/17 oxybutynin chloride 5 mg tablet 5 mg PO BID #180 tab 10/22/17 baclofen 10 mg tablet 10 mg PO TID #270 tab 11/19/17 furosemide 40 mg tablet 40 mg PO BID #180 tab 11/26/17 metoprolol tartrate 50 mg tablet 50 mg PO BID #180 tab 11/26/17 amantadine HCl 100 mg tablet 100 mg PO BID #180 tab 05/04/18 leg brace See Dose Instructions .ROUTE 08/10/18 .MEDSUPPLY #1 each Ciprofloxacin [Cipro] 500 mg PO BID #20 tab 08/22/18 nifedipine ER 30 mg 30 mg PO DAILY #90 tab 09/02/18 tablet,extended release Allergies Allergy/AdvReac Type Severity Reaction Status Date / Time Penicillins Allergy Mild Swelling Verified 09/08/18 14:50 Review of Systems All systems ED: reviewed and negative except as stated. Past Medical History - Past Medical History Source: nursing notes reviewed Medical history: Reports: arthritis, cancer (Endometrial, remotely.), CVA (Long time ago.), other (advanced MS, raynaud's phenomenon, heart murmur). Denies: COPD, coronary artery disease, DM, GERD, hypertension, myocardial infarction, thyroid disease Psychiatric history: Reports: no psych history. Denies: anxiety, depression Surgical history ED: Reports: hysterectomy (for endometrial cancer), knee replacement - Social History smoking status: Former smoker Alcohol use: Reports: Occasionally (white wine 1-2 X/wk.) Drug use: Reports: none Physical Exam Limitations: no limitations General appearance: alert Head: atraumatic Eye: Present: normal appearance, PERRL, EOMI ENT: normal exam, mucous membranes dry, TM's normal bilaterally, normal external ear exam Neck: Present: normal inspection, full ROM, trachea midline. Absent: t enderness, meningismus, lymphadenopathy, thyromegaly Chest: Present: normal inspection, symmetric chest wall rise Respiratory: Present: normal lung sounds bilaterally. Absent: respiratory distress, rales/crackles, wheezes Cardiovascular: Present: regular rate, normal rhythm, normal heart sounds Abdominal: Present: soft, tenderness, normal bowel sounds. Absent: distention Abdominal tenderness: Present: LLQ Extremities: Present: other (spasticity both lower extremities as well as upper extremities, foot drop on the left side.). Absent: joint swelling, calf tenderness Back: Present: normal inspection. Absent: CVA tenderness (R), CVA tenderness (L) Neurological: Present: alert, oriented X3, CN II-XII intact, motor sensory deficit, other (weakness in all fours.) Psychiatric: Present: normal affect Skin: Present: warm, normal color, other (acrocyanosis of the hands.). Absent: rash Course - Reevaluation(s) Reevaluation #1: Patient started on IV fluids. She was given Tylenol she felt little bit better after that. It turns out that her urinalysis did not show any acute bacteria however she did take a single dose of antibiotic A think this is probably the reason her urine analysis is not positive. I do suspect acute urinary tract infection however we will order CT scan of the abdomen and pelvis to rule out any other acute intra-abdominal infection. A chest x-ray was negative. I did speak with Dr. Colon regarding hospital admission. She does have an elevated white count and in the setting of her MS generalized weakness, she's not able to function at home in this setting up. I'm not suspicious of acute flare up of her MS rather I think it is the infection is causing generalized weakness and worsening her weakness from the EMS. Vital Signs Temperature 97.7 F 09/19/18 09:55 Pulse Rate 89 09/19/18 09:55 Respiratory Rate 20 09/19/18 09:55 Blood Pressure 107/55 09/19/18 09:55 Pulse Oximetry (%) 100 09/19/18 09:55 Temperature 97.7 F 09/19/18 09:55 Pulse Rate 92 H 09/19/18 12:53 Respiratory Rate 20 09/19/18 09:55 Blood Pressure 111/58 09/19/18 12:46 Pulse Oximetry (%) 97 09/19/18 12:53 Weakness - MDM Narrative Medical decision making narrative: Impression is urinary tract infection, partially treated. Plan is hospitalization IV fluids, continue with antibiotics. Discussed with Dr. Colon - Lab Data Result diagrams: 09/19/18 10:41 09/19/18 10:41 Lab Results 09/19/18 09/19/18 09/19/18 Range/Units 10:41 10:41 10:41 WBC 17.7 H (4.5-11.0) K/mcL RBC 5.32 H (4.00-5.20) M/mcL Hgb 13.9 (12.0-15.0) g/dL Hct 43.7 (36.0-48.0) % MCV 82.2 (80.0-100.0) fL MCH 26.1 (26.0-34.0) pg MCHC 31.8 (31.0-36.0) g/dL RDW 15.4 H (11.5-14.5) % Plt Count 504 H (140-440) K/mcL MPV 8.1 (7.4-10.4) fL Gran % 81.7 H (38.0-78.0) % Lymph % (Auto) 7.2 L (15.5-49.0) % Angelina % (Auto) 10.3 (1.0-12.0) % Eos % (Auto) 0.7 (0.0-7.0) % Baso % (Auto) 0.1 (0.0-2.0) % Gran # 14.4 H (1.8-8.0) K/mcL Lymph # (Auto) 1.3 L (1.5-4.8) K/mcL Angelina # (Auto) 1.8 H (0.1-0.9) K/mcL Eos # (Auto) 0.1 (0.0-0.7) K/mcL Baso # (Auto) 0 (0.0-0.3) K/mcL ESR 39 H (0-20) mm/hr VBG Lactic Acid 1.7 (0.5-2.0) mmol/L Sodium 140 (133-145) mmol/L Potassium 3.4 (3.3-5.1) mmol/L Chloride 98 (96-108) mmol/L Carbon Dioxide 28 (22-30) mmol/L Anion Gap 14.0 (8-16) BUN 18 (8-23) mg/dl Creatinine 0.7 (0.6-1.1) mg/dl GFR Calculation 84 Glucose 88 (70-105) mg/dL Calcium 9.6 (8.6-10.4) mg/dl Total Bilirubin 0.7 (0.0-1.0) mg/dL AST 15 (0-37) U/l ALT 10 (0-40) U/l Alkaline Phosphatase 113 (39-117) U/L Total Protein 6.9 (5.9-8.4) gm/dL Albumin 3.4 (3.2-5.2) gm/dL Globulin 3.5 (2.2-3.7) gm/dL Albumin/Globulin Ratio 1.0 (1.0-2.3) Urine Color Urine Appearance Urine pH (5.0-9.0) Ur Specific [place] (1.000-1.035) Urine Protein (NEG) mg/dL Urine Glucose (UA) (NEG) mg/dL Urine Ketones (NEG) mg/dL Urine Occult Blood (<0.03) mg/dL Urine Nitrate (NEG) Urine Bilirubin (NEG) mg/dL Urine Urobilinogen (NEG) mg/dL Ur Leukocyte Esterase (NEG) /uL Urine RBC (0-1) /hpf Urine WBC (0-4) /hpf Ur Squamous Epith Cells (0-4) /hpf Urine Bacteria (0) /hpf Urine Mucus (0) /hpf 09/19/18 Range/Units 10:46 WBC (4.5-11.0) K/mcL RBC (4.00-5.20) M/mcL Hgb (12.0-15.0) g/dL Hct (36.0-48.0) % MCV (80.0-100.0) fL MCH (26.0-34.0) pg MCHC (31.0-36.0) g/dL RDW (11.5-14.5) % Plt Count (140-440) K/mcL MPV (7.4-10.4) fL Gran % (38.0-78.0) % Lymph % (Auto) (15.5-49.0) % Angelina % (Auto) (1.0-12.0) % Eos % (Auto) (0.0-7.0) % Baso % (Auto) (0.0-2.0) % Gran # (1.8-8.0) K/mcL Lymph # (Auto) (1.5-4.8) K/mcL Angelina # (Auto) (0.1-0.9) K/mcL Eos # (Auto) (0.0-0.7) K/mcL Baso # (Auto) (0.0-0.3) K/mcL ESR (0-20) mm/hr VBG Lactic Acid (0.5-2.0) mmol/L Sodium (133-145) mmol/L Potassium (3.3-5.1) mmol/L Chloride (96-108) mmol/L Carbon Dioxide (22-30) mmol/L Anion Gap (8-16) BUN (8-23) mg/dl Creatinine (0.6-1.1) mg/dl GFR Calculation Glucose (70-105) mg/dL Calcium (8.6-10.4) mg/dl Total Bilirubin (0.0-1.0) mg/dL AST (0-37) U/l ALT (0-40) U/l Alkaline Phosphatase (39-117) U/L Total Protein (5.9-8.4) gm/dL Albumin (3.2-5.2) gm/dL Globulin (2.2-3.7) gm/dL Albumin/Globulin Ratio (1.0-2.3) Urine Color Yellow Urine Appearance Hazy Urine pH 5.0 (5.0-9.0) Ur Specific [place] 1.020 (1.000-1.035) Urine Protein 30 A (NEG) mg/dL Urine Glucose (UA) Negative (NEG) mg/dL Urine Ketones 20 A (NEG) mg/dL Urine Occult Blood 0.03 A (<0.03) mg/dL Urine Nitrate Neg (NEG) Urine Bilirubin Neg (NEG) mg/dL Urine Urobilinogen Neg (NEG) mg/dL Ur Leukocyte Esterase Neg (NEG) /uL Urine RBC 3 H (0-1) /hpf Urine WBC 5 H (0-4) /hpf Ur Squamous Epith Cells 1 (0-4) /hpf Urine Bacteria 0 (0) /hpf Urine Mucus Few (0) /hpf Disposition Pt seen by DOT COMPLIANCE SPECIALIST/PA only: No Clinical Impression: UTI (urinary tract infection) Disposition: Xfer As Inpt ([facility]) Referrals: Ivan Yancey DO [Primary Care Provider] -
[2018-09-19] MEDS ORDERED: LACTATED RINGERS 1,000 ML IV ONE (10:25)
[2018-09-19] MEDS ORDERED: ACETAMINOPHEN 325 MG TABLET PO ONE (10:25)
[2018-09-19 11:18] LABS: Basophils # (Auto) 0 K/mcL (0.0-0.3); Basophils % (Auto) 0.1 % (0.0-2.0); Eosinophils # (Auto) 0.1 K/mcL (0.0-0.7); Eosinophils % (Auto) 0.7 % (0.0-7.0); Granulocytes % (Auto) 81.7 % (38.0-78.0); Lymphocytes # (Auto) 1.3 K/mcL (1.5-4.8); Lymphocytes % (Auto) 7.2 % (15.5-49.0); Mean Cell Volume 82.2 fL (80.0-100.0); Mean Corpuscular HGB Conc 31.8 g/dL (31.0-36.0); Monocytes # (Auto) 1.8 K/mcL (0.1-0.9); Monocytes % (Auto) 10.3 % (1.0-12.0); Platelet Count 504 K/mcL (140-440); RBC 5.32 M/mcL (4.00-5.20); Red Cell Distribution Width 15.4 % (11.5-14.5)
[2018-09-19 11:23] LABS: ALT/SGPT 10 U/l (0-40); Albumin 3.4 gm/dL (3.2-5.2); Alkaline Phosphatase 113 U/L (39-117); Blood Urea Nitrogen 18 mg/dl (8-23)
[2018-09-19 11:52] LABS: Appearance,Urine HAZY; Bacteria,Urine 0 /hpf (0); Bilirubin,Urine NEG (NEG); Color,Urine YELLOW; Glucose,Urine (UA) NEGATIVE (NEG); Leukocyte Esterase,Urine NEG /uL (NEG); Mucus,Urine FEW /hpf (0); Protein,Urine 30 mg/dL (NEG); Urine Blood 0.03 mg/dL (<0.03); Urine RBC 3 /hpf (0-1); Urine Squamous Epithelial Cell 1 /hpf (0-4); Urine WBC 5 /hpf (0-4); Urobilinogen,Urine NEG (NEG)
[2018-09-19 12:03] LABS: Erythrocyte Sedimentation Rate 39 mm/hr (0-20)
[2018-09-19] MEDS ORDERED: cefTRIAXone 1 GM VIAL IV ONE (12:44)
[2018-09-19] MEDS ORDERED: 0.9 % SODIUM CHLORIDE 1,000 ML IV ONE (13:01)
--- NOTE | 2018-09-19 13:40 | XRay Report ---
HISTORY: Increased weakness FINDINGS: Mild dextroscoliotic curvature is present. The heart is borderline enlarged. The pulmonary vessels are normal in caliber. The lungs are clear. There is minor blunting of the right costophrenic sulcus. This is probably scar. The aorta and innominate artery are tortuous. Arthritis is present in both shoulders as well as the spine. Comparison with the prior exam from 08/22/18 shows no significant change. IMPRESSION: No acute abnormality Interpreted and Authenticated by: Reg Adames 09/19/18
--- NOTE | 2018-09-19 16:22 | Internal Med History&Physical ---
Medical - H&P: [facility] Patient information: Note initiated : 09/19/18 at 4:19 pm Service Date, if different from initiated Date: [] Patient: Inna Selby a 78 y/o F admitted on for Weakness. Chief Complaint: [] History of present illness: Ms. Selby is a 78 year old F Presents with severe generalized weakness. Has been unable to care for her at home. These episodes are usually secondary to urinary tract infection. She did take a Cipro at home. Urinalysis was unimpressive, however patient did take the antibiotics at home. CT abdomen pelvis was done which per discussion with ED physician was unremarkable. Last night she slid out of bed and called the living room and was unable to get up into a chair. She is found to have a leukocytosis. Lactic acid was okay. Admission was requested giving severe generalized weakness and ability to be cared for at home and urinary tract infection. Not felt to be related to an MS flare. Chest x- ray was unremarkable. She mentions may be she had a fever but then states she does not think she did. She states very minimal mild cough states she does not really have one. No recent sick contacts. She thought she was normal state of health yesterday. Review of Systems: Pertinent positives as above. Denies headache/fever/chills/nausea/vomiting/chest or abdominal pain/cough/dyspnea/diarrhea. Otherwise see above. Medical - H&P: H Medical history: Medical History (Last Reviewed 08/10/18 @ 13:03 by Joie Wood PA-C) Delirium (Acute) Pneumonitis (Acute) Hypoxia (Acute) Multiple sclerosis exacerbation (Acute) Systemic inflammatory response syndrome (SIRS) due to infectious process without acute organ dysfunction (Acute) Urinary tract infection (Acute) Vaginitis (Acute) Cystitis (Acute) Yeast dermatitis (Acute) Sepsis (Acute) Complicated UTI (urinary tract infection) (Acute) Colitis (Acute) UTI (urinary tract infection) (Acute) Anemia (Acute) Rib fractures (Acute) Anemia (Acute) Severe sepsis (Acute) Clostridium difficile colitis (Acute) Laceration (Acute) Encounter for removal of sutures (Acute) Multiple sclerosis (Chronic) Past Surgical History (Last Reviewed 08/10/18 @ 13:03 by Joie Wood PA-C) History of colonoscopy (Chronic 04/11/17) History of esophagogastroduodenoscopy (EGD) (Chronic 04/02/17) Family history: Her mother and father both had heart disease Social History (Last Updated 08/10/18 @ 13:07 by Joie Wood PA-C) Quit smoking 1985 Drinks a glass of wine 1 time per week He is walker to ambulate Lives at home with her Medical - H&P: Meds Home Medications Medication Instructions Recorded Confirmed Type Aspirin [Aspirin EC] 81 mg PO DAILY 03/07/17 06/26/18 History Latanoprost Ophth Drops [Xalatan 1 gtt OU HS 03/07/17 08/10/18 History Ophth Drops] cholecalciferol (vitamin D3) 5,000 10,000 unit PO QDAY 03/24/17 08/10/18 History unit capsule Lactobacillus [Culturelle] 1 cap PO BID #60 cap 07/31/17 08/10/18 Rx oxybutynin chloride 5 mg tablet 5 mg PO BID #180 tab 10/22/17 08/10/18 Rx baclofen 10 mg tablet 10 mg PO TID #270 tab 11/19/17 08/10/18 Rx furosemide 40 mg tablet 40 mg PO BID #180 tab 11/26/17 08/10/18 Rx metoprolol tartrate 50 mg tablet 50 mg PO BID #180 tab 11/26/17 08/10/18 Rx amantadine HCl 100 mg tablet 100 mg PO BID #180 tab 05/04/18 08/10/18 Rx ferrous sulfate 325 mg (65 mg 325 mg PO QDAY tab 08/10/18 History iron) tablet,delayed release leg brace See Dose Instructions .ROUTE 08/10/18 08/10/18 Rx .MEDSUPPLY #1 each potassium chloride ER 20 mEq 20 meq PO BID tab 08/10/18 History tablet,extended release(part/cryst) Ciprofloxacin [Cipro] 500 mg PO BID #20 tab 08/22/18 Rx nifedipine ER 30 mg 30 mg PO DAILY #90 tab 09/02/18 Rx tablet,extended release Allergies Allergy/AdvReac Type Severity Reaction Status Date / Time Penicillins Allergy Mild Swelling Verified 09/08/18 14:50 Medical - H&P: Exam - Constitutional Vitals: Temp Pulse Resp BP Pulse Ox 97.7 F 86 20 109/66 93 09/19/18 09:55 09/19/18 15:14 09/19/18 09:55 09/19/18 15:01 09/19/18 15:14 Exam: General: Alert, Awake, No acute Distress Eyes/N/T: EOMI, left pupil chronically larger than right, DMM Head/Neck: neck supple, normocephalic atraumatic CV: RRR, No murmurs, normal s1/s2 Pulm: Clear b/l, no wheezing/rhonchi/rales Abd: soft, nontender, +BS x4 Ext: no clubbing/cyanosis/edema Neuro: Alert, 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, 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 and sensations intact upper extremities, cranial nerves II through XII grossly inta ct Skin: warm/dry Medical - H&P: Reslt - Labs CBC & Chem 7: 09/19/18 10:41 09/19/18 10:41 Labs: Short CBC 09/19/18 Range/Units 10:41 WBC 17.7 H (4.5-11.0) K/mcL Hgb 13.9 (12.0-15.0) g/dL Hct 43.7 (36.0-48.0) % Plt Count 504 H (140-440) K/mcL BMP 09/19/18 10:41 Sodium 140 Potassium 3.4 Chloride 98 Carbon Dioxide 28 BUN 18 Creatinine 0.7 Glucose 88 Calcium 9.6 Liver Function 09/19/18 Range/Units 10:41 Total Bilirubin 0.7 (0.0-1.0) mg/dL AST 15 (0-37) U/l ALT 10 (0-40) U/l Alkaline Phosphatase 113 (39-117) U/L Albumin 3.4 (3.2-5.2) gm/dL Urine 09/19/18 Range/Units 10:46 Urine Color Yellow Urine Appearance Hazy Urine pH 5.0 (5.0-9.0) Ur Specific [place] 1.020 (1.000-1.035) Urine Protein 30 A (NEG) mg/dL Urine Glucose (UA) Negative (NEG) mg/dL - Impressions As per above Medical - H&P: A/P - Narrative A/P Narrative: A: *? UTI: *MS flare: She had a similar presentation in June with a UTI at that time and case was discussed with [place] neurologist who recommended treating at that time with the high-dose steroids for 3 days *Volume depletion *Generalized weakness/deconditioning/debility: Secondary to above *HTN: On metoprolol and nifedipine *Raynaud's: Is on nifedipine *Chronic bowel bladder incontinence *Multiple sclerosis: Follows with Dr. Paiz * P: -IVF -Rocephin -High-dose IV corticosteroids for 3 days -Continue home MS meds -Continue home blood pressure medications - -PT/OT -ppx:
[2018-09-19] MEDS ORDERED: PROCHLORPERAZINE 10 MG/2 ML VIAL IV PRN (17:36)
[2018-09-19] MEDS ORDERED: cefTRIAXone 1 GM in DEXTROSE 5% IN WATER 50 ML IV SCH (17:36)
[2018-09-19] MEDS ORDERED: IPRATROPIUM/ALBUTEROL 3 ML AMPUL.NEB NEB PRN (17:36)
[2018-09-19] MEDS ORDERED: ONDANSETRON 4 MG/2 ML VIAL IV PRN (17:36)
[2018-09-19] MEDS ORDERED: ACETAMINOPHEN 325 MG TABLET PO PRN (17:36)
--- NOTE | 2018-09-19 18:00 | Cat Scan Report ---
CLINICAL INFORMATION: Urinary tract infection, abdominal pain and weakness COMPARISON: 07/22/17 TECHNIQUE: Following oral contrast and the injection of intravenous contrast the patient was scanned during the portal venous phase from the diaphragm through the symphysis pubis. Sagittal and coronal reformats were created.. The radiation exposure was limited using dose reduction technology. FINDINGS: Heart is mildly enlarged and there is a very small pericardial effusion. Tiny bilateral pleural effusions are present and there is mild interstitial fibrosis and/or dependent atelectasis posteriorly in both lung bases. Small bands of scar tissue are seen in the right middle lobe and inferior segment of lingula. Patient had moderate consolidation of both lung bases and moderate-sized bilateral pleural effusions on 07/22/17. The pericardial effusion is new. The liver is normal in size. The gallbladder is been removed. There is mild dilatation of the intrahepatic ducts. Common bile duct measures approximately 6 mm in size. There is no evidence of a mass or stone in the distal common bile duct near the ampulla. The bile ducts are 1 to 2 mm larger today than they were in 2018. The pancreas appears normal without evidence of a mass or inflammation. The spleen is normal in size and homogeneous. The adrenals are normal. Kidneys are normal in size shape and contour. There is prominence of the extrarenal pelvis bilaterally but there is no caliectasis. The ureters are decompressed. There is no radiographic evidence of pyelonephritis. No kidney stone or renal mass are present. There is no perinephric stranding. Oral contrast has passed through the small intestine to the distal colon without obstruction. There is a moderate amount stool in the descending and sigmoid colon but without evidence of bowel obstruction or diverticulitis. The uterus and ovaries have been resected. There is no evidence of pelvic mass, ascites, abscess or adenopathy. The urinary bladder is decompressed by Rogers catheter. There are degenerative changes and scoliosis in the lumbar spine. IMPRESSION: Mildly prominent renal pelvis in both kidneys but without evidence of hydronephrosis. Kidneys otherwise appear normal. Mild prominence of the intra and extrahepatic bile ducts. This should be correlated with patient's liver enzymes and bilirubin level. This could be a normal finding following cholecystectomy There is small pericardial effusion. Dr. Hale was called with the results Interpreted and Authenticated by: Reg Adames 09/19/18
[2018-09-19] MEDS: LACTOBACILLUS 1 CAPSULE PO SCH (20:50)
[2018-09-19] MEDS: OXYBUTYNIN CHLORIDE 5 MG TABLET PO SCH (20:50)
[2018-09-19] MEDS: METOPROLOL TARTRATE 50 MG TABLET PO SCH (20:51)
[2018-09-19] MEDS: DOCUSATE SODIUM 100 MG CAPSULE PO SCH (20:51)
[2018-09-19] MEDS: BACLOFEN 10 MG TABLET PO SCH (20:51)
[2018-09-19] MEDS: LATANOPROST OPHTH DROPS 2.5ML BOTTLE OU SCH (20:53)
[2018-09-19] MEDS: AMANTADINE HCL 100 MG CAPSULE PO SCH (20:57)
[2018-09-19] MEDS: methylPREDNISolone SOD SUCC 1,000 MG in 0.9 % SODIUM CHLORIDE 100 ML IV SCH (23:07)
[2018-09-19] MEDS: 0.9 % SODIUM CHLORIDE 10 ML SYRINGE IV SCH (23:15)
[2018-09-20] MEDS: 0.9 % SODIUM CHLORIDE 10 ML SYRINGE IV SCH ×3 (05:40→20:25)
[2018-09-20 06:17] LABS: Basophils # (Auto) 0 K/mcL (0.0-0.3); Basophils % (Auto) 0 % (0.0-2.0); Eosinophils # (Auto) 0 K/mcL (0.0-0.7); Eosinophils % (Auto) 0 % (0.0-7.0); Granulocytes % (Auto) 96.1 % (38.0-78.0); Lymphocytes # (Auto) 0.4 K/mcL (1.5-4.8); Lymphocytes % (Auto) 2.1 % (15.5-49.0); Mean Cell Volume 82.4 fL (80.0-100.0); Mean Corpuscular HGB Conc 32.6 g/dL (31.0-36.0); Monocytes # (Auto) 0.4 K/mcL (0.1-0.9); Monocytes % (Auto) 1.8 % (1.0-12.0); Platelet Count 463 K/mcL (140-440); Red Cell Distribution Width 15.5 % (11.5-14.5)
[2018-09-20 06:42] LABS: ALT/SGPT 9 U/l (0-40); Albumin 3.5 gm/dL (3.2-5.2); Albumin/Globulin Ratio 1.1 (1.0-2.3); Alkaline Phosphatase 123 U/L (39-117); Bilirubin,Direct < 0.2 mg/dL (0.0-0.3); Blood Urea Nitrogen 13 mg/dl (8-23); Gamma Glutamyl Transpeptidase 15 U/L (5-36); Uric Acid 3.1 mg/dL (2.5-8.0)
--- NOTE | 2018-09-20 08:04 | Internal Med Progress Note ---
Medical - PN: Subj Patient information: Note initiated : 09/20/18 at 8:01 am Service Date, if different from initiated Date: [] Patient: Inna Selby 78 y/o F admitted on 09/19/18 for Weakness. Chief Complaint: [] Interval history: Ms. Selby is a 78 year old F Presents with severe generalized weakness. Has been unable to care for her at home. These episodes are usually secondary to urinary tract infection. She did take a Cipro at home. Urinalysis was unimpressive, however patient did take the antibiotics at home. CT abdomen pelvis was done which per discussion with ED physician was unremarkable. Last night she slid out of bed and called the living room and was unable to get up into a chair. She is found to have a leukocytosis. Lactic acid was okay. Admission was requested giving severe generalized weakness and ability to be cared for at home and urinary tract infection. Not felt to be related to an MS flare. Chest x- ray was unremarkable. She mentions may be she had a fever but then states she does not think she did. She states very minimal mild cough states she does not really have one. No recent sick contacts. She thought she was normal state of health yesterday. 09/20 Patient slept well. Feels a little bit stronger. Denies any complaints. Received first of 3 doses of Solu-Medrol yesterday. Was able to walk to the bathroom this morning with assistance. Review of Systems: denies headache/fever/chills/nausea/vomiting/chest or abdominal pain/cough/dyspnea/diarrhea. Otherwise see above. - Constitutional Vitals: Vital Signs Temp Pulse Resp BP Pulse Ox 97.2 F 80 20 113/57 96 09/20/18 06:32 09/20/18 04:00 09/20/18 06:32 09/20/18 06:32 09/20/18 06:32 Period Temp Pulse Resp BP Sys/Ellis Pulse Ox Last 24 Hr 96.7 F-98.1 F 80-96 16-20 107-138/55-76 82-100 Intake and Output 09/19/18 09/20/18 09/20/18 21:59 05:59 13:59 Intake Total 1000 400 Output Total 650 Balance 1000 -250 Weight 49.442 kg Intake & Output: Intake & Output 09/19/18 09/20/18 09/20/18 21:59 05:59 13:59 Intake Total 1000 400 Output Total 650 Balance 1000 -250 Weight 49.442 kg Intake: IV 1000 100 Sodium Chloride 0.9% 1,000 ml @ 1000 Wide Open IV [facility] Rx#: [id number] Solu-MEDROL 1,000 MG In Sodium 100 Chloride 0.9% 100 ml @ 100 mls/ hr IV DAILY [facility] Rx#:[id number] Oral 300 Output: Void Amount 650 Other: Feeding Ability Independent Urine Appearance Clear Uretheral (Rogers) Clear Urine Color Pale Uretheral (Rogers) Pale Urine Odor Normal Stool Size Small Large Stool Color Brown Brown Stool Consistency Soft Formed # of times incontinent of 1 1 Bowels Exam: General: Alert, Awake, No acute Distress Eyes/N/T: EOMI, left pupil chronically larger than right, DMM Head/Neck: neck supple CV: RRR, No murmurs, Pulm: Clear b/l, no wheezing/rhonchi/rales Abd: soft, nontender, +BS x4 Ext: no clubbing/cyanosis/edema Neuro: Alert, 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, generalized weakness but improved strength all extremities today Skin: warm/dry Medical - PN: Obj Da - Labs CBC & Chem 7: 09/20/18 04:58 09/20/18 04:58 Labs: Abnormal Lab Results 09/20/18 09/20/18 09/19/18 04:58 04:58 10:46 WBC 20.8 H RBC RDW 15.5 H Plt Count 463 H Gran % 96.1 H Lymph % (Auto) 2.1 L Gran # 20.0 H Lymph # (Auto) 0.4 L [place] # (Auto) ESR Glucose 159 H Alkaline Phosphatase 123 H Lactate Dehydrogenase 274 H Urine Protein 30 A Urine Ketones 20 A Urine Occult Blood 0.03 A Urine RBC 3 H Urine WBC 5 H 09/19/18 10:41 WBC 17.7 H RBC 5.32 H RDW 15.4 H Plt Count 504 H Gran % 81.7 H Lymph % (Auto) 7.2 L Gran # 14.4 H Lymph # (Auto) 1.3 L [place] # (Auto) 1.8 H ESR 39 H Glucose Alkaline Phosphatase Lactate Dehydrogenase Urine Protein Urine Ketones Urine Occult Blood Urine RBC Urine WBC Meds: Medications Acetaminophen (Tylenol) 650 mg PO Q6HP PRN PRN Reason: PAIN/FEVER > 101 Albuterol/Ipratropium (Duoneb) 3 ml NEB Q6HRT PRN PRN Reason: Bronchospasm Amantadine HCl (Amantadine) 100 mg PO BID [facility] Last Admin: 09/19/18 20:57 Dose: 100 mg Documented by: Aspirin (Aspirin) 81 mg PO DAILY [facility] Baclofen (Lioresal) 10 mg PO TID [facility] Last Admin: 09/19/18 20:51 Dose: 10 mg Documented by: Ceftriaxone Sodium (Rocephin) 1 gm IV Q24H [facility] Docusate Sodium (Colace) 100 mg PO BID [facility] Last Admin: 09/19/18 20:51 Dose: 100 mg Documented by: Enoxaparin Sodium (Lovenox) 30 mg SQ DAILY [facility] Furosemide (Lasix) 40 mg PO DAILY [facility] Methylprednisolone Sodium Succinate 1,000 mg/ Sodium Chloride 100 mls @ 100 mls/hr IV DAILY [facility] Stop: 09/21/18 09:59 Last Infusion: 09/20/18 02:07 Dose: Infused Documented by: Lactobacillus Rhamnosus (Culturelle) 1 cap PO BID [facility] Last Admin: 09/19/18 20:50 Dose: 1 cap Documented by: Latanoprost (Xalatan Ophth Drops) 1 gtt OU HS [facility] Last Admin: 09/19/18 20:53 Dose: Not Given Documented by: Metoprolol Tartrate (Lopressor) 50 mg PO BID [facility] Last Admin: 09/19/18 20:51 Dose: 50 mg Documented by: Nifedipine (Procardia Xl) 30 mg PO DAILY [facility] Ondansetron HCl (Zofran) 4 mg IV Q6HP PRN PRN Reason: Nausea And Vomiting Oxybutynin Chloride (Ditropan) 5 mg PO BID [facility] Last Admin: 09/19/18 20:50 Dose: 5 mg Documented by: Pot[facility] Prochlorperazine (Compazine) 5 mg IV Q4HP PRN PRN Reason: Nausea And Vomiting Sodium Chloride (Saline Flush) 10 ml IV Q8 [facility] Last Admin: 09/20/18 05:40 Dose: Not Given Documented by: Medical - PN: A/P - Time Spent With Patient Total time spent is greater than 50% in coordination of care (as documented) at patient's floor/unit and/or counseling patient: - Narrative A/P Narrative: A: *? UTI: *MS flare: She had a similar presentation in June with a UTI at that time and case was discussed with [place] neurologist who recommended treating at that time with the high-dose steroids for 3 days *Volume depletion: *Generalized weakness/deconditioning/debility: Secondary to above *HTN: On metoprolol and nifedipine *Raynaud's: Is on nifedipine *Chronic bowel bladder incontinence *Multiple sclerosis: Follows with Dr. Paiz * P: - -Rocephin -High-dose IV corticosteroids for 3 days -Continue home MS meds -Continue home blood pressure medications - -PT/OT -ppx: Lovenox Medical - PN: Qual - VTE Deep Vein Thrombosis/Pulmonary Embolism Present on Admission: No
[2018-09-20] MEDS ORDERED: NYSTATIN CRM 1 DOSE TUBE TOPICAL PRN (08:13)
[2018-09-20] MEDS: OXYBUTYNIN CHLORIDE 5 MG TABLET PO SCH ×2 (09:24→20:24)
[2018-09-20] MEDS: LACTOBACILLUS 1 CAPSULE PO SCH ×2 (09:24→20:24)
[2018-09-20] MEDS: BACLOFEN 10 MG TABLET PO SCH ×3 (09:24→20:24)
[2018-09-20] MEDS: POTASSIUM CHLORIDE 20 MEQ TABLET PO SCH ×2 (09:24→17:13)
[2018-09-20] MEDS: ASPIRIN 81 MG TAB.CHEW PO SCH (09:25)
[2018-09-20] MEDS: METOPROLOL TARTRATE 50 MG TABLET PO SCH ×2 (09:27→20:24)
[2018-09-20] MEDS: DOCUSATE SODIUM 100 MG CAPSULE PO SCH ×2 (09:27→20:24)
[2018-09-20] MEDS: FUROSEMIDE 40 MG TABLET PO SCH (09:27)
[2018-09-20] MEDS: NIFEdipine 30 MG TAB.XL.24H PO SCH (09:28)
[2018-09-20] MEDS: ENOXAPARIN 30 MG/0.3 ML SYRINGE SQ SCH (09:28)
[2018-09-20] MEDS: methylPREDNISolone SOD SUCC 1,000 MG in 0.9 % SODIUM CHLORIDE 100 ML IV SCH (09:28)
[2018-09-20] MEDS: cefTRIAXone 1 GM VIAL IV SCH (09:28)
[2018-09-20] MEDS: AMANTADINE HCL 100 MG CAPSULE PO SCH ×2 (11:08→20:24)
[2018-09-20] MEDS: INSULIN LISPRO 1 UNIT/0.01 ML UNIT SQ SCH ×3 (11:19→20:23)
[2018-09-20] MEDS: LATANOPROST OPHTH DROPS 2.5ML BOTTLE OU SCH (20:24)
[2018-09-21] MEDS: 0.9 % SODIUM CHLORIDE 10 ML SYRINGE IV SCH ×3 (04:41→21:38)
--- NOTE | 2018-09-21 07:56 | Internal Med Progress Note ---
Medical - PN: Subj Patient information: Note initiated : 09/21/18 at 7:55 am Service Date, if different from initiated Date: [] Patient: Inna Selby 78 y/o F admitted on 09/19/18 for Weakness. Chief Complaint: [] Interval history: Ms. Selby is a 78 year old F Presents with severe generalized weakness. Has been unable to care for her at home. These episodes are usually secondary to urinary tract infection. She did take a Cipro at home. Urinalysis was unimpressive, however patient did take the antibiotics at home. CT abdomen pelvis was done which per discussion with ED physician was unremarkable. Last night she slid out of bed and called the living room and was unable to get up into a chair. She is found to have a leukocytosis. Lactic acid was okay. Admission was requested giving severe generalized weakness and ability to be cared for at home and urinary tract infection. Not felt to be related to an MS flare. Chest x- ray was unremarkable. She mentions may be she had a fever but then states she does not think she did. She states very minimal mild cough states she does not really have one. No recent sick contacts. She thought she was normal state of health yesterday. 09/20 Patient slept well. Feels a little bit stronger. Denies any complaints. Received first of 3 doses of Solu-Medrol yesterday. Was able to walk to the bathroom this morning with assistance. 09/21 Continues to feel stronger. Feeling better slept well. Doing better with physical therapy and able to ambulate with a walker. Receiving total of 3 doses high-dose Solu-Medrol, last dose today. Review of Systems: denies headache/fever/chills/nausea/vomiting/chest or abdominal pain/cough/dyspnea/diarrhea. Otherwise see above. - Constitutional Vitals: Vital Signs Temp Pulse Resp BP Pulse Ox 98.6 F 76 16 126/72 91 09/21/18 06:22 09/21/18 04:00 09/21/18 06:22 09/21/18 06:22 09/21/18 06:22 Period Temp Pulse Resp BP Sys/Ellis Pulse Ox Last 24 Hr 97.1 F-98.6 F 75-90 12-20 100-128/58-77 91-98 Intake and Output 0409/21/18 09/21/18 21:59 05:59 13:59 Intake Total 590 300 100 Output Total 450 400 Balance 140 -100 100 Weight 48.534 kg Intake & Output: Intake & Output 09/20/18 09/21/18 09/21/18 21:59 05:59 13:59 Intake Total 590 300 100 Output Total 450 400 Balance 140 -100 100 Weight 48.534 kg Intake: IV 100 Solu-MEDROL 1,000 MG In Sodium 100 Chloride 0.9% 100 ml @ 100 mls/ hr IV DAILY [facility] Rx#:[id number] Oral 590 300 Output: Urine Catheter Amount 450 400 Other: Meal Dinner Percent of Meal Consumed 100% Feeding Ability Independent Urine Appearance Clear Urine Color Dark Yellow Dark Yellow Uretheral (Rogers) Bright Yellow Urine Odor Normal Stool Size Small Moderate Stool Color Brown Brown Stool Consistency Soft Soft Loose Loose # of times incontinent of 1 1 Bowels Exam: General: Alert, Awake, No acute Distress Eyes/N/T: EOMI, left pupil chronically larger than right, DMM Head/Neck: neck supple CV: RRR, No murmurs, Pulm: Clear b/l, no wheezing/rhonchi/rales Abd: soft, nontender, +BS x4 Ext: no clubbing/cyanosis/edema Neuro: Alert, 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, moves all extremities, able to ambulate with walker Skin: warm/dry Medical - PN: Obj Da - Labs CBC & Chem 7: 09/20/18 04:58 09/20/18 04:58 Labs: Abnormal Lab Results 09/20/18 09/20/18 09/19/18 04:58 04:58 10:46 WBC 20.8 H RBC RDW 15.5 H Plt Count 463 H Gran % 96.1 H Lymph % (Auto) 2.1 L Gran # 20.0 H Lymph # (Auto) 0.4 L [place] # (Auto) ESR Glucose 159 H Alkaline Phosphatase 123 H Lactate Dehydrogenase 274 H Urine Protein 30 A Urine Ketones 20 A Urine Occult Blood 0.03 A Urine RBC 3 H Urine WBC 5 H 09/19/18 10:41 WBC 17.7 H RBC 5.32 H RDW 15.4 H Plt Count 504 H Gran % 81.7 H Lymph % (Auto) 7.2 L Gran # 14.4 H Lymph # (Auto) 1.3 L [place] # (Auto) 1.8 H ESR 39 H Glucose Alkaline Phosphatase Lactate Dehydrogenase Urine Protein Urine Ketones Urine Occult Blood Urine RBC Urine WBC Meds: Medications Acetaminophen (Tylenol) 650 mg PO Q6HP PRN PRN Reason: PAIN/FEVER > 101 Albuterol/Ipratropium (Duoneb) 3 ml NEB Q6HRT PRN PRN Reason: Bronchospasm Amantadine HCl (Amantadine) 100 mg PO BID [facility] Last Admin: 09/20/18 20:24 Dose: 100 mg Documented by: Aspirin (Aspirin) 81 mg PO DAILY [facility] Last Admin: 09/20/18 09:25 Dose: 81 mg Documented by: Baclofen (Lioresal) 10 mg PO TID [facility] Last Admin: 09/20/18 20:24 Dose: 10 mg Documented by: Ceftriaxone Sodium (Rocephin) 1 gm IV Q24H [facility] Last Admin: 09/20/18 09:28 Dose: 1 gm Documented by: Diagnostic Test (Pha) (Accu-Chek) 1 each FS [facility]; Protocol Last Admin: 09/20/18 20:23 Dose: 1 each Documented by: Docusate Sodium (Colace) 100 mg PO BID [facility] Last Admin: 09/20/18 20:24 Dose: Not Given Documented by: Enoxaparin Sodium (Lovenox) 30 mg SQ DAILY [facility] Last Admin: 09/20/18 09:28 Dose: 30 mg Documented by: Furosemide (Lasix) 40 mg PO DAILY [facility] Last Admin: 09/20/18 09:27 Dose: Not Given Documented by: Methylprednisolone Sodium Succinate 1,000 mg/ Sodium Chloride 100 mls @ 100 mls/hr IV DAILY [facility] Stop: 09/21/18 09:59 Last Infusion: 09/21/18 07:04 Dose: Infused Documented by: Insulin Human Lispro (Humalog) 0 unit SQ [facility]; Protocol Last Admin: 09/20/18 20:23 Dose: 2 units Documented by: Lactobacillus Rhamnosus (Culturelle) 1 cap PO BID [facility] Last Admin: 09/20/18 20:24 Dose: 1 cap Documented by: Latanoprost (Xalatan Ophth Drops) 1 gtt OU HS [facility] Last Admin: 09/20/18 20:24 Dose: Not Given Documented by: Metoprolol Tartrate (Lopressor) 50 mg PO BID [facility] Last Admin: 09/20/18 20:24 Dose: 50 mg Documented by: Nifedipine (Procardia Xl) 30 mg PO DAILY [facility] Last Admin: 09/20/18 09:28 Dose: Not Given Documented by: Nystatin (Nystatin Crm) 1 dose TOPICAL TIDP PRN PRN Reason: Skin Irritation Last Admin: 09/20/18 23:11 Dose: 1 dose Documented by: Ondansetron HCl (Zofran) 4 mg IV Q6HP PRN PRN Reason: Nausea And Vomiting Oxybutynin Chloride (Ditropan) 5 mg PO BID [facility] Last Admin: 09/20/18 20:24 Dose: 5 mg Documented by: [facility] Last Admin: 09/20/18 17:13 Dose: 20 meq Documented by: Prochlorperazine (Compazine) 5 mg IV Q4HP PRN PRN Reason: Nausea And Vomiting Sodium Chloride (Saline Flush) 10 ml IV Q8 [facility] Last Admin: 09/21/18 04:41 Dose: 10 ml Documented by: Medical - PN: A/P - Time Spent With Patient Total time spent is greater than 50% in coordination of care (as documented) at patient's floor/unit and/or counseling patient: - Narrative A/P Narrative: A: *MS flare: She had a similar presentation in June with a UTI at that time and case was discussed with [place] neurologist who recommended treating at at time with the high-dose steroids for 3 days -improving *? UTI: UC no growth *Generalized weakness/deconditioning/debility: Secondary to above *Volume depletion: resolved *HTN: On metoprolol and nifedipine *Raynaud's: Is on nifedipine *Chronic bowel bladder incontinence *Multiple sclerosis: Follows with Dr. Paiz * P: -High-dose IV corticosteroids for 3 days -Rocephin -Continue home blood pressure medications -f/u with neuro outpt -PT/OT -ppx: Lovenox likely d/c tomorrow home vs SNF Medical - PN: Qual - VTE Deep Vein Thrombosis/Pulmonary Embolism Present on Admission: No
[2018-09-21] MEDS: INSULIN LISPRO 1 UNIT/0.01 ML UNIT SQ SCH ×4 (08:10→21:52)
[2018-09-21] MEDS: cefTRIAXone 1 GM VIAL IV SCH (10:28)
[2018-09-21] MEDS: methylPREDNISolone SOD SUCC 1,000 MG in 0.9 % SODIUM CHLORIDE 100 ML IV SCH (10:28)
--- NOTE | 2018-09-21 11:11 | Discharge Summary ---
Medical - DS: Prov Patient information: Note initiated : 09/21/18 at 11:09 am Service Date, if different from initiated Date: [] Patient: Inna Selby 78 y/o F admitted on 09/19/18 for Weakness. Chief Complaint: [] Date of admission: 09/19/18 17:19 Discharge date: 09/22/18 Primary care physician: Ivan Yancey Consults: 09/19/18 13:01 Consult to Physician [CONS] Stat Comment: Consulting Provider: Gio Queen Reason For Exam: Physician to Consult Medical - DS: Meds - Discharge Medications Active and Home Medications: Home Medications Aspirin [Aspirin EC] 81 mg PO DAILY 03/07/17 [History Confirmed 09/19/18 Last Taken 07/05/18] Latanoprost Ophth Drops [Xalatan Ophth Drops] 1 gtt OU HS 03/07/17 [History Confirmed 09/19/18 Last Taken 09/18/18 21:00] cholecalciferol (vitamin D3) 5,000 unit capsule 10,000 unit PO QDAY 03/24/17 [History Confirmed 09/19/18 Last Taken 09/18/18 09:00] Lactobacillus [Culturelle] 1 cap PO BID #60 cap 07/31/17 [Rx Confirmed 09/19/18 Last Taken 09/18/18 21:00] oxybutynin chloride 5 mg tablet 5 mg PO BID #180 tab 10/22/17 [Rx Confirmed 09/19/18 Last Taken 09/18/18 21:00] baclofen 10 mg tablet 10 mg PO TID #270 tab 11/19/17 [Rx Confirmed 09/19/18 Last Taken 09/18/18 21:00] furosemide 40 mg tablet 40 mg PO BID #180 tab 11/26/17 [Rx Confirmed 09/19/18 Last Taken 09/18/18 21:00] metoprolol tartrate 50 mg tablet 50 mg PO BID #180 tab 11/26/17 [Rx Confirmed 09/19/18 Last Taken 09/18/18 21:00] amantadine HCl 100 mg tablet 100 mg PO BID #180 tab 05/04/18 [Rx Confirmed 09/19/18 Last Taken 09/18/18 21:00] ferrous sulfate 325 mg (65 mg iron) tablet,delayed release 325 mg PO QDAY tab 08/10/18 [History Confirmed 09/19/18 Last Taken 09/17/18 09:00] leg brace See Dose Instructions .ROUTE .MEDSUPPLY #1 each 08/10/18 [Rx Confirmed 08/10/18 Last Taken Unknown] potassium chloride ER 20 mEq tablet,extended release(part/cryst) 20 meq PO BID tab 08/10/18 [History Confirmed 09/19/18 Last Taken 09/18/18 21:00] Ciprofloxacin [Cipro] 500 mg PO BID #20 tab 08/22/18 [Rx Confirmed 09/19/18 Last Taken 09/19/18 09:00] nifedipine ER 30 mg tablet,extended release 30 mg PO DAILY #90 tab 09/02/18 [Rx Confirmed 09/19/18 Last Taken 09/18/18 09:00] methylPREDNISolone [Medrol] 4 mg PO PRN PRN 09/19/18 [History Confirmed 09/19/18 Last Taken Unknown] traMADol [Ultram] 50 mg PO Q6HP PRN 09/19/18 [History Confirmed 09/19/18 Last Taken Unknown] Medical - DS: Hosp Hospital course: Mr. eSlby is a 78 year old F Ms. Selby is a 78 year old F Presents with severe generalized weakness. Has been unable to care for her at home. These episodes are usually secondary to urinary tract infection. She did take a Cipro at home. Urinalysis was unimpressive, however patient did take the antibiotics at home. CT abdomen pelvis was done which per discussion with ED physician was unremarkable. Last night she slid out of bed and called the living room and was unable to get up into a chair. She is found to have a leukocytosis. Lactic acid was okay. Admission was requested giving severe generalized weakness and ability to be cared for at home and urinary tract infection. Not felt to be related to an MS flare. Chest x- ray was unremarkable. She mentions may be she had a fever but then states she does not think she did. She states very minimal mild cough states she does not really have one. No recent sick contacts. She thought she was normal state of health yesterday. 09/20 Patient slept well. Feels a little bit stronger. Denies any complaints. Received first of 3 doses of Solu-Medrol yesterday. Was able to walk to the bathroom this morning with assistance. 09/21 Continues to feel stronger. Feeling better slept well. Doing better with physical therapy and able to ambulate with a walker. Receiving total of 3 doses high-dose Solu-Medrol, last dose today. 09/22 Doing well continues to feel better. Awaiting placement. Discharge diagnosis: MS flare volume depletion Secondary discharge diagnosis: Generalized weakness deconditioning debility hypertension raynauds multiple sclerosis - Time Spent with Patient Total time spent providing and/or coordinating discharge services: Greater than 30 minutes Medical - DS: Exam - Constitutional Vitals: Vital Signs Temp Pulse Resp BP BP Pulse Ox 09/21/18 10:31 102/45 09/21/18 06:22 98.6 F 16 126/72 91 09/21/18 04:00 97.1 F 76 18 128/68 97 09/20/18 23:54 97.5 F 76 12 125/69 96 09/20/18 19:00 97.9 F 90 12 127/77 98 09/20/18 15:20 97.7 F 75 16 109/59 96 09/20/18 12:00 97.8 F 20 119/61 97 Intake and Output 09/20/18 09/21/18 09/21/18 21:59 05:59 13:59 Intake Total 590 300 100 Output Total 450 400 Balance 140 -100 100 Intake: IV 100 Solu-MEDROL 1,000 MG In Sodium 100 Chloride 0.9% 100 ml @ 100 mls/ hr IV DAILY [facility] Rx#:[id number] Oral 590 300 Output: Urine Catheter Amount 450 400 Other: Meal Dinner Percent of Meal Consumed 100% Feeding Ability Independent Urine Appearance Clear Urine Color Dark Yellow Dark Yellow Uretheral (Rogers) Bright Yellow Urine Odor Normal Stool Size Small Moderate Stool Color Brown Brown Stool Consistency Soft Soft Loose Loose # of times incontinent of 1 1 Bowels Weight 48.534 kg Medical - DS: A/P - Patient/Caregiver Discharge Instructions Activity: as per physical therapy Diet: Regular Diet - Follow up Plan Follow up with: Ivan Yancey DO [Primary Care Provider] - 09/30/18 2:00 pm Rafael Paiz MD [Physician] - Disposition: Xfer SNF Prognosis: Fair Rehab Potential: Fair I certify that the patient requires SNF services: Yes Overall status at discharge: patient is back to baseline Medical - DS: Qual - VTE Deep Vein Thrombosis/Pulmonary Embolism Present on Admission: No
[2018-09-21] MEDS: LACTOBACILLUS 1 CAPSULE PO SCH ×2 (12:11→21:30)
[2018-09-21] MEDS: OXYBUTYNIN CHLORIDE 5 MG TABLET PO SCH ×2 (12:11→21:30)
[2018-09-21] MEDS: POTASSIUM CHLORIDE 20 MEQ TABLET PO SCH ×2 (12:11→18:36)
[2018-09-21] MEDS: BACLOFEN 10 MG TABLET PO SCH ×3 (12:11→21:52)
[2018-09-21] MEDS: ASPIRIN 81 MG TAB.CHEW PO SCH (12:12)
[2018-09-21] MEDS: METOPROLOL TARTRATE 50 MG TABLET PO SCH ×2 (12:16→21:31)
[2018-09-21] MEDS: FUROSEMIDE 40 MG TABLET PO SCH (12:16)
[2018-09-21] MEDS: DOCUSATE SODIUM 100 MG CAPSULE PO SCH ×2 (12:16→21:32)
[2018-09-21] MEDS: ENOXAPARIN 30 MG/0.3 ML SYRINGE SQ SCH (12:16)
[2018-09-21] MEDS: NIFEdipine 30 MG TAB.XL.24H PO SCH (12:17)
[2018-09-21] MEDS: AMANTADINE HCL 100 MG CAPSULE PO SCH ×2 (12:22→21:52)
[2018-09-21] MEDS: LATANOPROST OPHTH DROPS 2.5ML BOTTLE OU SCH (21:34)
[2018-09-22] MEDS: INSULIN LISPRO 1 UNIT/0.01 ML UNIT SQ SCH ×4 (08:17→20:39)
[2018-09-22] MEDS: FUROSEMIDE 40 MG TABLET PO SCH (09:41)
[2018-09-22] MEDS: LACTOBACILLUS 1 CAPSULE PO SCH ×2 (09:41→20:38)
[2018-09-22] MEDS: DOCUSATE SODIUM 100 MG CAPSULE PO SCH ×2 (09:41→20:38)
[2018-09-22] MEDS: BACLOFEN 10 MG TABLET PO SCH ×3 (09:42→20:38)
[2018-09-22] MEDS: ASPIRIN 81 MG TAB.CHEW PO SCH (09:42)
[2018-09-22] MEDS: POTASSIUM CHLORIDE 20 MEQ TABLET PO SCH ×2 (09:43→17:40)
[2018-09-22] MEDS: OXYBUTYNIN CHLORIDE 5 MG TABLET PO SCH ×2 (09:44→20:38)
[2018-09-22] MEDS: cefTRIAXone 1 GM VIAL IV SCH (09:45)
[2018-09-22] MEDS: ENOXAPARIN 30 MG/0.3 ML SYRINGE SQ SCH (09:46)
[2018-09-22] MEDS: METOPROLOL TARTRATE 50 MG TABLET PO SCH ×2 (09:50→20:38)
[2018-09-22] MEDS: NIFEdipine 30 MG TAB.XL.24H PO SCH (09:50)
[2018-09-22] MEDS: 0.9 % SODIUM CHLORIDE 10 ML SYRINGE IV SCH ×3 (09:56→21:43)
--- NOTE | 2018-09-22 10:41 | Internal Med Progress Note ---
Medical - PN: Subj Patient information: Note initiated : 09/22/18 at 10:34 am Service Date, if different from initiated Date: [] Patient: Inna Selby 78 y/o F admitted on 09/19/18 for Weakness. Chief Complaint: [] Interval history: Ms. Selby is a 78 year old F Presents with severe generalized weakness. Has been unable to care for her at home. These episodes are usually secondary to urinary tract infection. She did take a Cipro at home. Urinalysis was unimpressive, however patient did take the antibiotics at home. CT abdomen pelvis was done which per discussion with ED physician was unremarkable. Last night she slid out of bed and called the living room and was unable to get up into a chair. She is found to have a leukocytosis. Lactic acid was okay. Admission was requested giving severe generalized weakness and ability to be cared for at home and urinary tract infection. Not felt to be related to an MS flare. Chest x- ray was unremarkable. She mentions may be she had a fever but then states she does not think she did. She states very minimal mild cough states she does not really have one. No recent sick contacts. She thought she was normal state of health yesterday. 09/20 Patient slept well. Feels a little bit stronger. Denies any complaints. Received first of 3 doses of Solu-Medrol yesterday. Was able to walk to the bathroom this morning with assistance. 09/21 Continues to feel stronger. Feeling better slept well. Doing better with physical therapy and able to ambulate with a walker. Receiving total of 3 doses high-dose Solu-Medrol, last dose today. 09/22 Doing well continues to feel better. Awaiting placement. Review of Systems: denies headache/fever/chills/nausea/vomiting/chest or abdominal pain/cough/dyspnea/diarrhea. Otherwise see above. - Constitutional Vitals: Vital Signs Temp Pulse Resp BP Pulse Ox 98.6 F 66 20 122/61 92 09/22/18 08:00 09/22/18 08:00 09/22/18 08:00 09/22/18 10:07 09/22/18 03:35 Period Temp Pulse Resp BP Sys/Ellis Pulse Ox Last 24 Hr 97.7 F-98.6 F 66-95 12-20 117-136/60-78 90-98 Intake and Output 09/21/18 09/22/18 09/22/18 21:59 05:59 13:59 Intake Total 600 200 360 Output Total 1 Balance 599 200 360 Weight 46.629 kg Intake & Output: Intake & Output 09/21/18 09/22/18 09/22/18 21:59 05:59 13:59 Intake Total 600 200 360 Output Total 1 Balance 599 200 360 Weight 46.629 kg Intake: Oral 600 200 360 Output: # of times incontinent of urine 1 Other: Meal Dinner Breakfast Percent of Meal Consumed 100% 50% Feeding Ability Independent Assist with Tray Set Up Stool Size Small Moderate Stool Color Brown Brown Stool Consistency Soft Soft # of times incontinent of 1 1 Bowels Exam: General: Alert, Awake, No acute Distress Eyes/N/T: EOMI, left pupil chronically larger than right, DMM Head/Neck: neck supple CV: RRR, No murmurs, Pulm: Clear b/l, no wheezing/rhonchi/rales Abd: soft, nontender, +BS x4 Ext: no clubbing/cyanosis/edema Neuro: Alert, 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, moves all extremities, able to ambulate with walker Skin: warm/dry Medical - PN: Obj Da - Labs CBC & Chem 7: 09/20/18 04:58 09/20/18 04:58 Labs: Abnormal Lab Results 09/20/18 09/20/18 09/19/18 04:58 04:58 10:46 WBC 20.8 H RBC RDW 15.5 H Plt Count 463 H Gran % 96.1 H Lymph % (Auto) 2.1 L Gran # 20.0 H Lymph # (Auto) 0.4 L [place] # (Auto) ESR Glucose 159 H Alkaline Phosphatase 123 H Lactate Dehydrogenase 274 H Urine Protein 30 A Urine Ketones 20 A Urine Occult Blood 0.03 A Urine RBC 3 H Urine WBC 5 H 09/19/18 10:41 WBC 17.7 H RBC 5.32 H RDW 15.4 H Plt Count 504 H Gran % 81.7 H Lymph % (Auto) 7.2 L Gran # 14.4 H Lymph # (Auto) 1.3 L [place] # (Auto) 1.8 H ESR 39 H Glucose Alkaline Phosphatase Lactate Dehydrogenase Urine Protein Urine Ketones Urine Occult Blood Urine RBC Urine WBC Meds: Medications Acetaminophen (Tylenol) 650 mg PO Q6HP PRN PRN Reason: PAIN/FEVER > 101 Albuterol/Ipratropium (Duoneb) 3 ml NEB Q6HRT PRN PRN Reason: Bronchospasm Amantadine HCl (Amantadine) 100 mg PO BID [facility] Last Admin: 09/21/18 21:52 Dose: 100 mg Documented by: Aspirin (Aspirin) 81 mg PO DAILY [facility] Last Admin: 09/22/18 09:42 Dose: 81 mg Documented by: Baclofen (Lioresal) 10 mg PO TID [facility] Last Admin: 09/22/18 09:42 Dose: 10 mg Documented by: Ceftriaxone Sodium (Rocephin) 1 gm IV Q24H [facility] Last Admin: 09/22/18 09:45 Dose: 1 gm Documented by: Diagnostic Test (Pha) (Accu-Chek) 1 each FS [facility]; Protocol Last Admin: 09/22/18 08:16 Dose: 1 each Documented by: Docusate Sodium (Colace) 100 mg PO BID [facility] Last Admin: 09/22/18 09:41 Dose: 100 mg Documented by: Enoxaparin Sodium (Lovenox) 30 mg SQ DAILY [facility] Last Admin: 09/22/18 09:46 Dose: 30 mg Documented by: Furosemide (Lasix) 40 mg PO DAILY [facility] Last Admin: 09/22/18 09:41 Dose: 40 mg Documented by: Insulin Human Lispro (Humalog) 0 unit SQ [facility]; Protocol Last Admin: 09/22/18 08:17 Dose: Not Given Documented by: Lactobacillus Rhamnosus (Culturelle) 1 cap PO BID [facility] Last Admin: 09/22/18 09:41 Dose: 1 cap Documented by: Latanoprost (Xalatan Ophth Drops) 1 gtt OU HS [facility] Last Admin: 09/21/18 21:34 Dose: Not Given Documented by: Metoprolol Tartrate (Lopressor) 50 mg PO BID [facility] Last Admin: 09/22/18 09:50 Dose: Not Given Documented by: Nifedipine (Procardia Xl) 30 mg PO DAILY [facility] Last Admin: 09/22/18 09:50 Dose: Not Given Documented by: Nystatin (Nystatin Crm) 1 dose TOPICAL TIDP PRN PRN Reason: Skin Irritation Last Admin: 09/20/18 23:11 Dose: 1 dose Documented by: Ondansetron HCl (Zofran) 4 mg IV Q6HP PRN PRN Reason: Nausea And Vomiting Oxybutynin Chloride (Ditropan) 5 mg PO BID [facility] Last Admin: 09/22/18 09:44 Dose: 5 mg Documented by: Potassium Chloride (Kdur) 20 meq PO BIDCC [facility] Last Admin: 09/22/18 09:43 Dose: 20 meq Documented by: Prochlorperazine (Compazine) 5 mg IV Q4HP PRN PRN Reason: Nausea And Vomiting Sodium Chloride (Saline Flush) 10 ml IV Q8 [facility] Last Admin: 09/22/18 09:56 Dose: 10 ml Documented by: Medical - PN: A/P - Time Spent With Patient Total time spent is greater than 50% in coordination of care (as documented) at patient's floor/unit and/or counseling patient: - Narrative A/P Narrative: A: *MS flare: She had a similar presentation in June with a UTI at that time and case was discussed with [place] neurologist who recommended treating at that time with the high-dose steroids for 3 days -improving *? UTI: UC no growth *Generalized weakness/deconditioning/debility: Secondary to above *Volume depletion: resolved *HTN: On metoprolol and nifedipine *Raynaud's: Is on nifedipine *Chronic bowel bladder incontinence *Multiple sclerosis: Follows with Dr. Paiz * P: -High-dose IV corticosteroids for 3 days -Rocephin -Continue home blood pressure medications -f/u with neuro outpt -PT/OT -ppx: Lovenox Awaiting placement Medical - PN: Qual - VTE Deep Vein Thrombosis/Pulmonary Embolism Present on Admission: No
[2018-09-22] MEDS: AMANTADINE HCL 100 MG CAPSULE PO SCH ×2 (12:11→20:38)
[2018-09-22] MEDS: LATANOPROST OPHTH DROPS 2.5ML BOTTLE OU SCH (20:39)
[2018-09-23] MEDS: 0.9 % SODIUM CHLORIDE 10 ML SYRINGE IV SCH (05:16)
[2018-09-23] MEDS: INSULIN LISPRO 1 UNIT/0.01 ML UNIT SQ SCH (07:12)
[2018-09-23] MEDS: POTASSIUM CHLORIDE 20 MEQ TABLET PO SCH (07:17)
[2018-09-23] MEDS: AMANTADINE HCL 100 MG CAPSULE PO SCH (07:45)
[2018-09-23] MEDS: ENOXAPARIN 30 MG/0.3 ML SYRINGE SQ SCH (07:46)
[2018-09-23] MEDS: BACLOFEN 10 MG TABLET PO SCH (07:46)
[2018-09-23] MEDS: METOPROLOL TARTRATE 50 MG TABLET PO SCH (07:46)
[2018-09-23] MEDS: FUROSEMIDE 40 MG TABLET PO SCH (07:46)
[2018-09-23] MEDS: ASPIRIN 81 MG TAB.CHEW PO SCH (07:46)
[2018-09-23] MEDS: DOCUSATE SODIUM 100 MG CAPSULE PO SCH ×2 (07:46→07:57)
[2018-09-23] MEDS: LACTOBACILLUS 1 CAPSULE PO SCH (07:46)
[2018-09-23] MEDS: NIFEdipine 30 MG TAB.XL.24H PO SCH (07:46)
[2018-09-23] MEDS: OXYBUTYNIN CHLORIDE 5 MG TABLET PO SCH (07:46)
[2018-09-23] MEDS: cefTRIAXone 1 GM VIAL IV SCH (08:04)
== END 2018-09-23 10:05 ==
LOC: ED 09:54 → INTOOBSV 17:19 → MEDSUR 17:19
PROVIDERS: ADMIT Internal Medicine; ATTEND Internal Medicine

== ENCOUNTER 2018-11-07 08:36 | Inpatient (IN) ==
[2018-11-07] MEDS ORDERED: 0.9 % SODIUM CHLORIDE 1,000 ML IV ONE ×2 (09:05→12:46)
--- NOTE | 2018-11-07 09:19 | Emergency Department Note ---
Weakness HPI - General Chief complaint: Weakness Stated complaint: MS excacerbation Time Seen by Provider: 11/07/18 09:10 Source: patient, family Mode of arrival: wheelchair Limitations: no limitations - History of Present Illness HPI Narrative: 78-year-old female who felt weak last night. She thinks it may be an exacerbation of her MS. Anyways she fell on the floor after getting up to go the bathroom and could not get back up. Her covered her with a blanket but he could not lift her up because of his arthritis. And so she laid on the floor all night. This morning her back is a little bit sore but mainly complaining of weakness. She denies any significant injury. Denies shortness of breath chest pain difficulty with urination etc. - Related Data Home Medications Medication Instructions Recorded Confirmed Aspirin [Aspirin EC] 81 mg PO DAILY 03/07/17 10/26/18 Latanoprost Ophth Drops [Xalatan 1 gtt OU HS 03/07/17 10/26/18 Ophth Drops] cholecalciferol (vitamin D3) 5,000 10,000 unit PO QDAY 03/24/17 10/26/18 unit capsule ferrous sulfate 325 mg (65 mg 325 mg PO QDAY tab 08/10/18 09/19/18 iron) tablet,delayed release potassium chloride ER 20 mEq 20 meq PO BID tab 08/10/18 10/26/18 tablet,extended release(part/cryst) ondansetron 4 mg disintegrating 4 mg PO Q8H 10/26/18 10/26/18 tablet Previous Rx's Medication Instructions Recorded Lactobacillus [Culturelle] 1 cap PO BID #60 cap 07/31/17 baclofen 10 mg tablet 10 mg PO TID #270 tab 11/19/17 furosemide 40 mg tablet 40 mg PO BID #180 tab 11/26/17 metoprolol tartrate 50 mg tablet 50 mg PO BID #180 tab 11/26/17 amantadine HCl 100 mg tablet 100 mg PO BID #180 tab 05/04/18 nifedipine ER 30 mg 30 mg PO DAILY #90 tab 09/02/18 tablet,extended release traMADol [Ultram] 50 mg PO Q6HP PRN #20 tab 09/23/18 oxybutynin chloride 5 mg tablet 5 mg PO BID #180 tab 10/23/18 prednisone 20 mg tablet 40 mg PO QDAY #10 tab 10/26/18 Allergies Allergy/AdvReac Type Severity Reaction Status Date / Time Penicillins Allergy Mild Swelling Verified 11/07/18 08:45 Review of Systems All systems ED: reviewed and negative except as stated. Past Medical History - Past Medical History Attestation: Yes: The following information was validated with the patient. [facility] Narrative: Medical History (Last Reviewed 10/26/18 @ 09:58 by Ivan Yancey DO) Delirium (Acute) Pneumonitis (Acute) Hypoxia (Acute) Multiple sclerosis exacerbation (Acute) Systemic inflammatory response syndrome (SIRS) due to infectious process without acute organ dysfunction (Acute) Urinary tract infection (Acute) Vaginitis (Acute) Cystitis (Acute) Yeast dermatitis (Acute) Sepsis (Acute) Complicated UTI (urinary tract infection) (Acute) Colitis (Acute) UTI (urinary tract infection) (Acute) Anemia (Acute) Rib fractures (Acute) Anemia (Acute) Severe sepsis (Acute) Clostridium difficile colitis (Acute) Laceration (Acute) Encounter for removal of sutures (Acute) Multiple sclerosis (Chronic) Past Surgical History (Last Reviewed 10/26/18 @ 09:58 by Ivan Yancey DO) History of colonoscopy (Chronic 04/11/17) History of esophagogastroduodenoscopy (EGD) (Chronic 04/02/17) Medical history: Reports: arthritis, cancer (Endometrial, remotely.), CVA (Long time ago.), other (advanced MS, raynaud's phenomenon, heart murmur). Denies: CAD (coronary artery disease), COPD, DM, GERD, hypertension, myocardial infarction, thyroid disease Psychiatric history: Reports: no psych history. Denies: anxiety, depression Surgical history ED: Reports: hysterectomy (for endometrial cancer), knee replacement - Social History smoking status: Former smoker Alcohol use: Reports: Occasionally (white wine 1-2 X/wk.) Drug use: Reports: none Physical Exam Thin frail elderly female no acute distress resting comfortably able answer questions appropriately. Globally weak. Normocephalic atraumatic. Conjunctive are clear sclerae nonicteric. No nasal discharge or congestion. Oropharynx is pink and moist. Neck is supple without lymphadenopathy thyromegaly or carotid bruit. Heart is slightly tachycardic but I do not hear significant murmur. Lungs are basically clear to auscultation as well. No wheezes rales rhonchi or respiratory distress. Abdomen is flat nontender. She has a bright beefy red rash in her intertrigo area consistent with yeast infection. It is tender with clearly marked borders. She has bowel incontinence as well as urinary. no pedal edema. Osteoarthritic changes to her hands. Euthymic and alert and oriented Limitations: no limitations Course Vital Signs Temperature 96.5 F L 11/07/18 08:37 Pulse Rate 78 11/07/18 08:37 Respiratory Rate 16 11/07/18 08:37 Blood Pressure 128/65 11/07/18 08:37 Pulse Oximetry (%) 96 11/07/18 08:37 Temperature 96.5 F L 11/07/18 08:37 Pulse Rate 69 11/07/18 14:54 Respiratory Rate 16 11/07/18 11:31 Blood Pressure 121/65 11/07/18 14:53 Pulse Oximetry (%) 98 11/07/18 14:54 Weakness - Lab Data Result diagrams: 11/07/18 09:14 11/07/18 10:21 Lab Results 11/07/18 11/07/18 11/07/18 Range/Units 09:14 09:14 09:21 WBC 13.0 H (4.5-11.0) K/mcL RBC 4.64 (4.00-5.20) M/mcL Hgb 11.8 L (12.0-15.0) g/dL Hct 37.4 (36.0-48.0) % POC Hct (36.0-48.0) % MCV 80.5 (80.0-100.0) fL MCH 25.5 L (26.0-34.0) pg MCHC 31.7 (31.0-36.0) g/dL RDW 18.4 H (11.5-14.5) % Plt Count 551 H (140-440) K/mcL MPV 8.6 (7.4-10.4) fL Gran % 79.1 H (38.0-78.0) % Lymph % (Auto) 9.1 L (15.5-49.0) % [place] % (Auto) 10.5 (1.0-12.0) % Eos % (Auto) 0.3 (0.0-7.0) % Baso % (Auto) 1.0 (0.0-2.0) % Gran # 10.3 H (1.8-8.0) K/mcL Lymph # (Auto) 1.2 L (1.5-4.8) K/mcL [place] # (Auto) 1.4 H (0.1-0.9) K/mcL Eos # (Auto) 0 (0.0-0.7) K/mcL Baso # (Auto) 0.1 (0.0-0.3) K/mcL ESR 58 H (0-20) mm/hr VBG Lactic Acid (0.5-2.0) mmol/L POC Sodium (133-145) mmol/L Sodium TNP POC Potassium (3.3-5.1) mmol/L Potassium TNP POC Chloride (96-108) mmol/L Chloride TNP Carbon Dioxide TNP POC Total CO2 (22-30) mmol/L Anion Gap TNP POC BUN (8-23) mg/dl BUN TNP Creatinine TNP POC Creatinine (0.6-1.1) mg/dl GFR Calculation TNP Glucose TNP POC Glucose (70-105) mg/dL Calcium TNP POC WB Ioniz Calcium (1.16-1.32) mmol/L Magnesium Total Bilirubin TNP AST TNP ALT TNP Alkaline Phosphatase TNP Total Creatine Kinase CK-MB (CK-2) C-Reactive Protein NT-Pro-B Natriuret Pep Total Protein TNP Albumin TNP Globulin TNP Albumin/Globulin Ratio TNP TSH Urine Color Urine Appearance Urine pH (5.0-9.0) Ur Specific [place] (1.000-1.035) Urine Protein (NEG) mg/dL Urine Glucose (UA) (NEG) mg/dL Urine Ketones (NEG) mg/dL Urine Occult Blood (<0.03) mg/dL Urine Nitrate (NEG) Urine Bilirubin (NEG) mg/dL Urine Urobilinogen (NEG) mg/dL Ur Leukocyte Esterase (NEG) /uL Urine RBC (0-1) /hpf Urine WBC (0-4) /hpf Ur Squamous Epith Cells (0-4) /hpf Urine Bacteria (0) /hpf Urine Mucus (0) /hpf Urine Yeast (Budding) (0) /hpf Ur Culture Indicated? 11/07/18 11/07/18 11/07/18 Range/Units 09:21 09:21 09:24 WBC (4.5-11.0) K/mcL RBC (4.00-5.20) M/mcL Hgb (12.0-15.0) g/dL Hct (36.0-48.0) % POC Hct 37.0 (36.0-48.0) % MCV (80.0-100.0) fL MCH (26.0-34.0) pg MCHC (31.0-36.0) g/dL RDW (11.5-14.5) % Plt Count (140-440) K/mcL MPV (7.4-10.4) fL Gran % (38.0-78.0) % Lymph % (Auto) (15.5-49.0) % [place] % (Auto) (1.0-12.0) % Eos % (Auto) (0.0-7.0) % Baso % (Auto) (0.0-2.0) % Gran # (1.8-8.0) K/mcL Lymph # (Auto) (1.5-4.8) K/mcL [place] # (Auto) (0.1-0.9) K/mcL Eos # (Auto) (0.0-0.7) K/mcL Baso # (Auto) (0.0-0.3) K/mcL ESR (0-20) mm/hr VBG Lactic Acid 1.3 (0.5-2.0) mmol/L POC Sodium 141 (133-145) mmol/L Sodium POC Potassium 4.0 (3.3-5.1) mmol/L Potassium POC Chloride 104 (96-108) mmol/L Chloride Carbon Dioxide POC Total CO2 31 H (22-30) mmol/L Anion Gap POC BUN 25 H (8-23) mg/dl BUN Creatinine POC Creatinine 0.6 (0.6-1.1) mg/dl GFR Calculation Glucose POC Glucose 98 (70-105) mg/dL Calcium POC WB Ioniz Calcium 1.18 (1.16-1.32) mmol/L Magnesium TNP Total Bilirubin AST ALT Alkaline Phosphatase Total Creatine Kinase TNP CK-MB (CK-2) TNP C-Reactive Protein TNP NT-Pro-B Natriuret Pep TNP Total Protein Albumin Globulin Albumin/Globulin Ratio TSH TNP Urine Color Urine Appearance Urine pH (5.0-9.0) Ur Specific [place] (1.000-1.035) Urine Protein (NEG) mg/dL Urine Glucose (UA) (NEG) mg/dL Urine Ketones (NEG) mg/dL Urine Occult Blood (<0.03) mg/dL Urine Nitrate (NEG) Urine Bilirubin (NEG) mg/dL Urine Urobilinogen (NEG) mg/dL Ur Leukocyte Esterase (NEG) /uL Urine RBC (0-1) /hpf Urine WBC (0-4) /hpf Ur Squamous Epith Cells (0-4) /hpf Urine Bacteria (0) /hpf Urine Mucus (0) /hpf Urine Yeast (Budding) (0) /hpf Ur Culture Indicated? 11/07/18 11/07/18 11/07/18 Range/Units 10:21 10:21 13:42 WBC (4.5-11.0) K/mcL RBC (4.00-5.20) M/mcL Hgb (12.0-15.0) g/dL Hct (36.0-48.0) % POC Hct (36.0-48.0) % MCV (80.0-100.0) fL MCH (26.0-34.0) pg MCHC (31.0-36.0) g/dL RDW (11.5-14.5) % Plt Count (140-440) K/mcL MPV (7.4-10.4) fL Gran % (38.0-78.0) % Lymph % (Auto) (15.5-49.0) % [place] % (Auto) (1.0-12.0) % Eos % (Auto) (0.0-7.0) % Baso % (Auto) (0.0-2.0) % Gran # (1.8-8.0) K/mcL Lymph # (Auto) (1.5-4.8) K/mcL [place] # (Auto) (0.1-0.9) K/mcL Eos # (Auto) (0.0-0.7) K/mcL Baso # (Auto) (0.0-0.3) K/mcL ESR (0-20) mm/hr VBG Lactic Acid (0.5-2.0) mmol/L POC Sodium (133-145) mmol/L Sodium 141 POC Potassium (3.3-5.1) mmol/L Potassium 3.8 POC Chloride (96-108) mmol/L Chloride 106 Carbon Dioxide 25 POC Total CO2 (22-30) mmol/L Anion Gap 10.0 POC BUN (8-23) mg/dl BUN 19 Creatinine 0.5 L POC Creatinine (0.6-1.1) mg/dl GFR Calculation 93 Glucose 90 POC Glucose (70-105) mg/dL Calcium 9.1 POC WB Ioniz Calcium (1.16-1.32) mmol/L Magnesium 2.2 Total Bilirubin 0.3 AST 10 ALT 8 Alkaline Phosphatase 88 Total Creatine Kinase 24 TNP CK-MB (CK-2) 1.6 C-Reactive Protein 8.7 H NT-Pro-B Natriuret Pep 1164.0 H Total Protein 6.0 Albumin 3.1 L Globulin 2.9 Albumin/Globulin Ratio 1.1 TSH 1.30 Urine Color Yellow Urine Appearance Clear Urine pH 5.0 (5.0-9.0) Ur Specific [place] 1.018 (1.000-1.035) Urine Protein Neg (NEG) mg/dL Urine Glucose (UA) Negative (NEG) mg/dL Urine Ketones 5/tr A (NEG) mg/dL Urine Occult Blood Neg (<0.03) mg/dL Urine Nitrate Neg (NEG) Urine Bilirubin Neg (NEG) mg/dL Urine Urobilinogen Neg (NEG) mg/dL Ur Leukocyte Esterase 25 A (NEG) /uL Urine RBC < 1 (0-1) /hpf Urine WBC 20 H (0-4) /hpf Ur Squamous Epith Cells 0 (0-4) /hpf Urine Bacteria 0 (0) /hpf Urine Mucus Few (0) /hpf Urine Yeast (Budding) Few A (0) /hpf Ur Culture Indicated? Yes - Radiology Data Radiology results reviewed: Yes I reviewed the patient's radiology results. Chest x-ray shows no acute findings Disposition Pt seen by [facility] only: No Clinical Impression: Urogenital candidiasis, Multiple sclerosis exacerbation, Complicated UTI (urinary tract infection), Weakness Fall Qualifiers: Encounter type: initial encounter Qualified Code(s): W19.XXXA - Unspecified fall, initial encounter Summary: Ordered laboratory work-up along with chest x-ray for work-up of weakness. Check CK just to make sure she is not in rhabdo. Start IV fluids Start nystatin paste for Melissa overgrowth and groin. We will try to get her u p to walk to see if she is capable of going home I reviewed her chart note that she is on prednisone daily for MS. Because of her immunocompromised we will start Diflucan. It looks like she has a UTI as well so we will start antibiotics So she has several reasons to have weakness including fragile medical state previously, UTI and MS. Further, bladder and and bowel incontinence along with the urogenital candidiasis complicate. She is not able to take care of herself at home, she can barely walk at all even with a walker. And her cannot help take care of her Discussed situation with , our hospitalist, who agreed to accept the patient for further evaluation and care. Disposition: Xfer As Inpt ([facility]) Condition: Fair Referrals: Ivan Yancey DO [Primary Care Provider] -
[2018-11-07 09:27] LABS: POC Blood Urea Nitrogen 25 mg/dl (8-23); POC CO2 31 mmol/L (22-30); POC Calcium, Ionized 1.18 mmol/L (1.16-1.32); POC Chloride 104 mmol/L (96-108); POC Creatinine 0.6 mg/dl (0.6-1.1); POC Glucose, Random 98 mg/dL (70-105); POC Sodium 141 mmol/L (133-145)
[2018-11-07 10:00] LABS: Basophils # (Auto) 0.1 K/mcL (0.0-0.3); Eosinophils # (Auto) 0 K/mcL (0.0-0.7); Eosinophils % (Auto) 0.3 % (0.0-7.0); Granulocytes % (Auto) 79.1 % (38.0-78.0); Hematocrit 37.4 % (36.0-48.0); Hemoglobin 11.8 g/dL (12.0-15.0); Lymphocytes # (Auto) 1.2 K/mcL (1.5-4.8); Lymphocytes % (Auto) 9.1 % (15.5-49.0); Mean Cell Volume 80.5 fL (80.0-100.0); Mean Corpuscular HGB Conc 31.7 g/dL (31.0-36.0); Mean Platelet Volume 8.6 fL (7.4-10.4); Monocytes # (Auto) 1.4 K/mcL (0.1-0.9); Monocytes % (Auto) 10.5 % (1.0-12.0); Platelet Count 551 K/mcL (140-440); RBC 4.64 M/mcL (4.00-5.20); Red Cell Distribution Width 18.4 % (11.5-14.5)
[2018-11-07 11:23] LABS: ALT/SGPT 8 U/l (0-40); AST/SGOT 10 U/l (0-37); Albumin 3.1 gm/dL (3.2-5.2); Albumin/Globulin Ratio 1.1 (1.0-2.3); Alkaline Phosphatase 88 U/L (39-117); Bilirubin,Total 0.3 mg/dL (0.0-1.0); Blood Urea Nitrogen 19 mg/dl (8-23); C-Reactive Protein 8.7 mg/dl (0.0-0.8); Calcium 9.1 mg/dl (8.6-10.4); Carbon Dioxide 25 mmol/L (22-30); Chloride 106 mmol/L (96-108); Creatine Kinase 24 IU/L (24-170); Creatine Kinase MB 1.6 ng/ml (0-2.9); Globulin 2.9 gm/dL (2.2-3.7); Glomerular Filtration Rate 93; Glucose 90 mg/dL (70-105); Magnesium 2.2 mg/dL (1.6-2.5); Potassium 3.8 mmol/L (3.3-5.1); Sodium 141 mmol/L (133-145)
[2018-11-07] MEDS ORDERED: NYSTATIN CRM 1 DOSE TUBE TOPICAL ONE (12:55)
[2018-11-07 14:12] LABS: Appearance,Urine CLEAR; Bacteria,Urine 0 /hpf (0); Bilirubin,Urine NEG (NEG); Color,Urine YELLOW; Culture Indicated,Urine YES; Glucose,Urine (UA) NEGATIVE (NEG); Ketones,Urine 5/TR mg/dL (NEG); Leukocyte Esterase,Urine 25 /uL (NEG); Mucus,Urine FEW /hpf (0); Nitrate,Urine NEG (NEG); Protein,Urine NEG (NEG); Specific Gravity,Urine 1.018 (1.000-1.035); Urine Blood NEG mg/dL (<0.03); Urine Budding Yeast FEW /hpf (0); Urine RBC < 1 /hpf (0-1); Urine Squamous Epithelial Cell 0 /hpf (0-4); Urine WBC 20 /hpf (0-4); Urobilinogen,Urine NEG (NEG)
--- NOTE | 2018-11-07 14:19 | XRay Report ---
HISTORY: Increased weakness and exacerbation of multiple sclerosis FINDINGS: A moderate dextroscoliotic curvature is present in the lower thoracic spine. The rotation of the chest creates the appearance of mild cardiomegaly. There is no pulmonary vascular congestion or pleural effusion. The lungs are clear, without evidence of pneumonia or mass. There are couple old healed bilateral rib fractures in the lower thorax. There has been little change since 09/19/18. IMPRESSION: No acute abnormality Interpreted and Authenticated by: Reg Adames 11/07/18
[2018-11-07] MEDS ORDERED: FLUCONAZOLE 150 MG TABLET PO ONE (14:55)
[2018-11-07] MEDS ORDERED: LEVOFLOXACIN 500 MG/100 ML BAG IV ONE (14:55)
--- NOTE | 2018-11-07 15:53 | Internal Med History&Physical ---
Medical - H&P: [facility] Patient information: Note initiated : 11/07/18 at 3:49 pm Service Date, if different from initiated Date: [] Patient: Inna Selby a 78 y/o F admitted on for MS excacerbation. Chief Complaint: [] History of present illness: Ms. Selby is a 78 year old F Resents the ED with increasing generalized weakness, severe. She states that yesterday Pee she was feeling okay but did feel a little bit strange Pee night and went to bed a little early. Midline she got up to go the bathroom and when she is come back to bed she fell and could not get herself up off the ground. She did not ask for her 's help as he is debilitated himself and so she waited till the morning. She was still unable to get up and thus patient was brought to the ED. She has a history of multiple sclerosis and has been admitted several times when she has had a UTI and increasing weakness. She does have dysuria and is noted to have urogenital candidiasis on exam in the ED. She was recently seen her primary care bladder's office and was found to have low blood pressures and her Lasix was decreased as well as her metoprolol. She believes she has been adhering to the most recent medication changes. In the ED her labs were essentially unremarkable, she has a chronic leukocytosis. However her ESR was elevated. Was elevated in the past but it is up above normal. Whether or not that related to the infection or there is some underlying rheumatological disorder. Denies fever chills Review of Systems: Pertinent positives as above. Denies headache/fever/chills/nausea/vomiting/chest or abdominal pain/cough/dyspnea/diarrhea. Remaining 10 point review of system reviewed negative Medical - H&P: [facility] Medical history: Medical History (Last Reviewed 08/10/18 @ 13:03 by Joie Wood PA-C) Delirium (Acute) Pneumonitis (Acute) Hypoxia (Acute) Multiple sclerosis exacerbation (Acute) Systemic inflammatory response syndrome (SIRS) due to infectious process without acute organ dysfunction (Acute) Urinary tract infection (Acute) Vaginitis (Acute) Cystitis (Acute) Yeast dermatitis (Acute) Sepsis (Acute) Complicated UTI (urinary tract infection) (Acute) Colitis (Acute) UTI (urinary tract infection) (Acute) Anemia (Acute) Rib fractures (Acute) Anemia (Acute) Severe sepsis (Acute) Clostridium difficile colitis (Acute) Laceration (Acute) Encounter for removal of sutures (Acute) Multiple sclerosis (Chronic) Past Surgical History (Last Reviewed 08/10/18 @ 13:03 by Joie Wood PA-C) History of colonoscopy (Chronic 04/11/17) History of esophagogastroduodenoscopy (EGD) (Chronic 04/02/17) Family history: Her mother and father both had heart disease Social History (Last Updated 08/10/18 @ 13:07 by Joie Wood PA-C) Quit smoking 1985 Drinks a glass of wine 1 time per week He is walker to ambulate Lives at home with her Medical - H&P: Meds Home Medications Medication Instructions Recorded Confirmed Type Aspirin [Aspirin EC] 81 mg PO DAILY 03/07/17 10/26/18 History Latanoprost Ophth Drops [Xalatan 1 gtt OU HS 03/07/17 11/07/18 History Ophth Drops] cholecalciferol (vitamin D3) 5,000 10,000 unit PO QDAY 03/24/17 10/26/18 History unit capsule Lactobacillus [Culturelle] 1 cap PO BID #60 cap 07/31/17 11/07/18 Rx baclofen 10 mg tablet 10 mg PO TID #270 tab 11/19/17 11/07/18 Rx furosemide 40 mg tablet 40 mg PO BID #180 tab 11/26/17 11/07/18 Rx metoprolol tartrate 50 mg tablet 50 mg PO BID #180 tab 11/26/17 11/07/18 Rx amantadine HCl 100 mg tablet 100 mg PO BID #180 tab 05/04/18 11/07/18 Rx ferrous sulfate 325 mg (65 mg 325 mg PO QDAY tab 08/10/18 09/19/18 History iron) tablet,delayed release potassium chloride ER 20 mEq 20 meq PO TID tab 08/10/18 11/07/18 History tablet,extended release(part/cryst) nifedipine ER 30 mg 30 mg PO DAILY #90 tab 09/02/18 11/07/18 Rx tablet,extended release oxybutynin chloride 5 mg tablet 5 mg PO BID #180 tab 10/23/18 11/07/18 Rx ondansetron 4 mg disintegrating 4 mg PO Q8H 10/26/18 10/26/18 History tablet prednisone 20 mg tablet 40 mg PO QDAY #10 tab 10/26/18 11/07/18 Rx Cyclobenzaprine HCl 10 mg PO TID 11/07/18 11/07/18 History traMADol [Ultram] 50 mg PO Q6HP PRN 11/07/18 11/07/18 History Allergies Allergy/AdvReac Type Severity Reaction Status Date / Time Penicillins Allergy Mild Swelling Verified 11/07/18 08:45 Medical - H&P: Exam - Constitutional Vitals: Temp Pulse Resp BP Pulse Ox 96.5 F L 128 H 16 124/73 67 L 11/07/18 08:37 11/07/18 15:35 11/07/18 11:31 11/07/18 15:35 11/07/18 15:35 Exam: General: Alert, Awake, No acute Distress Eyes/N/T: EOMI, left pupil chronically larger than right, DMM Head/Neck: neck supple, normocephalic atraumatic CV: RRR, No murmurs, normal s1/s2 Pulm: Clear b/l, no wheezing/rhonchi/rales Abd: soft, nontender, +BS x4 Ext: no clubbing/cyanosis/edema Neuro: Alert, 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, 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 and sensations intact upper extremities, cranial nerves II through XII grossly intact Skin: warm/dry Medical - H&P: Reslt - Labs CBC & Chem 7: 11/07/18 09:14 11/07/18 10:21 Labs: Short CBC 11/07/18 Range/Units 09:14 WBC 13.0 H (4.5-11.0) K/mcL Hgb 11.8 L (12.0-15.0) g/dL Hct 37.4 (36.0-48.0) % Plt Count 551 H (140-440) K/mcL BMP 11/07/18 11/07/18 09:14 10:21 Sodium TNP 141 Potassium TNP 3.8 Chloride TNP 106 Carbon Dioxide TNP 25 BUN TNP 19 Creatinine TNP 0.5 L Glucose TNP 90 Calcium TNP 9.1 Cardiac Enzymes 11/07/18 11/07/18 11/07/18 Range/Units 09:24 10:21 10:21 Total Creatine Kinase TNP 24 TNP CK-MB (CK-2) TNP 1.6 Liver Function 11/07/18 11/07/18 Range/Units 09:14 10:21 Total Bilirubin TNP 0.3 AST TNP 10 ALT TNP 8 Alkaline Phosphatase TNP 88 Albumin TNP 3.1 L Urine 11/07/18 Range/Units 13:42 Urine Color Yellow Urine Appearance Clear Urine pH 5.0 (5.0-9.0) Ur Specific [place] 1.018 (1.000-1.035) Urine Protein Neg (NEG) mg/dL Urine Glucose (UA) Negative (NEG) mg/dL Medical - H&P: A/P - Narrative A/P Narrative: A: *UTI: *Vulvovaginal candidiasis: *MS flare: She had a similar presentation in June and September and was treated with a short course of high-dose steroids and responded quite well. *elevated ESR: 2/2 infection vs rheumatologic process *Volume depletion *Generalized weakness/deconditioning/debility: Secondary to above *HTN: On metoprolol (recently decreased for low blood pressure by PCP) and nifed ipine *Raynaud's: is on nifedipine *Chronic bowel bladder incontinence *Multiple sclerosis: Follows with Dr. Paiz *h/o peripheral edema: but has not had any since starting lasix sometime ago, recently decreased by PCP for low blood pressure P: -IVF -Levaquin -High-dose IV corticosteroids for 3 days -Continue home amantadine/baclofen -Continue home blood pressure medications -juan antonio/rf pending given elevated ESR, check CRP -f/u outpt with rheum given elevated esr -f/u with Dr. Paiz -PT/OT -ppx: Lovenox
[2018-11-07] MEDS ORDERED: ONDANSETRON 4 MG/2 ML VIAL IV PRN (16:57)
[2018-11-07] MEDS ORDERED: ACETAMINOPHEN 325 MG TABLET PO PRN (16:57)
[2018-11-07] MEDS ORDERED: traMADol 50 MG TABLET PO PRN (16:57)
[2018-11-07 18:14] LABS: Vitamin B12 531.4 pg/ml (232-1245)
[2018-11-07] MEDS ORDERED: CYCLOBENZAPRINE 10 MG TABLET PO PRN (18:53)
[2018-11-07] MEDS: BACLOFEN 10 MG TABLET PO SCH (20:55)
[2018-11-07] MEDS: LACTOBACILLUS 1 CAPSULE PO SCH (20:55)
[2018-11-07] MEDS: AMANTADINE HCL 100 MG CAPSULE PO SCH (20:55)
[2018-11-07] MEDS: 0.9 % SODIUM CHLORIDE 10 ML SYRINGE IV SCH (20:56)
[2018-11-07] MEDS: METOPROLOL TARTRATE 50 MG TABLET PO SCH (20:56)
[2018-11-07] MEDS: LATANOPROST OPHTH DROPS 2.5ML BOTTLE OU SCH (20:56)
[2018-11-07] MEDS: methylPREDNISolone SOD SUCC 1,000 MG in 0.9 % SODIUM CHLORIDE 100 ML IV SCH (21:58)
[2018-11-08] MEDS: 0.9 % SODIUM CHLORIDE 10 ML SYRINGE IV SCH ×3 (05:24→20:55)
--- NOTE | 2018-11-08 07:47 | Internal Med Progress Note ---
Medical - PN: Subj Patient information: Note initiated : 11/08/18 at 7:45 am Service Date, if different from initiated Date: [] Patient: Inna Selby 78 y/o F admitted on 11/07/18 for MS excacerbation. Chief Complaint: [] Interval history: Ms. Selby is a 78 year old F Resents the ED with increasing generalized weakness, severe. She states that yesterday Pee she was feeling okay but did feel a little bit strange Friday night and went to bed a little early. Midline she got up to go the bathroom and when she is come back to bed she fell and could not get herself up off the ground. She did not ask for her 's help as he is debilitated himself and so she waited till the morning. She was still unable to get up and thus patient was brought to the ED. She has a history of multiple sclerosis and has been admitted several times when she has had a UTI and increasing weakness. She does have dysuria and is noted to have urogenital candidiasis on exam in the ED. She was recently seen her primary care bladder's office and was found to have low blood pressures and her Lasix was decreased as well as her metoprolol. She believes she has been adhering to the most recent medication changes. In the ED her labs were essentially unremarkable, she has a chronic leukocytosis. However her ESR was elevated. Was elevated in the past but it is up above normal. Whether or not that related to the infection or there is some underlying rheumatological disorder. Denies fever chills 6/2 Good sleep. No new complaints. Continues to feel weak. Review of Systems: denies headache/fever/chills/nausea/vomiting/chest or abdominal pain/cough/dyspnea/diarrhea. Otherwise see above. - Constitutional Vitals: Vital Signs Temp Pulse Resp BP Pulse Ox 98.8 F 78 20 141/79 94 11/08/18 06:58 11/08/18 04:00 11/08/18 06:58 11/08/18 06:58 11/08/18 06:58 Period Temp Pulse Resp BP Sys/Ellis Pulse Ox Last 24 Hr 96.5 F-98.8 F 49-128 12-24 100-149/45-106 67-100 Intake and Output 06/06/2711/08/18 11/08/18 21:59 05:59 13:59 Intake Total 1100 300 Output Total 3 1 Balance 1100 297 -1 Weight 45.359 kg 48.534 kg Intake & Output: Intake & Output 11/07/18 11/08/18 11/08/18 21:59 05:59 13:59 Intake Total 1100 300 Output Total 3 1 Balance 1100 297 -1 Weight 45.359 kg 48.534 kg Intake: IV 1100 Sodium Chloride 0.9% 1,000 ml @ 1000 Wide Open IV BOLUS ONE Rx#: [id number] Oral 300 Output: # of times incontinent of urine 3 1 Other: Urine Color Pale Urine Odor Normal Stool Size Small Stool Color Brown Stool Consistency Soft # of times incontinent of 1 Bowels Exam: General: Alert, Awake, No acute Distress Eyes/N/T: EOMI, left pupil chronically larger than right, Head/Neck: neck supple, CV: RRR, No murmurs, Pulm: Clear b/l, no wheezing/rhonchi/rales Abd: soft, nontender, +BS x4 Ext: no clubbing/cyanosis/edema Neuro: Alert, 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, Skin: warm/dry Medical - PN: Obj Da - Labs CBC & Chem 7: 11/07/18 09:14 11/07/18 10:21 Labs: Abnormal Lab Results 11/07/18 11/07/18 11/07/18 16:44 13:42 10:21 WBC Hgb MCH RDW Plt Count Gran % Lymph % (Auto) Gran # Lymph # (Auto) [place] # (Auto) ESR POC Total CO2 POC BUN Creatinine 0.5 L C-Reactive Protein 6.1 H 8.7 H NT-Pro-B Natriuret Pep 1164.0 H Albumin 3.1 L Urine Ketones 5/tr A Ur Leukocyte Esterase 25 A Urine WBC 20 H Urine Yeast (Budding) Few A 11/07/18 11/07/18 11/07/18 09:21 09:21 09:14 WBC 13.0 H Hgb 11.8 L MCH 25.5 L RDW 18.4 H Plt Count 551 H Gran % 79.1 H Lymph % (Auto) 9.1 L Gran # 10.3 H Lymph # (Auto) 1.2 L [place] # (Auto) 1.4 H ESR 58 H POC Total CO2 31 H POC BUN 25 H Creatinine C-Reactive Protein NT-Pro-B Natriuret Pep Albumin Urine Ketones Ur Leukocyte Esterase Urine WBC Urine Yeast (Budding) Meds: Medications Acetaminophen (Tylenol) 650 mg PO Q6HP PRN PRN Reason: PAIN/FEVER > 101 Amantadine HCl (Amantadine) 100 mg PO BID [facility] Last Admin: 11/07/18 20:55 Dose: 100 mg Documented by: Aspirin (Aspirin) 81 mg PO DAILY [facility] Baclofen (Lioresal) 10 mg PO TID [facility] Last Admin: 11/07/18 20:55 Dose: 10 mg Documented by: Cyclobenzaprine HCl (Flexeril) 10 mg PO TIDP PRN PRN Reason: Muscle Spasm Enoxaparin Sodium (Lovenox) 30 mg SQ DAILY [facility] Ferrous Sulfate (Ferrous Sulfate) 325 mg PO QAMCC [facility] Fluconazole (Diflucan) 200 mg PO DAILY [facility]; Protocol Levofloxacin (Levaquin) 500 mg in 100 mls @ 100 mls/hr IV DAILY [facility]; Protocol Methylprednisolone Sodium Succinate 1,000 mg/ Sodium Chloride 100 mls @ 100 mls/hr IV DAILY [facility] Stop: 11/09/18 09:59 Last Admin: 11/07/18 21:58 Dose: 100 mls/hr Documented by: Lactobacillus Rhamnosus (Culturelle) 1 cap PO BID [facility] Last Admin: 11/07/18 20:55 Dose: 1 cap Documented by: Latanoprost (Xalatan Ophth Drops) 1 gtt OU HS [facility] Last Admin: 11/07/18 20:56 Dose: Not Given Documented by: Metoprolol Tartrate (Lopressor) 25 mg PO BID [facility] Last Admin: 11/07/18 20:56 Dose: Not Given Documented by: Nifedipine (Procardia Xl) 30 mg PO DAILY [facility] Ondansetron HCl (Zofran) 4 mg IV Q6HP PRN PRN Reason: Nausea And Vomiting Myrbetriq Er 25 Mg (Tablet) 1 dose PO DAILY [facility] Sodium Chloride (Saline Flush) 10 ml IV Q8 [facility] Last Admin: 11/08/18 05:24 Dose: Not Given Documented by: Tramadol HCl (Ultram) 50 mg PO Q6HP PRN PRN Reason: Pain Medical - PN: A/P - Time Spent With Patient Total time spent is greater than 50% in coordination of care (as documented) at patient's floor/unit and/or counseling patient: - Narrative A/P Narrative: A: *UTI: *Vulvovaginal candidiasis: *MS flare: She had a similar presentation in June and September and was treated with a short course of high-dose steroids and responded quite well. *elevated ESR: 2/2 infection vs rheumatologic process -RF neg *Volume depletion *Generalized weakness/deconditioning/debility: Secondary to above *HTN: On metoprolol (recently decreased for low blood pressure by PCP) and nifedipine *Raynaud's: is on nifedipine *Chronic bowel bladder incontinence *Multiple sclerosis: Follows with Dr. Paiz *h/o peripheral edema: but has not had any since starting lasix sometime ago, recently decreased by PCP for low blood pressure P: -Levaquin pending UC -fluconazole -High-dose IV corticosteroids for 3 days -Continue home amantadine/baclofen -Continue home blood pressure medications -juan antonio pending given elevated ESR, -f/u outpt with rheum given elevated esr -f/u with Dr. Paiz -PT/OT -ppx: Lovenox DNR
[2018-11-08] MEDS: NIFEdipine 30 MG TAB.XL.24H PO SCH (08:24)
[2018-11-08] MEDS: AMANTADINE HCL 100 MG CAPSULE PO SCH ×2 (08:24→20:49)
[2018-11-08] MEDS: BACLOFEN 10 MG TABLET PO SCH ×3 (08:24→20:49)
[2018-11-08] MEDS: LACTOBACILLUS 1 CAPSULE PO SCH ×2 (08:25→20:49)
[2018-11-08] MEDS: ASPIRIN 81 MG TAB.CHEW PO SCH (08:25)
[2018-11-08] MEDS: ENOXAPARIN 30 MG/0.3 ML SYRINGE SQ SCH (08:25)
[2018-11-08] MEDS: METOPROLOL TARTRATE 50 MG TABLET PO SCH ×2 (08:25→20:56)
[2018-11-08] MEDS: FERROUS SULFATE 325 MG TABLET PO SCH (08:25)
[2018-11-08] MEDS: LEVOFLOXACIN 500 MG/100 ML BAG IV SCH (08:25)
[2018-11-08] MEDS: FLUCONAZOLE 100 MG TABLET PO SCH (08:25)
[2018-11-08] MEDS: methylPREDNISolone SOD SUCC 1,000 MG in 0.9 % SODIUM CHLORIDE 100 ML IV SCH (09:51)
--- NOTE | 2018-11-08 14:02 | Discharge Summary ---
Medical - DS: Prov Patient information: Note initiated : 11/08/18 at 1:56 pm Service Date, if different from initiated Date: [] Patient: Inna Selby 78 y/o F admitted on 11/07/18 for MS excacerbation. Chief Complaint: [] Date of admission: 11/07/18 16:45 Discharge date: 11/09/18 Primary care physician: Ivan Yancey Consults: 11/07/18 Consult to Physician [CONS] Stat Comment: Consulting Provider: Gio Queen Reason For Exam: Physician to Consult Medical - DS: Meds - Discharge Medications Prescriptions: Fluconazole [Diflucan] 150 mg PO Q72H #3 tab Levofloxacin [Levaquin] 750 mg PO DAILY #3 tab Active and Home Medications: Home Medications Aspirin [Aspirin EC] 81 mg PO DAILY 03/07/17 [History Confirmed 11/08/18 Last Taken 07/05/18] Latanoprost Ophth Drops [Xalatan Ophth Drops] 1 gtt OU HS 03/07/17 [History Confirmed 11/07/18 Last Taken 09/18/18 21:00] cholecalciferol (vitamin D3) 5,000 unit capsule 10,000 unit PO QDAY 03/24/17 [History Confirmed 11/08/18 Last Taken 09/18/18 09:00] Lactobacillus [Culturelle] 1 cap PO BID #60 cap 07/31/17 [Rx Confirmed 11/07/18 Last Taken 09/18/18 21:00] baclofen 10 mg tablet 10 mg PO TID #270 tab 11/19/17 [Rx Confirmed 11/07/18 Last Taken 09/18/18 21:00] furosemide 40 mg tablet 40 mg PO BID #180 tab 11/26/17 [Rx Confirmed 11/07/18 Last Taken 09/18/18 21:00] metoprolol tartrate 50 mg tablet 50 mg PO BID #180 tab 11/26/17 [Rx Confirmed 11/07/18 Last Taken 09/18/18 21:00] amantadine HCl 100 mg tablet 100 mg PO BID #180 tab 05/04/18 [Rx Confirmed 11/07/18 Last Taken 09/18/18 21:00] ferrous sulfate 325 mg (65 mg iron) tablet,delayed release 325 mg PO QDAY tab 08/10/18 [History Confirmed 11/08/18 Last Taken 09/17/18 09:00] potassium chloride ER 20 mEq tablet,extended release(part/cryst) 20 meq PO TID tab 08/10/18 [History Confirmed 11/07/18 Last Taken 09/18/18 21:00] nifedipine ER 30 mg tablet,extended release 30 mg PO DAILY #90 tab 09/02/18 [Rx Confirmed 11/07/18 Last Taken 09/18/18 09:00] oxybutynin chloride 5 mg tablet 5 mg PO BID #180 tab 10/23/18 [Rx Confirmed 11/07/18 Last Taken Unknown] ondansetron 4 mg disintegrating tablet 4 mg PO Q8HP PRN 10/26/18 [History Confirmed 11/08/18 Last Taken Unknown] prednisone 20 mg tablet 40 mg PO QDAY #10 tab 10/26/18 [Rx Confirmed 11/07/18 Last Taken Unknown] Cyclobenzaprine HCl 10 mg PO TID 11/07/18 [History Confirmed 11/07/18 Last Taken Unknown] traMADol [Ultram] 50 mg PO Q6HP PRN 11/07/18 [History Confirmed 11/07/18 Last Taken Unknown] Medical - DS: Hosp Hospital course: Mr. Selby is a 78 year old F Ms. Selby is a 78 year old F Resents the ED with increasing generalized weakness, severe. She states that yesterday Friday she was feeling okay but did feel a little bit strange Pee night and went to bed a little early. Midline she got up to go the bathroom and when she is come back to bed she fell and could not get herself up off the ground. She did not ask for her 's help as he is debilitated himself and so she waited till the morning. She was still unable to get up and thus patient was brought to the ED. She has a history of multiple sclerosis and has been admitted several times when she has had a UTI and increasing weakness. She does have dysuria and is noted to have urogenital candidiasis on exam in the ED. She was recently seen her primary care bladder's office and was found to have low blood pressures and her Lasix was decreased as well as her metoprolol. She believes she has been adhering to the most recent medication changes. In the ED her labs were essentially unremarkable, she has a chronic leukocytosis. However her ESR was elevated. Was elevated in the past but it is up above normal. Whether or not that related to the infection or there is some underlying rheumatological disorder. Denies fever chills 6/2 Good sleep. No new complaints. Continues to feel weak. 6/3 She feels like she is improving. She got up with physical therapy and walked around in the room. No overnight events or new complaints. last dose of high-dose IV steroids today. Stable for discharge. Discharge diagnosis: This flares UTI vulvovaginal candidiasis elevated ESR Secondary discharge diagnosis: Volume depletion hypertension Dave's chronic bladder incontinence - Time Spent with Patient Total time spent providing and/or coordinating discharge services: Greater than 30 minutes Medical - DS: Exam - Constitutional Vitals: Vital Signs Temp Pulse Pulse Resp BP BP Pulse Ox 11/08/18 11:42 98.6 F 16 105/63 95 11/08/18 06:58 98.8 F 20 141/79 94 11/08/18 04:00 97.4 F 78 16 132/70 96 11/07/18 23:25 98.4 F 90 16 125/63 93 11/07/18 19:01 98 F 92 H 18 114/58 98 11/07/18 16:52 96.5 F L 79 18 126/45 94 11/07/18 16:48 79 94 11/07/18 16:45 97.6 F 96 H 70 18 130/62 96 11/07/18 16:42 73 17 100 11/07/18 16:36 89 13 96 11/07/18 16:34 13 11/07/18 16:32 96 H 16 92 11/07/18 16:31 20 126/45 11/07/18 16:16 78 17 130/63 96 11/07/18 16:12 19 11/07/18 16:11 12 11/07/18 16:01 84 115/73 100 11/07/18 15:46 122/70 11/07/18 15:35 128 H 124/73 67 L 11/07/18 15:30 49 L 124/73 85 L 11/07/18 15:16 102/73 11/07/18 15:01 53 L 138/68 83 L 11/07/18 14:54 69 98 11/07/18 14:53 70 121/65 95 11/07/18 14:46 75 121/65 99 11/07/18 14:31 66 120/63 97 11/07/18 14:16 135/72 11/07/18 14:14 117/104 Intake and Output 11/07/18 11/08/18 11/08/18 21:59 05:59 13:59 Intake Total 1100 400 240 Output Total 3 3 Balance 1100 397 237 Intake: IV 1100 100 Sodium Chloride 0.9% 1,000 ml @ 1000 Wide Open IV BOLUS ONE Rx#: [id number] Solu-MEDROL 1,000 MG In Sodium 100 Chloride 0.9% 100 ml @ 100 mls/ hr IV DAILY [facility] Rx#:[id number] Oral 300 240 Output: # of times incontinent of urine 3 3 Other: Meal Breakfast Percent of Meal Consumed 100% Feeding Ability Independent Urine Color Pale Urine Odor Normal Stool Size Small Stool Color Brown Stool Consistency Soft # of times incontinent of 1 1 Bowels Weight 45.359 kg 48.534 kg Medical - DS: Data Labs on day of discharge: Labs from last 24 hours 11/07/18 11/07/18 11/07/18 16:44 16:44 13:42 Total Creatine Kinase C-Reactive Protein 6.1 H Vitamin B12 531.4 Urine Color Yellow Urine Appearance Clear Urine pH 5.0 Ur Specific [place] 1.018 Urine Protein Neg Urine Glucose (UA) Negative Urine Ketones 5/tr A Urine Occult Blood Neg Urine Nitrate Neg Urine Bilirubin Neg Urine Urobilinogen Neg Ur Leukocyte Esterase 25 A Urine RBC < 1 Urine WBC 20 H Ur Squamous Epith Cells 0 Urine Bacteria 0 Urine Mucus Few Urine Yeast (Budding) Few A Ur Culture Indicated? Yes Rheumatoid Factor SUN Screen SUN Titer SUN Titer and Pattern SS-A Antibody SS-B Antibody Sm (Shahid) Antibody SM/MANAGEMENT ASSISTANT Antibody Scl-70 Antibody Anti-ds DNA IgG Ab Titer Anti-ds DNA (Crithidia) 11/07/18 11/07/18 11/07/18 10:21 09:14 09:14 Total Creatine Kinase TNP C-Reactive Protein Vitamin B12 Urine Color Urine Appearance Urine pH Ur Specific [place] Urine Protein Urine Glucose (UA) Urine Ketones Urine Occult Blood Urine Nitrate Urine Bilirubin Urine Urobilinogen Ur Leukocyte Esterase Urine RBC Urine WBC Ur Squamous Epith Cells Urine Bacteria Urine Mucus Urine Yeast (Budding) Ur Culture Indicated? Rheumatoid Factor Pending 12 SUN Screen Pending SUN Titer Pending SUN Titer and Pattern Pending SS-A Antibody Pending SS-B Antibody Pending Sm (Shahid) Antibody Pending SM/MANAGEMENT ASSISTANT Antibody Pending Scl-70 Antibody Pending Anti-ds DNA IgG Ab Titer Pending Anti-ds DNA (Crithidia) Pending 11/07/18 09:14 Total Creatine Kinase C-Reactive Protein Vitamin B12 TNP Urine Color Urine Appearance Urine pH Ur Specific [place] Urine Protein Urine Glucose (UA) Urine Ketones Urine Occult Blood Urine Nitrate Urine Bilirubin Urine Urobilinogen Ur Leukocyte Esterase Urine RBC Urine WBC Ur Squamous Epith Cells Urine Bacteria Urine Mucus Urine Yeast (Budding) Ur Culture Indicated? Rheumatoid Factor SUN Screen SUN Titer SUN Titer and Pattern SS-A Antibody SS-B Antibody Sm (Shahid) Antibody SM/MANAGEMENT ASSISTANT Antibody Scl-70 Antibody Anti-ds DNA IgG Ab Titer Anti-ds DNA (Crithidia) Preliminary micro results at discharge 11/07/18 13:42 Urine Culture - Preliminary Urine - Clean Void [facility] - DS: A/P - Patient/Caregiver Discharge Instructions Activity: increase activity as tolerated Diet: Regular Diet Additional Instructions: referral to see rheumatology for elevated ESR & weakness 7-10 days Prescriptions: Fluconazole [Diflucan] 150 mg PO Q72H #3 tab Levofloxacin [Levaquin] 750 mg PO DAILY #3 tab - Follow up Plan Follow up with: Ivan Yancey DO [Primary Care Provider] - Disposition: Xfer SNF Prognosis: Fair Rehab Potential: Fair I certify that the patient requires SNF services: Yes Overall status at discharge: patient is progressing back to baseline
[2018-11-08] MEDS: LATANOPROST OPHTH DROPS 2.5ML BOTTLE OU SCH (20:50)
[2018-11-09] MEDS: 0.9 % SODIUM CHLORIDE 10 ML SYRINGE IV SCH (05:10)
[2018-11-09 05:26] LABS: C-Reactive Protein 2.2 mg/dl (0.0-0.8)
--- NOTE | 2018-11-09 06:53 | Internal Med Progress Note ---
Medical - PN: Subj Patient information: Note initiated : 11/09/18 at 6:52 am Service Date, if different from initiated Date: [] Patient: Inna Selby 78 y/o F admitted on 11/07/18 for MS excacerbation. Chief Complaint: [] Interval history: Ms. Selby is a 78 year old F Resents the ED with increasing generalized weakness, severe. She states that yesterday Pee she was feeling okay but did feel a little bit strange Pee night and went to bed a little early. Midline she got up to go the bathroom and when she is come back to bed she fell and could not get herself up off the ground. She did not ask for her 's help as he is debilitated himself and so she waited till the morning. She was still unable to get up and thus patient was brought to the ED. She has a history of multiple sclerosis and has been admitted several times when she has had a UTI and increasing weakness. She does have dysuria and is noted to have urogenital candidiasis on exam in the ED. She was recently seen her primary care bladder's office and was found to have low blood pressures and her Lasix was decreased as well as her metoprolol. She believes she has been adhering to the most recent medication changes. In the ED her labs were essentially unremarkable, she has a chronic leukocytosis. However her ESR was elevated. Was elevated in the past but it is up above normal. Whether or not that related to the infection or there is some underlying rheumatological disorder. Denies fever chills 6/2 Good sleep. No new complaints. Continues to feel weak. 6/3 She feels like she is improving. She got up with physical therapy and walked around in the room. No overnight events or new complaints. Review of Systems: denies headache/fever/chills/nausea/vomiting/chest or abdominal pain/cough/dyspnea/diarrhea. Otherwise see above. - Constitutional Vitals: Vital Signs Temp Pulse Resp BP Pulse Ox 97.5 F 85 18 101/62 97 11/09/18 04:00 11/09/18 04:00 11/09/18 04:00 11/09/18 04:00 11/09/18 04:00 Period Temp Pulse Resp BP Sys/Ellis Pulse Ox Last 24 Hr 97.5 F-98.8 F 78-85 16-20 101-141/54-79 94-97 Intake and Output 11/08/18 11/09/18 11/09/18 21:59 05:59 13:59 Intake Total 940 0 200 Output Total 1 2 Balance 939 -2 200 Weight 46.72 kg Intake & Output: Intake & Output 11/08/18 11/09/18 11/09/18 21:59 05:59 13:59 Intake Total 940 0 200 Output Total 1 2 Balance 939 -2 200 Weight 46.72 kg Intake: IV 200 Solu-MEDROL 1,000 MG In Sodium 100 Chloride 0.9% 100 ml @ 100 mls/ hr IV DAILY [facility] Rx#:[id number] Oral 940 0 Output: # of times incontinent of urine 1 2 Other: Meal Dinner Percent of Meal Consumed 75% Feeding Ability Independent Exam: General: Alert, Awake, No acute Distress Eyes/N/T: EOMI, left pupil chronically larger than right, Head/Neck: neck supple, CV: RRR, No murmurs, Pulm: Clear b/l, no wheezing/rhonchi/rales Abd: soft, nontender, +BS x4 Ext: no clubbing/cyanosis/edema Neuro: Alert, 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, Skin: warm/dry Medical - PN: Obj Da - Labs CBC & Chem 7: 11/07/18 09:14 11/07/18 10:21 Labs: Abnormal Lab Results 11/09/18 11/09/18 11/07/18 03:55 03:55 16:44 WBC Hgb MCH RDW Plt Count Gran % Lymph % (Auto) Gran # Lymph # (Auto) Fisher # (Auto) ESR 33 H POC Total CO2 POC BUN Creatinine C-Reactive Protein 2.2 H 6.1 H NT-Pro-B Natriuret Pep Albumin Urine Ketones Ur Leukocyte Esterase Urine WBC Urine Yeast (Budding) 11/07/18 11/07/18 11/07/18 13:42 10:21 09:21 WBC Hgb MCH RDW Plt Count Gran % Lymph % (Auto) Gran # Lymph # (Auto) Fisher # (Auto) ESR POC Total CO2 31 H POC BUN 25 H Creatinine 0.5 L C-Reactive Protein 8.7 H NT-Pro-B Natriuret Pep 1164.0 H Albumin 3.1 L Urine Ketones 5/tr A Ur Leukocyte Esterase 25 A Urine WBC 20 H Urine Yeast (Budding) Few A 11/07/18 11/07/18 09:21 09:14 WBC 13.0 H Hgb 11.8 L MCH 25.5 L RDW 18.4 H Plt Count 551 H Gran % 79.1 H Lymph % (Auto) 9.1 L Gran # 10.3 H Lymph # (Auto) 1.2 L Fisher # (Auto) 1.4 H ESR 58 H POC Total CO2 POC BUN Creatinine C-Reactive Protein NT-Pro-B Natriuret Pep Albumin Urine Ketones Ur Leukocyte Esterase Urine WBC Urine Yeast (Budding) Meds: Medications Acetaminophen (Tylenol) 650 mg PO Q6HP PRN PRN Reason: PAIN/FEVER > 101 Amantadine HCl (Amantadine) 100 mg PO BID [facility] Last Admin: 11/08/18 20:49 Dose: 100 mg Documented by: Aspirin (Aspirin) 81 mg PO DAILY [facility] Last Admin: 11/08/18 08:25 Dose: 81 mg Documented by: Baclofen (Lioresal) 10 mg PO TID [facility] Last Admin: 11/08/18 20:49 Dose: 10 mg Documented by: Cyclobenzaprine HCl (Flexeril) 10 mg PO TIDP PRN PRN Reason: Muscle Spasm Enoxaparin Sodium (Lovenox) 30 mg SQ DAILY [facility] Last Admin: 11/08/18 08:25 Dose: 30 mg Documented by: Ferrous Sulfate (Ferrous Sulfate) 325 mg PO [facility] Last Admin: 11/08/18 08:25 Dose: 325 mg Documented by: Fluconazole (Diflucan) 200 mg PO DAILY [facility]; Protocol Last Admin: 11/08/18 08:25 Dose: 200 mg Documented by: Levofloxacin (Levaquin) 500 mg in 100 mls @ 100 mls/hr IV DAILY [facility]; Protocol Last Infusion: 11/09/18 06:31 Dose: Infused Documented by: Methylprednisolone Sodium Succinate 1,000 mg/ Sodium Chloride 100 mls @ 100 mls/hr IV DAILY [facility] Stop: 11/09/18 09:59 Last Infusion: 11/09/18 06:32 Dose: Infused Documented by: Lactobacillus Rhamnosus (Culturelle) 1 cap PO BID [facility] Last Admin: 11/08/18 20:49 Dose: 1 cap Documented by: Latanoprost (Xalatan Ophth Drops) 1 gtt OU HS [facility] Last Admin: 11/08/18 20:50 Dose: Not Given Documented by: Metoprolol Tartrate (Lopressor) 25 mg PO BID [facility] Last Admin: 11/08/18 20:56 Dose: Not Given Documented by: Nifedipine (Procardia Xl) 30 mg PO DAILY [facility] Last Admin: 11/08/18 08:24 Dose: 30 mg Documented by: Ondansetron HCl (Zofran) 4 mg IV Q6HP PRN PRN Reason: Nausea And Vomiting Myrbetriq Er 25 Mg (Tablet) 1 dose PO DAILY [facility] Last Admin: 11/08/18 08:26 Dose: Not Given Documented by: Sodium Chloride (Saline Flush) 10 ml IV Q8 [facility] Last Admin: 11/09/18 05:10 Dose: Not Given Documented by: Tramadol HCl (Ultram) 50 mg PO Q6HP PRN PRN Reason: Pain Medical - PN: A/P - Time Spent With Patient Total time spent is greater than 50% in coordination of care (as documented) at patient's floor/unit and/or counseling patient: - Narrative A/P Narrative: A: *UTI: UC neg *Vulvovaginal candidiasis: *MS flare: She had a similar presentation in June and September and was treated w ith a short course of high-dose steroids and responded quite well. *elevated ESR: 2/2 infection vs rheumatologic process -RF neg -down to 33 now *Volume depletion: resolved *Generalized weakness/deconditioning/debility: Secondary to above *HTN: On metoprolol (recently decreased for low blood pressure by PCP) and nifedipine *Raynaud's: is on nifedipine *Chronic bowel bladder incontinence *Multiple sclerosis: Follows with Dr. Paiz *h/o peripheral edema: but has not had any since starting lasix sometime ago, recently decreased by PCP for low blood pressure P: -Levaquin pending UC -fluconazole -High-dose IV corticosteroids for 3 days (last day) -Continue home amantadine/baclofen -Continue home blood pressure medications -autoimmune labs pending given elevated ESR, -f/u outpt with rheum given elevated esr -f/u with Dr. Paiz -PT/OT -ppx: Lovenox DNR
[2018-11-09] MEDS ORDERED: LEVOFLOXACIN 500 MG TABLET PO SCH (09:00)
[2018-11-09] MEDS: NIFEdipine 30 MG TAB.XL.24H PO SCH (09:28)
[2018-11-09] MEDS: BACLOFEN 10 MG TABLET PO SCH (09:28)
[2018-11-09] MEDS: LACTOBACILLUS 1 CAPSULE PO SCH (09:28)
[2018-11-09] MEDS: FERROUS SULFATE 325 MG TABLET PO SCH (09:28)
[2018-11-09] MEDS: AMANTADINE HCL 100 MG CAPSULE PO SCH (09:28)
[2018-11-09] MEDS: methylPREDNISolone SOD SUCC 1,000 MG in 0.9 % SODIUM CHLORIDE 100 ML IV SCH (09:29)
[2018-11-09] MEDS: ENOXAPARIN 30 MG/0.3 ML SYRINGE SQ SCH (09:29)
[2018-11-09] MEDS: ASPIRIN 81 MG TAB.CHEW PO SCH (09:29)
[2018-11-09] MEDS: FLUCONAZOLE 100 MG TABLET PO SCH (09:29)
[2018-11-09] MEDS: METOPROLOL TARTRATE 50 MG TABLET PO SCH (09:32)
[2018-11-09] MEDS: LEVOFLOXACIN 500 MG/100 ML BAG IV SCH (09:54)
--- NOTE | 2018-11-09 10:23 | Magnetic Resonance Report ---
CLINICAL INFORMATION: History of MS. Left-sided weakness COMPARISON: Brain MRI 12/28/2014 TECHNIQUE: Sagittal T1 FLAIR, axial diffusion ADC, T1 FLAIR, T2 FLAIR propeller, T2 propeller gradient, T1 post Magnevist and coronal T1 FLAIR post Magnevist images were acquired. FINDINGS: The ventricles, sulci, fissures and cisterns are symmetrically enlarged compatible with mild, yet stable atrophy. There are no extra-axial fluid collections or masses appreciated. Extensive high signal abnormality throughout the deep cerebral white matter with confluence in the periventricular regions is identical to prior MRI. A few scattered smaller foci are noted in the basal ganglia and central gopi. Several of the periventricular lesions exhibit low signal on the T1 images compatible either with chronic plaque or matter remote lacunar infarctions. These range up to 7 mm in the right peritrigonal white matter. These are also unchanged. None of these lesions exhibit restricted diffusion or enhancement. Signal void in the intracerebral arteries, extra-axial cranial nerves, pituitary and orbits are normal. IMPRESSION: Extensive high signal abnormality around the cerebral white matter confluent in the periventricular regions and scattered smaller high signal foci in the basal ganglia and the central gopi are unchanged from 2015 comparison MRI. Given the patient's age, this could represent chronic ischemia with a few remote lacunar infarcts in the deep cerebral white matter versus chronic MS plaques. There is no evidence of restricted diffusion or abnormal enhancement to suggest active plaque inflammation. Interpreted and Authenticated by: Ivan Anthony 11/09/18
[2018-11-09] MEDS ORDERED: GADOBENATE DIMEGLUMINE 15 ML/VIAL IV ONE (11:35)
[2018-11-13 12:17] LABS: DNA AB(DS) Crithidia, IFA NEGATIVE (NEGATIVE); Rhuematoid Factor <14 IU/mL (<14); SM Antibody <1.0 NEG AI (SEE COMMENT); SM/RNP Antibody <1.0 NEG AI (SEE COMMENT); SS-A <1.0 NEG AI (SEE COMMENT); SS-B <1.0 NEG AI (SEE COMMENT); Scl-70 <1.0 NEG AI (SEE COMMENT)
== END 2018-11-09 11:36 | DRG 690 ==
LOC: ED 08:36 → MEDSUR 16:45
PROVIDERS: ADMIT Internal Medicine; ATTEND Internal Medicine

== ENCOUNTER 2020-03-16 08:06 | Inpatient (IN) ==
[2020-03-16 09:08] LABS: Basophils # (Auto) 0.05 K/mcL (0.00-0.20); Basophils % (Auto) 0.4 % (0.0-2.0); Eosinophils # (Auto) 0.51 K/mcL (0.00-0.70); Eosinophils % (Auto) 4.5 % (0.0-7.0); Hematocrit 43.1 % (36.0-48.0); Hemoglobin 14.3 g/dL (12.0-15.0); Lymphocytes # (Auto) 1.36 K/mcL (1.50-4.80); Lymphocytes % (Auto) 12.1 % (15.0-49.0); Mean Corpuscular HGB Conc 33.2 g/dL (31.0-36.0); Mean Platelet Volume 9.8 fL (7.4-10.4); Monocytes % (Auto) 12.5 % (1.0-12.0); Neutrophils % (Auto) 70.5 % (38.0-78.0); Platelet Count 348 K/mcL (140-440); RBC 5.07 M/mcL (4.00-5.20); WBC 11.2 K/mcL (4.5-11.0)
[2020-03-16] MEDS ORDERED: CLOTRIMAZOLE CRM 1% 1 DOSE TUBE TOPICAL ONE (09:17)
[2020-03-16 09:35] LABS: ALT/SGPT 14 U/L (<40); AST/SGOT 16 U/L (<32); Albumin 3.8 gm/dL (3.2-5.2); Albumin/Globulin Ratio 1.6 (1.0-2.3); Alkaline Phosphatase 91 U/L (39-117); Bilirubin,Total 0.3 mg/dL (0.1-1.0); Blood Urea Nitrogen 28 mg/dL (8-23); Calcium 9.9 mg/dL (8.6-10.4); Carbon Dioxide 30 mmol/L (22-30); Chloride 101 mmol/L (96-108); Globulin 2.4 gm/dL (2.2-3.7); Glomerular Filtration Rate 82; Glucose 100 mg/dL (70-105)
--- NOTE | 2020-03-16 09:48 | Emergency Department Note ---
Weakness HPI General Chief complaint: Weakness Stated complaint: "MS flare up" Time Seen by Provider: 03/16/20 08:20 Source: patient, EMS and RN notes reviewed Mode of arrival: EMS Limitations: no limitations History of Present Illness HPI Narrative: Narrative: This patient has a history of MS and yesterday started developing pain in her low back and achiness in both of her legs with weakness and the inability to walk. She normally does walk at home. She is chronically incontinent of urine and not aware of any UTI symptoms. No fever chills nausea or vomiting no chest pain cough shortness of breath. She has not had chronic back pain in the past. She has not noticed any new weakness in her arms. She noticed the weakness in her legs seems to be bilateral and associated with achiness. MD Complaint: difficulty walking Onset (ago): day(s) Duration: constant Location: LLE and RLE Migration: none Severity: moderate Quality: aching Improves with: none Worsens with: none Associated symptoms: Reports denies other symptoms Related Data Home Medications Medication Instructions Recorded Confirmed latanoprost 1 gtt OPHTHALMIC (EYE) HS 03/07/17 03/16/20 brimonidine-timolol [Combigan] 1 drp OPHTHALMIC (EYE) BID 03/16/20 03/16/20 methylphenidate HCl 20 mg PO DAILY 03/16/20 03/16/20 prednisolone acetate 1 drp OPHTHALMIC (EYE) BID 03/16/20 03/16/20 Previous Rx's Medication Instructions Recorded baclofen 10 mg tablet 10 mg PO TID #270 tab 02/15/19 oxybutynin chloride 5 mg tablet 5 mg PO BID #180 tab 09/13/19 potassium chloride 20 mEq 20 meq PO TID #90 tab 09/27/19 tablet,extended release(part/cryst) furosemide 40 mg tablet 40 mg PO BID #180 tab 11/15/19 metoprolol tartrate 50 mg tablet 50 mg PO BID #180 tab 12/27/19 nifedipine 30 mg tablet,extended 30 mg PO DAILY #30 tab 12/27/19 release Allergies Allergy/AdvReac Type Severity Reaction Status Date / Time Penicillins Allergy Mild Swelling Verified 12/29/19 09:27 Review of Systems ROS ROS Narrative: Narrative: All systems ED: reviewed and negative except as stated. 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) Bladder incontinence (Chronic) Spasticity (Chronic) Fatigue (Chronic) Influenza A (Acute) Low back strain (Acute) Fall (Acute) Urogenital candidiasis (Acute) Weakness (Acute) Raynaud's phenomenon without gangrene (Chronic) Delirium (Acute) Pneumonitis (Acute) Hypoxia (Acute) Multiple sclerosis exacerbation (Acute) Systemic inflammatory response syndrome (SIRS) due to infectious process without acute organ dysfunction (Acute) Urinary tract infection (Acute) Vaginitis (Acute) Cystitis (Acute) Yeast dermatitis (Acute) Sepsis (Acute) Complicated UTI (urinary tract infection) (Acute) Colitis (Acute) UTI (urinary tract infection) (Acute) Anemia (Acute) Rib fractures (Acute) Anemia (Acute) Severe sepsis (Acute) Clostridium difficile colitis (Acute) Laceration (Acute) Encounter for removal of sutures (Acute) Leukocytosis (leucocytosis) (Acute) Heart murmur (Acute) Right carotid bruit (Acute) Incontinence (Acute) Perineal irritation in female (Acute) Iron deficiency anemia (Chronic) Multiple sclerosis (Chronic) Medical History (Updated 03/16/20 @ 15:05 by Yovani Galvez MD) Anemia (Acute) Anemia (Acute) Bladder incontinence (Chronic) Clostridium difficile colitis (Acute) Colitis (Acute) Complicated UTI (urinary tract infection) (Acute) Cystitis (Acute) Delirium (Acute) Encounter for removal of sutures (Acute) Fatigue (Chronic) Hypoxia (Acute) Laceration (Acute) Medicare annual wellness visit, initial (Acute) Multiple sclerosis (Chronic) Multiple sclerosis exacerbation (Acute) Pneumonitis (Acute) Rib fractures (Acute) Sepsis (Acute) Severe sepsis (Acute) Spasticity (Chronic) Systemic inflammatory response syndrome (SIRS) due to infectious process without acute organ dysfunction (Acute) 1. acute febrile illness/systemic inflammatory response syndrome-unclear etiology. esolved leukocytosis on antibiotics 18.4-> 8.5. Pancultures negative. Negative chest and abdominal imaging. Discussed case with neurology in light of abnormal CSF study. Unlikely an acute infectious process. HSV DNA pending but no signs of MRI abnormalities of temporal lobes . 2. recurrent headaches. Unlikely migraine. Much improved. At baseline 3. Multiple sclerosis- with severe fatigue and weakness. Ongoing rehabilitation Urinary tract infection (Acute) UTI (urinary tract infection) (Acute) Vaginitis (Acute) Yeast dermatitis (Acute) Surgical History History of colonoscopy (Chronic 04/11/17) History of esophagogastroduodenoscopy (EGD) (Chronic 04/02/17) Social History Smoking Status: Former smoker Exam Narrative Narrative: Narrative: General Limitations: no limitations Head Head: Present atraumatic, normocephalic and normal inspection Eye Eye: Present normal appearance and EOMI; Absent scleral icterus and conjunctival injection ENT ENT: Present normal exam, normal oropharynx and mucous membranes moist Neck Neck: Present normal inspection and full ROM Chest Chest: Present normal inspection and symmetric chest wall rise Respiratory Respiratory: Present normal lung sounds bilaterally; Absent respiratory distress, rales/crackles and wheezes Cardiovascular Cardiovascular: Present regular rate, normal rhythm and normal heart sounds Adbominal Abdominal: Present soft; Absent distention and tenderness Extremities Extremities: Present normal inspection; Absent pedal edema and pretibial edema Back Back: Present normal inspection; Absent tenderness Neurological Neurological: Present alert Expanded Neurological Speech: Present fluid speech Motor strength - LUE: 5/5 Motor strength - RUE: 5/5 Motor strength - LLE: 1/5 Motor strength - RLE: 3/5 Psychiatric Psychiatric: Present normal affect Skin Skin: Present warm (WNL) and dry; Absent diaphoresis Course Vital Signs Vital signs: Vital Signs Temperature 97.8 F 03/16/20 08:07 Pulse Rate 86 03/16/20 08:07 Respiratory Rate 18 03/16/20 08:07 Blood Pressure 113/60 03/16/20 08:07 Pulse Oximetry (%) 98 03/16/20 08:07 Temperature 97.8 F 03/16/20 08:07 Pulse Rate 86 03/16/20 14:16 Respiratory Rate 18 03/16/20 08:07 Blood Pressure 120/62 03/16/20 14:46 Pulse Oximetry (%) 96 03/16/20 14:16 MDM MDM Narrative Medical decision making narrative: Narrative: This patient will be admitted by the hospitalist. We gave her Rocephin for the UTI. He will discuss with the neurologist the potential need for steroids. Lab Data Lab results reviewed: Yes I reviewed the patient's lab results. Lab results narrative: Urinalysis does show urinary tract infection Result diagrams: 03/16/20 08:33 03/16/20 08:33 Labs: Lab Results 03/16/20 03/16/20 03/16/20 Range/Units 08:33 08:33 09:42 WBC 11.2 H (4.5-11.0) K/mcL RBC 5.07 (4.00-5.20) M/mcL Hgb 14.3 (12.0-15.0) g/dL Hct 43.1 (36.0-48.0) % MCV 85.0 (80.0-100.0) fL MCH 28.2 (26.0-34.0) pg MCHC 33.2 (31.0-36.0) g/dL RDW 14.0 (11.5-14.5) % Plt Count 348 (140-440) K/mcL MPV 9.8 (7.4-10.4) fL Neut % (Auto) 70.5 (38.0-78.0) % Lymph % (Auto) 12.1 L (15.0-49.0) % Saline % (Auto) 12.5 H (1.0-12.0) % Eos % (Auto) 4.5 (0.0-7.0) % Baso % (Auto) 0.4 (0.0-2.0) % Lymph # (Auto) 1.36 L (1.50-4.80) K/mcL Saline # (Auto) 1.40 H (0.10-0.90) K/mcL Eos # (Auto) 0.51 (0.00-0.70) K/mcL Baso # (Auto) 0.05 (0.00-0.20) K/mcL Sodium 141 (133-145) mmol/L Potassium 3.2 L (3.3-5.1) mmol/L Chloride 101 (96-108) mmol/L Carbon Dioxide 30 (22-30) mmol/L Anion Gap 10.0 (8.0-16.0) BUN 28 H (8-23) mg/dL Creatinine 0.7 (0.6-1.1) mg/dL GFR Calculation 82 Glucose 100 (70-105) mg/dL Calcium 9.9 (8.6-10.4) mg/dL Total Bilirubin 0.3 (0.1-1.0) mg/dL AST 16 (<32) U/L ALT 14 (<40) U/L Alkaline Phosphatase 91 (39-117) U/L C-Reactive Protein 0.50 (0.03-0.80) mg/dL Total Protein 6.2 (5.9-8.4) gm/dL Albumin 3.8 (3.2-5.2) gm/dL Globulin 2.4 (2.2-3.7) gm/dL Albumin/Globulin Ratio 1.6 (1.0-2.3) Urine Color Yellow Urine Appearance Cloudy A (Clear) Urine pH 7.0 (5.0-9.0) Ur Specific [place] 1.015 (1.000-1.035) Urine Protein 30 A (Negative) mg/dL Urine Glucose (UA) Negative (Negative) mg/dL Urine Ketones Negative (Negative) mg/dL Urine Occult Blood Negative (Negative) mg/dL Urine Nitrate Pos A (Negative) Urine Bilirubin Negative (Negative) mg/dL Urine Urobilinogen Negative mg/dL Ur Leukocyte Esterase 500 A (Negative) /ug Urine RBC 2 H (0-1) /hpf Urine WBC 127 H (0-4) /hpf Ur Squamous Epith Cells 0 (0-4) /hpf Urine Bacteria Few A (0) /hpf Ur Culture Indicated? yes Abs Neutrophil Control 7.90 (1.80-8.00) /[facility] Radiology Data Radiology results reviewed: Yes I reviewed the patient's radiology results. Radiology results narrative: RI of lumbar spine showed some spinal stenosis and degenerative change but no acute lesion to explain her leg weakness and pain. Discharge Plan Patient/Caregiver Discharge Instructions Pt seen by NON [employer]IC[employer]ED [employer]ATOR/PA only: No Clinical Impression: Urinary tract infection, Exacerbation of multiple sclerosis Patient Disposition: Xfer As Outpt/Obs ([facility]) Follow up with: Ivan Yancey DO [Primary Care Provider] - Prescriptions: No Action baclofen 10 mg tablet 10 mg PO TID Qty: 270 RF: 1 oxybutynin chloride 5 mg tablet 5 mg PO BID Qty: 180 RF: 0 potassium chloride 20 mEq tablet,ER particles/crystals 20 meq PO TID Qty: 90 RF: 3 furosemide [Lasix] 40 mg tablet 40 mg PO BID Qty: 180 RF: 1 nifedipine 30 mg tablet extended release 30 mg PO DAILY Qty: 30 RF: 0 metoprolol tartrate 50 mg tablet 50 mg PO BID Qty: 180 RF: 1 latanoprost 1 GTT bottle 1 gtt ophthalmic (eye) HS RF: 0 methylphenidate HCl 20 mg capsule,ER biphasic 50-50 20 mg PO DAILY RF: 0 Combigan 0.2-0.5 % drops 1 drp ophthalmic (eye) BID RF: 0 prednisolone acetate 1 % drops,suspension 1 drp OPHTHALMIC (EYE) BID RF: 0
--- NOTE | 2020-03-16 10:47 | Magnetic Resonance Report ---
History: New onset low back pain, history of multiple sclerosis TECHNIQUE: Multiplanar imaging was performed using multiple pulse sequences. FINDINGS: A dextroscoliotic curvature is present in the lower thoracic spine and there is a compensatory levoscoliosis in the lumbar spine with the apex at L4-5. The scoliosis is causing asymmetric narrowing of the right side of the L4-5 disc space. There is associated 4 mm grade 1 spondylolisthesis is present posterolaterally in the right side approximately 3 mm spondylolisthesis on the left side. There is a medium-sized broad-based posterior bulge at this level. Severe arthritis is present in the right with moderate arthritis in left facet. There is also hypertrophy of ligamentum flavum. This is causing mild to moderate spinal canal stenosis, moderate stenosis of the lateral recess on the right side and moderate stenosis of the right-sided neural foramen. Left-sided neural foramen is mildly stenotic due to posterior lateral bulge and mild arthritis in the facet. L5-S1 disc is normal in height. There is a small broad-based posterior bulge and mild arthritis in the facets, right worse than left. This is not causing stenosis. L3-4 disc is normal in height. There are small posterior lateral bulges on each side and mild hypertrophy of the facets. Central canal is normal. There is low-grade stenosis of both neural foramina. L2-3 disc is normal in height. There is no bulge, herniation or stenosis. L1-2 disc is normal in height. Small Schmorl's nodes are present in both sides of the disc. There is no disc protrusion or stenosis. Schmorl's nodes are also present at T11 and T12. There is no disc protrusion at those levels. The conus of the spinal cord is at L1-2. The visualized portion of the cord appears normal with no apparent MS plaques. There is no paraspinal mass or abnormal fluid collection. No fracture or destructive bone lesion are present. IMPRESSION: Scoliosis with associated disc degeneration and arthritis. The greatest degeneration is at L4-5 Mild to moderate spinal canal stenosis at L4-5 along with grade 1 spondylolisthesis. Moderate stenosis of the right-sided neural foramen at L4-5 Dr. Galvez was called with the results Interpreted and Authenticated by: Reg Adames 03/16/20
[2020-03-16 10:48] LABS: Appearance,Urine CLOUDY (Clear); Bacteria,Urine FEW /hpf (0); Bilirubin,Urine Negative (Negative); Color,Urine YELLOW; Culture Indicated,Urine yes; Glucose,Urine (UA) Negative (Negative); Ketones,Urine Negative (Negative); Leukocyte Esterase,Urine 500 /ug (Negative); Nitrate,Urine POS (Negative); Protein,Urine 30 mg/dL (Negative); Specific Gravity,Urine 1.015 (1.000-1.035); Urine Blood Negative (Negative); Urine RBC 2 /hpf (0-1); Urine Squamous Epithelial Cell 0 /hpf (0-4); Urine WBC 127 /hpf (0-4); Urobilinogen,Urine Negative
[2020-03-16] MEDS ORDERED: cefTRIAXone 1 GM VIAL IV ONE (11:12)
[2020-03-16] MEDS ORDERED: LACTATED RINGERS 1,000 ML IV SCH (12:15)
[2020-03-16] MEDS ORDERED: HYDROmorphone 0.5 MG/0.5 ML SYRINGE IV PRN ×2 (13:51→18:04)
[2020-03-16] MEDS ORDERED: ONDANSETRON 4 MG/2 ML VIAL IV PRN ×2 (16:49→18:04)
[2020-03-16] MEDS ORDERED: CIPROFLOXACIN 400 MG/200 ML BAG IV SCH (17:00)
[2020-03-16] MEDS ORDERED: NACL 0.9% W/KCL 20MEQ 1,000 ML IV SCH (17:00)
--- NOTE | 2020-03-16 17:16 | Internal Med History&Physical ---
HPI History of Present Illness Patient information: Note initiated : 03/16/20 at 5:11 pm Service Date, if different from initiated Date: [] Patient: Inna Selby a 79 y/o F admitted on for "MS Flare-Up". Chief Complaint: [] History of present illness: Ms. Selby is a 79 year old F with a past medical history of multiple sclerosis and high blood pressure who presented to the ER due to generalized weakness for 2 days. As per patient, patient has been having generalized weakness for 2 days which has been worsening. She feels too weak to stand up. She also complains of mild headache and dysuria. She also has chronic low back pain. In the ER, urinalysis was compatible with UTI. MRI lumbar without contrast -no acute changes. Lumbar puncture was done in the ER, results are pending. When I saw this patient in the ER, other than the symptoms mentioned above, she denied chest pain, shortness of breath, nausea, vomiting, abdominal pain, fever or chills. No changes in vision. Patient has a chronic urinary incontinence. Patient states that she has not been taking medication for her multiple sclerosis for 10 to 12 years. 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) Bladder incontinence (Chronic) Spasticity (Chronic) Fatigue (Chronic) Influenza A (Acute) Low back strain (Acute) Fall (Acute) Urogenital candidiasis (Acute) Weakness (Acute) Raynaud's phenomenon without gangrene (Chronic) Delirium (Acute) Pneumonitis (Acute) Hypoxia (Acute) Multiple sclerosis exacerbation (Acute) Systemic inflammatory response syndrome (SIRS) due to infectious process without acute organ dysfunction (Acute) Urinary tract infection (Acute) Vaginitis (Acute) Cystitis (Acute) Yeast dermatitis (Acute) Sepsis (Acute) Complicated UTI (urinary tract infection) (Acute) Colitis (Acute) UTI (urinary tract infection) (Acute) Anemia (Acute) Rib fractures (Acute) Anemia (Acute) Severe sepsis (Acute) Clostridium difficile colitis (Acute) Laceration (Acute) Encounter for removal of sutures (Acute) Leukocytosis (leucocytosis) (Acute) Heart murmur (Acute) Right carotid bruit (Acute) Incontinence (Acute) Perineal irritation in female (Acute) Iron deficiency anemia (Chronic) Multiple sclerosis (Chronic) Medical History Anemia (Acute) Anemia (Acute) Bladder incontinence (Chronic) Clostridium difficile colitis (Acute) Colitis (Acute) Complicated UTI (urinary tract infection) (Acute) Cystitis (Acute) Delirium (Acute) Encounter for removal of sutures (Acute) Fatigue (Chronic) Hypoxia (Acute) Laceration (Acute) Medicare annual wellness visit, initial (Acute) Multiple sclerosis (Chronic) Multiple sclerosis exacerbation (Acute) Pneumonitis (Acute) Rib fractures (Acute) Sepsis (Acute) Severe sepsis (Acute) Spasticity (Chronic) Systemic inflammatory response syndrome (SIRS) due to infectious process without acute organ dysfunction (Acute) 1. acute febrile illness/systemic inflammatory response syndrome-unclear etiology. esolved leukocytosis on antibiotics 18.4-> 8.5. Pancultures negative. Negative chest and abdominal imaging. Discussed case with neurology in light of abnormal CSF study. Unlikely an acute infectious process. HSV DNA pending but no signs of MRI abnormalities of temporal lobes. 2. recurrent headaches. Unlikely migraine. Much improved. At baseline 3. Multiple sclerosis- with severe fatigue and weakness. Ongoing rehabilitation Urinary tract infection (Acute) UTI (urinary tract infection) (Acute) Vaginitis (Acute) Yeast dermatitis (Acute) Surgical History History of colonoscopy (Chronic 04/11/17) History of esophagogastroduodenoscopy (EGD) (Chronic 04/02/17) Social History smoking status: Former smoker MEDS/ALLERGIES Home Medications and Allergies Home Medications Medication Instructions Recorded Confirmed Type latanoprost 1 gtt OPHTHALMIC (EYE) HS 03/07/17 03/16/20 History baclofen 10 mg tablet 10 mg PO TID #270 tab 02/15/19 03/16/20 Rx oxybutynin chloride 5 mg tablet 5 mg PO BID #180 tab 09/13/19 03/16/20 Rx potassium chloride 20 mEq 20 meq PO TID #90 tab 09/27/19 03/16/20 Rx tablet,extended release(part/cryst) furosemide 40 mg tablet 40 mg PO BID #180 tab 11/15/19 03/16/20 Rx metoprolol tartrate 50 mg tablet 50 mg PO BID #180 tab 12/27/19 03/16/20 Rx nifedipine 30 mg tablet,extended 30 mg PO DAILY #30 tab 12/27/19 03/16/20 Rx release brimonidine-timolol [Combigan] 1 drp OPHTHALMIC (EYE) BID 03/16/20 03/16/20 History methylphenidate HCl 20 mg PO DAILY 03/16/20 03/16/20 History prednisolone acetate 1 drp OPHTHALMIC (EYE) BID 03/16/20 03/16/20 History Allergies Allergy/AdvReac Type Severity Reaction Status Date / Time Penicillins Allergy Intermediate Swelling Verified 03/16/20 17:01 EXAM Constitutional Vitals: Temp Pulse Resp BP Pulse Ox 97.8 F 77 18 112/48 94 03/16/20 08:07 03/16/20 16:46 03/16/20 08:07 03/16/20 16:46 03/16/20 16:46 Additional findings Additional findings: General - No acute distress Eyes - PERRLA, EOM intact. ENT no rhinorrhea, no noticeable or palpable swelling, no redness or rash around throat or on face Neck supple, no JVD, no thyromegaly Respiratory: Lungs - diminshed BS, no use of accessary muscles. Cardiovascular - RRR no m/r/g, GI - Normal bowel sounds, no distended, soft. Extremeties - No edema, cyanosis or clubbing Hemo/lymphatic/immune no lymphadenopathy Neurological Alert and oriented x 3, strength: LLE - 3/5 and RLE 4/5. Chronic left upper eyelid lower than right one. Psychiatry flat affect DATA Data Completed and Pending Labs: Labs from last 24 hours 03/16/20 03/16/20 03/16/20 09:42 08:33 08:33 WBC 11.2 H RBC 5.07 Hgb 14.3 Hct 43.1 MCV 85.0 MCH 28.2 MCHC 33.2 RDW 14.0 Plt Count 348 MPV 9.8 Neut % (Auto) 70.5 Lymph % (Auto) 12.1 L [place] % (Auto) 12.5 H Eos % (Auto) 4.5 Baso % (Auto) 0.4 Lymph # (Auto) 1.36 L [place] # (Auto) 1.40 H Eos # (Auto) 0.51 Baso # (Auto) 0.05 Sodium 141 Potassium 3.2 L Chloride 101 Carbon Dioxide 30 Anion Gap 10.0 BUN 28 H Creatinine 0.7 GFR Calculation 82 Glucose 100 Calcium 9.9 Total Bilirubin 0.3 AST 16 ALT 14 Alkaline Phosphatase 91 C-Reactive Protein 0.50 Total Protein 6.2 Albumin 3.8 Globulin 2.4 Albumin/Globulin Ratio 1.6 Urine Color Yellow Urine Appearance Cloudy A Urine pH 7.0 Ur Specific [place] 1.015 Urine Protein 30 A Urine Glucose (UA) Negative Urine Ketones Negative Urine Occult Blood Negative Urine Nitrate Pos A Urine Bilirubin Negative Urine Urobilinogen Negative Ur Leukocyte Esterase 500 A Urine RBC 2 H Urine WBC 127 H Ur Squamous Epith Cells 0 Urine Bacteria Few A Ur Culture Indicated? yes Abs Neutrophil Control 7.90 A/P Narrative A/P Narrative: 1. UTI Urinalysis compatible with UTI Urine culture Blood culture Cipro 400 mg IV twice daily (allergic to penicillin -swelling) 2. Generalized weakness/deconditioning/self care deficiency PT/OT/CM 3. Multiple sclerosis Patient home medication include methylphenidate 20mg daily. However, patient states that she has not been taking any MS medication for 10 to 12 years. MRI brain, C-spine and thoracic spine with contrast Continue methylphenidate 20mg daily 4. Chronic low back pain Continue baclofen 5. Hx of iron deficiency anemia Repeat CBC in morning 6. HTN continue metoprolol 50mg bid, nifedipine 30mg daily 7. DVT prophylaxis: Lovenox 8. CODE STATUS: Crown Blocker Spent With Patient Time: Total time spent is greater than 50% in coordination of care (as documented) at patient's floor/unit and/or counseling patient:
--- NOTE | 2020-03-16 17:35 | Event Note ---
Event Note Event Note: Parties in Attendance: Patient Pt's decisional Capacity: Yes POLST form completed: not I explained the process regarding CPR and intubation to the patient. She agreed with CRP and intubation.
[2020-03-16] MEDS ORDERED: GADOBENATE DIMEGLUMINE 15 ML/VIAL IV ONE (17:47)
[2020-03-16] MEDS: NACL 0.9% W/KCL 20MEQ 1,000 ML IV SCH ×2 (18:06→21:50)
[2020-03-16] MEDS: CIPROFLOXACIN 400 MG/200 ML BAG IV SCH (20:31)
[2020-03-16] MEDS: 0.9 % SODIUM CHLORIDE 10 ML SYRINGE IV SCH (20:31)
[2020-03-16] MEDS ORDERED: DOCUSATE SODIUM 100 MG CAPSULE PO SCH (21:00)
[2020-03-16] MEDS ORDERED: [UNRECOGNIZED DRUG - OTHER] OU SCH (21:00)
[2020-03-16] MEDS ORDERED: OXYBUTYNIN CHLORIDE 5 MG TABLET PO SCH (21:00)
[2020-03-16] MEDS ORDERED: METOPROLOL TARTRATE 50 MG TABLET PO SCH (21:00)
[2020-03-16] MEDS ORDERED: LATANOPROST OPHTH DROPS 2.5ML BOTTLE OU SCH (21:00)
[2020-03-16] MEDS ORDERED: prednisoLONE 1% OPHTH DROPS 1ML BOTTLE OU SCH (21:00)
[2020-03-16] MEDS ORDERED: POTASSIUM CHLORIDE 20 MEQ TABLET PO SCH (21:00)
[2020-03-16] MEDS ORDERED: BACLOFEN 10 MG TABLET PO SCH (21:00)
[2020-03-16] MEDS ORDERED: 0.9 % SODIUM CHLORIDE 10 ML SYRINGE IV SCH (22:00)
[2020-03-16] MEDS: POTASSIUM CHLORIDE 20 MEQ TABLET PO SCH (22:48)
[2020-03-16] MEDS: BACLOFEN 10 MG TABLET PO SCH (22:48)
[2020-03-16] MEDS: DOCUSATE SODIUM 100 MG CAPSULE PO SCH (22:48)
[2020-03-16] MEDS: METOPROLOL TARTRATE 50 MG TABLET PO SCH (22:48)
[2020-03-16] MEDS: OXYBUTYNIN CHLORIDE 5 MG TABLET PO SCH (22:48)
[2020-03-16] MEDS: [UNRECOGNIZED DRUG - OTHER] OU SCH (22:52)
[2020-03-16] MEDS: prednisoLONE 1% OPHTH DROPS 1ML BOTTLE OU SCH (22:54)
[2020-03-16] MEDS: LATANOPROST OPHTH DROPS 2.5ML BOTTLE OU SCH (22:56)
[2020-03-16] MEDS ORDERED: oxyCODONE/APAP 5/325MG TABLET PO PRN (22:56)
[2020-03-17] MEDS ORDERED: oxyCODONE/APAP 5/325MG TABLET PO ONE (00:11)
[2020-03-17] MEDS: 0.9 % SODIUM CHLORIDE 10 ML SYRINGE IV SCH ×3 (06:06→21:23)
[2020-03-17] MEDS: METOPROLOL TARTRATE 50 MG TABLET PO SCH ×2 (08:13→21:22)
[2020-03-17] MEDS: BACLOFEN 10 MG TABLET PO SCH ×3 (08:14→21:22)
[2020-03-17] MEDS: DOCUSATE SODIUM 100 MG CAPSULE PO SCH ×2 (08:14→21:29)
[2020-03-17] MEDS: NIFEdipine 30 MG TAB.XL.24H PO SCH (08:14)
[2020-03-17] MEDS: POTASSIUM CHLORIDE 20 MEQ TABLET PO SCH ×3 (08:14→21:22)
[2020-03-17] MEDS: OXYBUTYNIN CHLORIDE 5 MG TABLET PO SCH ×2 (08:14→21:22)
[2020-03-17] MEDS: ENOXAPARIN 40 MG/0.4 ML SYRINGE SQ SCH (08:16)
[2020-03-17] MEDS: CIPROFLOXACIN 400 MG/200 ML BAG IV SCH ×2 (08:17→21:22)
[2020-03-17] MEDS: METHYLPHENIDATE HCL 20 MG PO SCH (08:19)
[2020-03-17] MEDS: prednisoLONE 1% OPHTH DROPS 1ML BOTTLE OU SCH ×3 (08:19→21:23)
[2020-03-17] MEDS: [UNRECOGNIZED DRUG - OTHER] OU SCH ×3 (08:19→21:23)
[2020-03-17 08:25] LABS: Basophils # (Auto) 0.07 K/mcL (0.00-0.20); Basophils % (Auto) 0.7 % (0.0-2.0); Eosinophils # (Auto) 0.38 K/mcL (0.00-0.70); Eosinophils % (Auto) 3.6 % (0.0-7.0); Hematocrit 38.7 % (36.0-48.0); Hemoglobin 12.7 g/dL (12.0-15.0); Lymphocytes # (Auto) 1.38 K/mcL (1.50-4.80); Lymphocytes % (Auto) 13.1 % (15.0-49.0); Mean Corpuscular HGB Conc 32.8 g/dL (31.0-36.0); Monocytes # (Auto) 1.43 K/mcL (0.10-0.90); Monocytes % (Auto) 13.6 % (1.0-12.0); Platelet Count 257 K/mcL (140-440); Red Cell Distribution Width 14.2 % (11.5-14.5); WBC 10.5 K/mcL (4.5-11.0)
--- NOTE | 2020-03-17 08:39 | Magnetic Resonance Report ---
History: Flareup of multiple sclerosis with new onset leg pain and weakness TECHNIQUE: Multiplanar imaging was performed using multiple pulse sequences. 10 mL MultiHance contrast was injected intravenously. Postcontrast views were obtained. FINDINGS: There are extensive white matter lesions above the tentorium. The greatest involvement is in the parietal lobes. There is also involvement in both frontal lobes, occipital and posterior temporal lobes. This extends from the lateral castillo of the ventricles to the subcortical white matter. There is also involvement in the splenium of the corpus callosum. These lesions have no mass effect or restricted diffusion. None of the lesions enhance with contrast. White matter lesions are chronic stable finding with no significant change since 11/09/2018 and 12/28/2014. There is no evidence of an infarct, hemorrhage or mass. Mild atrophy is seen along the upper convexities of the frontal and parietal lobes. There is no abnormal extra-axial fluid collection. The ventricles are normal in size. The mainstem cerebellum and basal ganglia are normal. No abnormality seen in the optic nerves. Postcontrast view show no enhancing lesion. IMPRESSION: Stable chronic diffuse white matter disease above the tentorium. The pattern is nonspecific and may be due to chronic multiple sclerosis or age-related microvascular ischemia and degeneration. No acute abnormality has developed. Interpreted and Authenticated by: Reg Adames 03/17/20
[2020-03-17 08:50] LABS: proBNP 609.5 pg/mL (<450.0)
[2020-03-17 08:52] LABS: ALT/SGPT 11 U/L (<40); AST/SGOT 16 U/L (<32); Albumin 3.3 gm/dL (3.2-5.2); Albumin/Globulin Ratio 1.5 (1.0-2.3); Alkaline Phosphatase 83 U/L (39-117); Bilirubin,Total 0.5 mg/dL (0.1-1.0); Blood Urea Nitrogen 17 mg/dL (8-23); Calcium 9.4 mg/dL (8.6-10.4); Carbon Dioxide 25 mmol/L (22-30); Chloride 106 mmol/L (96-108); Globulin 2.2 gm/dL (2.2-3.7); Glomerular Filtration Rate 82; Glucose 80 mg/dL (70-105); Phosphorous 2.6 mg/dL (2.5-4.5)
[2020-03-17] MEDS ORDERED: NIFEdipine 30 MG TAB.XL.24H PO SCH (09:00)
[2020-03-17] MEDS ORDERED: METHYLPHENIDATE HCL 20 MG PO SCH (09:00)
[2020-03-17] MEDS ORDERED: ENOXAPARIN 40 MG/0.4 ML SYRINGE SQ SCH (09:00)
--- NOTE | 2020-03-17 09:15 | Magnetic Resonance Report ---
History: Exacerbation of multiple sclerosis with leg pain and weakness TECHNIQUE: Multiplanar imaging was performed using multiple pulse sequences. 10 mL MultiHance contrast was injected and postcontrast T1-weighted views were obtained. FINDINGS: There is a mild flexion deformity in the mid cervical spine due to severe degenerative disc disease. No fracture or destructive bone lesion are present. The cervico-occipital junction and C1-2 levels are normal. The C2-3 disc space is normal. Arthritis is present in the left facet. C3-4 disc is normal in height. Small posterior bulge is present and there is arthritis in the facets, left greater than right. There is also mild spurring of the uncinate processes resulting in mild stenosis of both neural foramina. C4-5 disc is severely narrowed and degenerated. Mild arthritis is present in the facets. There is mild spinal canal stenosis and mild stenosis of both neural foramina. There is no cord compression. C5-6 disc is severely narrowed and degenerated. There is 2 mm retrolisthesis of C5 posterior to C6. There is a ring of spurs on the posterior border of the disc along with a small broad-based bulge. Posteriorly there is mild arthritis in the facets. This is causing severe spinal canal stenosis resulting in moderate compression of the spinal cord. There is also severe stenosis of both neural foramina due to spurs. C6-7 disc is moderate to severely narrowed and degenerated. Small spurs along the posterior border of the disc and mild arthritis in the facets. There is mild spinal canal stenosis and mild stenosis of both neural foramina. C7-T1 disc is normal in height. There is 2 mm grade 1 spondylolisthesis. There is a focal small midline bulge. This indents the thecal sac. It touches but does not deform the spinal cord. The neural foramina are normal in caliber. Except for the extrinsic compression of the spinal cord at C5-6, the remainder of the cord appears normal without evidence of demyelinating plaques or myelitis. Is no evidence neoplasm or infection in the neck. No paraspinal mass is present. The postcontrast view show no enhancing lesion. IMPRESSION: Severe spinal canal stenosis at C5-C6 due to degenerative changes, causing moderate compression of the spinal cord. Mild spinal canal stenosis at C4-5 and C6-7 and C7-T1 Stenosis of the neural foramina bilaterally at multiple levels due to osteophytes No evidence of multiple sclerosis involving the spinal cord Interpreted and Authenticated by: Reg Adames 03/17/20
--- NOTE | 2020-03-17 09:24 | Magnetic Resonance Report ---
History: Exacerbation of multiple sclerosis with leg pain and weakness TECHNIQUE: Multiplanar imaging was performed using multiple pulse sequences. 10 mL MultiHance contrast was injected intravenously and postcontrast T1-weighted views were acquired. FINDINGS: A moderate dextroscoliotic curvature is present in the midthoracic spine. Associated with this is mild arthritis with small spurs around the margins of the disc. The T8-9 disc space is mildly narrowed but there is no disc protrusion. The remainder of the discs are normal. There is no disc herniation. Central canal and neural foramina are normal in caliber without evidence of stenosis. There are mild compression deformities involving the superior endplates of T8, inferior endplate of T11 and superior endplate of L1. There is no associated bone marrow edema. These are old. The spinal cord is normal in size signal and contour. The conus is at L2. No demyelinating plaques are seen within the cord. The postcontrast views show no enhancing lesion. There is no paraspinal mass or abnormal fluid collection. IMPRESSION: Scoliosis with mild arthritis Normal spinal cord Mild old stable compression fractures at T8, T11 and L1 Interpreted and Authenticated by: Reg Adames 03/17/20
[2020-03-17] MEDS: NACL 0.9% W/KCL 20MEQ 1,000 ML IV SCH ×2 (13:53→19:53)
--- NOTE | 2020-03-17 14:15 | Internal Med Progress Note ---
SUBJECTIVE Subjective Patient information: Note initiated : 03/17/20 at 2:13 pm Service Date, if different from initiated Date: [] Patient: Inna Selby 79 y/o F admitted on 03/16/20 for "MS Flare-Up". Chief Complaint: [] Ms. Selby is a 79 year old F with a past medical history of multiple sclerosis and high blood pressure who presented to the ER due to generalized weakness for 2 days. As per patient, patient has been having generalized weakness for 2 days which has been worsening. She feels too weak to stand up. She also complains of mild headache and dysuria. She also has chronic low back pain. In the ER, urinalysis was compatible with UTI. MRI lumbar without contrast -no acute changes. Lumbar puncture was done in the ER, results are pending. When I saw this patient in the ER, other than the symptoms mentioned above, she denied chest pain, shortness of breath, nausea, vomiting, abdominal pain, fever or chills. No changes in vision. Patient has a chronic urinary incontinence. Patient states that she has not been taking medication for her multiple sclerosis for 10 to 12 years. 03/17 Patient still complains of fatigue. Patient told me that her strength of left leg and left arm has been weaker than the strength of right arm or leg for more than 10 years due to multiple sclerosis. No new change in strength. Vital signs are stable and acceptable White blood cells normalized, 10.5, potassium of 4.2, phosphorous 2.6, mag 2.4 MRI brain, C-spine, T-spine and L-spine -no acute changes Review of Systems All systems: reviewed and no additional remarkable complaints except as stated Constitutional Vitals: Vital Signs Temp Pulse Resp BP Pulse Ox 98.9 F 65 18 113/52 97 03/17/20 12:16 03/17/20 12:16 03/17/20 12:16 03/17/20 12:16 03/17/20 12:16 Period Temp Pulse Resp BP Sys/Ellis Pulse Ox Last 24 Hr 97.8 F-98.9 F 61-86 16-20 108-133/46-102 94-98 Intake and Output 03/17/20 03/17/20 03/17/20 05:59 13:59 21:59 Intake Total 100 680 Output Total 1 Balance 99 680 Weight 49.714 kg Patient Weight 10/10/20 05:59 Weight 49.714 kg Intake & Output: Intake & Output 03/17/20 03/17/20 03/17/20 05:59 13:59 21:59 Intake Total 100 680 Output Total 1 Balance 99 680 Weight 49.714 kg Intake: IV 200 Oral 100 480 Output: # of times incontinent of urine 1 Other: Meal Lunch Percent of Meal Consumed 50% Feeding Ability Independent Urine Appearance Straight Cloudy Sediment Purulent Urine Color Bright Yellow Urine Odor Straight Foul Stool Size Smear Stool Color Brown Stool Consistency Dry and Hard Formed # Voids 1 Additional findings Additional findings: General - No acute distress Eyes - PERRLA, EOM intact. ENT no rhinorrhea, no noticeable or palpable swelling, no redness or rash around throat or on face Neck supple, no JVD, no thyromegaly Respiratory: Lungs - diminshed BS, no use of accessary muscles. Cardiovascular - RRR no m/r/g, GI - Normal bowel sounds, no distended, soft. Extremeties - No edema, cyanosis or clubbing Hemo/lymphatic/immune no lymphadenopathy Neurological Alert and oriented x 3, strength: LLE - 3/5 and RLE 4/5 (as per pt, chronic left leg and left arm weaker for 10 years). Chronic left upper eyelid lower than right one. Psychiatry flat affect OBJ DATA Labs CBC & Chem 7: 03/17/20 05:27 03/17/20 05:27 Labs: Abnormal Lab Results 03/17/20 03/17/20 03/16/20 05:27 05:27 09:42 WBC MPV 11.0 H Lymph % (Auto) 13.1 L [place] % (Auto) 13.6 H Lymph # (Auto) 1.38 L [place] # (Auto) 1.43 H Potassium BUN NT-Pro-B Natriuret Pep 609.5 H Total Protein 5.5 L Urine Appearance Cloudy A Urine Protein 30 A Urine Nitrate Pos A Ur Leukocyte Esterase 500 A Urine RBC 2 H Urine WBC 127 H Urine Bacteria Few A 03/16/20 03/16/20 08:33 08:33 WBC 11.2 H MPV Lymph % (Auto) 12.1 L [place] % (Auto) 12.5 H Lymph # (Auto) 1.36 L [place] # (Auto) 1.40 H Potassium 3.2 L BUN 28 H NT-Pro-B Natriuret Pep Total Protein Urine Appearance Urine Protein Urine Nitrate Ur Leukocyte Esterase Urine RBC Urine WBC Urine Bacteria Meds: Medications Baclofen (Lioresal) 10 mg PO TID [facility] Last Admin: 03/17/20 08:14 Dose: 10 mg Documented by: Docusate Sodium (Colace) 100 mg PO BID [facility] Last Admin: 03/17/20 08:14 Dose: 100 mg Documented by: Enoxaparin Sodium (Lovenox) 40 mg SQ DAILY [facility] Last Admin: 03/17/20 08:16 Dose: 40 mg Documented by: Ciprofloxacin (Cipro) 400 mg in 200 mls @ 200 mls/hr IV Q12H [facility]; Protocol Last Infusion: 03/17/20 09:17 Dose: Infused Documented by: Potassium Chloride/Sodium Chloride (Nacl 0.9% W/Kcl 20meq 1000ml) 1,000 mls @ 50 mls/hr IV .Q20H [facility] Last Admin: 03/17/20 13:53 Dose: Not Given Documented by: Latanoprost (Xalatan Ophth Drops) 1 gtt OU HS [facility] Last Admin: 03/16/20 22:56 Dose: 1 gtt Documented by: Metoprolol Tartrate (Lopressor) 50 mg PO BID [facility] Last Admin: 03/17/20 08:13 Dose: 50 mg Documented by: Nifedipine (Procardia Xl) 30 mg PO DAILY [facility] Last Admin: 03/17/20 08:14 Dose: 30 mg Documented by: Ondansetron HCl (Zofran) 4 mg IV Q6HP PRN PRN Reason: Nausea And Vomiting Oxybutynin Chloride (Ditropan) 5 mg PO BID [facility] Last Admin: 03/17/20 08:14 Dose: 5 mg Documented by: Oxycodone/Acetaminophen (Percocet 5-325 Mg) 1 tab PO Q6HP PRN; Protocol PRN Reason: Per Pain Protocol Brimonidine-Timolol ([Combigan] Eye Drops) 1 dose OU BID [facility] Last Admin: 03/17/20 08:39 Dose: 1 dose Documented by: Methylphenidate Hcl (20 Mg Tab) 1 dose PO DAILY [facility] Last Admin: 03/17/20 08:19 Dose: Not Given Documented by: Potassium Chloride (Kdur) 20 meq PO TID [facility] Last Admin: 03/17/20 08:14 Dose: 20 meq Documented by: Prednisolone Acetate (Pred Forte Ophth Drops) 1 gtt OU BID [facility] Last Admin: 03/17/20 08:40 Dose: 1 gtt Documented by: Sodium Chloride (Saline Flush) 10 ml IV Q8 [facility] Last Admin: 03/17/20 13:53 Dose: Not Given Documented by: A/P Narrative A/P Narrative: 1. UTI Urinalysis compatible with UTI Urine culture -pending Blood culture -pending Cipro 400 mg IV twice daily (allergic to penicillin -swelling) 2. Generalized weakness/deconditioning/self care deficiency PT/OT/CM 3. Multiple sclerosis Patient home medication include methylphenidate 20mg daily. However, patient states that she has not been taking any MS medication for 10 to 12 years. As per patient, left leg and left arm weaker than the right leg and arm for 10 years. No new changes in strength. MRI brain, C-spine and thoracic spine with contrast -no acute changes Continue methylphenidate 20mg daily 4. Chronic low back pain Continue baclofen 5. Hx of iron deficiency anemia Repeat CBC in morning 6. HTN continue metoprolol 50mg bid, nifedipine 30mg daily 7. DVT prophylaxis: Lovenox 8. CODE STATUS: Limited Time Spent With Patient Time: Total time spent is greater than 50% in coordination of care (as documented) at patient's floor/unit and/or counseling patient: QUALITY VTE Deep Vein Thrombosis/Pulmonary Embolism Present on Admission: No
[2020-03-17] MEDS: LATANOPROST OPHTH DROPS 2.5ML BOTTLE OU SCH (21:23)
[2020-03-18] MEDS: 0.9 % SODIUM CHLORIDE 10 ML SYRINGE IV SCH (05:53)
[2020-03-18 07:14] LABS: Basophils # (Auto) 0.08 K/mcL (0.00-0.20); Basophils % (Auto) 0.6 % (0.0-2.0); Eosinophils # (Auto) 0.39 K/mcL (0.00-0.70); Hematocrit 43.1 % (36.0-48.0); Hemoglobin 14.1 g/dL (12.0-15.0); Lymphocytes # (Auto) 1.46 K/mcL (1.50-4.80); Lymphocytes % (Auto) 11.1 % (15.0-49.0); Mean Cell Volume 88.1 fL (80.0-100.0); Mean Corpuscular HGB Conc 32.7 g/dL (31.0-36.0); Mean Platelet Volume 10.4 fL (7.4-10.4); Monocytes # (Auto) 1.68 K/mcL (0.10-0.90); Monocytes % (Auto) 12.8 % (1.0-12.0); Neutrophils % (Auto) 72.5 % (38.0-78.0); Platelet Count 298 K/mcL (140-440); RBC 4.89 M/mcL (4.00-5.20); Red Cell Distribution Width 14.3 % (11.5-14.5); WBC 13.1 K/mcL (4.5-11.0)
[2020-03-18] MEDS: METHYLPHENIDATE HCL 20 MG PO SCH (07:29)
[2020-03-18 07:54] LABS: ALT/SGPT 10 U/L (<40); AST/SGOT 16 U/L (<32); Albumin 3.2 gm/dL (3.2-5.2); Albumin/Globulin Ratio 1.3 (1.0-2.3); Alkaline Phosphatase 90 U/L (39-117); Bilirubin,Total 0.5 mg/dL (0.1-1.0); Blood Urea Nitrogen 11 mg/dL (8-23); Calcium 8.9 mg/dL (8.6-10.4); Carbon Dioxide 22 mmol/L (22-30); Chloride 108 mmol/L (96-108); Globulin 2.5 gm/dL (2.2-3.7); Glomerular Filtration Rate 92; Glucose 90 mg/dL (70-105)
[2020-03-18] MEDS: BACLOFEN 10 MG TABLET PO SCH (08:29)
[2020-03-18] MEDS: CIPROFLOXACIN 400 MG/200 ML BAG IV SCH (08:29)
[2020-03-18] MEDS: POTASSIUM CHLORIDE 20 MEQ TABLET PO SCH (08:30)
[2020-03-18] MEDS: NIFEdipine 30 MG TAB.XL.24H PO SCH (08:30)
[2020-03-18] MEDS: METOPROLOL TARTRATE 50 MG TABLET PO SCH (08:30)
[2020-03-18] MEDS: DOCUSATE SODIUM 100 MG CAPSULE PO SCH (08:30)
--- NOTE | 2020-03-18 08:30 | Discharge Summary ---
Discharge Provider Provider Patient information: Note initiated : 03/18/20 at 8:22 am Service Date, if different from initiated Date: [] Patient: Inna Selby 79 y/o F admitted on 03/16/20 for "MS Flare-Up". Chief Complaint: [] Date of admission: 03/16/20 17:46 Discharge date: 03/18/20 Primary care physician: Ivan Yancey DO Consults: 03/16/20 Consult to Physician [CONS] Stat Comment: Consulting Provider: Phyllis Lee Reason For Exam: Physician to Consult 03/17/20 12:52 Consult to Physician [CONS] Routine Comment: Consulting Provider: [facility] Reason For Exam: Physician to Consult 03/17/20 12:59 Consult to Physician [CONS] Routine Comment: Consulting Provider: [facility] Reason For Exam: Physician to Consult Discharge Meds Discharge Medications Home Medications latanoprost 1 gtt OPHTHALMIC (EYE) HS 03/07/17 [History Confirmed 03/16/20 Last Taken 03/15/20 22:00] baclofen 10 mg tablet 10 mg PO TID #270 tab 02/15/19 [Rx Confirmed 03/16/20 Last Taken 03/15/20 22:00] oxybutynin chloride 5 mg tablet 5 mg PO BID #180 tab 09/13/19 [Rx Confirmed 03/16/20 Last Taken 03/15/20 12:00] metoprolol tartrate 50 mg tablet 50 mg PO BID #180 tab 12/27/19 [Rx Confirmed 03/16/20 Last Taken 03/15/20 12:00] nifedipine 30 mg tablet,extended release 30 mg PO DAILY #30 tab 12/27/19 [Rx Confirmed 03/16/20 Last Taken 03/15/20 22:00] Combigan 1 drp OPHTHALMIC (EYE) BID 03/16/20 [History Confirmed 03/16/20 Last Taken 03/16/20 07:00] methylphenidate HCl 20 mg PO DAILY 03/16/20 [History Confirmed 03/16/20 Last Taken 03/15/20 07:00] prednisolone acetate 1 drp OPHTHALMIC (EYE) BID 03/16/20 [History Confirmed 03/16/20 Last Taken 03/15/20 22:00] ciprofloxacin HCl [Cipro] 500 mg PO BID #10 tab 03/18/20 [Rx Last Taken Unknown] COURSE Hospital Course Hospital course: 1. UTI Urinalysis compatible with UTI/pyelonephritis. Urine culture -pending Blood culture -GPC from 1 of 2 bottles. As per lab, it is most likely due to contamination. Cipro 400 mg IV twice daily (allergic to penicillin -swelling) f/u with pcp 2. Generalized weakness/deconditioning/self care deficiency continue PT/OT 3. Multiple sclerosis Patient home medication include methylphenidate 20mg daily. However, patient states that she has not been taking any MS medication for 10 to 12 years. As per patient, left leg and left arm weaker than the right leg and arm for 10 years. No new changes in strength. MRI brain, C-spine and thoracic spine with contrast -no acute changes Continue methylphenidate 20mg daily Follow-up with PCP and neurology 4. Chronic low back pain Continue baclofen 5. Hx of iron deficiency anemia Repeat CBC in morning 6. HTN continue metoprolol 50mg bid, nifedipine 30mg daily 7. Bacteremia? Blood culture on March 16 was positive for gram-positive cocci from 1 of the 2 bottles. Spoke to Haleigh at microbiology lab who felt it most likely due to contamination. Ms. Selby is a 79 year old F with a past medical history of multiple sclerosis and high blood pressure who presented to the ER due to generalized weakness for 2 days. As per patient, patient has been having generalized weakness for 2 days which has been worsening. She feels too weak to stand up. She also complains of mild headache and dysuria. She also has chronic low back pain. In the ER, urinalysis was compatible with UTI. MRI lumbar without contrast -no acute changes. Lumbar puncture was done in the ER, results are pending. When I saw this patient in the ER, other than the symptoms mentioned above, she denied chest pain, shortness of breath, nausea, vomiting, abdominal pain, fever or chills. No changes in vision. Patient has a chronic urinary incontinence. Patient states that she has not been taking medication for her multiple sclerosis for 10 to 12 years. 03/17 Patient still complains of fatigue. Patient told me that her strength of left leg and left arm has been weaker than the strength of right arm or leg for more than 10 years due to multiple sclerosis. No new change in strength. Vital signs are stable and acceptable White blood cells normalized, 10.5, potassium of 4.2, phosphorous 2.6, mag 2.4 MRI brain, C-spine, T-spine and L-spine -no acute changes 03/18 Her white blood cells is mildly elevated today, 13.1. She feels great and does not have any complaints. Denies fever, chills, headache, dizziness, nausea, vomiting, chest pain, shortness of breath, abdominal pain or diarrhea. Vital signs are stable and acceptable. Patient would like to keep Roegrs catheter in place. RN at I explained the risks and benefits of the Rogers catheter. Patient fully understood. I advised her not have the Rogers catheter more than 3 days. I will discharge this patient to SNF today. Patient needs to see PCP and neurologist. Patient told me that she has an appointment with the her PCP in couple of days. I advised her to see her neurologist within 1 week. She needs to repeat CBC in 2 days. I will discharge her on oral Cipro for 5 days. Her home lasix is temporarily on hold. Continue PT and OT. I educated her to immediately report any symptoms or signs of infection (bacteremia) to staff at shelter. Call PCP/staff at shelter medical issues. Discharge diagnosis: UTI/pyelonephritis Time Spent with Patient Time attestation: Total time spent providing and/or coordinating discharge services: EXAM Constitutional Vitals: Temp Pulse Resp BP Pulse Ox 98.4 F 64 16 103/60 95 03/18/20 07:56 03/18/20 07:56 03/18/20 07:56 03/18/20 07:56 03/18/20 07:56 Additional findings Additional findings: General - No acute distress Eyes - PERRLA, EOM intact. ENT no rhinorrhea, no noticeable or palpable swelling, no redness or rash around throat or on face Neck supple, no JVD, no thyromegaly Respiratory: Lungs - diminshed BS, no use of accessary muscles. Cardiovascular - RRR no m/r/g, GI - Normal bowel sounds, no distended, soft. No CVA tenderness. Extremeties - No edema, cyanosis or clubbing Hemo/lymphatic/immune no lymphadenopathy Neurological Alert and oriented x 3, strength: LLE - 3/5 and RLE 4/5 (as per pt, chronic left leg and left arm weaker for 10 years). Chronic left upper eyelid lower than right one. Psychiatry flat affect Discharge Data Data Completed and Pending Labs on day of discharge: Labs from last 24 hours 03/18/20 03/18/20 03/17/20 04:56 04:56 17:40 WBC 13.1 H RBC 4.89 Hgb 14.1 Hct 43.1 MCV 88.1 MCH 28.8 MCHC 32.7 RDW 14.3 Plt Count 298 MPV 10.4 Neut % (Auto) 72.5 Lymph % (Auto) 11.1 L [place] % (Auto) 12.8 H Eos % (Auto) 3.0 Baso % (Auto) 0.6 Lymph # (Auto) 1.46 L [place] # (Auto) 1.68 H Eos # (Auto) 0.39 Baso # (Auto) 0.08 Absolute Neutrophils 9.49 H Sodium 140 Potassium 4.8 Chloride 108 Carbon Dioxide 22 Anion Gap 10.0 BUN 11 Creatinine 0.5 L GFR Calculation 92 Glucose 90 Calcium 8.9 Phosphorus Magnesium Total Bilirubin 0.5 AST 16 ALT 10 Alkaline Phosphatase 90 NT-Pro-B Natriuret Pep Total Protein 5.7 L Albumin 3.2 Globulin 2.5 Albumin/Globulin Ratio 1.3 SARS-CoV-2 (PCR) Negative 03/17/20 03/17/20 05:27 05:27 WBC 10.5 RBC 4.50 Hgb 12.7 Hct 38.7 MCV 86.0 MCH 28.2 MCHC 32.8 RDW 14.2 Plt Count 257 MPV 11.0 H Neut % (Auto) 69.0 Lymph % (Auto) 13.1 L [place] % (Auto) 13.6 H Eos % (Auto) 3.6 Baso % (Auto) 0.7 Lymph # (Auto) 1.38 L [place] # (Auto) 1.43 H Eos # (Auto) 0.38 Baso # (Auto) 0.07 Absolute Neutrophils 7.24 Sodium 139 Potassium 4.2 Chloride 106 Carbon Dioxide 25 Anion Gap 8.0 BUN 17 Creatinine 0.7 GFR Calculation 82 Glucose 80 Calcium 9.4 Phosphorus 2.6 Magnesium 2.4 Total Bilirubin 0.5 AST 16 ALT 11 Alkaline Phosphatase 83 NT-Pro-B Natriuret Pep 609.5 H Total Protein 5.5 L Albumin 3.3 Globulin 2.2 Albumin/Globulin Ratio 1.5 SARS-CoV-2 (PCR) Preliminary micro results at discharge 03/16/20 17:00 Blood Culture - Preliminary Blood Gram positive cocci 03/16/20 17:05 Blood Culture - Preliminary Blood Discharge Plan Patient/Caregiver Discharge Instructions Activity: increase activity as tolerated Diet: Regular Diet Activity Restrictions/Additional Instructions: Rogers catheter more than 3 days. to see PCP in 2 days and neurologist within one week. to repeat CBC in 2 days. oral Cipro for 5 days. immediately report any symptoms or signs of infection (bacteremia) to staff at shelter. Call PCP/staff at shelter medical issues. Prescriptions: New ciprofloxacin HCl [Cipro] 500 mg tablet 500 mg PO BID Qty: 10 RF: 0 Continued baclofen 10 mg tablet 10 mg PO TID Qty: 270 RF: 1 oxybutynin chloride 5 mg tablet 5 mg PO BID Qty: 180 RF: 0 nifedipine 30 mg tablet extended release 30 mg PO DAILY Qty: 30 RF: 0 metoprolol tartrate 50 mg tablet 50 mg PO BID Qty: 180 RF: 1 latanoprost 1 GTT bottle 1 gtt ophthalmic (eye) HS RF: 0 methylphenidate HCl 20 mg capsule,ER biphasic 50-50 20 mg PO DAILY RF: 0 Combigan 0.2-0.5 % drops 1 drp ophthalmic (eye) BID RF: 0 prednisolone acetate 1 % drops,suspension 1 drp OPHTHALMIC (EYE) BID RF: 0 Discontinued potassium chloride 20 mEq tablet,ER particles/crystals 20 meq PO TID Qty: 90 RF: 3 furosemide [Lasix] 40 mg tablet 40 mg PO BID Qty: 180 RF: 1 acetaminophen [Tylenol Extra Strength] 500 mg Tablet 1,000 mg PO Q6H PRN (Reason: Pain) RF: 0 Other Ambulatory Orders: Complete Blood Count (Routine) Timeframe: 2 Days Facility: [facility] - Location: Laboratory Ordered By: Phyllis Lee OT Discharge Order (Routine) Location: None Selected Ordered By: Phyllis Lee Physical Therapy at Discharge - General (Routine) Location: None Selected Ordered By: Phyllis Lee Follow Up Plan Follow up with: Ivan Yancey DO [Primary Care Provider] - (in 2 days) Unknown [Outside] (Neurologist within 1 week or sooner.) Patient Disposition: Xfer SNF I certify that the patient requires SNF services: Yes Discharge Orders: Discharge Order (Routine); Ordered 03/18/20 Ordered By: Phyllis LOPEZ VTE Deep Vein Thrombosis/Pulmonary Embolism Present on Admission: No
[2020-03-18] MEDS: OXYBUTYNIN CHLORIDE 5 MG TABLET PO SCH (08:31)
[2020-03-18] MEDS: ENOXAPARIN 40 MG/0.4 ML SYRINGE SQ SCH (08:32)
[2020-03-18] MEDS: prednisoLONE 1% OPHTH DROPS 1ML BOTTLE OU SCH (08:33)
[2020-03-18] MEDS: [UNRECOGNIZED DRUG - OTHER] OU SCH (08:33)
== END 2020-03-18 09:02 | DRG 690 ==
LOC: MEDSUR 08:06 → ED 08:06 → MEDSUR 17:46 → OBSVTOIN 17:46
PROVIDERS: ADMIT Internal Medicine; ATTEND Internal Medicine

== ENCOUNTER 2020-04-20 11:44 | Inpatient (IN) ==
[2020-04-20] MEDS ORDERED: 0.9 % SODIUM CHLORIDE 1,000 ML IV ONE (12:31)
--- NOTE | 2020-04-20 12:31 | Emergency Department Note ---
Weakness HPI General Chief complaint: Weakness Stated complaint: Flank Pain, Odorous Urine, Weakness Time Seen by Provider: 04/20/20 12:13 Source: patient and EMS Mode of arrival: EMS Limitations: no limitations History of Present Illness HPI Narrative: Narrative: Patient here because of weakness that is been progressive especially last day or 2. She usually can get around in her walker but has been unable today. She lives with her who has severe arthritis and is not able to do that much to help her. She has had odor to her urine for period of time. She self catheterizes and puts in a bag at night to try to help keep her clean although this has not been working very well recently. She is sometimes incontinent of stool also. She denies fevers or chills. Sometimes has some night sweatiness. She has chronic and severe MS that is making it so she needs a walker and has difficulties getting around. Related Data Home Medications Medication Instructions Recorded Confirmed latanoprost 1 gtt OPHTHALMIC (EYE) HS 03/07/17 03/16/20 Combigan 1 drp OPHTHALMIC (EYE) BID 03/16/20 03/16/20 methylphenidate HCl 20 mg PO DAILY 03/16/20 03/16/20 prednisolone acetate 1 drp OPHTHALMIC (EYE) BID 03/16/20 03/16/20 Previous Rx's Medication Instructions Recorded baclofen 10 mg tablet 10 mg PO TID #270 tab 02/15/19 oxybutynin chloride 5 mg tablet 5 mg PO BID #180 tab 09/13/19 metoprolol tartrate 50 mg tablet 50 mg PO BID #180 tab 12/27/19 nifedipine 30 mg tablet,extended 30 mg PO DAILY #30 tab 12/27/19 release ciprofloxacin HCl [Cipro] 500 mg PO BID #10 tab 03/18/20 Allergies Allergy/AdvReac Type Severity Reaction Status Date / Time Penicillins Allergy Intermediate Swelling Verified 03/16/20 17:01 Review of Systems ROS ROS Narrative: Narrative: No fevers or chills but some night sweats No sore throat or runny nose No chest pain No cough or shortness of breath No abdominal pain, nausea, vomiting No dysuria but she has decreased sensation or hardly any sensation at all due to her MS. She is now quite incontinent. She tries to use a catheter and bag at night but sometimes she is not sure if she is using it right as she still seems to leak. Has some low back pain that seems to be chronic. Has a slight headache. Denies dizziness or lightheadedness No anxiety or depression. [facility] Narrative Patient History Narrative: Narrative: Medical/Surgical/Family History All Active Problems (Updated 04/20/20 @ 18:57 by Ez Moura DO) Weakness generalized (Acute) Fall (Acute) Acute bacterial pyelonephritis (Acute) Caregiver has difficulty performing caretaking (Acute) Adult failure to thrive (Acute) Glaucoma (Acute) History of sepsis (Chronic) History of recurrent UTI (urinary tract infection) (Chronic) Exacerbation of multiple sclerosis (Acute) Chronic low back pain with bilateral sciatica (Chronic) Bladder incontinence (Chronic) Spasticity (Chronic) Fatigue (Chronic) Weakness (Acute) Raynaud's phenomenon without gangrene (Chronic) Colitis (Acute) Anemia (Acute) Anemia (Acute) Leukocytosis (leucocytosis) (Acute) Heart murmur (Acute) Right carotid bruit (Acute) Incontinence (Acute) Iron deficiency anemia (Chronic) Multiple sclerosis (Chronic) Medical History (Updated 04/20/20 @ 18:57 by Ez Moura DO) Anemia (Acute) Anemia (Acute) Bladder incontinence (Chronic) Clostridium difficile colitis (Resolved) Colitis (Acute) Complicated UTI (urinary tract infection) (Resolved) Cystitis (Resolved) Delirium (Resolved) Exacerbation of multiple sclerosis (Acute) Fall (Inactive) Fatigue (Chronic) Glaucoma (Acute) History of recurrent UTI (urinary tract infection) (Chronic) History of sepsis (Chronic) multiple - urosepsis (?) Hypoxia (Resolved) Influenza A (Inactive) Laceration (Resolved) Low back strain (Inactive) Medicare annual wellness visit, initial (Inactive) Multiple sclerosis (Chronic) Multiple sclerosis exacerbation (Inactive) Perineal irritation in female (Inactive) Pneumonitis (Resolved) Rib fractures (Resolved) Sepsis (Resolved) Severe sepsis (Resolved) Spasticity (Chronic) Systemic inflammatory response syndrome (SIRS) due to infectious process without acute organ dysfunction (Resolved) 1. acute febrile illness/systemic inflammatory response syndrome-unclear etiology. esolved leukocytosis on antibiotics 18.4-> 8.5. Pancultures negative. Negative chest and abdominal imaging. Discussed case with neurology in light of abnormal CSF study. Unlikely an acute infectious process. HSV DNA pending but no signs of MRI abnormalities of temporal lobes. 2. recurrent headaches. Unlikely migraine. Much improved. At baseline 3. Multiple sclerosis- with severe fatigue and weakness. Ongoing angelika abilitation Urinary tract infection (Resolved) Urinary tract infection (Inactive) Urogenital candidiasis (Inactive) UTI (urinary tract infection) (Resolved) Vaginitis (Resolved) Yeast dermatitis (Resolved) Surgical History History of colonoscopy (Chronic 04/11/17) History of esophagogastroduodenoscopy (EGD) (Chronic 04/02/17) Social History Smoking Status: Former smoker Alcohol Intake Frequency: holiday/special occasion only Substance Use: does not use Exam Narrative Narrative: Narrative: General: No acute distress. And interactive and appropriate. Moderately thin to mildly cachectic. Generalized atrophy of muscles. Eyes: Extraocular muscles intact. She has anisocoria with the left pupil 4 to 5 mm and the right 1-1/2 mm. ENT: Very dry mouth oral membranes. She indicates she probably is a mouth breather. Neck no lymphadenopathy or thyromegaly Lungs clear to auscultation CV regular without murmur Abdomen generally nontender. No hepatosplenomegaly. There is a malodorous smell consistent with UTI. Extremities: Moves all extremities. No peripheral edema. Fingers are pink. Neuro: Intact. Muscles of facial expression are symmetric. Psychiatric: No delusions or hallucinations. Seems pleasant and appropriate and interactive with normal speech. No agitation. General Limitations: no limitations Course Vital Signs Vital signs: Vital Signs Temperature 98.1 F 04/20/20 11:46 Pulse Rate 100 H 04/20/20 11:46 Respiratory Rate 18 04/20/20 11:46 Blood Pressure 129/79 04/20/20 11:46 Pulse Oximetry (%) 98 04/20/20 11:46 Temperature 98.1 F 04/20/20 11:46 Pulse Rate 122 H 04/20/20 18:32 Respiratory Rate 18 04/20/20 11:46 Blood Pressure 124/66 04/20/20 18:32 Pulse Oximetry (%) 93 04/20/20 18:32 MDM MDM Narrative Medical decision making narrative: Narrative: 12:13 PM - patient with MS and self catheterizing at night with odiferous urine. She is not febrile but is tachycardic. Will do labs and urine test, catheterized specimen. Labs come back with an elevated white count. Lactic acid is unremarkable, 0.8. CRP mildly elevated. CMP unremarkable. UA markedly abnormal. 2:55 PM -space with patient having an elevated white count, abnormal urine, increased weakness, tachycardia, and a source with a urinary tract infection with risk for developing these based on self-catheterization, and her debility, I will make the argument that she needs to be admitted for IV antibiotics, IV fluids, and possible placement if she does not improve enough to be able to return home. Call out to hospitalist and nursing scanner supervisor. Additional information included the patient had been admitted here in an past 1 to 2 months and then was sent to rehab locally. She was there for a number of weeks and then in March was sent home. She will be admitted as observation and hopefully will be able to get approval to return to rehab since she is at major risks to return to her home and that there is self-care deficit and inability of a caregiver. I spoke with hospitalist Dr. Lee, who is willing to accept this patient with the above considerations and plans and I have reviewed my findings with him. Lab Data Result diagrams: 04/20/20 12:39 04/20/20 12:39 Labs: Lab Results 04/20/20 04/20/20 04/20/20 Range/Units 11:49 12:39 12:39 WBC 13.6 H (4.5-11.0) K/mcL RBC 4.94 (4.00-5.20) M/mcL Hgb 13.8 (12.0-15.0) g/dL Hct 42.4 (36.0-48.0) % MCV 85.8 (80.0-100.0) fL MCH 27.9 (26.0-34.0) pg MCHC 32.5 (31.0-36.0) g/dL RDW 14.3 (11.5-14.5) % Plt Count 390 (140-440) K/mcL MPV 9.6 (7.4-10.4) fL Neut % (Auto) 76.0 (38.0-78.0) % Lymph % (Auto) 9.9 L (15.0-49.0) % [place] % (Auto) 11.2 (1.0-12.0) % Eos % (Auto) 2.3 (0.0-7.0) % Baso % (Auto) 0.6 (0.0-2.0) % Lymph # (Auto) 1.35 L (1.50-4.80) K/mcL [place] # (Auto) 1.52 H (0.10-0.90) K/mcL Eos # (Auto) 0.31 (0.00-0.70) K/mcL Baso # (Auto) 0.08 (0.00-0.20) K/mcL Absolute Neutrophils 10.33 H (1.80-8.00) K/mcL Sodium 142 (133-145) mmol/L Potassium 3.7 (3.3-5.1) mmol/L Chloride 102 (96-108) mmol/L Carbon Dioxide 23 (22-30) mmol/L Anion Gap 17.0 H (8.0-16.0) BUN 17 (8-23) mg/dL Creatinine 0.6 (0.6-1.1) mg/dL GFR Calculation 87 Glucose 77 (70-105) mg/dL Calcium 9.3 (8.6-10.4) mg/dL Total Bilirubin 0.4 (0.1-1.0) mg/dL AST 14 (<32) U/L ALT 10 (<40) U/L Alkaline Phosphatase 88 (39-117) U/L C-Reactive Protein 2.70 H (0.03-0.80) mg/dL Total Protein 6.3 (5.9-8.4) gm/dL Albumin 3.7 (3.2-5.2) gm/dL Globulin 2.6 (2.2-3.7) gm/dL Albumin/Globulin Ratio 1.4 (1.0-2.3) Urine Color Straw Urine Appearance Turbid A (Clear) Urine pH 5.0 (5.0-9.0) Ur Specific [place] 1.000 (1.000-1.035) Urine Protein Negative (Negative) mg/dL Urine Glucose (UA) Negative (Negative) mg/dL Urine Ketones Negative (Negative) mg/dL Urine Occult Blood Negative (Negative) mg/dL Urine Nitrate Negative (Negative) Urine Bilirubin Negative (Negative) mg/dL Urine Urobilinogen Negative mg/dL Ur Leukocyte Esterase Negative (Negative) /ug Urine RBC 1 (0-1) /hpf Urine WBC 116 H (0-4) /hpf Ur Squamous Epith Cells < 1 (0-4) /hpf Urine Bacteria Few A (0) /hpf Ur Culture Indicated? yes Discharge Plan Patient/Caregiver Discharge Instructions Pt seen by INVOICING SPECIALIST/PA only: No Clinical Impression: Weakness generalized, Acute bacterial pyelonephritis, Caregiver has difficulty performing caretaking, Adult failure to thrive Patient Disposition: Xfer As Outpt/Obs ([facility]) Follow up with: Ivan Yancey DO [Primary Care Provider] - Prescriptions: No Action baclofen 10 mg tablet 10 mg PO TID Qty: 270 RF: 1 oxybutynin chloride 5 mg tablet 5 mg PO BID Qty: 180 RF: 0 nifedipine 30 mg tablet extended release 30 mg PO DAILY Qty: 30 RF: 0 metoprolol tartrate 50 mg tablet 50 mg PO BID Qty: 180 RF: 1 latanoprost 1 GTT bottle 1 gtt ophthalmic (eye) HS RF: 0 methylphenidate HCl 20 mg capsule,ER biphasic 50-50 20 mg PO DAILY RF: 0 Combigan 0.2-0.5 % drops 1 drp ophthalmic (eye) BID RF: 0 prednisolone acetate 1 % drops,suspension 1 drp OPHTHALMIC (EYE) BID RF: 0 ciprofloxacin HCl [Cipro] 500 mg tablet 500 mg PO BID Qty: 10 RF: 0
[2020-04-20 13:18] LABS: Basophils # (Auto) 0.08 K/mcL (0.00-0.20); Basophils % (Auto) 0.6 % (0.0-2.0); Eosinophils # (Auto) 0.31 K/mcL (0.00-0.70); Eosinophils % (Auto) 2.3 % (0.0-7.0); Hematocrit 42.4 % (36.0-48.0); Hemoglobin 13.8 g/dL (12.0-15.0); Lymphocytes # (Auto) 1.35 K/mcL (1.50-4.80); Lymphocytes % (Auto) 9.9 % (15.0-49.0); Mean Cell Volume 85.8 fL (80.0-100.0); Mean Corpuscular HGB Conc 32.5 g/dL (31.0-36.0); Mean Platelet Volume 9.6 fL (7.4-10.4); Monocytes # (Auto) 1.52 K/mcL (0.10-0.90); Monocytes % (Auto) 11.2 % (1.0-12.0); Platelet Count 390 K/mcL (140-440); RBC 4.94 M/mcL (4.00-5.20); Red Cell Distribution Width 14.3 % (11.5-14.5); WBC 13.6 K/mcL (4.5-11.0)
[2020-04-20 13:32] LABS: Appearance,Urine TURBID (Clear); Bacteria,Urine FEW /hpf (0); Bilirubin,Urine Negative (Negative); Color,Urine STRAW; Culture Indicated,Urine yes; Glucose,Urine (UA) Negative (Negative); Ketones,Urine Negative (Negative); Leukocyte Esterase,Urine Negative /ug (Negative); Nitrate,Urine Negative (Negative); Protein,Urine Negative (Negative); Urine Blood Negative (Negative); Urine RBC 1 /hpf (0-1); Urine Squamous Epithelial Cell < 1 /hpf (0-4); Urine WBC 116 /hpf (0-4); Urobilinogen,Urine Negative
[2020-04-20 13:40] LABS: ALT/SGPT 10 U/L (<40); AST/SGOT 14 U/L (<32); Albumin 3.7 gm/dL (3.2-5.2); Albumin/Globulin Ratio 1.4 (1.0-2.3); Alkaline Phosphatase 88 U/L (39-117); Bilirubin,Total 0.4 mg/dL (0.1-1.0); Blood Urea Nitrogen 17 mg/dL (8-23); Calcium 9.3 mg/dL (8.6-10.4); Carbon Dioxide 23 mmol/L (22-30); Chloride 102 mmol/L (96-108); Globulin 2.6 gm/dL (2.2-3.7); Glomerular Filtration Rate 87; Glucose 77 mg/dL (70-105)
[2020-04-20] MEDS ORDERED: LEVOFLOXACIN 500 MG TABLET PO ONE (14:41)
--- NOTE | 2020-04-20 18:52 | Cat Scan Report ---
CLINICAL INFORMATION: Trauma COMPARISON: Brain MRI 03/16/2020 TECHNIQUE: 2.5 mm helical slices were obtained in the skull base to vertex. Following reconstruction, axial reformatted images were reviewed at bone and parenchymal windows. The exam was performed using radiation dose optimization techniques including, but not limited to, automated exposure control, adjustment of the mA and/or kV according to patient size and use of iterative reconstruction technique. FINDINGS: The ventricles, sulci, fissures, and cisterns are symmetrically enlarged bowel with mild age-related atrophy.. No extra-axial fluid collections are identified. Minimal chronic ischemic changes in the deep cerebral white matter expected for age.. There is no evidence of hemorrhage, mass effect, or edema. Bone windows show no osseous abnormality. IMPRESSION: Mild atrophy with minimal chronic ischemic changes in the deep cerebral white matter expected for age and stable. Interpreted and Authenticated by: Ivan Anthony 04/20/20
[2020-04-20] MEDS ORDERED: IPRATROPIUM/ALBUTEROL 3 ML AMPUL.NEB NEB PRN ×2 (19:04→20:07)
[2020-04-20] MEDS ORDERED: LACTULOSE 20 GM/30 ML ORAL.SOL PO PRN ×2 (19:04→20:07)
[2020-04-20] MEDS ORDERED: HYDROcodone/APAP 5/325MG TABLET PO PRN ×2 (19:04→20:07)
[2020-04-20] MEDS ORDERED: ACETAMINOPHEN 325 MG TABLET PO PRN ×2 (19:04→20:07)
[2020-04-20] MEDS ORDERED: ONDANSETRON 4 MG/2 ML VIAL IV PRN ×2 (19:04→20:07)
[2020-04-20] MEDS ORDERED: LEVOFLOXACIN 500 MG/100 ML BAG IV SCH (19:15)
[2020-04-20] MEDS ORDERED: 0.9 % SODIUM CHLORIDE 1,000 ML IV SCH ×2 (19:15→20:07)
--- NOTE | 2020-04-20 20:25 | Event Note ---
Event Note Event Note: Advanced Care Planning Documents: Parties in Attendance: patient Pt's decisional Capacity: Yes POLST form completed: Not. I explained CPR and intubation in detail to the pt who agreed with CPR and intubation.
[2020-04-20 20:39] LABS: Phosphorous 3.1 mg/dL (2.5-4.5)
[2020-04-20 20:40] LABS: proBNP 665.3 pg/mL (<450.0)
[2020-04-20] MEDS ORDERED: DOCUSATE SODIUM 100 MG CAPSULE PO SCH (21:00)
[2020-04-20] MEDS ORDERED: NIFEdipine 30 MG TAB.XL.24H PO SCH ×2 (21:00)
[2020-04-20] MEDS ORDERED: METOPROLOL TARTRATE 50 MG TABLET PO SCH (21:00)
[2020-04-20] MEDS ORDERED: 0.9 % SODIUM CHLORIDE 10 ML SYRINGE IV SCH (22:00)
[2020-04-20] MEDS: METOPROLOL TARTRATE 50 MG TABLET PO SCH (22:24)
[2020-04-20] MEDS: DOCUSATE SODIUM 100 MG CAPSULE PO SCH (22:24)
[2020-04-20] MEDS: 0.9 % SODIUM CHLORIDE 10 ML SYRINGE IV SCH (22:25)
[2020-04-20 23:23] LABS: Hemoglobin A1C 5.4 % Hgb (4.0-6.0)
[2020-04-20 23:37] LABS: Phosphorous 2.3 mg/dL (2.5-4.5)
[2020-04-20 23:39] LABS: proBNP 721.7 pg/mL (<450.0)
[2020-04-20 23:42] LABS: INR 1.1 (0.9-1.1); Prothrombin Time 14.9 sec (11.9-14.5)
[2020-04-20 23:46] LABS: Hemoglobin A1C 5.5 % Hgb (4.0-6.0)
--- NOTE | 2020-04-21 02:23 | Ultrasound Report ---
CLINICAL INFORMATION: Leg pain COMPARISON: None. FINDINGS: The entire deep venous system, both lower extremities, including the common femoral, superficial femoral, popliteal and paired trifurcation calf veins are easily compressible and show normal venous blood flow on color and spectral Doppler. No evidence of thrombus IMPRESSION: Negative exam - no evidence of deep vein thrombosis in either lower extremity. Interpreted and Authenticated by: Ivan Anthony 04/21/20
[2020-04-21] MEDS: 0.9 % SODIUM CHLORIDE 10 ML SYRINGE IV SCH ×4 (05:23→20:20)
[2020-04-21 06:56] LABS: Basophils # (Auto) 0.06 K/mcL (0.00-0.20); Basophils % (Auto) 0.5 % (0.0-2.0); Eosinophils # (Auto) 0.28 K/mcL (0.00-0.70); Eosinophils % (Auto) 2.4 % (0.0-7.0); Hematocrit 38.8 % (36.0-48.0); Hemoglobin 12.4 g/dL (12.0-15.0); Lymphocytes # (Auto) 1.33 K/mcL (1.50-4.80); Lymphocytes % (Auto) 11.6 % (15.0-49.0); Mean Cell Volume 86.2 fL (80.0-100.0); Monocytes # (Auto) 1.68 K/mcL (0.10-0.90); Monocytes % (Auto) 14.6 % (1.0-12.0); Neutrophils % (Auto) 70.9 % (38.0-78.0); Platelet Count 392 K/mcL (140-440); Red Cell Distribution Width 14.3 % (11.5-14.5); WBC 11.5 K/mcL (4.5-11.0)
[2020-04-21] MEDS: METOPROLOL TARTRATE 50 MG TABLET PO SCH ×2 (07:49→20:20)
[2020-04-21] MEDS: DOCUSATE SODIUM 100 MG CAPSULE PO SCH ×2 (07:49→20:20)
[2020-04-21 07:51] LABS: ALT/SGPT 7 U/L (<40); AST/SGOT 12 U/L (<32); Albumin 3.2 gm/dL (3.2-5.2); Albumin/Globulin Ratio 1.3 (1.0-2.3); Alkaline Phosphatase 84 U/L (39-117); Bilirubin,Total 0.6 mg/dL (0.1-1.0); Blood Urea Nitrogen 11 mg/dL (8-23); Carbon Dioxide 23 mmol/L (22-30); Chloride 106 mmol/L (96-108); Globulin 2.5 gm/dL (2.2-3.7); Glomerular Filtration Rate 92; Glucose 76 mg/dL (70-105)
[2020-04-21] MEDS ORDERED: LEVOFLOXACIN 250 MG/50 ML BAG IV SCH (09:00)
[2020-04-21] MEDS ORDERED: ENOXAPARIN 40 MG/0.4 ML SYRINGE SQ SCH ×2 (09:00)
[2020-04-21] MEDS ORDERED: METOPROLOL SUCCINATE 50 MG TAB.XL.24H PO SCH (09:00)
[2020-04-21] MEDS ORDERED: ONDANSETRON 4 MG/2 ML VIAL IV PRN (10:51)
[2020-04-21] MEDS ORDERED: LACTULOSE 20 GM/30 ML ORAL.SOL PO PRN (10:51)
[2020-04-21] MEDS ORDERED: IPRATROPIUM/ALBUTEROL 3 ML AMPUL.NEB NEB PRN (10:51)
[2020-04-21] MEDS ORDERED: ACETAMINOPHEN 325 MG TABLET PO PRN (10:51)
[2020-04-21] MEDS ORDERED: HYDROcodone/APAP 5/325MG TABLET PO PRN (10:51)
[2020-04-21] MEDS: 0.9 % SODIUM CHLORIDE 1,000 ML IV SCH (11:09)
--- NOTE | 2020-04-21 12:57 | Internal Med Progress Note ---
SUBJECTIVE Subjective Patient information: Note initiated : 04/21/20 at 12:54 pm Service Date, if different from initiated Date: [] Patient: Inna Selby 79 y/o F admitted on 04/20/20 for Flank Pain, Odorous Urine, Weakness. Chief Complaint: [] Ms. Selby is a 79 year old F with a past medical history of multiple sclerosis and high blood pressure who presented to the ER due to generalized weakness and fall. As per patient, patient has been having generalized weakness for days so that she fell at home today. She denies loss of consciousness or injury to her head. Patient was admitted to the hospital on 03/16/20 for generalized weakness and discharged to SNF on 03/18. In the ER, she was diagnosed with UTI/pyelonephritis and self-care deficit and admitted to the hospital. When I saw the patient in the ER, other than symptoms mentioned above, she denied headache, dizziness, chest pain, shortness of breath, fever or chills. 04/21 Pt feels much better today. Denies nausea, vomiting, fever or chills. Vital signs are stable and acceptable Blood culture no growth so far Urine culture showed GNB, sensitivity pending i Review of Systems Review of systems: Positive for generalized weakness. All other systems were reviewed and negative. Constitutional Vitals: Vital Signs Temp Pulse Resp BP Pulse Ox 99.4 F H 72 22 101/44 93 04/21/20 08:00 04/21/20 10:00 04/21/20 10:00 04/21/20 10:00 04/21/20 10:00 Period Temp Pulse Resp BP Sys/Ellis Pulse Ox Last 24 Hr 98.1 F-100.8 F 52-144 17-22 101-165/44-83 91-98 Intake and Output 04/20/20 04/21/20 04/21/20 21:59 05:59 13:59 Intake Total 1000 480 200 Output Total 2 575 125 Balance 998 -95 75 Weight 45.45 kg Intake & Output: Intake & Output 04/20/20 04/21/20 04/21/20 21:59 05:59 13:59 Intake Total 1000 480 200 Output Total 2 575 125 Balance 998 -95 75 Weight 45.45 kg Intake: IV 1000 Sodium Chloride 0.9% 1,000 ml @ 1000 Wide Open IV [facility] Rx#: [id number] Oral 480 200 Output: Urine Catheter Amount 575 125 # of times incontinent of urine 2 Other: Meal Breakfast Percent of Meal Consumed 50% Feeding Ability Assist with Tray Set Up Urine Appearance Cloudy Cloudy Uretheral (Rogers) Cloudy Cloudy Urine Color Bright Yellow Pale Uretheral (Rogers) Bright Yellow Bright Yellow Urine Odor Strong Strong Stool Size Large Stool Color Brown Stool Consistency Soft # Bowel Movements 1 # of times incontinent of 1 Bowels Additional findings Additional findings: General - No acute distress, thin Eyes - PERRLA, EOM intact. ENT no rhinorrhea, no noticeable or palpable swelling, no redness or rash around throat or on face Neck supple, no JVD, no thyromegaly Respiratory: Lungs - diminshed BS, no use of accessary muscles. Cardiovascular - RRR no m/r/g, GI - Normal bowel sounds, no distended, soft. Possible CVA tenderness, b/l. Extremeties - cyanosis or clubbing. left lower leg mild redness and pitting edema+. Hemo/lymphatic/immune no lymphadenopathy Neurological Alert and oriented x 3, strength: LLE - 3/5 and RLE 4/5. Chronic left upper eyelid lower than right one. Psychiatry flat affect OBJ DATA Labs CBC & Chem 7: 04/21/20 04:57 04/21/20 04:57 Labs: Abnormal Lab Results 04/21/20 04/21/20 04/20/20 04:57 04:57 21:58 WBC 11.5 H Lymph % (Auto) 11.6 L [place] % (Auto) 14.6 H Lymph # (Auto) 1.33 L [place] # (Auto) 1.68 H Absolute Neutrophils 8.16 H PT Anion Gap Creatinine 0.5 L Phosphorus 2.3 L C-Reactive Protein NT-Pro-B Natriuret Pep 721.7 H Total Protein 5.7 L Urine Appearance Urine WBC Urine Bacteria 04/20/20 04/20/20 04/20/20 21:58 12:39 12:39 WBC Lymph % (Auto) [place] % (Auto) Lymph # (Auto) [place] # (Auto) Absolute Neutrophils PT 14.9 H Anion Gap 17.0 H Creatinine Phosphorus C-Reactive Protein 2.70 H NT-Pro-B Natriuret Pep 665.3 H Total Protein Urine Appearance Urine WBC Urine Bacteria 04/20/20 04/20/20 12:39 11:49 WBC 13.6 H Lymph % (Auto) 9.9 L [place] % (Auto) Lymph # (Auto) 1.35 L [place] # (Auto) 1.52 H Absolute Neutrophils 10.33 H PT Anion Gap Creatinine Phosphorus C-Reactive Protein NT-Pro-B Natriuret Pep Total Protein Urine Appearance Turbid A Urine WBC 116 H Urine Bacteria Few A Meds: Medications Acetaminophen (Tylenol) 650 mg PO Q6HP PRN; Protocol PRN Reason: Per Pain Protocol/Fever > 101 Hydrocodone Bitart/Acetaminophen ([place] 5/325mg) 1 tab PO Q4HP PRN; Protocol PRN Reason: Per Pain Protocol Albuterol/Ipratropium (Duoneb) 3 ml NEB Q6HRT PRN PRN Reason: Shortness Of Breath Docusate Sodium (Colace) 100 mg PO BID [facility] Enoxaparin Sodium (Lovenox) 40 mg SQ DAILY [facility] Sodium Chloride (Sodium Chloride 0.9%) 1,000 mls @ 50 mls/hr IV .Q20H [facility] Last Admin: 04/21/20 11:09 Dose: 50 mls/hr Documented by: Levofloxacin (Levaquin) 250 mg in 50 mls @ 50 mls/hr IV DAILY [facility] Lactulose (Cephulac) 10 gm PO DAILYP PRN PRN Reason: Constipation Metoprolol Tartrate (Lopressor) 50 mg PO BID [facility] Nifedipine (Procardia Xl) 30 mg PO HS [facility] Ondansetron HCl (Zofran) 4 mg IV Q6HP PRN; Protocol PRN Reason: Nausea And Vomiting Sodium Chloride (Saline Flush) 10 ml IV Q8 [facility] Last Admin: 04/21/20 11:10 Dose: 10 ml Documented by: A/P Narrative A/P Narrative: 1. Early sepsis 2nd to UTI Blood culture no growth so far 1 L normal saline was given in the ER Continue IV fluid 2. UTI/pyelonephritis Urine culture - Gram-negative bacilli patient had a urinary incontinence Self cath at home Levaquin 500 mg daily (allergic to penicillin -swelling) Patient was treated with iv Levaquin for UTI during last admission in March 2020 and she was discharged on Cipro p.o. Urine culture during that time showed Escherichia coli, sensitive to cipro and levaquin, and resistant to cefuroxime and cefoxitin 3. Generalized weakness/deconditioning/self care deficiency 4. Self care deficit PT/OT/CM 5. Multiple sclerosis Patient home medication include methylphenidate 20mg daily. However, patient states that she has not been taking any MS medication for 10 to 12 years. As per patient, left leg and left arm weaker than the right leg and arm for 10 years. No new changes in strength. MRI brain, C-spine and thoracic spine with contrast in 03/28 -no acute changes Continue methylphenidate 20mg daily 6. Chronic low back pain Continue baclofen 7. Hx of iron deficiency anemia Repeat CBC in morning 8. HTN continue metoprolol 50mg bid, nifedipine 30mg daily 9. Mechanical fall CT of head PT/OT 10. 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
[2020-04-21] MEDS ORDERED: LEVOFLOXACIN 500 MG/100 ML BAG IV SCH (19:15)
[2020-04-21] MEDS: NIFEdipine 30 MG TAB.XL.24H PO SCH (20:19)
[2020-04-22] MEDS: LATANOPROST OPHTH DROPS 2.5ML BOTTLE OU SCH ×2 (01:08→21:05)
[2020-04-22] MEDS: BACLOFEN 10 MG TABLET PO SCH ×4 (01:09→21:03)
[2020-04-22] MEDS: OXYBUTYNIN CHLORIDE 5 MG TABLET PO SCH ×3 (01:10→21:03)
[2020-04-22] MEDS: 0.9 % SODIUM CHLORIDE 1,000 ML IV SCH ×2 (02:08→07:30)
[2020-04-22] MEDS: 0.9 % SODIUM CHLORIDE 10 ML SYRINGE IV SCH ×3 (06:00→21:05)
[2020-04-22 06:34] LABS: Basophils # (Auto) 0.06 K/mcL (0.00-0.20); Basophils % (Auto) 0.6 % (0.0-2.0); Eosinophils # (Auto) 0.51 K/mcL (0.00-0.70); Eosinophils % (Auto) 4.7 % (0.0-7.0); Hematocrit 38.4 % (36.0-48.0); Hemoglobin 12.4 g/dL (12.0-15.0); Lymphocytes # (Auto) 1.45 K/mcL (1.50-4.80); Lymphocytes % (Auto) 13.5 % (15.0-49.0); Mean Cell Volume 86.9 fL (80.0-100.0); Mean Corpuscular HGB Conc 32.3 g/dL (31.0-36.0); Mean Platelet Volume 9.9 fL (7.4-10.4); Monocytes # (Auto) 1.45 K/mcL (0.10-0.90); Monocytes % (Auto) 13.5 % (1.0-12.0); Neutrophils % (Auto) 67.7 % (38.0-78.0); Platelet Count 361 K/mcL (140-440); RBC 4.42 M/mcL (4.00-5.20); Red Cell Distribution Width 14.2 % (11.5-14.5); WBC 10.7 K/mcL (4.5-11.0)
[2020-04-22 08:17] LABS: ALT/SGPT 7 U/L (<40); AST/SGOT 10 U/L (<32); Albumin 2.9 gm/dL (3.2-5.2); Albumin/Globulin Ratio 1.2 (1.0-2.3); Alkaline Phosphatase 73 U/L (39-117); Bilirubin,Total 0.4 mg/dL (0.1-1.0); Blood Urea Nitrogen 11 mg/dL (8-23); Calcium 8.7 mg/dL (8.6-10.4); Carbon Dioxide 24 mmol/L (22-30); Chloride 107 mmol/L (96-108); Globulin 2.5 gm/dL (2.2-3.7); Glomerular Filtration Rate 92; Glucose 91 mg/dL (70-105)
[2020-04-22] MEDS ORDERED: FUROSEMIDE 20 MG/2 ML VIAL IV ONE (10:39)
[2020-04-22] MEDS: ENOXAPARIN 40 MG/0.4 ML SYRINGE SQ SCH (11:03)
[2020-04-22] MEDS: METOPROLOL TARTRATE 50 MG TABLET PO SCH ×2 (11:04→21:04)
[2020-04-22] MEDS: DOCUSATE SODIUM 100 MG CAPSULE PO SCH ×2 (11:04→21:03)
[2020-04-22] MEDS: LEVOFLOXACIN 250 MG/50 ML BAG IV SCH (11:05)
[2020-04-22] MEDS: METHYLPHENIDATE HCL 20 MG PO SCH (11:06)
--- NOTE | 2020-04-22 12:14 | Internal Med Progress Note ---
SUBJECTIVE Subjective Patient information: Note initiated : 04/22/20 at 12:10 pm Service Date, if different from initiated Date: [] Patient: Inna Selby 79 y/o F admitted on 04/20/20 for Flank Pain, Odorous Urine, Weakness. Chief Complaint: [] Ms. Selby is a 79 year old F with a past medical history of multiple sclerosis and high blood pressure who presented to the ER due to generalized weakness and fall. As per patient, patient has been having generalized weakness for days so that she fell at home today. She denies loss of consciousness or injury to her head. Patient was admitted to the hospital on 03/16/20 for generalized weakness and discharged to SNF on 03/18. In the ER, she was diagnosed with UTI/pyelonephritis and self-care deficit and admitted to the hospital. When I saw the patient in the ER, other than symptoms mentioned above, she denied headache, dizziness, chest pain, shortness of breath, fever or chills. 04/21 Pt feels much better today. Denies nausea, vomiting, fever or chills. Vital signs are stable and acceptable Blood culture no growth so far Urine culture showed GNB, sensitivity pending 04/22 Patient feels a significantly improved. Denies fever, chills, or nausea vomiting. Temperature greater than 99 at the times White blood cells went down to 10.7 Urine culture showed gram-negative bacilli. Sensitivity pending No overnight events Review of Systems Review of systems: Positive for generalized weakness. All other systems were reviewed and negative. Constitutional Vitals: Vital Signs Temp Pulse Resp BP Pulse Ox 98.0 F 81 16 129/56 95 04/22/20 04:00 04/22/20 04:00 04/22/20 04:00 04/22/20 04:00 04/22/20 04:00 Period Temp Pulse Resp BP Sys/Ellis Pulse Ox Last 24 Hr 98.0 F-99.4 F 73-83 16-28 98-129/52-84 94-96 Intake and Output 04/21/20 04/22/20 04/22/20 21:59 05:59 13:59 Intake Total 240 1868 268 Output Total 175 325 200 Balance 65 1543 68 Weight 46.266 kg Intake & Output: Intake & Output 04/21/20 04/22/20 04/22/20 21:59 05:59 13:59 Intake Total 240 1868 268 Output Total 175 325 200 Balance 65 1543 68 Weight 46.266 kg Intake: IV 1748 268 Sodium Chloride 0.9% 1,000 ml @ 1748 268 50 mls/hr IV .Q20H [facility] Rx#: [id number] Oral 240 120 Output: Urine Catheter Amount 175 325 200 Other: Meal Dinner Percent of Meal Consumed 100% Feeding Ability Independent Urine Appearance Clear Sediment Sediment Uretheral (Rogers) Sediment Urine Color Bright Yellow Bright Yellow Bright Yellow Uretheral ([place]ers) Bright Yellow Urine Odor Normal Normal Normal Additional findings Additional findings: General - No acute distress, thin Eyes - PERRLA, EOM intact. ENT no rhinorrhea, no noticeable or palpable swelling, no redness or rash around throat or on face Neck supple, no JVD, no thyromegaly Respiratory: Lungs - diminshed BS, no use of accessary muscles. Cardiovascular - RRR no m/r/g, GI - Normal bowel sounds, no distended, soft. Possible CVA tenderness, b/l. Extremeties - cyanosis or clubbing. left lower leg mild redness and pitting edema+. Hemo/lymphatic/immune no lymphadenopathy Neurological Alert and oriented x 3, strength: LLE - 3/5 and RLE 4/5 (chronic). Chronic left upper eyelid lower than right one. Psychiatry flat affect OBJ DATA Labs CBC & Chem 7: 04/21/20 04:57 04/21/20 04:57 Labs: Abnormal Lab Results 04/21/20 04/21/20 04/20/20 04:57 04:57 21:58 WBC 11.5 H Lymph % (Auto) 11.6 L [place] % (Auto) 14.6 H Lymph # (Auto) 1.33 L [place] # (Auto) 1.68 H Absolute Neutrophils 8.16 H PT Anion Gap Creatinine 0.5 L Phosphorus 2.3 L C-Reactive Protein NT-Pro-B Natriuret Pep 721.7 H Total Protein 5.7 L Urine Appearance Urine WBC Urine Bacteria 04/20/20 04/20/20 04/20/20 21:58 12:39 12:39 WBC Lymph % (Auto) [place] % (Auto) Lymph # (Auto) [place] # (Auto) Absolute Neutrophils PT 14.9 H Anion Gap 17.0 H Creatinine Phosphorus C-Reactive Protein 2.70 H NT-Pro-B Natriuret Pep 665.3 H Total Protein Urine Appearance Urine WBC Urine Bacteria 04/20/20 04/20/20 12:39 11:49 WBC 13.6 H Lymph % (Auto) 9.9 L [place] % (Auto) Lymph # (Auto) 1.35 L [place] # (Auto) 1.52 H Absolute Neutrophils 10.33 H PT Anion Gap Creatinine Phosphorus C-Reactive Protein NT-Pro-B Natriuret Pep Total Protein Urine Appearance Turbid A Urine WBC 116 H Urine Bacteria Few A Meds: Medications Acetaminophen (Tylenol) 650 mg PO Q6HP PRN; Protocol PRN Reason: Per Pain Protocol/Fever > 101 Hydrocodone Bitart/Acetaminophen ([place] 5/325mg) 1 tab PO Q4HP PRN; Protocol PRN Reason: Per Pain Protocol Albuterol/Ipratropium (Duoneb) 3 ml NEB Q6HRT PRN PRN Reason: Shortness Of Breath Baclofen (Lioresal) 10 mg PO TID [facility] Last Admin: 04/22/20 11:05 Dose: 10 mg Documented by: Docusate Sodium (Colace) 100 mg PO BID [facility] Last Admin: 04/22/20 11:04 Dose: 100 mg Documented by: Enoxaparin Sodium (Lovenox) 40 mg SQ DAILY [facility] Last Admin: 04/22/20 11:03 Dose: 40 mg Documented by: Levofloxacin (Levaquin) 250 mg in 50 mls @ 50 mls/hr IV DAILY [facility] Last Admin: 04/22/20 11:05 Dose: 50 mls/hr Documented by: Lactulose (Cephulac) 10 gm PO DAILYP PRN PRN Reason: Constipation Latanoprost (Xalatan Ophth Drops) 1 gtt OU HS [facility] Last Admin: 04/22/20 01:08 Dose: Not Given Documented by: Metoprolol Tartrate (Lopressor) 50 mg PO BID [facility] Last Admin: 04/22/20 11:04 Dose: 50 mg Documented by: Nifedipine (Procardia Xl) 30 mg PO HS [facility] Last Admin: 04/21/20 20:19 Dose: 30 mg Documented by: Non-Formulary Medication (Methylphenidate Hcl) 20 mg PO DAILY [facility] Last Admin: 04/22/20 11:06 Dose: Not Given Documented by: Ondansetron HCl (Zofran) 4 mg IV Q6HP PRN; Protocol PRN Reason: Nausea And Vomiting Oxybutynin Chloride (Ditropan) 5 mg PO BID [facility] Last Admin: 04/22/20 11:04 Dose: 5 mg Documented by: Sodium Chloride (Saline Flush) 10 ml IV Q8 [facility] Last Admin: 04/22/20 06:00 Dose: Not Given Documented by: A/P Narrative A/P Narrative: 1. Early sepsis 2nd to UTI Blood culture no growth so far Continue IV fluid 2. UTI/pyelonephritis Urine culture - Gram-negative bacilli, sensitivity pending patient had a urinary incontinence Self cath at home Levaquin 500 mg daily (allergic to penicillin -swelling) Patient was treated with iv Levaquin for UTI during last admission in March 2020 and she was discharged on Cipro p.o. Urine culture during that time showed Escherichia coli, sensitive to cipro and levaquin, and resistant to cefuroxime and cefoxitin 3. Generalized weakness/deconditioning/self care deficiency 4. Self care deficit PT/OT/CM 5. Multiple sclerosis Patient home medication include methylphenidate 20mg daily. However, patient states that she has not been taking any MS medication for 10 to 12 years. As per patient, left leg and left arm weaker than the right leg and arm for 10 years. No new changes in strength. MRI brain, C-spine and thoracic spine with contrast in 03/28 -no acute changes Continue methylphenidate 20mg daily 6. Chronic low back pain Continue baclofen 7. Hx of iron deficiency anemia Repeat CBC in morning 8. HTN continue metoprolol 50mg bid, nifedipine 30mg daily 9. Mechanical fall CT of head PT/OT 10. 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
[2020-04-22] MEDS: NIFEdipine 30 MG TAB.XL.24H PO SCH (21:04)
[2020-04-23] MEDS: 0.9 % SODIUM CHLORIDE 10 ML SYRINGE IV SCH ×3 (05:55→21:00)
[2020-04-23 06:23] LABS: Basophils # (Auto) 0.07 K/mcL (0.00-0.20); Basophils % (Auto) 0.7 % (0.0-2.0); Eosinophils # (Auto) 0.78 K/mcL (0.00-0.70); Eosinophils % (Auto) 7.4 % (0.0-7.0); Hematocrit 39.6 % (36.0-48.0); Hemoglobin 12.8 g/dL (12.0-15.0); Lymphocytes # (Auto) 1.57 K/mcL (1.50-4.80); Lymphocytes % (Auto) 14.9 % (15.0-49.0); Mean Cell Volume 86.3 fL (80.0-100.0); Mean Corpuscular HGB Conc 32.3 g/dL (31.0-36.0); Mean Platelet Volume 9.9 fL (7.4-10.4); Monocytes # (Auto) 1.41 K/mcL (0.10-0.90); Monocytes % (Auto) 13.4 % (1.0-12.0); Neutrophils % (Auto) 63.6 % (38.0-78.0); Platelet Count 365 K/mcL (140-440); RBC 4.59 M/mcL (4.00-5.20); Red Cell Distribution Width 14.1 % (11.5-14.5); WBC 10.5 K/mcL (4.5-11.0)
[2020-04-23 06:43] LABS: ALT/SGPT 6 U/L (<40); AST/SGOT 11 U/L (<32); Albumin 2.8 gm/dL (3.2-5.2); Albumin/Globulin Ratio 1.1 (1.0-2.3); Alkaline Phosphatase 71 U/L (39-117); Bilirubin,Total 0.3 mg/dL (0.1-1.0); Blood Urea Nitrogen 13 mg/dL (8-23); Calcium 8.9 mg/dL (8.6-10.4); Carbon Dioxide 25 mmol/L (22-30); Chloride 106 mmol/L (96-108); Globulin 2.6 gm/dL (2.2-3.7); Glomerular Filtration Rate 92; Glucose 97 mg/dL (70-105)
[2020-04-23] MEDS: ENOXAPARIN 40 MG/0.4 ML SYRINGE SQ SCH (08:28)
[2020-04-23] MEDS: METHYLPHENIDATE HCL 20 MG PO SCH (08:29)
[2020-04-23] MEDS: DOCUSATE SODIUM 100 MG CAPSULE PO SCH ×2 (08:29→20:59)
[2020-04-23] MEDS: METOPROLOL TARTRATE 50 MG TABLET PO SCH ×2 (08:29→20:59)
[2020-04-23] MEDS: BACLOFEN 10 MG TABLET PO SCH ×3 (08:29→20:59)
[2020-04-23] MEDS: OXYBUTYNIN CHLORIDE 5 MG TABLET PO SCH ×2 (08:29→20:59)
[2020-04-23] MEDS: LEVOFLOXACIN 250 MG/50 ML BAG IV SCH (09:04)
--- NOTE | 2020-04-23 13:08 | Internal Med Progress Note ---
SUBJECTIVE Subjective Patient information: Note initiated : 04/23/20 at 12:53 pm Service Date, if different from initiated Date: [] Patient: Inna Selby 79 y/o F admitted on 04/22/20 for Flank Pain, Odorous Urine, Weakness. Chief Complaint: [] Interval history: History of present illness: Mr. Anand is a 87 year old M with unknown past medical history who was brought to the ER by EMS due to AMS. Patient is nonverbal and all history is obtained from his chart. The daughter found him beside the bed and not responsiveness. The daughter felt that that he might stay on the ground for 1 week. In the ER, his CK was elevated to 1084, creatin ine creatinine 4.3, potassium 5.2, and Covid 19+. Chest CT showed bilateral pneumonia. CT was head no acute pathology. 04/23 Patient still nonverbal. He is on Levophed as needed to maintain MAP 65. CK went down to 1021 from 1084 yesterday Creatinine trending down. But patient has oliguria/anuria. 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 Osorio was contacted Patient has a wound over left hip. Wound care Dr. Campos was contacted Updated his condition to daughter Odilia ([phone]) who would like to have full code for him and may make a further decision after tile layer drainage sees him. 04/24 Constitutional Vitals: Vital Signs Temp Pulse Resp BP Pulse Ox 97.8 F 78 19 131/58 93 04/23/20 04:01 04/23/20 04:30 04/23/20 04:30 04/23/20 04:01 04/23/20 04:30 Period Temp Pulse Resp BP Sys/Ellis Pulse Ox Last 24 Hr 97.8 F-98.6 F 65-82 15-23 97-131/58-76 93-100 Intake and Output 04/22/20 04/23/20 04/23/20 21:59 05:59 13:59 Intake Total 750 450 Output Total 675 440 Balance 75 10 Weight 47.854 kg Intake & Output: Intake & Output 04/22/20 04/23/20 04/23/20 21:59 05:59 13:59 Intake Total 750 450 Output Total 675 440 Balance 75 10 Weight 47.854 kg Intake: IV 650 50 Sodium Chloride 0.9% 1,000 ml @ 650 50 mls/hr IV .Q20H [facility] Rx#: [id number] Oral 100 400 Output: Urine Catheter Amount 675 440 Other: Urine Appearance Clear Clear Uretheral (Rogers) Clear Urine Color Bright Yellow Straw Uretheral ([place]ers) Bright Yellow Urine Odor Normal Exam: General: Awake, No acute Distress Eyes/N/T: EOMI, Head/Neck: neck supple, CV: RRR, No murmurs, Pulm: diminished b/l, no wheezing Abd: soft, nontender, +BS x4 Ext: no clubbing/cyanosis/edema Neuro: , no focal deficits, moves all extremities, nonverbal Skin: warm/dry OBJ DATA Labs CBC & Chem 7: 04/23/20 05:05 04/23/20 05:05 Labs: Abnormal Lab Results 04/23/20 04/23/20 04/21/20 05:05 05:05 04:57 WBC Lymph % (Auto) 14.9 L [place] % (Auto) 13.4 H Eos % (Auto) 7.4 H Lymph # (Auto) [place] # (Auto) 1.41 H Eos # (Auto) 0.78 H Absolute Neutrophils PT Anion Gap Creatinine 0.5 L 0.5 L Phosphorus C-Reactive Protein NT-Pro-B Natriuret Pep Total Protein 5.4 L 5.7 L Albumin 2.8 L Urine Appearance Urine WBC Urine Bacteria 04/21/20 04/20/20 04/20/20 04:57 21:58 21:58 WBC 11.5 H Lymph % (Auto) 11.6 L [place] % (Auto) 14.6 H Eos % (Auto) Lymph # (Auto) 1.33 L [place] # (Auto) 1.68 H Eos # (Auto) Absolute Neutrophils 8.16 H PT 14.9 H Anion Gap Creatinine Phosphorus 2.3 L C-Reactive Protein NT-Pro-B Natriuret Pep 721.7 H Total Protein Albumin Urine Appearance Urine WBC Urine Bacteria 04/20/20 04/20/20 04/20/20 12:39 12:39 12:39 WBC 13.6 H Lymph % (Auto) 9.9 L [place] % (Auto) Eos % (Auto) Lymph # (Auto) 1.35 L [place] # (Auto) 1.52 H Eos # (Auto) Absolute Neutrophils 10.33 H PT Anion Gap 17.0 H Creatinine Phosphorus C-Reactive Protein 2.70 H NT-Pro-B Natriuret Pep 665.3 H Total Protein Albumin Urine Appearance Urine WBC Urine Bacteria 04/20/20 11:49 WBC Lymph % (Auto) [place] % (Auto) Eos % (Auto) Lymph # (Auto) [place] # (Auto) Eos # (Auto) Absolute Neutrophils PT Anion Gap Creatinine Phosphorus C-Reactive Protein NT-Pro-B Natriuret Pep Total Protein Albumin Urine Appearance Turbid A Urine WBC 116 H Urine Bacteria Few A Meds: Medications Acetaminophen (Tylenol) 650 mg PO Q6HP PRN; Protocol PRN Reason: Per Pain Protocol/Fever > 101 Hydrocodone Bitart/Acetaminophen ([place] 5/325mg) 1 tab PO Q4HP PRN; Protocol PRN Reason: Per Pain Protocol Albuterol/Ipratropium (Duoneb) 3 ml NEB Q6HRT PRN PRN Reason: Shortness Of Breath Baclofen (Lioresal) 10 mg PO TID [facility] Last Admin: 04/23/20 08:29 Dose: 10 mg Documented by: Docusate Sodium (Colace) 100 mg PO BID [facility] Last Admin: 04/23/20 08:29 Dose: 100 mg Documented by: Enoxaparin Sodium (Lovenox) 40 mg SQ DAILY [facility] Last Admin: 04/23/20 08:28 Dose: 40 mg Documented by: Levofloxacin (Levaquin) 250 mg in 50 mls @ 50 mls/hr IV DAILY [facility] Last Admin: 04/23/20 09:04 Dose: 50 mls/hr Documented by: Lactulose (Cephulac) 10 gm PO DAILYP PRN PRN Reason: Constipation Latanoprost (Xalatan Ophth Drops) 1 gtt OU [facility] Last Admin: 04/22/20 21:05 Dose: 2 drop Documented by: Metoprolol Tartrate (Lopressor) 50 mg PO BID [facility] Last Admin: 04/23/20 08:29 Dose: 50 mg Documented by: Nifedipine (Procardia Xl) 30 mg PO HS [facility] Last Admin: 04/22/20 21:04 Dose: Not Given Documented by: Non-Formulary Medication (Methylphenidate Hcl) 20 mg PO DAILY [facility] Last Admin: 04/23/20 08:29 Dose: Not Given Documented by: Ondansetron HCl (Zofran) 4 mg IV Q6HP PRN; Protocol PRN Reason: Nausea And Vomiting Oxybutynin Chloride (Ditropan) 5 mg PO BID [facility] Last Admin: 04/23/20 08:29 Dose: 5 mg Documented by: Sodium Chloride (Saline Flush) 10 ml IV Q8 [facility] Last Admin: 04/23/20 05:55 Dose: 10 ml Documented by: A/P Narrative A/P Narrative: A: *AMS: Etiology unknown, could be due to sepsis superimposed on underlying dementia. -CT of head no acute change *Sepsis: -Blood culture *UTI?: -Urinalysis compatible with UTI, Urine culture, pending*Pneumonia, Covid 19 or CAP *Pneumonia, Covid 19 or CAP *Rhabdomyolysis: *ALDA on ?CKD: -Oliguria/anuria -3.7<4.3 *Elevation of troponin -0.17, 0.17 and 0.16; EKG no ST elevation -Could be due to renal failure and rhabdomyeolysis *Atrial fibrillation with RVR -Patient home medications include diltiazem 120 mg daily. Patient is not able to take oral medication. -Aspirin, Plavix, heparin prophylaxis -Considering recent fall, did not start therapeutic anticoagulation *Pressure ulcer stage III, left hip *Compression fracture: -CT/xray showed Mild T1, T2 minimal T3 moderate and T4 compression fractures. age indeterminate -Multiple thoracic spine compression fractures most severe at T8-T9.age indeterminate *Dehydration with Hypernatremia: *Hypernatremia/Hyperkalemia *Thrombocytopenia: P: -Rocephin/Azithro, pending -Discussed with pharmacy, patient is not a candidate for remdesivir -continue corticosteroids -f/u CPK -IVF's per nephro -nephrology following -monitor uop -wean off diltiazem drip or PO -Wound care - -ppx: Heparin CODE STATUS: Full Discussed with daughter Odilia ([phone]) who would like to have full code for him and will make a further decision after tile layer drainage sees him. And it sounds like she full code now asking the neurologist patient for study today she cannot make further disease and Dr. Doyle is a patient he did just see yes any changes or shortness right now she is a full code Time Spent With Patient Time: Total time spent is greater than 50% in coordination of care (as documented) at patient's floor/unit and/or counseling patient: QUALITY Stroke Symptom Onset Unknown: No VTE Deep Vein Thrombosis/Pulmonary Embolism Present on Admission: No
--- NOTE | 2020-04-23 13:20 | Internal Med Progress Note ---
SUBJECTIVE Subjective Patient information: Note initiated : 04/23/20 at 1:17 pm Service Date, if different from initiated Date: [] Patient: Inan Selby 79 y/o F admitted on 04/22/20 for Flank Pain, Odorous Urine, Weakness. Chief Complaint: [] Ms. Selby is a 79 year old F with a past medical history of multiple sclerosis and high blood pressure who presented to the ER due to generalized weakness and fall. As per patient, patient has been having generalized weakness for days so that she fell at home today. She denies loss of consciousness or injury to her head. Patient was admitted to the hospital on 03/16/20 for generalized weakness and discharged to SNF on 03/18. In the ER, she was diagnosed with UTI/pyelonephritis and self-care deficit and admitted to the hospital. When I saw the patient in the ER, other than symptoms mentioned above, she denied headache, dizziness, chest pain, shortness of breath, fever or chills. 04/21 Pt feels much better today. Denies nausea, vomiting, fever or chills. Vital signs are stable and acceptable Blood culture no growth so far Urine culture showed GNB, sensitivity pending 04/22 Patient feels a significantly improved. Denies fever, chills, or nausea vomiting. Temperature greater than 99 at the times White blood cells went down to 10.7 Urine culture showed gram-negative bacilli. Sensitivity pending No overnight events 04/23 When I saw her this morning, she was still sleeping. She told me that she slept well and feels much better. No complaints. No overnight event Will discharge her to SNF, tomorrow? Review of Systems Review of systems: Positive for generalized weakness. All other systems were reviewed and negative. Constitutional Vitals: Vital Signs Temp Pulse Resp BP Pulse Ox 97.8 F 78 19 131/58 93 04/23/20 04:01 04/23/20 04:30 04/23/20 04:30 04/23/20 04:01 04/23/20 04:30 Period Temp Pulse Resp BP Sys/Ellis Pulse Ox Last 24 Hr 97.8 F-98.6 F 65-82 15-23 97-131/58-76 93-100 Intake and Output 04/22/20 04/23/20 04/23/20 21:59 05:59 13:59 Intake Total 750 450 Output Total 675 440 Balance 75 10 Weight 47.854 kg Intake & Output: Intake & Output 04/22/20 04/23/20 04/23/20 21:59 05:59 13:59 Intake Total 750 450 Output Total 675 440 Balance 75 10 Weight 47.854 kg Intake: IV 650 50 Sodium Chloride 0.9% 1,000 ml @ 650 50 mls/hr IV .Q20H [facility] Rx#: [id number] Oral 100 400 Output: Urine Catheter Amount 675 440 Other: Urine Appearance Clear Clear Uretheral ([place]) Clear Urine Color Bright Yellow Straw Uretheral ([place]ers) Bright Yellow Urine Odor Normal Additional findings Additional findings: General - No acute distress, thin Eyes - PERRLA, EOM intact. ENT no rhinorrhea, no noticeable or palpable swelling, no redness or rash around throat or on face Neck supple, no JVD, no thyromegaly Respiratory: Lungs - diminshed BS, no use of accessary muscles. Cardiovascular - RRR no m/r/g, GI - Normal bowel sounds, no distended, soft. Possible CVA tenderness, b/l. Extremeties - cyanosis or clubbing. left lower leg mild redness and pitting edema+. Hemo/lymphatic/immune no lymphadenopathy Neurological Alert and oriented x 3, strength: LLE - 3/5 and RLE 4/5 (chronic). Chronic left upper eyelid lower than right one. Psychiatry flat affect OBJ DATA Labs CBC & Chem 7: 04/23/20 05:05 04/23/20 05:05 Labs: Abnormal Lab Results 04/23/20 04/23/20 04/21/20 05:05 05:05 04:57 WBC Lymph % (Auto) 14.9 L [place] % (Auto) 13.4 H Eos % (Auto) 7.4 H Lymph # (Auto) [place] # (Auto) 1.41 H Eos # (Auto) 0.78 H Absolute Neutrophils PT Anion Gap Creatinine 0.5 L 0.5 L Phosphorus C-Reactive Protein NT-Pro-B Natriuret Pep Total Protein 5.4 L 5.7 L Albumin 2.8 L Urine Appearance Urine WBC Urine Bacteria 04/21/20 04/20/20 04/20/20 04:57 21:58 21:58 WBC 11.5 H Lymph % (Auto) 11.6 L [place] % (Auto) 14.6 H Eos % (Auto) Lymph # (Auto) 1.33 L [place] # (Auto) 1.68 H Eos # (Auto) Absolute Neutrophils 8.16 H PT 14.9 H Anion Gap Creatinine Phosphorus 2.3 L C-Reactive Protein NT-Pro-B Natriuret Pep 721.7 H Total Protein Albumin Urine Appearance Urine WBC Urine Bacteria 04/20/20 04/20/20 04/20/20 12:39 12:39 12:39 WBC 13.6 H Lymph % (Auto) 9.9 L [place] % (Auto) Eos % (Auto) Lymph # (Auto) 1.35 L [place] # (Auto) 1.52 H Eos # (Auto) Absolute Neutrophils 10.33 H PT Anion Gap 17.0 H Creatinine Phosphorus C-Reactive Protein 2.70 H NT-Pro-B Natriuret Pep 665.3 H Total Protein Albumin Urine Appearance Urine WBC Urine Bacteria 04/20/20 11:49 WBC Lymph % (Auto) [place] % (Auto) Eos % (Auto) Lymph # (Auto) [place] # (Auto) Eos # (Auto) Absolute Neutrophils PT Anion Gap Creatinine Phosphorus C-Reactive Protein NT-Pro-B Natriuret Pep Total Protein Albumin Urine Appearance Turbid A Urine WBC 116 H Urine Bacteria Few A Meds: Medications Acetaminophen (Tylenol) 650 mg PO Q6HP PRN; Protocol PRN Reason: Per Pain Protocol/Fever > 101 Hydrocodone Bitart/Acetaminophen ([place] 5/325mg) 1 tab PO Q4HP PRN; Protocol PRN Reason: Per Pain Protocol Albuterol/Ipratropium (Duoneb) 3 ml NEB Q6HRT PRN PRN Reason: Shortness Of Breath Baclofen (Lioresal) 10 mg PO TID [facility] Last Admin: 04/23/20 08:29 Dose: 10 mg Documented by: Docusate Sodium (Colace) 100 mg PO BID [facility] Last Admin: 04/23/20 08:29 Dose: 100 mg Documented by: Enoxaparin Sodium (Lovenox) 40 mg SQ DAILY [facility] Last Admin: 04/23/20 08:28 Dose: 40 mg Documented by: Levofloxacin (Levaquin) 250 mg in 50 mls @ 50 mls/hr IV DAILY [facility] Last Admin: 04/23/20 09:04 Dose: 50 mls/hr Documented by: Lactulose (Cephulac) 10 gm PO DAILYP PRN PRN Reason: Constipation Latanoprost (Xalatan Ophth Drops) 1 gtt OU HS [facility] Last Admin: 04/22/20 21:05 Dose: 2 drop Documented by: Metoprolol Tartrate (Lopressor) 50 mg PO BID [facility] Last Admin: 04/23/20 08:29 Dose: 50 mg Documented by: Nifedipine (Procardia Xl) 30 mg PO HS [facility] Last Admin: 04/22/20 21:04 Dose: Not Given Documented by: Non-Formulary Medication (Methylphenidate Hcl) 20 mg PO DAILY [facility] Last Admin: 04/23/20 08:29 Dose: Not Given Documented by: Ondansetron HCl (Zofran) 4 mg IV Q6HP PRN; Protocol PRN Reason: Nausea And Vomiting Oxybutynin Chloride (Ditropan) 5 mg PO BID [facility] Last Admin: 04/23/20 08:29 Dose: 5 mg Documented by: Sodium Chloride (Saline Flush) 10 ml IV Q8 [facility] Last Admin: 04/23/20 05:55 Dose: 10 ml Documented by: A/P Narrative A/P Narrative: 1. Early sepsis 2nd to UTI Blood culture no growth so far Continue IV fluid 2. UTI/pyelonephritis Urine culture - Gram-negative bacilli, sensitivity pending patient had a urinary incontinence Self cath at home Levaquin 500 mg daily (allergic to penicillin -swelling) Patient was treated with iv Levaquin for UTI during last admission in March 2020 and she was discharged on Cipro p.o. Urine culture during that time showed Escherichia coli, sensitive to cipro and l evaquin, and resistant to cefuroxime and cefoxitin 3. Generalized weakness/deconditioning/self care deficiency 4. Self care deficit PT/OT/CM 5. Multiple sclerosis Patient home medication include methylphenidate 20mg daily. However, patient states that she has not been taking any MS medication for 10 to 12 years. As per patient, left leg and left arm weaker than the right leg and arm for 10 years. No new changes in strength. MRI brain, C-spine and thoracic spine with contrast in 03/28 -no acute changes Continue methylphenidate 20mg daily 6. Chronic low back pain Continue baclofen 7. Hx of iron deficiency anemia Repeat CBC in morning 8. HTN continue metoprolol 50mg bid, nifedipine 30mg daily 9. Mechanical fall CT of head PT/OT 10. DVT prophylaxis: Lovenox 11. 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
--- NOTE | 2020-04-23 14:18 | Internal Med Progress Note ---
SUBJECTIVE Subjective Patient information: Note initiated : 04/23/20 at 2:12 pm Service Date, if different from initiated Date: [] Patient: Inna Selby 79 y/o F admitted on 04/22/20 for Flank Pain, Odorous Urine, Weakness. Chief Complaint: [] Interval history: Ms. Selby is a 79 year old F with a past medical history of multiple sclerosis and high blood pressure who presented to the ER due to generalized weakness and fall. As per patient, patient has been having generalized weakness for days so that she fell at home today. She denies loss of consciousness or injury to her head. Patient was admitted to the hospital on 03/16/20 for generalized weakness and discharged to SNF on 03/18. In the ER, she was diagnosed with UTI/pyelonephritis and self-care deficit and admitted to the hospital. When I saw the patient in the ER, other than symptoms mentioned above, she denied headache, dizziness, chest pain, shortness of breath, fever or chills. 04/21 Pt feels much better today. Denies nausea, vomiting, fever or chills. Vital signs are stable and acceptable Blood culture no growth so far Urine culture showed GNB, sensitivity pending 04/22 Patient feels a significantly improved. Denies fever, chills, or nausea vomiting. Temperature greater than 99 at the times White blood cells went down to 10.7 Urine culture showed gram-negative bacilli. Sensitivity pending No overnight events 04/23 When I saw her this morning, she was still sleeping. She told me that she slept well and feels much better. No complaints. No overnight event Will discharge her to SNF, tomorrow? 04/24 Constitutional Vitals: Vital Signs Temp Pulse Resp BP Pulse Ox 97.8 F 78 19 131/58 93 04/23/20 04:01 04/23/20 04:30 04/23/20 04:30 04/23/20 04:01 04/23/20 04:30 Period Temp Pulse Resp BP Sys/Ellis Pulse Ox Last 24 Hr 97.8 F-98.6 F 65-82 15-23 97-131/58-76 93-100 Intake and Output 04/23/20 04/23/20 04/23/20 05:59 13:59 21:59 Intake Total 450 Output Total 440 Balance 10 Intake & Output: Intake & Output 04/23/20 04/23/20 04/23/20 05:59 13:59 21:59 Intake Total 450 Output Total 440 Balance 10 Intake: IV 50 Oral 400 Output: Urine Catheter Amount 440 Other: Urine Appearance Clear Urine Color Straw Exam: General: Alert, Awake, No acute Distress, frail in appearance Eyes/N/T: EOMI, Head/Neck: neck supple, CV: RRR, No murmurs, Pulm: Diminished b/l, no wheezin Abd: soft, nontender, +BS x4 Ext: no clubbing/cyanosis, mild b/l LE edema Neuro: Alert, no focal deficits, moves all extremities, Skin: warm/dry OBJ DATA Labs CBC & Chem 7: 04/23/20 05:05 04/23/20 05:05 Labs: Abnormal Lab Results 04/23/20 04/23/20 04/21/20 05:05 05:05 04:57 WBC Lymph % (Auto) 14.9 L [place] % (Auto) 13.4 H Eos % (Auto) 7.4 H Lymph # (Auto) [place] # (Auto) 1.41 H Eos # (Auto) 0.78 H Absolute Neutrophils PT Creatinine 0.5 L 0.5 L Phosphorus NT-Pro-B Natriuret Pep Total Protein 5.4 L 5.7 L Albumin 2.8 L 04/21/20 04/20/20 04/20/20 04:57 21:58 21:58 WBC 11.5 H Lymph % (Auto) 11.6 L [place] % (Auto) 14.6 H Eos % (Auto) Lymph # (Auto) 1.33 L [place] # (Auto) 1.68 H Eos # (Auto) Absolute Neutrophils 8.16 H PT 14.9 H Creatinine Phosphorus 2.3 L NT-Pro-B Natriuret Pep 721.7 H Total Protein Albumin 04/20/20 12:39 WBC Lymph % (Auto) [place] % (Auto) Eos % (Auto) Lymph # (Auto) [place] # (Auto) Eos # (Auto) Absolute Neutrophils PT Creatinine Phosphorus NT-Pro-B Natriuret Pep 665.3 H Total Protein Albumin Meds: Medications Acetaminophen (Tylenol) 650 mg PO Q6HP PRN; Protocol PRN Reason: Per Pain Protocol/Fever > 101 Hydrocodone Bitart/Acetaminophen ([place] 5/325mg) 1 tab PO Q4HP PRN; Protocol PRN Reason: Per Pain Protocol Albuterol/Ipratropium (Duoneb) 3 ml NEB Q6HRT PRN PRN Reason: Shortness Of Breath Baclofen (Lioresal) 10 mg PO TID [facility] Last Admin: 04/23/20 08:29 Dose: 10 mg Documented by: Docusate Sodium (Colace) 100 mg PO BID [facility] Last Admin: 04/23/20 08:29 Dose: 100 mg Documented by: Enoxaparin Sodium (Lovenox) 40 mg SQ DAILY [facility] Last Admin: 04/23/20 08:28 Dose: 40 mg Documented by: Levofloxacin (Levaquin) 250 mg in 50 mls @ 50 mls/hr IV DAILY [facility] Last Admin: 04/23/20 09:04 Dose: 50 mls/hr Documented by: Lactulose (Cephulac) 10 gm PO DAILYP PRN PRN Reason: Constipation Latanoprost (Xalatan Ophth Drops) 1 gtt OU HS [facility] Last Admin: 04/22/20 21:05 Dose: 2 drop Documented by: Metoprolol Tartrate (Lopressor) 50 mg PO BID [facility] Last Admin: 04/23/20 08:29 Dose: 50 mg Documented by: Nifedipine (Procardia Xl) 30 mg PO HS [facility] Last Admin: 04/22/20 21:04 Dose: Not Given Documented by: Non-Formulary Medication (Methylphenidate Hcl) 20 mg PO DAILY [facility] Last Admin: 04/23/20 08:29 Dose: Not Given Documented by: Ondansetron HCl (Zofran) 4 mg IV Q6HP PRN; Protocol PRN Reason: Nausea And Vomiting Oxybutynin Chloride (Ditropan) 5 mg PO BID [facility] Last Admin: 04/23/20 08:29 Dose: 5 mg Documented by: Sodium Chloride (Saline Flush) 10 ml IV Q8 [facility] Last Admin: 04/23/20 05:55 Dose: 10 ml Documented by: A/P Narrative A/P Narrative: A: *Early sepsis: 2/2 UTI -Blood culture no growth so far *UTI/pyelonephritis: -Gram-negative bacilli urine *Generalized weakness/deconditioning/self care deficiency: *Self care deficit *Multiple sclerosis: Follows with Dr. Paiz -home medication include methylphenidate 20mg daily. However, patient states that she has not been taking any MS medication for 10 to 12 years. -As per patient, left leg and left arm weaker than the right leg and arm for 10 years. No new changes in strength. 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
--- NOTE | 2020-04-23 14:39 | Discharge Summary ---
Discharge Provider Provider Patient information: Note initiated : 04/23/20 at 2:38 pm Service Date, if different from initiated Date: [] Patient: Inna Selby 79 y/o F admitted on 04/22/20 for Flank Pain, Odorous Urine, Weakness. Chief Complaint: [] Date of admission: 04/22/20 14:35 Discharge date: 04/24/20 Primary care physician: Ivan Yancey DO Consults: 04/20/20 16:22 Consult to Physician [CONS] Stat Comment: Consulting Provider: Phyllis Lee Reason For Exam: Physician to Consult Discharge Meds Discharge Medications Home Medications latanoprost 1 gtt OPHTHALMIC (EYE) HS 03/07/17 [History Confirmed 04/21/20 Last Taken 04/19/20 20:00] baclofen 10 mg tablet 10 mg PO TID #270 tab 02/15/19 [Rx Confirmed 04/21/20 Last Taken 04/20/20 10:00] oxybutynin chloride 5 mg tablet 5 mg PO BID #180 tab 09/13/19 [Rx Confirmed 04/21/20 Last Taken 04/20/20 10:00] metoprolol tartrate 50 mg tablet 50 mg PO BID #180 tab 12/27/19 [Rx Confirmed 04/21/20 Last Taken 04/20/20 10:00] methylphenidate HCl 20 mg PO DAILY 03/16/20 [History Confirmed 04/21/20 Last Taken 04/20/20 10:00] levofloxacin 500 mg PO Q24H #5 tab 04/23/20 [Rx Last Taken Unknown] COURSE Hospital Course Hospital course: Ms. Selby is a 79 year old F with a past medical history of multiple sclerosis and high blood pressure who presented to the ER due to generalized weakness and fall. As per patient, patient has been having generalized weakness for days so that she fell at home today. She denies loss of consciousness or injury to her head. Patient was admitted to the hospital on 03/16/20 for generalized weakness and discharged to SNF on 03/18. In the ER, she was diagnosed with UTI/pyelonephritis and self-care deficit and admitted to the hospital. When I saw the patient in the ER, other than symptoms mentioned above, she denied headache, dizziness, chest pain, shortness of breath, fever or chills. 04/21 Pt feels much better today. Denies nausea, vomiting, fever or chills. Vital signs are stable and acceptable Blood culture no growth so far Urine culture showed GNB, sensitivity pending 04/22 Patient feels a significantly improved. Denies fever, chills, or nausea vomiting. Temperature greater than 99 at the times White blood cells went down to 10.7 Urine culture showed gram-negative bacilli. Sensitivity pending No overnight events 04/23 When I saw her this morning, she was still sleeping. She told me that she slept well and feels much better. No complaints. No overnight event Will discharge her to SNF, tomorrow? 04/24 Doing well. No new complaints. Stable for discharge. *Patient high risk for readmission given age and significant comorbidities A: *Early sepsis: 07/11 UTI -Blood culture no growth so far *UTI/pyelonephritis: -Gram-negative bacilli urine *Generalized weakness/deconditioning/self care deficiency: *Self care deficit *Multiple sclerosis: Follows with Dr. Paiz -home medication include methylphenidate 20mg daily. However, patient states that she has not been taking any MS medication for 10 to 12 years. -As per patient, left leg and left arm weaker than the right leg and arm for 10 years. No new changes in strength. *Raynaud's: *Chronic bowel bladder incontinence: *Chronic low back pain: Continue baclofen *Hx of iron deficiency anemia *HTN: continue metoprolol 50mg bid, nifedipine 30mg daily *Mechanical fall: CT of head no acute Discharge diagnosis: UTI complicated, sepsis, generalized weakness deconditioning debility Secondary discharge diagnosis: Multiple sclerosis weight and Raynaud's chronic bowel and bladder incontinence chronic low back pain iron deficiency anemia hypertension Time Spent with Patient Time attestation: Total time spent providing and/or coordinating discharge services: EXAM Constitutional Vitals: Temp Pulse Resp BP Pulse Ox 97.8 F 78 19 131/58 93 04/23/20 04:01 04/23/20 04:30 04/23/20 04:30 04/23/20 04:01 04/23/20 04:30 Discharge Data Data Completed and Pending Labs on day of discharge: Labs from last 24 hours 04/23/20 04/23/20 05:05 05:05 WBC 10.5 RBC 4.59 Hgb 12.8 Hct 39.6 MCV 86.3 MCH 27.9 MCHC 32.3 RDW 14.1 Plt Count 365 MPV 9.9 Neut % (Auto) 63.6 Lymph % (Auto) 14.9 L [place] % (Auto) 13.4 H Eos % (Auto) 7.4 H Baso % (Auto) 0.7 Lymph # (Auto) 1.57 [place] # (Auto) 1.41 H Eos # (Auto) 0.78 H Baso # (Auto) 0.07 Absolute Neutrophils 6.68 Sodium 140 Potassium 3.8 Chloride 106 Carbon Dioxide 25 Anion Gap 9.0 BUN 13 Creatinine 0.5 L GFR Calculation 92 Glucose 97 Calcium 8.9 Total Bilirubin 0.3 AST 11 ALT 6 Alkaline Phosphatase 71 Total Protein 5.4 L Albumin 2.8 L Globulin 2.6 Albumin/Globulin Ratio 1.1 Preliminary micro results at discharge 04/20/20 22:06 Blood Culture - Preliminary Blood 04/20/20 21:58 Blood Culture - Preliminary Blood 04/20/20 11:49 Urine Culture - Preliminary Urine - Catheterized Gram negative bacillus Discharge Plan Patient/Caregiver Discharge Instructions Activity: increase activity as tolerated Diet: Regular Diet Activity Restrictions/Additional Instructions: Monitor blood pressure twice daily and bring log to PCP. Prescriptions: New levofloxacin 500 mg tablet 500 mg PO Q24H Qty: 5 RF: 0 Continued baclofen 10 mg tablet 10 mg PO TID Qty: 270 RF: 1 oxybutynin chloride 5 mg tablet 5 mg PO BID Qty: 180 RF: 0 metoprolol tartrate 50 mg tablet 50 mg PO BID Qty: 180 RF: 1 latanoprost 1 GTT bottle 1 gtt ophthalmic (eye) HS RF: 0 methylphenidate HCl 20 mg capsule,ER biphasic 50-50 20 mg PO DAILY RF: 0 Discontinued nifedipine 30 mg tablet extended release 30 mg PO DAILY Qty: 30 RF: 0 ciprofloxacin HCl [Cipro] 500 mg tablet 500 mg PO BID Qty: 10 RF: 0 Follow Up Plan Follow up with: Ivan Yancey DO [Primary Care Provider] - Patient Disposition: Xfer SNF Prognosis: Undetermined Rehab Potential: Fair I certify that the patient requires SNF services: Yes Overall status at discharge: patient is progressing back to baseline Discharge Orders: Discharge Order (Routine); Ordered 04/24/20 Ordered By: G[facility] VTE Deep Vein Thrombosis/Pulmonary Embolism Present on Admission: No
[2020-04-23] MEDS: LATANOPROST OPHTH DROPS 2.5ML BOTTLE OU SCH (20:59)
[2020-04-23] MEDS: NIFEdipine 30 MG TAB.XL.24H PO SCH (21:00)
[2020-04-24] MEDS: 0.9 % SODIUM CHLORIDE 10 ML SYRINGE IV SCH (06:15)
[2020-04-24] MEDS: OXYBUTYNIN CHLORIDE 5 MG TABLET PO SCH (08:48)
[2020-04-24] MEDS: METOPROLOL TARTRATE 50 MG TABLET PO SCH (08:48)
[2020-04-24] MEDS: BACLOFEN 10 MG TABLET PO SCH (08:49)
[2020-04-24] MEDS: LEVOFLOXACIN 250 MG/50 ML BAG IV SCH ×2 (08:49→11:44)
[2020-04-24] MEDS: DOCUSATE SODIUM 100 MG CAPSULE PO SCH (08:49)
[2020-04-24] MEDS ORDERED: ENOXAPARIN 40 MG/0.4 ML SYRINGE SQ SCH (09:00)
[2020-04-24] MEDS ORDERED: LEVOFLOXACIN 250 MG TABLET PO ONE (09:45)
[2020-04-24] MEDS ORDERED: ENOXAPARIN 30 MG/0.3 ML SYRINGE SQ SCH (10:00)
--- NOTE | 2020-04-25 09:41 | Internal Med History&Physical ---
HPI History of Present Illness Patient information: Note initiated : 04/20/20 at 6:33 pm Service Date, if different from initiated Date: [] Patient: Inna Selby a 79 y/o F admitted on 03/16/20 for "MS Flare-Up". Chief Complaint: [] History of present illness: Ms. Selby is a 79 year old F with a past medical history of multiple sclerosis and high blood pressure who presented to the ER due to generalized weakness and fall. As per patient, patient has been having generalized weakness for days so that she fell at home today. She denies loss of consciousness or injury to her head. Patient was admitted to the hospital on 03/16/20 for generalized weakness and discharged to SNF on 03/18. In the ER, she was diagnosed with UTI/pyelonephritis and self-care deficit and admitted to the hospital. When I saw the patient in the ER, other than symptoms mentioned above, she denied headache, dizziness, chest pain, shortness of breath, fever or chills. Review of Systems Review of systems: Positive for generalized weakness. All other systems were reviewed and negative. 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) Bladder incontinence (Chronic) Spasticity (Chronic) Fatigue (Chronic) Weakness (Acute) Raynaud's phenomenon without gangrene (Chronic) Colitis (Acute) Anemia (Acute) Anemia (Acute) Leukocytosis (leucocytosis) (Acute) Heart murmur (Acute) Right carotid bruit (Acute) Incontinence (Acute) Iron deficiency anemia (Chronic) Multiple sclerosis (Chronic) Medical History Anemia (Acute) Anemia (Acute) Bladder incontinence (Chronic) Clostridium difficile colitis (Resolved) Colitis (Acute) Complicated UTI (urinary tract infection) (Resolved) Cystitis (Resolved) Delirium (Resolved) Exacerbation of multiple sclerosis (Acute) Fall (Inactive) Fatigue (Chronic) Glaucoma (Acute) History of recurrent UTI (urinary tract infection) (Chronic) History of sepsis (Chronic) multiple - urosepsis (?) Hypoxia (Resolved) Influenza A (Inactive) Laceration (Resolved) Low back strain (Inactive) Medicare annual wellness visit, initial (Inactive) Multiple sclerosis (Chronic) Multiple sclerosis exacerbation (Inactive) Perineal irritation in female (Inactive) Pneumonitis (Resolved) Rib fractures (Resolved) Sepsis (Resolved) Severe sepsis (Resolved) Spasticity (Chronic) Systemic inflammatory response syndrome (SIRS) due to infectious process without acute organ dysfunction (Resolved) 1. acute febrile illness/systemic inflammatory response syndrome-unclear etiology. esolved leukocytosis on antibiotics 18.4-> 8.5. Pancultures negative. Negative chest and abdominal imaging. Discussed case with neurology in light of abnormal CSF study. Unlikely an acute infectious process. HSV DNA pending but no signs of MRI abnormalities of temporal lobes. 2. recurrent headaches. Unlikely migraine. Much improved. At baseline 3. Multiple sclerosis- with severe fatigue and weakness. Ongoing rehabilitation Urinary tract infection (Resolved) Urinary tract infection (Inactive) Urogenital candidiasis (Inactive) UTI (urinary tract infection) (Resolved) Vaginitis (Resolved) Yeast dermatitis (Resolved) Surgical History History of colonoscopy (Chronic 04/11/17) History of esophagogastroduodenoscopy (EGD) (Chronic 04/02/17) Social History smoking status: Former smoker alcohol intake frequency: holiday/special occasion only substance use type: does not use MEDS/ALLERGIES Home Medications and Allergies Home Medications Medication Instructions Recorded Confirmed Type latanoprost 1 gtt OPHTHALMIC (EYE) HS 03/07/17 03/16/20 History baclofen 10 mg tablet 10 mg PO TID #270 tab 02/15/19 03/16/20 Rx oxybutynin chloride 5 mg tablet 5 mg PO BID #180 tab 09/13/19 03/16/20 Rx metoprolol tartrate 50 mg tablet 50 mg PO BID #180 tab 12/27/19 03/16/20 Rx nifedipine 30 mg tablet,extended 30 mg PO DAILY #30 tab 12/27/19 03/16/20 Rx release Combigan 1 drp OPHTHALMIC (EYE) BID 03/16/20 03/16/20 History methylphenidate HCl 20 mg PO DAILY 03/16/20 03/16/20 History prednisolone acetate 1 drp OPHTHALMIC (EYE) BID 03/16/20 03/16/20 History ciprofloxacin HCl [Cipro] 500 mg PO BID #10 tab 03/18/20 Rx Allergies Allergy/AdvReac Type Severity Reaction Status Date / Time Penicillins Allergy Intermediate Swelling Verified 03/16/20 17:01 EXAM Constitutional Vitals: Temp Pulse Resp BP Pulse Ox 98.4 F 64 16 103/60 95 03/18/20 09:34 03/18/20 09:34 03/18/20 09:34 03/18/20 09:34 03/18/20 09:34 Additional findings Additional findings: General - No acute distress, thin Eyes - PERRLA, EOM intact. ENT no rhinorrhea, no noticeable or palpable swelling, no redness or rash around throat or on face Neck supple, no JVD, no thyromegaly Respiratory: Lungs - diminshed BS, no use of accessary muscles. Cardiovascular - RRR no m/r/g, GI - Normal bowel sounds, no distended, soft. Possible CVA tenderness, b/l. Extremeties - cyanosis or clubbing. left lower leg mild redness and pitting edema+. Hemo/lymphatic/immune no lymphadenopathy Neurological Alert and oriented x 3, strength: LLE - 3/5 and RLE 4/5. Chronic left upper eyelid lower than right one. Psychiatry flat affect A/P Narrative A/P Narrative: 1. Early sepsis 2nd to UTI Blood culture 1 L normal saline was given in the ER Continue IV fluid 2. UTI/pyelonephritis Urine culture Patient had a urinary intention Self cath at home Levaquin 500 mg daily (allergic to penicillin -swelling) Patient was treated with iv Levaquin for UTI during last admission in March 2020 and she was discharged on Cipro p.o. Urine culture during that time showed Escherichia coli, sensitive to cipro and levaquin, and resistant to cefuroxime and cefoxitin 3. Generalized weakness/deconditioning/self care deficiency 4. Self care deficit PT/OT/CM 5. Multiple sclerosis Patient home medication include methylphenidate 20mg daily. However, patient states that she has not been taking any MS medication for 10 to 12 years. As per patient, left leg and left arm weaker than the right leg and arm for 10 y ears. No new changes in strength. MRI brain, C-spine and thoracic spine with contrast in 03/28 -no acute changes Continue methylphenidate 20mg daily 6. Chronic low back pain Continue baclofen 7. Hx of iron deficiency anemia Repeat CBC in morning 8. HTN continue metoprolol 50mg bid, nifedipine 30mg daily 9. Mechanical fall CT of head PT/OT 10. 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
== END 2020-04-24 13:15 | DRG 872 ==
LOC: ICU 11:44 → ED 11:44 → ICU 19:31
PROVIDERS: ADMIT Internal Medicine; ATTEND Internal Medicine